=== PATIENT | male | born 1955 | race Caucasian/White ===

== ENCOUNTER 2020-06-28 08:49 | Outpatient (REF) | payer SELFPAY | END 2020-06-28 08:50 | disposition home or self-care (01) | LOC: HO.LAB 08:49 | PROVIDERS: Visit Provider Nurse Practitioner Family | DX: R31.9 Hematuria, unspecified (principal); R30.0 Dysuria | CPT/HCPCS: 87086; 87088 ==

== ENCOUNTER 2020-08-30 08:38 | Outpatient (RCR) | payer OTHER, SELFPAY ==
--- NOTE | ~2020-08-30 | XR_ITS ---
EXAMINATION: XR FOOT, RIGHT CLINICAL INFORMATION: Right foot wound. COMPARISON: None. TECHNIQUE: AP, lateral, and oblique views of the right foot. FINDINGS: There is loss of MTP and PIP joint space 1st digit. There is likely osteotomy of the distal 1st metatarsal. No visible acute fracture, dislocation or periosteal thickening seen. There is amputation of the 4th digit beyond the metatarsal. No soft tissue gas seen. There is dorsal tarsometatarsal significant spurring. There is a [id number] calcaneal heel and retrocalcaneal enthesophytes. The ankle mortise and subtalar joints are normal. XR/XR foot RT 2V IMPRESSION: Moderate dorsal tarsometatarsal spurring. Moderate calcaneal heel and retrocalcaneal enthesophytes. No bony erosive changes or soft tissue ulceration seen. Postoperative changes distal 1st metatarsal and degenerative changes MTP joint and PIP joint 1st digit with plantar flexion.
== END 2020-11-03 11:26 | disposition home or self-care (01) ==
LOC: HO.WCC 08:38
PROVIDERS: PCP Nurse Practitioner Family; Visit Provider Physician Assistant
DX: E11.621 Type 2 diabetes mellitus with foot ulcer (principal); E11.65 Type 2 diabetes mellitus with hyperglycemia; L97.412 Non-pressure chronic ulcer of right heel and midfoot with fat layer exposed; L84 Corns and callosities; Z79.4 Long term (current) use of insulin; Z79.82 Long term (current) use of aspirin; Z89.421 Acquired absence of other right toe(s)
CPT/HCPCS: 11042; 29445; 73620; 87071; 87077; 87186; 87205; 99212

== ENCOUNTER 2020-09-09 09:58 | Outpatient (REF) | payer OTHER, SELFPAY ==
[2020-09-09 11:29] LABS: Alanine Aminotransferase 43 U/L (0-40); Albumin Level 4.3 g/dL (3.5-5.0); Alkaline Phosphatase 88 U/L (39-117); Anion Gap 15 (12-20); Aspartate Amino Transferase 31 U/L (5-37); Bilirubin Total 1.1 mg/dL (0.0-1.0); Blood Urea Nitrogen 17 mg/dL (9-16); Calcium 8.9 mg/dL (8.4-10.2); Carbon Dioxide 27 mmol/L (22-29); Chloride 101 mmol/L (96-108); Cholesterol 149 mg/dL; Estimated Glomerular Filt Rate > 60; Glucose Fasting 216 mg/dL (60-99); HDL Cholesterol 36 mg/dL; LDL Cholesterol Calculated 69 mg/dl; Sodium 139 mmol/L (135-145); Total Protein 7.4 g/dL (6.5-8.0); Triglycerides 224 mg/dL
[2020-09-09 11:45] LABS: Estimated Average Glucose 272 mg/dL; Hemoglobin A1c % 11.1 %
[2020-09-09 11:53] LABS: Prostate Specific Antigen Scr 1.63 ng/mL (<0.05-4.0); TSH reflex Free T4 1.78 uIU/mL (0.32-4.0)
== END 2020-09-09 09:59 | disposition home or self-care (01) ==
LOC: HO.HMGCLDS 09:58
PROVIDERS: PCP Nurse Practitioner Family; Visit Provider Nurse Practitioner Family
DX: N40.0 Benign prostatic hyperplasia without lower urinary tract symptoms (principal); E11.9 Type 2 diabetes mellitus without complications
CPT/HCPCS: 36415; 80053; 80061; 83036; 84153; 84443

== ENCOUNTER → 2020-11-03 12:53 | Outpatient (BNVA) | payer MEDICARE, SELFPAY | PROVIDERS: PCP Nurse Practitioner Family; Visit Provider Internal Medicine Endocrinology, Diabetes & Metabolism | DX: E11.65 Type 2 diabetes mellitus with hyperglycemia (principal); E11.621 Type 2 diabetes mellitus with foot ulcer; E11.40 Type 2 diabetes mellitus with diabetic neuropathy, unspecified; E11.21 Type 2 diabetes mellitus with diabetic nephropathy; E78.5 Hyperlipidemia, unspecified; I10 Essential (primary) hypertension; E66.01 Morbid (severe) obesity due to excess calories; Z88.1 Allergy status to other antibiotic agents; Z91.018 Allergy to other foods; Z89.421 Acquired absence of other right toe(s); Z79.4 Long term (current) use of insulin; Z79.899 Other long term (current) drug therapy | CPT/HCPCS: 82947; 99202 ==

== ENCOUNTER → 2020-11-29 08:47 | Outpatient (BNVA) | payer MEDICARE, SELFPAY | PROVIDERS: Visit Provider Dietitian, Registered | DX: E11.65 Type 2 diabetes mellitus with hyperglycemia (principal); E66.9 Obesity, unspecified; Z68.39 Body mass index [BMI] 39.0-39.9, adult; Z71.3 Dietary counseling and surveillance | CPT/HCPCS: 97802 ==

== ENCOUNTER → 2020-12-19 12:52 | Outpatient (BNVA) | payer MEDICARE, SELFPAY | PROVIDERS: Visit Provider Physician Assistant | DX: Z12.11 Encounter for screening for malignant neoplasm of colon (principal) | CPT/HCPCS: 99202 ==

== ENCOUNTER → 2021-01-04 07:24 | Outpatient (BNVA) | payer MEDICARE, SELFPAY | PROVIDERS: PCP Nurse Practitioner Family; Visit Provider Nurse Practitioner Gerontology | DX: E11.65 Type 2 diabetes mellitus with hyperglycemia (principal); E11.21 Type 2 diabetes mellitus with diabetic nephropathy; E11.42 Type 2 diabetes mellitus with diabetic polyneuropathy; E11.610 Type 2 diabetes mellitus with diabetic neuropathic arthropathy; E66.01 Morbid (severe) obesity due to excess calories; E78.5 Hyperlipidemia, unspecified; I10 Essential (primary) hypertension; Z68.39 Body mass index [BMI] 39.0-39.9, adult; Z79.4 Long term (current) use of insulin | CPT/HCPCS: 82947; 99212 ==

== ENCOUNTER → 2021-01-18 07:50 | Outpatient (BNVA) | payer MEDICARE, SELFPAY | PROVIDERS: PCP Nurse Practitioner Family; Visit Provider Internal Medicine Endocrinology, Diabetes & Metabolism | DX: E11.65 Type 2 diabetes mellitus with hyperglycemia (principal); E11.21 Type 2 diabetes mellitus with diabetic nephropathy; E11.42 Type 2 diabetes mellitus with diabetic polyneuropathy; E11.610 Type 2 diabetes mellitus with diabetic neuropathic arthropathy; E78.5 Hyperlipidemia, unspecified; E66.01 Morbid (severe) obesity due to excess calories; I10 Essential (primary) hypertension; Z79.4 Long term (current) use of insulin | CPT/HCPCS: 82947; 99212 ==

== ENCOUNTER 2021-01-25 08:43 | Day surgery (SDC) | payer MEDICARE, SELFPAY ==
[2021-01-17 15:03] VITALS: BMI 40.1
--- NOTE | 2021-01-17 15:38 | P.CONAN_ITS ---
Documented by User: Paula Cristobal 01/24/21 11:03 HPI - Anesthesia Eval Consult details Narrative: 65yo M for Colonoscopy PMFSH Active Problems Active Problems: All Active Problems (Updated 01/17/21 @ 15:09 by Bita Raman) Diabetes (Acute) Essential hypertension (Acute) Hematuria (Acute) Dysuria (Acute) Dyslipidemia (Acute) Uncontrolled diabetes mellitus (Acute) Screening for colon cancer (Acute) HTN (hypertension) (Acute) Type 2 diabetes mellitus with hyperglycemia (Acute) Encounter for screening colonoscopy (Acute) Obesity due to excess calories (Acute) Tinea pedis (Acute) Charcot foot due to diabetes mellitus (Acute) Morbid obesity (Acute) Diabetic polyneuropathy associated with type 2 diabetes mellitus (Acute) 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 type 2 diabetes mellitus (Acute) 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) Past Medical History Medical History (Updated 01/17/21 @ 15:09 by Bita Raman) KAI (acute kidney injury) Aortic root dilatation Aortic valve calcification BPH (benign prostatic hyperplasia) Charcot foot due to diabetes mellitus COVID-19 vaccine series completed 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 type 2 diabetes mellitus Diabetic polyneuropathy associated with type 2 diabetes mellitus 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 Morbid obesity Obesity due to excess calories [place] (obstructive sleep apnea) Osteomyelitis RLS (restless legs syndrome) Tinea pedis Family History Family History Father Bladder cancer Mother Lung cancer Surgical History Surgical History (Updated 01/17/21 @ 14:48 by Bita Raman) Amputation toe H/O colonoscopy History of bunionectomy History of bunionectomy Social History Social History Are you a primary care companion to a significant other at home: No Do you presently have visiting nurse or other home services: No Alcohol intake: current Alcohol intake frequency: holidays/special occasions only Patient Tobacco Use Status: Never used Tobacco Use of substances other than those prescribed or required for medical reasons: No Have you been hit, kicked, punched, or otherwise hurt by someone within the past year? If so, by whom?: No Are you DNR?: No Advance Directives: No Advance Directives Information Provided: No Advance Directives on File: No Recently lost weight without trying: No Eating poorly because of decreased appetite: No Nutrition Risks: No Nutritional Risk Meds Allergies Allergy/AdvReac Type Severity Reaction Status Date / Time amoxicillin [AMOXICILLIN] Allergy Intermediate RASH Verified 01/17/21 14:43 almond Allergy Unknown face Verified 01/17/21 14:43 swelling Home Medications Medication Instructions Recorded Confirmed Last Taken Type aspirin 81 mg chewable tablet 81 mg PO DAILY 12/19/20 01/18/21 Unknown History (Children's Aspirin) cholecalciferol (vitamin D3) 10 10 mcg PO DAILY 12/19/20 01/18/21 Unknown History mcg (400 unit) capsule Exam Exam Date and Time: January 17, 2021 1538 Height,Weight and Vital Signs: Height 6 ft 2 in Weight 142 kg Pertinent Lab Results Pertinent Lab Results: Laboratory Tests 09/09/20 10:06 Sodium 139 Potassium 4.0 Chloride 101 Carbon Dioxide 27 BUN 17 H Creatinine 0.83 Narrative Narrative: ECHO 2017 LVEF 55-60% LA mildly dilated Mod calc of aortic valve with increased gradients but no significant aortic stenosis RV systolic pressure is normal No evidence of pericardial effusion Assessment and Plan Assessment Anesthesia Assessment: Chart Reviewed Documented by User: Guera Avalos 01/25/21 09:42 [facility] Past Medical History Medical History (Updated 01/17/21 @ 15:09 by Bita Raman) KAI (acute kidney injury) Aortic root dilatation Aortic valve calcification BPH (benign prostatic hyperplasia) Charcot foot due to diabetes mellitus COVID-19 vaccine series completed 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 type 2 diabetes mellitus Diabetic polyneuropathy associated with type 2 diabetes mellitus 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 Morbid obesity Obesity due to excess calories [place] (obstructive sleep apnea) Osteomyelitis RLS (restless legs syndrome) Tinea pedis Family History Family History Father Bladder cancer Mother Lung cancer Surgical History Surgical History (Updated 01/17/21 @ 14:48 by Bita Raman) Amputation toe H/O colonoscopy History of bunionectomy History of bunionectomy Social History Social History Are you a primary care companion to a significant other at home: No Do you presently have visiting nurse or other home services: No Alcohol intake: current Alcohol intake frequency: holidays/special occasions only Patient Tobacco Use Status: Never used Tobacco Use of substances other than those prescribed or required for medical reasons: No Have you been hit, kicked, punched, or otherwise hurt by someone within the past year? If so, by whom?: No Are you DNR?: No Advance Directives: No Advance Directives Information Provided: No Advance Directives on File: No Recently lost weight without trying: No Eating poorly because of decreased appetite: No Nutrition Risks: No Nutritional Risk Meds Allergies Allergy/AdvReac Type Severity Reaction Status Date / Time amoxicillin [AMOXICILLIN] Allergy Intermediate RASH Verified 01/17/21 14:43 almond Allergy Unknown face Verified 01/17/21 14:43 swelling Home Medications Medication Instructions Recorded Confirmed Last Taken Type aspirin 81 mg chewable tablet 81 mg PO DAILY 12/19/20 01/18/21 Unknown History (Children's Aspirin) cholecalciferol (vitamin D3) 10 10 mcg PO DAILY 12/19/20 01/18/21 Unknown History mcg (400 unit) capsule Exam Airway Mallampati Class: II TM Dist: >3cm Neck ROM: Full Heart: rrr Lungs: cta Assessment and Plan Assessment Anesthesia Assessment: Anesthesia Plan Discussed Final Anesthetic Review NPO: Yes ASA Class: III Final Preanesthetic Review: No Changes in Pt Med Stat, Meds/Allgs Chart Reviewed and Consent Obtained/Reviewed Patient Risk: Intermediate Procedure Risk: Intermediate Anesthetic Plan Anesthetic Plan: MAC: Disposition: Standard PACU
[2021-01-25 09:22] VITALS: BP 152/76; PULSE 65; RESP 17; TEMP 36.7; O2SAT 95; BMI 38.5
[2021-01-25 09:22] LABS: Glucose, Whole Blood 102 mg/dL (60-115)
--- NOTE | 2021-01-25 09:31 | MHC.SHP ---
Pre-Procedural Eval Section A Date of Service: 01/25/21 Section B Chief Complaint: screening Relevant Social History: None Present Medications: see Short Stay Collaborative assessment Medical History: Significant History (KAI (acute kidney injury) Aortic root dilatation Aortic valve calcification BPH (benign prostatic hyperplasia) Charcot foot due to diabetes mellitus COVID-19 vaccine series completed 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 type 2 diabetes mellitus Diabetic polyneuropathy associated with type 2 diabetes) History of Previous Operations: Relevant previous surgery/procedure and date(s) (Amputation toe H/O colonoscopy History of bunionectomy) Allergies: Allergies Allergy/AdvReac Type Severity Reaction Status Date / Time amoxicillin [AMOXICILLIN] Allergy Intermediate RASH Verified 01/17/21 14:43 almond Allergy Unknown face Verified 01/17/21 14:43 swelling Review of Systems Sugical H&P ROS: Negative: Constitution, Cardiovascular, Respiratory, Neurological, Psychiatric, Hem-Onc, Allergic/Immunologic, Gastrointestinal, Genitourinary, Musculoskeletal, Integumentary, Endocrine and Eyes/Ears/Nose/Throat Exam Surgical H&P Exam: Normal: HEENT, Normal: Heart, Normal: Lungs, Normal: Abdomen, Normal: Skin and Normal: Neurological and Significant Findings: Extremities (amputation left 4 th toe) Plan Diagnosis/Plan: Unchanged I have reviewed the history and physical and performed a pertinent physical examination on my patient. No changes have occurred unless specified.
[2021-01-25] MEDS: Lactated Ringers 1,000 ML 100 ML IVCONT (09:46)
--- NOTE | 2021-01-25 10:45 | PM.OP ---
Brief Operative Note Date of Service: 01/25/21 Pre-op diagnosis: colon screening Post-op diagnosis: same Procedure: see op note Surgeon: Sumaya Armendariz MD Anesthesia: MAC Was an Boxing Instructor used for this Procedure?: No Estimated blood loss (mL): 0 Condition: stable Disposition: PACU
--- NOTE | 2021-01-25 10:46 | P.OP_ITS ---
Operative Note Operative Note Date of Service: 01/25/21 Narrative: Operative Information Procedure Description: Colonoscopy COLONOSCOPY Instrument: Olympus variable stiffness adult scope 190L Colonoscopy Monitoring: Vital signs and clinical assessment, continuous EKG monitoring, Pulse oximetry, Carbon Dioxide monitoring and blood pressure monitoring were done throughout the procedure. Colon withdrawal time was 18 minutes. Procedure: The patient was placed in the left lateral decubitis position and pre-procedure medications were administered. After a digital rectal examination of the ano-rectum, the video colonoscope was inserted into the rectum and advanced through the colon to the cecum/TI. The colonoscope was slowly withdrawn in a retrograde panoramic fashion and the colon mucosa was carefully examined including a retroflexed view of the rectum. Findings and interventions are described below. Procedure Difficulty: Findings: few small scattered tics thru out colon Terminal Ileum-normal Cecum:normal Ascending Colon: x 4 sessile polyps 7-9 mm removed with forceps Transverse Colon - x 2 pedunculated polyps 12-14 mm removed with cold snare. x 3 clips applied to one defect and x 1 clip to the other Descending Colon: x 4 sessile polyps 8-10 mm removed with cold snare Sigmoid Colon: normal Rectum: Retroflexion with small internal hemorrhoids, grade I Anorectum - normal Colon preparation: [place] Bowel Preparation Scale Right colon; 2 Transverse colon: 2 Left colon; 2 (0 = Unprepared colon segment with mucosa not seen due to solid stool that cannot be cleared. 1 = Portion of mucosa of the colon segment seen, but other areas of the colon segment not well seen due to staining, residual stool and/or opaque liquid. 2 = Minor amount of residual staining, small fragments of stool and/or opaque liquid, but mucosa of colon segment seen well. 3 = Entire mucosa of colon segment seen well with no residual staining, small fragments of stool or opaque liquid) Impression and Post Procedure Diagnosis: polyps internal hemorrhoids diverticular disease Plan: High fiber diet leaflet Avoid straining at stool, epsom salts and sitz bath, anusol supps or cream Repeat Colonoscopy in 1 year or earlier if clinically indicated Above findings were reviewed with the patient and relevant handouts were provided if indicated.
[2021-01-25 10:48] VITALS: BP 104/64; PULSE 62; RESP 16; TEMP 36.1; O2SAT 93
[2021-01-25 11:02] VITALS: BP 123/75; PULSE 61; RESP 16; TEMP 36.1; O2SAT 96
== END 2021-01-25 11:30 ==
LOC: HO.SSS 08:43
PROVIDERS: PCP Nurse Practitioner Family; Visit Provider Internal Medicine Gastroenterology
PROC: 0DJD8ZZ Inspection of Lower Intestinal Tract, Via Natural or Artificial Opening Endoscopic (ICD-10-PCS; CPT 45378; principal; 2021-01-25 10:10)
DX: Z12.11 Encounter for screening for malignant neoplasm of colon (principal); D12.2 Benign neoplasm of ascending colon; D12.3 Benign neoplasm of transverse colon; D12.4 Benign neoplasm of descending colon; K57.30 Diverticulosis of large intestine without perforation or abscess without bleeding; K64.0 First degree hemorrhoids; E11.21 Type 2 diabetes mellitus with diabetic nephropathy; Z79.4 Long term (current) use of insulin; E11.42 Type 2 diabetes mellitus with diabetic polyneuropathy; A52.16 Charcot's arthropathy (tabetic); G47.33 Obstructive sleep apnea (adult) (pediatric); Z79.82 Long term (current) use of aspirin; Z79.899 Other long term (current) drug therapy; Z88.0 Allergy status to penicillin
CPT/HCPCS: 45385; 45380; 82947; 88305

== ENCOUNTER → 2021-02-27 12:45 | Outpatient (BNVA) | payer MEDICARE, SELFPAY | PROVIDERS: PCP Nurse Practitioner Family; Visit Provider Physician Assistant | DX: Z13.89 Encounter for screening for other disorder (principal) | CPT/HCPCS: Q3014 ==

== ENCOUNTER → 2022-09-10 12:41 | Outpatient (BNVA) | payer MEDICARE, OTHER, SELFPAY | PROVIDERS: PCP Nurse Practitioner Family; Visit Provider Urology | DX: Z12.5 Encounter for screening for malignant neoplasm of prostate (principal); R31.29 Other microscopic hematuria; R33.9 Retention of urine, unspecified | CPT/HCPCS: 51798; 99202 ==

== ENCOUNTER → 2022-09-13 09:00 | Outpatient (REF) | payer MEDICARE, OTHER, SELFPAY ==
--- NOTE | 2022-09-13 09:08 | CA_ITS ---
Transthoracic Echocardiogram Amended Patient (Last, First, Middle): Romel Pruitt A Gender: Male Date of : 1955 Age: 67 Procedure Date: 09/13/2022 Procedure Type: Transthoracic Echocardiogram Location: OP Height: 190.5 cm Weight: 138.35 kg BSA: 2.63 m2 Heart Rate: 62 bpm BP: 140 / 75 mmHg Card Hanger: DASHAWN Referring MD: Fredrick Howell [facility] Symptoms: R01.1 - Cardiac murmur, unspecified Study Quality: Fair ECG Rhythm: Sinus Conclusions: - 1. Normal LV systolic function with impaired relaxation filling pattern 2. Mild aortic stenosis, cannot rule out bicuspid aortic valve 3. Moderately dilated ascending aorta at 4.7 cm 4. No gross pericardial effusion Findings Left Ventricle The left ventricle was not well visualized. Normal left ventricular cavity size. The left ventricular systolic function is normal. The visually estimated ejection fraction is between 60-65%. There is no evidence of regional wall motion abnormalities. Spectral Doppler is indicative of an impaired relaxation filling pattern. E/E prime ratio is between 8 and 15 consistent with indeterminate filling pressures. There is mild septal asymmetric hypertrophy. Peak GLS is -15.2%, which is reduced. Right Ventricle Normal right ventricular cavity size and systolic function. Atria Both atria are normal in size. There is lipomatous hypertrophy of the interatrial septum. There is no evidence of interatrial shunt. Aortic Valve The aortic valve was not well visualized. There is mild calcification of the aortic valve. There is mild aortic valve stenosis. There is no aortic valve regurgitation. Mitral Valve The mitral valve was not well visualized. There is trace mitral valve regurgitation. There is no mitral valve stenosis. Pulmonic Valve The pulmonic valve was not well visualized. Tricuspid Valve Likely normal tricuspid valve structure and function. Tricuspid regurgitation envelope is inadequate for calculation of right ventricular systolic pressure. Normal right atrial pressure. Great Vessels The pulmonary artery was not well visualized. There is moderate dilatation of the ascending aorta measuring 4.70 cm. Venous The inferior vena cava is normal in size and collapses greater than 50% with inspiration. Pericardium/Pleural There is no evidence of pericardial effusion. Prior Study Comparison Changes noted compared to prior study dated: 01/14/2018. moderately dilated ascending aorta noted with possibility of mild aortic stenosis. Recommendations, Care & Conclusions Recommend contrast in the future to improve endocardial definition. Measurements 2D Linear Measurements IVSd: 1.50 0.6-0.9/0.6-1.0 cm LVIDd: 5.62 3.9-5.3/4.2-5.9 cm LVIDd Index: 2.14 2.4-3.2/2.2-3.1 cm/m2 LVIDs: 3.42 2.0-3.6 cm LVPWd: 1.28 0.7-1.1 cm LA Diam: 4.40 2.7-3.8/3.0-4.0 cm LAIDs Index: 1.67 1.5-2.3 cm/m2 LV Mass: 431.81 67-162/88-224 g LV Mass Index: 164.19 43-95/49-115 g/m2 LVOT Diam: 2.40 3.0+(-)1.3 cm 2D Volumes LA Vol: 19.70 2D Systolic Function EF 4C: 70.10 >55% EF 2C: 59.30 >55% EF BiP: 63.70 >55% Mitral Valve MV Pk E: 0.94 MV PK A: 0.87 MV Decel Time: 277.00 E/A: 1.10 E'Lateral: 8.38 E'Medial: 7.72 E/E' Med: 12.20 E/E' Lat: 11.30 PHT: 81.00 MVA PHT: 2.72 Decel [place]: 3.40 Aortic Valve AoV Pk Justo: 2.16 AoV Mn Justo: 1.48 AoV VTI: 0.44 AoV Pk Grad: 19.00 Aov Mn Grad: 10.00 MARLENA Cont.VTI: 2.66 LVOT LVOT Pk Justo: 1.23 LVOT Mn Justo: 0.87 LVOT VTI: 0.26 LVOT Pk Grad: 6.00 LVOT Mn Grad: 3.00 LVOT Diam: 2.40 LVOT Area: 4.52 Diastolic Function MV Pk E: 0.94 MV Pk A: 0.87 E/A: 1.10 E'Medial: 7.72 E/E' Med: 12.20 E' Laterial: 8.38 E/E' Lat: 11.30 Right Ventricle TAPSE (mm): 22.00 TVS' Justo: 18.20 Tricuspid Valve RA Press: 8.00 Great Vessels Aorta Sinus of Valsalva: 4.00 2.0-3.5 cm Ao Asc: 4.70 2.1-3.4 cm Pulmonary Valve PV Pk Justo: 1.51 Peak PV Grad: 9.00 Updated in Other Vendor System with Status of Final López García MD electronically signed on 09/13/2022 1:05:08 PM with status of Final
[2022-09-13 09:26] LABS: MANUAL DIFF FLAG NO
[2022-09-13 09:34] LABS: Basophils Absolute Auto 0.1 X10*3/uL (0.0-0.2); Basophils Percent Auto 0.7 % (0-2); Eosinophils Absolute Auto 0.4 X10*3/uL (0.0-0.4); Eosinophils Percent Auto 4.2 % (0-4); Hematocrit 46.6 % (42.0-52.0); Hemoglobin 15.6 g/dl (14.0-18.0); Imm Gran Abs Auto 0.16 X10*3/uL (0.00-0.03); Imm Gran Pct Auto 1.9 % (0.0-0.4); Lymphocytes Absolute Auto 1.3 X10*3/uL (1.2-4.9); Lymphocytes Percent Auto 15.2 % (20-40); Mean Corpuscular HGB Conc 33.5 g/dl (31.0-36.0); Mean Corpuscular Volume 86.6 fL (80.0-98.0); Mean Platelet Volume 9.9 fL (9.4-12.4); Monocytes Absolute Auto 0.6 X10*3/uL (0.1-1.2); Monocytes Percent Auto 6.7 % (2-11); Neutrophils Absolute Auto 6.1 x10*3/uL (2.0-8.3); Neutrophils Percent Auto 71.3 % (45-73); Platelet Count 224 X10*3/uL (160-400); Red Blood Count 5.38 X10*6/uL (4.60-5.80); Red Cell Distribution Width 14.7 % (11.0-16.0); White Blood Count 8.5 X10*3/uL (4.8-10.8)
[2022-09-13 09:39] LABS: Estimated Average Glucose 263 mg/dL; Hemoglobin A1c % 10.8 %
[2022-09-13 10:22] LABS: Alanine Aminotransferase 36 U/L (0-40); Albumin Level 4.1 g/dL (3.5-5.0); Alkaline Phosphatase 82 U/L (39-117); Anion Gap 15 (12-20); Aspartate Amino Transferase 19 U/L (5-37); Bilirubin Total 1.3 mg/dL (0.0-1.0); Blood Urea Nitrogen 17 mg/dL (9-16); Calcium 9.7 mg/dL (8.4-10.2); Carbon Dioxide 26 mmol/L (22-29); Chloride 103 mmol/L (96-108); Cholesterol 155 mg/dL; Estimated Glomerular Filt Rate > 60; Glucose Fasting 296 mg/dL (60-99); HDL Cholesterol 39 mg/dL; LDL Cholesterol Calculated 87 mg/dl; Potassium 4.7 mmol/L (3.3-5.1); Sodium 139 mmol/L (135-145); Total Protein 7.3 g/dL (6.5-8.0); Triglycerides 147 mg/dL
[2022-09-13 10:38] LABS: Prostate Specific Antigen Scr 1.38 ng/mL (<0.05-4.0); TSH reflex Free T4 2.06 uIU/mL (0.32-4.0)
[2022-09-21 01:24] LABS: PSA, Ultra Sensitive 1.26 ng/mL
== END ==
LOC: HO.CARD 09:00
PROVIDERS: Absent Provider Urology; PCP Nurse Practitioner Family; Visit Provider Nurse Practitioner Family
DX: Z12.5 Encounter for screening for malignant neoplasm of prostate (principal); R01.1 Cardiac murmur, unspecified; E11.65 Type 2 diabetes mellitus with hyperglycemia
CPT/HCPCS: 36415; 80053; 80061; 83036; 84153; 84443; 85025; 93306

== ENCOUNTER 2022-09-24 07:54 | Outpatient (REF) | payer MEDICARE, OTHER, SELFPAY ==
--- NOTE | ~2022-09-24 | US_ITS ---
EXAMINATION: Noninvasive assessment of the bilateral lower extremities with ARTERIAL DUPLEX . CLINICAL INFORMATION: Peripheral vascular disease TECHNIQUE: Duplex Doppler techniques with waveform analysis and measurement of velocities in the bilateral common femoral, profunda femoris, superficial femoral, popliteal and tibial arteries were performed. COMPARISON: None FINDINGS: DIRECT DUPLEX DOPPLER FINDINGS: RIGHT LEG: Common femoral artery: 142 cm/s, phasicity: Triphasic Profunda femoris artery: 113 cm/s, phasicity: Triphasic Superficial femoral artery (proximal): 112 cm/s, phasicity: Triphasic Superficial femoral artery (mid): 132 cm/s, phasicity: Triphasic Superficial femoral artery (distal): 146 cm/s, phasicity: Triphasic Popliteal artery: 64 cm/s, phasicity: Triphasic Posterior tibial artery: 122 cm/s, phasicity: Triphasic Peroneal artery: Not visualized LEFT LEG: Common femoral artery: 150 cm/s, phasicity: Triphasic Profunda femoris artery: 84.4 cm/s, phasicity: Triphasic Superficial femoral artery (proximal): 139 cm/s, phasicity: Triphasic Superficial femoral artery (mid): 108 cm/s, phasicity: Triphasic Superficial femoral artery (distal): 108 cm/s, phasicity: Triphasic Popliteal artery: 89.1 cm/s, phasicity: Triphasic Posterior tibial artery: 123 cm/s, phasicity: Triphasic Peroneal artery: Not visualized US/US arterial duplex LE BI IMPRESSION: Right leg: Unremarkable duplex arterial ultrasound. No significant arterial stenosis or occlusion Left leg: Unremarkable duplex arterial ultrasound. No significant arterial stenosis or occlusion
== END 2022-09-24 07:55 | disposition home or self-care (01) ==
LOC: HO.US 07:54
PROVIDERS: PCP Nurse Practitioner Family; Visit Provider Nurse Practitioner Family
DX: R09.89 Other specified symptoms and signs involving the circulatory and respiratory systems (principal)
CPT/HCPCS: 93925

== ENCOUNTER 2022-10-02 08:01 | Outpatient (REF) | payer MEDICARE, OTHER, SELFPAY ==
--- NOTE | ~2022-10-02 | US_ITS ---
EXAMINATION: US RETROPERITONEAL COMPLETE (RENAL) CLINICAL INFORMATION: Retention of urine, unspecified. COMPARISON: Renal ultrasound 03/20/2017. TECHNIQUE: Real-time imaging of the kidneys and bladder. FINDINGS: RIGHT KIDNEY: 16.2 x 7.9 x 8.2 cm (SAG x AP x TRV). The kidney is normal in size, contour, and echogenicity. Renal cortical thickness is normal. No renal calculi or hydronephrosis. Within the mid to lower pole there is a simple appearing 2.3 x 1.8 x 2.0 cm cyst which does not require follow-up. LEFT KIDNEY: 14.5 x 7.4 x 6.5 cm (SAG x AP x TRV). The kidney is normal in size, contour, and echogenicity. Renal cortical thickness is normal. No calculi or focal parenchymal lesions. No hydronephrosis. BLADDER: Well distended and normal. Bilateral ureteral jets are demonstrated. Prevoid bladder volume is 185 mL. Postvoid bladder volume is 157 mL. ADDITIONAL FINDINGS: Prostate volume is 61 mL. US/US retroperitoneal comp IMPRESSION: Large postvoid residual. .
== END 2022-10-02 08:02 | disposition home or self-care (01) ==
LOC: HO.US 08:01
PROVIDERS: PCP Nurse Practitioner Family; Visit Provider Urology
DX: R31.29 Other microscopic hematuria (principal); R33.9 Retention of urine, unspecified
CPT/HCPCS: 76770

== ENCOUNTER → 2022-10-16 09:17 | Outpatient (BNVA) | payer MEDICARE, OTHER, SELFPAY | PROVIDERS: PCP Nurse Practitioner Family; Visit Provider Surgery Vascular Surgery | DX: Z13.89 Encounter for screening for other disorder (principal) ==

== ENCOUNTER → 2022-11-02 10:18 | Outpatient (BNVA) | payer MEDICARE, SELFPAY | PROVIDERS: PCP Nurse Practitioner Family; Visit Provider Urology | DX: N40.1 Benign prostatic hyperplasia with lower urinary tract symptoms (principal); R33.8 Other retention of urine; N35.919 Unspecified urethral stricture, male, unspecified site | CPT/HCPCS: 52000 ==

== ENCOUNTER → 2022-12-10 08:16 | Outpatient (BNVA) | payer MEDICARE, SELFPAY | PROVIDERS: PCP Nurse Practitioner Family; Visit Provider Urology | DX: N40.0 Benign prostatic hyperplasia without lower urinary tract symptoms (principal); N52.9 Male erectile dysfunction, unspecified; R33.9 Retention of urine, unspecified; Z12.5 Encounter for screening for malignant neoplasm of prostate | CPT/HCPCS: 51798; 99212 ==

== ENCOUNTER → 2022-12-27 14:11 | Outpatient (BNVA) | payer MEDICARE, SELFPAY | PROVIDERS: PCP Nurse Practitioner Family; Referring Provider Nurse Practitioner Family; Visit Provider Internal Medicine Cardiovascular Disease ==

== ENCOUNTER → 2023-01-03 07:23 | Outpatient (BNVA) | payer MEDICARE, SELFPAY | PROVIDERS: PCP Nurse Practitioner Family; Visit Provider Physician Assistant | DX: I35.0 Nonrheumatic aortic (valve) stenosis (principal); D12.6 Benign neoplasm of colon, unspecified | CPT/HCPCS: 99212 ==

== ENCOUNTER 2023-03-26 06:14 | Day surgery (SDC) | payer MEDICARE, SELFPAY ==
[2023-03-11 14:43] VITALS: BMI 41.2
--- NOTE | 2023-03-25 10:52 | P.CONAN_ITS ---
Documented by User: Paula Cristobal NP 03/25/23 10:54 HPI - Anesthesia Eval Consult details Narrative: 67yo M for Colonoscopy Following [facility] cardio for AAA (4.7cm on 08/2022 echo) and mild . No tx at this time. Will repeat echo and f/u in May 2023. [facility] Active Problems Active Problems: All Active Problems (Updated 01/03/23 @ 11:08 by Rhona Islas PA-C) Erectile dysfunction (Acute) Urethral stricture (Acute) Varicose veins of right lower extremity with inflammation (Acute) Charcot foot due to diabetes mellitus (Acute) PAD (peripheral artery disease) (Acute) Microscopic hematuria (Acute) Incomplete bladder emptying (Acute) Systolic murmur (Acute) Frequent urination (Acute) Decreased dorsalis pedis pulse (Acute) Screening for colon cancer (Acute) Encounter for annual wellness visit (AWV) in Medicare patient (Acute) Screening PSA (prostate specific antigen) (Acute) Tubular adenoma of colon (Acute) Encounter for screening colonoscopy (Acute) Type 2 diabetes mellitus with hyperglycemia (Acute) HTN (hypertension) (Acute) Screening for colon cancer (Acute) Uncontrolled diabetes mellitus (Acute) Dyslipidemia (Acute) Dysuria (Acute) Hematuria (Acute) Essential hypertension (Acute) Diabetes (Acute) Ascending aortic aneurysm (Acute) BPH (benign prostatic hyperplasia) (Acute) Aortic stenosis (Acute) Obesity due to excess calories (Acute) Tinea pedis (Acute) Charcot foot due to diabetes mellitus (Acute) Morbid obesity (Acute) Diabetic polyneuropathy associated with type 2 diabetes mellitus (Acute) 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 type 2 diabetes mellitus (Acute) skilled nursing (current) use of insulin (Acute) Past Medical History Medical History Ascending aortic aneurysm Ascending aorta dilatation Aortic stenosis Hamm[place], bilateral COVID-19 vaccine series completed Obesity due to excess calories Tinea pedis Charcot foot due to diabetes mellitus Morbid obesity Diabetic polyneuropathy associated with type 2 diabetes mellitus 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 type 2 diabetes mellitus skilled nursing (current) use of insulin RLS (restless legs syndrome) Aortic valve calcification BPH (benign prostatic hyperplasia) Osteomyelitis [place] (obstructive sleep apnea) KAI (acute kidney injury) Family History Family History Father Bladder cancer Mother Lung cancer Surgical History Surgical History H/O colonoscopy History of bunionectomy Amputation toe History of bunionectomy Social History Social History Are you a primary patient care manager to a significant other at home: Yes (father, also cares for him) Do you presently have visiting nurse or other home services: No Alcohol intake: current Alcohol intake frequency: holidays/special occasions only Patient Tobacco Use Status: Never used Tobacco Use of substances other than those prescribed or required for medical reasons: No Have you been hit, kicked, punched, or otherwise hurt by someone within the past year? If so, by whom?: No Are you DNR?: No Advance Directives: No Advance Directives Information Provided: Yes Advance Directives on File: No Recently lost weight without trying: No Eating poorly because of decreased appetite: No Nutrition Risks: No Nutritional Risk Poor oral hygiene: No Meds Allergies Allergy/AdvReac Type Severity Reaction Status Date / Time amoxicillin [AMOXICILLIN] Allergy Intermediate RASH Verified 01/03/23 07:51 Home Medications Medication Instructions Recorded Confirmed Last Taken Type aspirin 81 mg chewable tablet 81 mg PO DAILY 12/19/20 12/27/22 Unknown History (Children's Aspirin) cholecalciferol (vitamin D3) 10 10 mcg PO DAILY 12/19/20 12/27/22 Unknown History mcg (400 unit) capsule Exam Exam Date and Time: March 25, 2023 1052 Height,Weight and Vital Signs: Height 6 ft 2 in Weight 145.603 kg Pertinent Lab Results Pertinent Lab Results: Laboratory Tests 09/13/22 09:24 WBC 8.5 Hgb 15.6 Hct 46.6 Plt Count 224 Sodium 139 Potassium 4.7 Chloride 103 Carbon Dioxide 26 BUN 17 H Creatinine 1.00 Narrative Narrative: EKG 08/2022 NSR @ 70 ECHO 08/2022 Conclusions: - 1. Normal LV systolic function with impaired relaxation filling pattern 2. Mild aortic stenosis, cannot rule out bicuspid aortic valve 3. Moderately dilated ascending aorta at 4.7 cm 4. No gross pericardial effusion Assessment and Plan Assessment Anesthesia Assessment: Chart Reviewed Documented by User: Kristen Ceballos MD 03/26/23 07:48 PMF Active Problems Active Problems: All Active Problems (Updated 03/26/23 @ 07:25 by Kristen Ceballos MD) Erectile dysfunction (Acute) Urethral stricture (Acute) Varicose veins of right lower extremity with inflammation (Acute) Charcot foot due to diabetes mellitus (Acute) PAD (peripheral artery disease) (Acute) Microscopic hematuria (Acute) Incomplete bladder emptying (Acute) Systolic murmur (Acute) Frequent urination (Acute) Decreased dorsalis pedis pulse (Acute) Screening for colon cancer (Acute) Encounter for annual wellness visit (AWV) in Medicare patient (Acute) Screening PSA (prostate specific antigen) (Acute) Tubular adenoma of colon (Acute) Encounter for screening colonoscopy (Acute) Type 2 diabetes mellitus with hyperglycemia (Acute) HTN (hypertension) (Acute) Screening for colon cancer (Acute) Uncontrolled diabetes mellitus (Acute) Dyslipidemia (Acute) Dysuria (Acute) Hematuria (Acute) Essential hypertension (Acute) Diabetes (Acute) Ascending aortic aneurysm (Acute) BPH (benign prostatic hyperplasia) (Acute) Aortic stenosis (Acute) Obesity due to excess calories (Acute) Tinea pedis (Acute) Morbid obesity (Acute) BMI 41.2 Diabetic polyneuropathy associated with type 2 diabetes mellitus (Acute) 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 type 2 diabetes mellitus (Acute) skilled nursing (current) use of insulin (Acute) Past Medical History Medical History Ascending aortic aneurysm Ascending aorta dilatation Aortic stenosis [place], bilateral COVID-19 vaccine series completed Obesity due to excess calories Tinea pedis Charcot foot due to diabetes mellitus Morbid obesity Diabetic polyneuropathy associated with type 2 diabetes mellitus 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 type 2 diabetes mellitus 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 RLS (restless legs syndrome) Aortic valve calcification BPH (benign prostatic hyperplasia) Osteomyelitis [place] (obstructive sleep apnea) KAI (acute kidney injury) Family History Family History Father Bladder cancer Mother Lung cancer Family history of problems with anesthesia: No Surgical History Surgical History H/O colonoscopy History of bunionectomy Amputation toe History of bunionectomy History of Problems with Anesthesia: No Social History Social History Are you a primary patient care manager to a significant other at home: Yes (father, also cares for him) Do you presently have visiting nurse or other home services: No Alcohol intake: current Alcohol intake frequency: holidays/special occasions only Patient Tobacco Use Status: Never used Tobacco Use of substances other than those prescribed or required for medical reasons: No Have you been hit, kicked, punched, or otherwise hurt by someone within the past year? If so, by whom?: No Are you DNR?: No Advance Directives: No Advance Directives Information Provided: Yes Advance Directives on File: No Recently lost weight without trying: No Eating poorly because of decreased appetite: No Nutrition Risks: No Nutritional Risk Poor oral hygiene: No Meds Allergies Allergy/AdvReac Type Severity Reaction Status Date / Time amoxicillin [AMOXICILLIN] Allergy Intermediate RASH Verified 01/03/23 07:51 Home Medications Medication Instructions Recorded Confirmed Last Taken Type aspirin 81 mg chewable tablet 81 mg PO DAILY 12/19/20 12/27/22 Unknown History (Children's Aspirin) cholecalciferol (vitamin D3) 10 10 mcg PO DAILY 12/19/20 12/27/22 Unknown History mcg (400 unit) capsule Exam Height,Weight and Vital Signs: Height 6 ft 2 in Weight 145.603 kg Vital Signs Temp Pulse Resp BP Pulse Ox O2 Del Method 03/26/23 06:49 98.2 F 68 18 158/86 H 94 Room Air Pertinent Lab Results Pertinent Lab Results: Laboratory Tests 09/13/22 09:24 WBC 8.5 Hgb 15.6 Hct 46.6 Plt Count 224 Sodium 139 Potassium 4.7 Chloride 103 Carbon Dioxide 26 BUN 17 H Creatinine 1.00 Lab Results 03/26/23 Range/Units 06:43 POC Glucose 188 H (60-115) mg/dL Airway Mallampati Class: III TM Dist: >3cm Neck ROM: Full Loose/Missing/Broken Teeth: No (Denies broken,loose,missing teeth) Heart: RRR ?murmur Lungs: CTAB Assessment and Plan Assessment Anesthesia Assessment: Anesthesia Plan Discussed Final Anesthetic Review Family History of Problems with Anesthesia: No History of Problems with Anesthesia: No NPO: Yes ASA Class: III Final Preanesthetic Review: No Changes in Pt Med Stat, Meds/Allgs Chart Reviewed, Consent Obtained/Reviewed and Anes Risks/Benef Reviewed Patient Risk: High Procedure Risk: Low Assessment/Block/Sedation in SS: Assess/Block/Sedation-SS Anesthetic Plan Anesthetic Plan: MAC: Disposition: Standard PACU
--- OUTSIDE RECORDS SUMMARY | 2023-03-26 06:16 | XMS_ITS | Patient Health Record ---
Author Name Unknown Organization [facility] Address [address] [place] [address] Care Team Providers Care Shake Maker Name Role Phone JESUS PALAFOX Primary Care Provider Rudy Pineda [phone] ALLERGIES Allergen (clinical drug ingredient) Drug/Non Drug Allergy documented on EMR Reaction Allergy Type Onset Date Status Penicillin Unknown Drug Allergy Active REASON FOR REFERRAL No Information MEDICATIONS Medication SIG (Take, Route, Frequency, Duration) Notes Start Date End Date Status amLODIPine Besylate 10mg Active MoviPrep 100 GM as directed Orally 06/07/2011/0 07/2022 Active Lisinopril Active SOCIAL HISTORY Sex Assigned At : Social History Observation Description Sex Assigned At Unknown PROBLEMS Problem Type ICD Code Onset Dates Problem Status W/U Status Risk SNOMED Code Notes Problem Special screening for malignant neoplasms, colon (V76.51) Active confirmed Screening for malignant neoplasm of colon (280237379) PLAN OF TREATMENT Future Test Test Name Order Date COLONOSCOPY 06/07/2011 Insurance Providers Payer Name Payer Address Payer Phone Subscriber Number Group Number Insured Name Patient Relationship to Insured Coverage Start Date Coverage End Date [facility] [address] [place] [address] [phone] [id number] KEITH ZUNIGA Self - patient is the insured MEDICAL (GENERAL) HISTORY Medical History History ICD Code HTN Denies [place],DM,CVA,Lung disease,renal dise ase
--- NOTE | 2023-03-26 06:31 | MHC.SHP ---
Pre-Procedural Eval Section A Date of Service: 03/26/23 Section B Chief Complaint: Benign neoplasm of colon, unspecified Relevant Family History (Specify if Yes): No Relevant Social History: None Present Medications: see Short Stay Collaborative assessment Medical History: Significant History (Ascending aortic aneurysm Ascending aorta dilatation Aortic stenosis [place], bilateral COVID-19 vaccine series completed Obesity due to excess calories Tinea pedis Charcot foot due to diabetes mellitus Morbid obesity Diabetic polyneuropathy associated with type 2 diabetes mellitus Diabetic nephro) History of Previous Operations: Relevant previous surgery/procedure and date(s) (H/O colonoscopy History of bunionectomy Amputation toe) Allergies: Allergies Allergy/AdvReac Type Severity Reaction Status Date / Time amoxicillin [AMOXICILLIN] Allergy Intermediate RASH Verified 01/03/23 07:51 Review of Systems Sugical H&P ROS: Negative: Constitution, Cardiovascular, Respiratory, Neurological, Psychiatric, Hem-Onc, Allergic/Immunologic, Gastrointestinal, Genitourinary, Musculoskeletal, Integumentary, Endocrine and Eyes/Ears/Nose/Throat Exam Surgical H&P Exam: Normal: HEENT, Normal: Heart, Normal: Lungs, Normal: Extremities, Normal: Abdomen, Normal: Skin and Normal: Neurological Plan Diagnosis/Plan: Unchanged I have reviewed the history and physical and performed a pertinent physical examination on my patient. No changes have occurred unless specified. Time Spent With Patient Time: Total time managing care of this patient today ____ minutes.
[2023-03-26 06:47] LABS: Glucose, Whole Blood 188 mg/dL (60-115)
[2023-03-26] MEDS: Lactated Ringers 1,000 ML 100 ML IVCONT (06:48)
[2023-03-26 06:49] VITALS: BP 158/86; PULSE 68; RESP 18; TEMP 36.8; O2SAT 94
--- NOTE | 2023-03-26 08:11 | W.PM.OPN ---
Operative Note Operative Note Date of Service: 03/26/23 Narrative: Operative Information Procedure Description: Colonoscopy Indication: hx of polyps Anesthesia: MAC COLONOSCOPY Instrument: Olympus variable stiffness ADULT scope 190L Colonoscopy Monitoring: Vital signs and clinical assessment, continuous EKG monitoring, Pulse oximetry, Carbon Dioxide monitoring and blood pressure monitoring were done throughout the procedure. Colon withdrawal time was 16 minutes. Procedure: The patient was placed in the left lateral decubitis position and pre-procedure medications were administered. After a digital rectal examination of the ano-rectum, the video colonoscope was inserted into the rectum and advanced through the colon to the cecum/TI. The colonoscope was slowly withdrawn in a retrograde panoramic fashion and the colon mucosa was carefully examined including a retroflexed view of the rectum. Findings and interventions are described below. Procedure Difficulty: moderate Findings: Terminal Ileum-normal Cecum:normal Ascending Colon: normal Transverse Colon - 6-8 mm sessile polyp removed with cold forceps Descending Colon: x 3 sessile polyps 7-9 mm, two removed with cold snare and 1 with cold forceps Sigmoid Colon: x2 sessile polyps 7-8 mm removed with cold forceps Rectum: Retroflexion with medium sized internal hemorrhoids, grade I Anorectum - normal Colon preparation: [place] Bowel Preparation Scale Right colon; 2 Transverse colon: 2 Left colon; 2 (0 = Unprepared colon segment with mucosa not seen due to solid stool that cannot be cleared. 1 = Portion of mucosa of the colon segment seen, but other areas of the colon segment not well seen due to staining, residual stool and/or opaque liquid. 2 = Minor amount of residual staining, small fragments of stool and/or opaque liquid, but mucosa of colon segment seen well. 3 = Entire mucosa of colon segment seen well with no residual staining, small fragments of stool or opaque liquid) Impression and Post Procedure Diagnosis: polyps internal hemorrhoids diverticular disease Plan: High fiber diet leaflet Avoid straining at stool, epsom salts and sitz bath, anusol supps or cream Repeat Colonoscopy in 3-4 years or earlier if clinically indicated Above findings were reviewed with the patient and relevant handouts were provided if indicated.
[2023-03-26 08:19] VITALS: BP 138/77; PULSE 70; RESP 16; TEMP 36.3; O2SAT 94
[2023-03-26 08:34] VITALS: BP 128/51; PULSE 80; RESP 16; TEMP 36.3; O2SAT 95
== END 2023-03-26 09:40 | disposition home or self-care (01) ==
PROVIDERS: PCP Nurse Practitioner Family; Visit Provider Internal Medicine Gastroenterology
PROC: 0DJD8ZZ Inspection of Lower Intestinal Tract, Via Natural or Artificial Opening Endoscopic (ICD-10-PCS; CPT 45378; principal; 2023-03-26 07:30)
DX: Z12.11 Encounter for screening for malignant neoplasm of colon (principal); Z86.010 Personal history of colon polyps; D12.3 Benign neoplasm of transverse colon; D12.4 Benign neoplasm of descending colon; D12.5 Benign neoplasm of sigmoid colon; K57.30 Diverticulosis of large intestine without perforation or abscess without bleeding; K64.0 First degree hemorrhoids; G47.33 Obstructive sleep apnea (adult) (pediatric); I71.21 Aneurysm of the ascending aorta, without rupture; I35.0 Nonrheumatic aortic (valve) stenosis; N17.9 Acute kidney failure, unspecified; N40.0 Benign prostatic hyperplasia without lower urinary tract symptoms; M86.9 Osteomyelitis, unspecified; E66.01 Morbid (severe) obesity due to excess calories; Z68.41 Body mass index [BMI] 40.0-44.9, adult; E11.21 Type 2 diabetes mellitus with diabetic nephropathy; E11.42 Type 2 diabetes mellitus with diabetic polyneuropathy; E11.610 Type 2 diabetes mellitus with diabetic neuropathic arthropathy; Z79.4 Long term (current) use of insulin; Z79.82 Long term (current) use of aspirin; Z79.899 Other long term (current) drug therapy; Z88.1 Allergy status to other antibiotic agents
CPT/HCPCS: 45385; 45380; 82947; 88305

== ENCOUNTER → 2023-03-26 06:14 | Outpatient (BNV) | payer MEDICARE, SELFPAY | PROVIDERS: PCP Nurse Practitioner Family; Visit Provider Internal Medicine Gastroenterology | DX: Z12.11 Encounter for screening for malignant neoplasm of colon (principal); Z86.010 Personal history of colon polyps; D12.3 Benign neoplasm of transverse colon; D12.4 Benign neoplasm of descending colon; D12.5 Benign neoplasm of sigmoid colon; K64.0 First degree hemorrhoids; K57.30 Diverticulosis of large intestine without perforation or abscess without bleeding | CPT/HCPCS: 45380; 45385 ==

== ENCOUNTER 2023-04-02 08:37 | Outpatient (REF) | payer MEDICARE, SELFPAY ==
[2023-04-02 11:17] LABS: MANUAL DIFF FLAG NO
[2023-04-02 11:23] LABS: Basophils Absolute Auto 0.1 X10*3/uL (0.0-0.2); Basophils Percent Auto 0.6 % (0-2); Eosinophils Absolute Auto 0.4 X10*3/uL (0.0-0.4); Eosinophils Percent Auto 3.9 % (0-4); Hematocrit 45.7 % (42.0-52.0); Hemoglobin 15.3 g/dl (14.0-18.0); Imm Gran Abs Auto 0.11 X10*3/uL (0.00-0.03); Imm Gran Pct Auto 1.1 % (0.0-0.4); Lymphocytes Absolute Auto 1.4 X10*3/uL (1.2-4.9); Lymphocytes Percent Auto 14.5 % (20-40); Mean Corpuscular HGB Conc 33.5 g/dl (31.0-36.0); Mean Corpuscular Hemoglobin 29.6 pg (27.0-33.0); Mean Corpuscular Volume 88.4 fL (80.0-98.0); Mean Platelet Volume 10.5 fL (9.4-12.4); Monocytes Absolute Auto 0.7 X10*3/uL (0.1-1.2); Monocytes Percent Auto 6.8 % (2-11); Neutrophils Absolute Auto 7.1 x10*3/uL (2.0-8.3); Neutrophils Percent Auto 73.1 % (45-73); Platelet Count 252 X10*3/uL (160-400); Red Blood Count 5.17 X10*6/uL (4.60-5.80); Red Cell Distribution Width 14.6 % (11.0-16.0); White Blood Count 9.7 X10*3/uL (4.8-10.8)
[2023-04-02 11:29] LABS: Appearance Urine Cloudy; Color Urine Yellow; Glucose Urine UA 250 mg/dL (Negative); Leukocyte Esterase Urine Negative (Negative); Nitrite Urine Negative (Negative); Specific Gravity - Urine 1.015 (1.005-1.025); UMIC TRIGGER UACC YES; Urine Blood Large (3+) (Negative); Urine Ketones Negative (Negative); Urine Protein 100 (2+) mg/dL (Neg-Trace)
[2023-04-02 11:33] LABS: Estimated Average Glucose 200 mg/dL; Hemoglobin A1c % 8.6 % (<6.0)
[2023-04-02 11:34] LABS: Bacteria Urine None Seen (None Seen); Hyaline Casts Urine 0-2 /LPF (0-2); RBC Urine >20 /HPF (0-2); Squamous Epithelial Cell Urine 0-2 /HPF (0-2); WBC Urine 0-5 /HPF (0-5)
[2023-04-02 12:43] LABS: Creatinine Urine 81.22 mg/dL
[2023-04-02 12:46] LABS: Alanine Aminotransferase 26 U/L (0-40); Albumin Level 4.4 g/dL (3.5-5.0); Alkaline Phosphatase 74 U/L (39-117); Anion Gap 12 (12-20); Aspartate Amino Transferase 19 U/L (5-37); Blood Urea Nitrogen 17 mg/dL (9-16); Calcium 9.7 mg/dL (8.4-10.2); Carbon Dioxide 27 mmol/L (22-29); Chloride 104 mmol/L (96-108); Estimated Glomerular Filt Rate > 60; Glucose Fasting 180 mg/dL (60-99); Potassium 3.9 mmol/L (3.3-5.1); Sodium 139 mmol/L (135-145); Total Protein 7.8 g/dL (6.5-8.0)
[2023-04-02 12:48] LABS: Microalbum/Creatinine Ratio Ur 645.1 ug/mg cr (<30)
== END 2023-04-02 08:38 | disposition home or self-care (01) ==
LOC: HO.HMGCLDS 08:37
PROVIDERS: PCP Nurse Practitioner Family; Visit Provider Nurse Practitioner Family
DX: E11.65 Type 2 diabetes mellitus with hyperglycemia (principal)
CPT/HCPCS: 36415; 80053; 81001; 82043; 82570; 83036; 84443; 85025

== ENCOUNTER 2023-04-10 08:06 | Outpatient (AMB) | payer MEDICARE, SELFPAY ==
--- NOTE | 2023-04-10 08:26 | MHC.OFFVIS ---
Intake Vital Signs 04/10/23 08:27 Height 6 ft 2 in Weight 300 lb BMI 38.5 BP 120/69 Blood Pressure Location Lt brachial Position Sitting Pulse 72 Intake Visit Reasons: S/P Gary; Dr Armendariz Facility Environmental Technician Required: No Accompanied by: Self / Same As Patient Allergies No Known Allergies Allergy (Verified 04/10/23 08:26) HPI HPI Comments History of Present Illness Details A 67 y/o male hx colon polyps follows up after repeat colonoscopy with polypectomy He tolerated procedure well- Appetite is good bowels are normal Reviewed procedure report, pathology and recommend a He has no GI or general complaints [facility] Medical History (Updated 04/10/23 @ 10:18 by Rhona Islas PA-C) Ascending aortic aneurysm Ascending aorta dilatation Aortic stenosis [place], bilateral COVID-19 vaccine series completed Obesity due to excess calories Tinea pedis Charcot foot due to diabetes mellitus Morbid obesity Diabetic polyneuropathy associated with type 2 diabetes mellitus 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 type 2 diabetes mellitus 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 of 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 RLS (restless legs syndrome) Aortic valve calcification BPH (benign prostatic hyperplasia) Osteomyelitis [place] (obstructive sleep apnea) KAI (acute kidney injury) Surgical History H/O colonoscopy History of bunionectomy Amputation toe History of bunionectomy Family History Father Bladder cancer Mother Lung cancer Social History Are you a primary caretaker grounds to a significant other at home: Yes (father, also cares for him) Do you presently have visiting nurse or other home services: No Alcohol intake: current Alcohol intake frequency: holidays/special occasions only Patient Tobacco Use Status: Never used Tobacco Review of Systems Const All systems reviewed & are unremarkable except as noted in HPI and below Card Denies chest pain and Denies dyspnea Resp Denies dyspnea Physical Exam Vital Signs: Last Vital Signs Pulse 72 04/10/23 08:27 BP 120/69 04/10/23 08:27 BMI result Body Mass Index 38.5 Const General: cooperative, healthy appearing, comfortable and no acute distress Orientation/consciousness: patient oriented x3 Limitations: no limitations Resp Effort & Inspection: normal respiratory effort and able to speak in complete sentences Skin General skin exam: no rashes or lesions noted Neuro General: patient oriented x3 Extrem General: Yes full ROM Psych Appearance: grossly normal and well kempt Mental Status: mental status grossly normal Affect: normal affect Attitude: cooperative Thought process: Normal thought process present Thought content: Normal thought content present Insight: Good insight present (Psych) Judgement: Good judgement present (Psych) Results Reviewed Results Reviewed: mpression and Post Procedure Diagnosis: polyps internal hemorrhoids diverticular disease Plan: High fiber diet leaflet Avoid straining at stool, epsom salts and sitz bath, anusol supps or cream Repeat Colonoscopy in 3-4 years or earlier if clinically indicated Name: Romel Pruitt Age/Sex: 67/M Attending: Sumaya Armendariz MD : 1955 Submitted by: Sumaya Armendariz MD Copies to: LyndaPasha TOE SEWER-BC MR #: [id number] Status: [facility] Collected: 03/26/23 Location: [facility] Received: 03/26/23 Diagnosis A. Colon, transverse, polyp: Tubular adenoma; negative for high-grade dysplasia and carcinoma. B. Colon, descending, polyps: Tubular adenomas, two; negative for high-grade dysplasia and carcinoma. C. Colon, sigmoid, polyps: Tubular adenoma, one; negative for high-grade dysplasia and carcinoma, and two fragments of colonic mucosa Assessment & Plan Assessment & Plan (1) Tubular adenoma of colon: Comment: Repeat colonoscopy with polypectomy pathology reveals adenomas Initially at age 49 colonoscopy with polypectomy recommend all first-degree relatives beginning screening colonoscopies at age 40. Code(s): D12.6 - Benign neoplasm of colon, unspecified Plan: Repeat asymptomatic colonoscopy 3 years (2) Diverticulosis of colon: Code(s): K57.30 - Diverticulosis of large intestine without perforation or abscess without bleeding Plan: Maintain high-fiber Diverticulosis/diverticulitis ER protocol (3) Hemorrhoids: Code(s): K64.9 - Unspecified hemorrhoids Plan: HFD Avoid strain Plan Review procedure report, path and recommendations Reminder colonoscopy 3 years Patient Instructions: Reminder colonoscopy 3 years HFD Diverticulosis/ diverticulitis ER protocol Call with questions or concerns Coding Level of Care Code Est Pt Level 3 (74936) Diagnoses Tubular adenoma of colon D12.6 Diverticulosis of colon K57.30 Hemorrhoids K64.9 Time Spent (min) 22
[2023-04-10 08:27] VITALS: BP 120/69; PULSE 72; BMI 38.5
== END 2023-04-10 09:29 | disposition home or self-care (01) ==
PROVIDERS: PCP Nurse Practitioner Family; Visit Provider Physician Assistant
DX: D12.6 Benign neoplasm of colon, unspecified (principal); K57.30 Diverticulosis of large intestine without perforation or abscess without bleeding; K64.9 Unspecified hemorrhoids
CPT/HCPCS: 99213

== ENCOUNTER → 2023-04-10 08:06 | Outpatient (BNVA) | payer MEDICARE, SELFPAY | PROVIDERS: PCP Nurse Practitioner Family; Visit Provider Physician Assistant | DX: D12.6 Benign neoplasm of colon, unspecified (principal); K57.30 Diverticulosis of large intestine without perforation or abscess without bleeding; K64.9 Unspecified hemorrhoids | CPT/HCPCS: 99212 ==

== ENCOUNTER → 2023-05-31 07:53 | Outpatient (REF) | payer MEDICARE, SELFPAY ==
--- NOTE | 2023-05-31 08:01 | CA_ITS ---
Transthoracic Echocardiogram Patient (Last, First, Middle): Romel Pruitt A Gender: Male Date of : 1955 Age: 68 Procedure Date: 05/31/2023 Procedure Type: Transthoracic Echocardiogram Location: OP Height: 190.5 cm Weight: 136.08 kg BSA: 2.61 m2 Heart Rate: bpm BP: 140 / 84 mmHg Trailer Chief: TO Referring MD: López García MD Boiler Reliner: López García MD Symptoms: I42.9 - Cardiomyopathy, unspecified Study Quality: Fair/Contrast ECG Rhythm: Sinus Conclusions: - 1. Normal LV ejection fraction 60 65% 2. Moderately dilated ascending aorta at 4.7 cm Findings Procedure Information Contrast agent, definity, is being given per protocol without apparent complications. Left Ventricle Normal left ventricular size, thickness, and systolic function. The visually estimated ejection fraction is between 60-65%. There is mild septal asymmetric hypertrophy. Great Vessels There is moderate dilatation of the ascending aorta measuring 4.70 cm. Prior Study Comparison No significant change compared to prior study dated: 09/13/2022. Measurements 2D Linear Measurements IVSd: 1.32 0.6-0.9/0.6-1.0 cm LVIDd: 5.19 3.9-5.3/4.2-5.9 cm LVIDd Index: 1.99 2.4-3.2/2.2-3.1 cm/m2 LVIDs: 3.51 2.0-3.6 cm LVPWd: 1.07 0.7-1.1 cm LV Mass: 350.04 67-162/88-224 g LV Mass Index: 134.12 43-95/49-115 g/m2 LVOT Diam: 2.70 3.0+(-)1.3 cm 2D Systolic Function EF 4C: 67.60 >55% EF 2C: 55.80 >55% EF BiP: 63.20 >55% Aortic Valve AoV Pk Justo: 2.76 AoV Mn Justo: 1.74 AoV VTI: 0.53 AoV Pk Grad: 30.00 Aov Mn Grad: 14.00 MARLENA Cont.VTI: 2.52 LVOT LVOT Pk Justo: 1.06 LVOT Mn Justo: 0.65 LVOT VTI: 0.23 LVOT Pk Grad: 4.00 LVOT Mn Grad: 2.00 LVOT Diam: 2.70 LVOT Area: 5.73 Tricuspid Valve RA Press: 8.00 Great Vessels Aorta Sinus of Valsalva: 4.20 2.0-3.5 cm Ao Asc: 4.70 2.1-3.4 cm Ao Arch: 4.80 Updated in Other Vendor System with Status of Final López García MD electronically signed on 06/01/2023 12:00:38 PM with status of Final
== END ==
LOC: HO.CARD 07:53
PROVIDERS: PCP Nurse Practitioner Family; Visit Provider Internal Medicine Cardiovascular Disease
DX: I42.9 Cardiomyopathy, unspecified (principal); I71.21 Aneurysm of the ascending aorta, without rupture
CPT/HCPCS: 93308; Q9957

== ENCOUNTER → 2023-05-31 08:01 | Outpatient (BNV) | payer MEDICARE, SELFPAY | PROVIDERS: PCP Nurse Practitioner Family; Visit Provider Internal Medicine Cardiovascular Disease | DX: I42.9 Cardiomyopathy, unspecified (principal) | CPT/HCPCS: 93308 ==

== ENCOUNTER 2023-06-06 14:04 | Outpatient (AMB) | payer MEDICARE, SELFPAY ==
--- OUTSIDE RECORDS SUMMARY | 2023-06-06 14:06 | XMS_ITS | Patient Health Record ---
Author Name Unknown Organization [facility] Address [address] [place] [address] Care Team Providers Care Internal Affairs Commander Name Role Phone JESUS PALAFOX Primary Care Provider Rudy Pineda [phone] ALLERGIES Allergen (clinical drug ingredient) Drug/Non Drug [...] confirmed Screening for malignant neoplasm of colon ([id number]) PLAN OF TREATMENT Future Test Test Name Order Date COLONOSCOPY 06/07/2011 Insurance Providers Payer Name Payer Address Payer Phone Subscriber Number Group Number Insured Name Patient Relationship to Insured Coverage Start Date Coverage End Date [facility] [address] [place] [address] [id number] KEITH ZUNIGA Self - patient is the insured MEDICAL (GENERAL) HISTORY Medical History History ICD Code HTN Denies [place],DM,CVA,Lung disease,renal dise ase
--- NOTE | 2023-06-06 14:22 | A.OFFPC_ITS ---
Vital Signs 06/06/23 14:24 Height 6 ft 2 in Weight 328 lb BMI 42.1 BP 110/72 Blood Pressure Location Rt brachial Position Sitting Pulse 84 Pulse Source Pulse Oximeter Pulse Oximetry (%) 98 Oxygen Delivery Method Room Air Intake Visit Reasons: Followup diabetes, meds Allergies No Known Allergies Allergy (Verified 06/06/23 14:24) Medication List - Last Reconciled 06/06/23 by MONIQUE ElmoreP- alpha lipoic acid 600 mg PO DAILY amlodipine 10 mg PO DAILY aspirin (Children's Aspirin) 81 mg PO DAILY atorvastatin 80 mg PO BEDTIME 90 days bisacodyl (Dulcolax (bisacodyl)) 20 mg (4 x 5 mg) PO ONCE 1 day blood sugar diagnostic (FreeStyle Lite Strips) 4 times a day blood-glucose meter (FreeStyle Lite Meter kit) 4 times a day cholecalciferol (vitamin D3) 10 mcg PO DAILY FreeStyle Lancets (lancets) 4 times a day NS FreeStyle Yolanda 2 [place] (flash glucose scanning reader) TID testing NS FreeStyle Yolanda 2 Sensor (flash glucose sensor) TID tesing NS gabapentin 300 mg PO TID 30 days insulin glargine U-300 conc (Toujeo Max U-300 SoloStar) 50 units (0.1667 mL) subcut DAILY 30 days lisinopril 10 mg PO DAILY 90 days metformin ER 1,000 mg (2 x 500 mg) PO BID 90 days pen needle, diabetic (BD Ultra-Fine Short Pen Needle) use to inject insulin once a day pioglitazone 30 mg PO DAILY 90 days polyethylene glycol 3350 (Miralax) 238 grams PO ONCE PRN 1 day semaglutide (Ozempic) 0.25 mg (0.368 mL) subcut QWEEK silodosin (Rapaflo) 8 mg PO DAILY Tobacco use date assessed: 06/06/23 Fall risk assessment: No Falls in past year Last assessed Fall Risk: 06/06/23 Dental Screening Dental Screen Date: 06/06/23 Did you have a dental visit in the last 12 months?: Yes Did you have a dental problem in the last 6 months where you did not have access to dental care?: No Was dental information given to patient?: Patient has dentist HPI Followup diabetes, meds HPI Details Pt is a diabetic, on an JASON and a statin. Last A1C was 8.6, microalbumin is up to date. Denies polyuria, polydipsia, does report neuropathy. Pt denies any signs and symptoms of hypoglycemia and does know how to correct it. Will send ozempic 0.25mg. Will also increase Toujeo from 46 to 50 units. Pt c/o insomnia. Will send trazodone 100mg. Pt sees a manager process improvement. Eye exam is up to date. Pt already had his flu vaccine. Informed pt that he can obtain his shingles vaccine from his pharmacy. reinforced importance of tight glucose control [facility] Medical History (Updated 04/10/23 @ 10:18 by Rhona Islas PA-C) Ascending aortic aneurysm Ascending aorta dilatation Aortic stenosis [place], bilateral COVID-19 vaccine series completed Obesity due to excess calories Tinea pedis Charcot foot due to diabetes mellitus Morbid obesity Diabetic polyneuropathy associated with type 2 diabetes mellitus 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 type 2 diabetes mellitus group home (current) use of insulin RLS (restless legs syndrome) Aortic valve calcification BPH (benign prostatic hyperplasia) Osteomyelitis [place] (obstructive sleep apnea) KAI (acute kidney injury) Surgical History H/O colonoscopy History of bunionectomy Amputation toe History of bunionectomy Family History Father Bladder cancer Mother Lung cancer Social History Are you a primary childcare worker to a significant other at home: Yes (father, also cares for him) Do you presently have visiting nurse or other home services: No Alcohol intake: current Alcohol intake frequency: holidays/special occasions only Patient Tobacco Use Status: Never used Tobacco Cognitive needs: No Hearing needs: No Vision needs: Yes Questionnaire AUDIT C Alcohol Use Questionnaire (AUDIT-C) 1. How often do you have a drink containing alcohol?: Monthly or less 3. How often do you have six or more drinks on one occasion?: Never Total Score: 1 Score Reviewed/Action Taken: No Review of Systems Const Reports as per HPI Physical exam (Primary Care) Vital Signs: Last Vital Signs Pulse 84 06/06/23 14:24 BP 110/72 06/06/23 14:24 Pulse Ox 98 06/06/23 14:24 Oxygen Delivery Method Room Air 06/06/23 14:24 BMI result Body Mass Index 42.1 Tobacco/Smoking Status: Tobacco use Status Tobacco use date assessed 06/06/23 06/06/23 14:28 Patient Tobacco Use Status Never used Tobacco 06/06/23 14:28 Const General: cooperative Nutritional Appearance: obese morbidly obese Orientation/consciousness: patient oriented x3 Resp Effort & Inspection: normal respiratory effort Auscultation: clear to auscultation bilaterally Cardio Rate: regular rate Rhythm: regular rhythm Heart sounds: S1 normal heart sound present and S2 normal heart sound present Neuro General: patient oriented x3 Extrem Other: very minimal sensation to left foot plantar aspect, deformed toes, hammertoes bilat, onychomycosis noted bilat, several calloused lesions, +1 edema to BLE, amputated right 4th toe Psych Appearance: grossly normal Mental Status: mental status grossly normal Speech and movement: Normal speech and movement present Affect: normal affect Attitude: cooperative Thought process: Normal thought process present Thought content: Normal thought content present Insight: Good insight present (Psych) Judgement: Good judgement present (Psych) Assessment and Plan Assessment & Plan (1) Uncontrolled diabetes mellitus: Code(s): E11.65 - Type 2 diabetes mellitus with hyperglycemia Qualifiers: Diabetes mellitus type: type 2 Glycemic state: with hyperglycemia Qualified Code(s): E11.65 - Type 2 diabetes mellitus with hyperglycemia Plan: increase basal insulin and started ozempic Plan The patient agreed to the use of a director of medical staff services for this encounter. Scribed for LETICIA Paulino by Lydia Morgan director of medical staff services, on 06/06/2023 at 14:45 EST. Medications: New semaglutide (Ozempic) for 4 weeks 0.25 mg (0.368 mL) subcut QWEEK 3 mL 1RF gabapentin 300 mg PO TID 90 caps 0RF 30 days trazodone 100 mg PO BEDTIME PRN 30 tabs 1RF sleep 30 days Changed From insulin glargine U-300 conc (Toujeo Max U-300 SoloStar) 46 units (0.1533 mL) subcut DAILY 30 days 4.599 mL 2RF To insulin glargine U-300 conc (Toujeo Max U-300 SoloStar) 50 units (0.1667 mL) subcut DAILY 5.001 mL 2RF 30 days Coding Level of Care Code Est Pt Level 3 (05053) Diagnoses Uncontrolled type 2 diabetes mellitus with hyperglycemia E11.65 Diabetes mellitus type: type 2 Glycemic state: with hyperglycemia
[2023-06-06 14:24] VITALS: BP 110/72; PULSE 84; O2SAT 98; BMI 42.1
== END 2023-06-06 15:09 | disposition home or self-care (01) ==
PROVIDERS: PCP Nurse Practitioner Family; Visit Provider Nurse Practitioner Family
DX: E11.65 Type 2 diabetes mellitus with hyperglycemia (principal)
CPT/HCPCS: 99213

== ENCOUNTER 2023-07-26 08:14 | Outpatient (AMB) | payer MEDICARE, SELFPAY ==
[2023-07-26 08:42] VITALS: BP 122/70; PULSE 83; BMI 41.6
--- NOTE | 2023-07-26 08:42 | MHC.OFFVIS ---
Intake Vital Signs 07/26/23 08:42 Height 6 ft 2 in Weight 324 lb 1.272 oz BMI 41.6 BP 122/70 Blood Pressure Location Lt brachial Position Sitting Pulse 83 Intake Visit Reasons: 6 months followup s/p echo/genetics Intake Note: 6 month follow-up after echo with ekg Manager Continuous Improvement Required: No Allergies No Known Allergies Allergy (Verified 06/06/23 14:24) Medication List - Last Reconciled 07/26/23 by López García MD alpha lipoic acid 600 mg PO DAILY amlodipine 10 mg PO DAILY aspirin (Children's Aspirin) 81 mg PO DAILY atorvastatin 80 mg PO BEDTIME 90 days blood sugar diagnostic (FreeStyle Lite Strips) 4 times a day blood-glucose meter (FreeStyle Lite Meter kit) 4 times a day cholecalciferol (vitamin D3) 10 mcg PO DAILY FreeStyle Lancets (lancets) 4 times a day NS FreeStyle Yolanda 2 [place] (flash glucose scanning reader) TID testing NS FreeStyle Yolanda 2 Sensor (flash glucose sensor) TID tesing NS gabapentin 300 mg PO TID 30 days insulin glargine U-300 conc (Toujeo Max U-300 SoloStar) 50 units (0.1667 mL) subcut DAILY 30 days lisinopril 10 mg PO DAILY 90 days metformin ER 1,000 mg (2 x 500 mg) PO BID 90 days pen needle, diabetic (BD Ultra-Fine Short Pen Needle) use to inject insulin once a day pioglitazone 30 mg PO DAILY 90 days semaglutide (Ozempic) 0.25 mg (0.368 mL) subcut QWEEK silodosin (Rapaflo) 8 mg PO DAILY trazodone 100 mg PO BEDTIME PRN 30 days HPI HPI Comments History of Present Illness Details Romel comes for follow-up. He has been doing well from cardiac perspective. Denies any cardiac symptoms. His recent echocardiogram shows stable ascending aortic aneurysm at 4.7 cm. He denies any exertional chest pain or shortness of breath. Takes all his medications. Last LDL at 83 mg/dL. Denies any heart failure symptoms. Denies any palpitations, lightheadedness, syncope. ON LICENSE OF [facility] Medical History Ascending aortic aneurysm Ascending aorta dilatation Aortic stenosis [place], bilateral COVID-19 vaccine series completed Obesity due to excess calories Tinea pedis Charcot foot due to diabetes mellitus Morbid obesity Diabetic polyneuropathy associated with type 2 diabetes mellitus 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 type 2 diabetes mellitus 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 RLS (restless legs syndrome) Aortic valve calcification BPH (benign prostatic hyperplasia) Osteomyelitis [place] (obstructive sleep apnea) KAI (acute kidney injury) Surgical History H/O colonoscopy History of bunionectomy Amputation toe History of bunionectomy Family History Father Bladder cancer Mother Lung cancer Social History Are you a primary child care provider to a significant other at home: Yes (father, also cares for him) Do you presently have visiting nurse or other home services: No Alcohol intake: current Alcohol intake frequency: holidays/special occasions only Patient Tobacco Use Status: Never used Tobacco Cognitive needs: No Hearing needs: No Vision needs: Yes Review of Systems Const Denies chills, Denies fatigue, Denies fever(s), Denies frequent falls, Denies weakness, Denies weight gain and Denies weight loss ENT Denies dizziness Card Denies chest pain, Denies leg edema, Denies lightheadedness, Denies palpitations, Denies dyspnea, Denies dyspnea on exertion, Denies orthopnea and Denies other (loss of consciousness) Resp Denies cough, Denies dyspnea and Denies dyspnea on exertion GI Denies hematochezia and Denies change in stool character Musc Denies abnormal gait, Denies muscle weakness, Denies numbness, Denies radiating pain into limb and Denies tingling Neuro Denies Abnormal speech present, Denies abnormal gait, Denies dizziness, Denies frequent falls, Denies numbness, Denies tingling and Denies weakness Endo Denies fatigue and Denies palpitations Physical Exam Vital Signs: Last Vital Signs Pulse 83 07/26/23 08:42 BP 122/70 07/26/23 08:42 BMI result Body Mass Index 41.6 Const General: cooperative, comfortable, no acute distress, alert, awake and Physically active Nutritional Appearance: obese Orientation/consciousness: patient oriented x3 Limitations: no limitations HEENT Head: Yes normocephalic and Yes atraumatic Neck Neck: Yes trachea midline, Yes supple and Yes no JVD Resp Effort & Inspection: normal respiratory effort Auscultation: clear to auscultation bilaterally Cardio Jugular venous distension: no JVD Palpation: normal PMI Rate: regular rate Rhythm: regular rhythm Heart sounds: S1 normal heart sound present, S2 normal heart sound present, no click, no gallops, Murmur heart sound present systolic early and no rubs GI Auscultation: normal bowel sounds Skin General skin exam: no rashes or lesions noted Neuro General: patient oriented x3 and no focal motor deficits Speech: No Abnormal speech present Extrem General: Yes no clubbing, cyanosis or edema Office Procedures EKG Details: EKG shows normal sinus rhythm with nonspecific ST changes [id number], Complete Assessment & Plan Assessment & Plan (1) Ascending aortic aneurysm: Code(s): I71.21 - Aneurysm of the ascending aorta, without rupture Plan: Ascending aortic aneurysm which is of moderate severity at 4.7 cm. Has remained stable. We discussed about management. He has not been seen by Genetics, as this may impact his surgical decision making. Will reach out to the Genetics Department at [facility] again. Also if he has a bicuspid aortic valve this will impact his surgical decision making. Will follow with echocardiogram in 1 year's time. If it remains stable continue to follow on annual basis. Continue aggressive blood pressure control. Continue lipid modification with goal LDL at least less than 100 mg/dL. Advised to avoid sudden strenuous isometric exercise. Signs and symptoms of acute aortic syndrome were discussed. Also recommended him to have his kids screened for ascending aortic aneurysm. (2) Aortic stenosis: Comment: Cardiology 12/27/22 Code(s): I35.0 - Nonrheumatic aortic (valve) stenosis Plan: Aortic stenosis which is mild. Question bicuspid aortic valve. If this is present this will impact his surgical decision making. Continue aggressive risk factor modification. Low-dose aspirin therapy for life. Continue aggressive blood pressure control, advised to monitor blood pressure at home maintain a log. Goal blood pressure less than 130/84. Aggressive diabetes management goal hemoglobin A1c less than 7%. Goal LDL at least less than 100 mg/dL. Will follow up in the clinic in 1 year's time, sooner p.r.n.. Thank you for allowing me to partake in his care Medications: Changed From silodosin (Rapaflo) must administer with a meal/food 8 mg PO DAILY 90 caps 3RF To silodosin (Rapaflo) must administer with a meal/food 8 mg PO DAILY Coding Level of Care Code Est Pt Level 4 (48765) Diagnoses Ascending aortic aneurysm I71.21 Aortic stenosis I35.0 CPT Codes EKG - CPT: 41231-[id number], Complete ([id number])
== END 2023-07-26 09:25 | disposition home or self-care (01) ==
PROVIDERS: PCP Nurse Practitioner Family; Visit Provider Internal Medicine Cardiovascular Disease
DX: I71.21 Aneurysm of the ascending aorta, without rupture (principal); I35.0 Nonrheumatic aortic (valve) stenosis
CPT/HCPCS: 93010; 99214

== ENCOUNTER → 2023-07-26 08:14 | Outpatient (BNVA) | payer MEDICARE, SELFPAY | PROVIDERS: PCP Nurse Practitioner Family; Visit Provider Internal Medicine Cardiovascular Disease | DX: I71.21 Aneurysm of the ascending aorta, without rupture (principal); I35.0 Nonrheumatic aortic (valve) stenosis; Z79.82 Long term (current) use of aspirin | CPT/HCPCS: 93005; 99212 ==

== ENCOUNTER 2023-08-27 08:51 | Outpatient (REF) | payer MEDICARE, SELFPAY ==
[2023-08-27 10:15] LABS: Urine Cytology See Pathology rpt
[2023-08-27 10:24] LABS: Appearance Urine Cloudy; Color Urine Yellow; Glucose Urine UA Negative (Negative); Leukocyte Esterase Urine Trace (Negative); Nitrite Urine Negative (Negative); Specific Gravity - Urine 1.025 (1.005-1.025); UMIC TRIGGER UACC YES; Urine Blood Large (3+) (Negative); Urine Ketones Negative (Negative); Urine Protein 100 (2+) mg/dL (Neg-Trace)
[2023-08-27 10:51] LABS: Bacteria Urine None Seen (None Seen); RBC Urine >20 /HPF (0-2); WBC Urine 0-5 /HPF (0-5)
[2023-08-27 12:39] LABS: PSA,Total (Free>4and<10) 1.53 ng/mL (0.00-4.00)
== END 2023-08-27 08:52 | disposition home or self-care (01) ==
LOC: HO.HMGCLDS 08:51
PROVIDERS: PCP Nurse Practitioner Family; Referring Provider Urology; Visit Provider Nurse Practitioner Family
DX: R31.9 Hematuria, unspecified (principal); Z12.5 Encounter for screening for malignant neoplasm of prostate
CPT/HCPCS: 36415; 81001; 84153; 87086; 88112

== ENCOUNTER 2023-08-31 07:03 | Outpatient (REF) | payer MEDICARE, SELFPAY ==
[2023-08-31 11:47] LABS: MANUAL DIFF FLAG NO
[2023-08-31 11:58] LABS: Appearance Urine Turbid; Color Urine Yellow; Glucose Urine UA Negative (Negative); Leukocyte Esterase Urine Negative (Negative); Nitrite Urine Negative (Negative); PH 5.5 (5.0-9.0); UMIC TRIGGER UACC YES; Urine Blood Large (3+) (Negative); Urine Ketones Negative (Negative); Urine Protein 100 (2+) mg/dL (Neg-Trace)
[2023-08-31 12:01] LABS: Basophils Absolute Auto 0.1 X10*3/uL (0.0-0.2); Basophils Percent Auto 0.6 % (0-2); Eosinophils Absolute Auto 0.4 X10*3/uL (0.0-0.4); Eosinophils Percent Auto 4.1 % (0-4); Hematocrit 46.6 % (42.0-52.0); Hemoglobin 15.2 g/dl (14.0-18.0); Imm Gran Abs Auto 0.13 X10*3/uL (0.00-0.03); Imm Gran Pct Auto 1.2 % (0.0-0.4); Lymphocytes Absolute Auto 1.5 X10*3/uL (1.2-4.9); Mean Corpuscular HGB Conc 32.6 g/dl (31.0-36.0); Mean Corpuscular Hemoglobin 29.1 pg (27.0-33.0); Mean Corpuscular Volume 89.3 fL (80.0-98.0); Mean Platelet Volume 10.2 fL (9.4-12.4); Monocytes Absolute Auto 0.6 X10*3/uL (0.1-1.2); Monocytes Percent Auto 5.8 % (2-11); Neutrophils Absolute Auto 7.8 x10*3/uL (2.0-8.3); Neutrophils Percent Auto 74.3 % (45-73); Platelet Count 268 X10*3/uL (160-400); Red Blood Count 5.22 X10*6/uL (4.60-5.80); Red Cell Distribution Width 14.9 % (11.0-16.0); White Blood Count 10.5 X10*3/uL (4.8-10.8)
[2023-08-31 12:16] LABS: Bacteria Urine None Seen (None Seen); Calcium Oxalate Crystals Urine Present; Hyaline Casts Urine 0-2 /LPF (0-2); RBC Urine >20 /HPF (0-2); WBC Urine 0-5 /HPF (0-5)
[2023-08-31 12:32] LABS: Alanine Aminotransferase 30 U/L (0-40); Albumin Level 4.1 g/dL (3.5-5.0); Alkaline Phosphatase 76 U/L (39-117); Anion Gap 14 (12-20); Aspartate Amino Transferase 24 U/L (5-37); Bilirubin Total 0.9 mg/dL (0.0-1.0); Blood Urea Nitrogen 20 mg/dL (9-16); Calcium 9.9 mg/dL (8.4-10.2); Carbon Dioxide 27 mmol/L (22-29); Chloride 105 mmol/L (96-108); Cholesterol 108 mg/dL (<200); Estimated Glomerular Filt Rate > 60; Glucose Fasting 120 mg/dL (60-99); HDL Cholesterol 37 mg/dL (>40); LDL Cholesterol Calculated 44 mg/dL (<100); Potassium 4.7 mmol/L (3.3-5.1); Sodium 141 mmol/L (135-145); Total Protein 7.4 g/dL (6.5-8.0); Triglycerides 135 mg/dL (<150)
[2023-08-31 12:36] LABS: TSH reflex Free T4 1.42 uIU/mL (0.32-4.0)
== END 2023-08-31 07:04 | disposition home or self-care (01) ==
LOC: HO.HMGCLDS 07:03
PROVIDERS: PCP Nurse Practitioner Family; Visit Provider Nurse Practitioner Family
DX: E11.65 Type 2 diabetes mellitus with hyperglycemia (principal); I10 Essential (primary) hypertension
CPT/HCPCS: 36415; 80053; 80061; 81001; 81003; 84443; 85025

== ENCOUNTER 2023-09-02 08:44 | Outpatient (AMB) | payer MEDICARE, SELFPAY ==
--- NOTE | 2023-09-02 08:52 | A.OFFVIS_ITS ---
Intake Vital Signs 09/02/23 08:55 Height 6 ft 2 in Weight 326 lb BMI 41.9 BP 138/74 Blood Pressure Location Lt brachial Position Sitting Pulse 80 Pulse Source Pulse Oximeter Pulse Oximetry (%) 97 Oxygen Delivery Method Room Air Intake Visit Reasons: SWV G0439 Allergies No Known Allergies Allergy (Verified 09/02/23 08:59) HPI SWV G0439 HPI Details Pt is here for an SWV. Denies fever, chills, and dizziness. [place] of care in scan pile. PPP will be scanned in chart and copy will be given to pt. sees a urologist, viticulture teacher, vascular, and cardiology. HPI Comments History of Present Illness Details OV: Pt is a diabetic, on an JASON and a statin. A1C in office today is 7.1. Microalbumin is up to date. Denies polyuria and polydipsia, does report neuropathy. Pt denies any signs and symptoms of hypoglycemia and does know how to correct it. Will increase ozempic from 1mg to 2mg. Pt follows up with podiatry, vascular, urology, nephrology, and cardiology. 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 RLS (restless legs syndrome) Aortic valve calcification BPH (benign prostatic hyperplasia) Osteomyelitis [place] (obstructive sleep apnea) KAI (acute kidney injury) Surgical History H/O colonoscopy History of bunionectomy Amputation toe History of bunionectomy Family History Father Bladder cancer Mother Lung cancer Social History Are you a primary care transport nurse to a significant other at home: Yes (father, also cares for him) Do you presently have visiting nurse or other home services: No Alcohol intake: current Alcohol intake frequency: holidays/special occasions only Patient Tobacco Use Status: Never used Tobacco Cognitive needs: No Hearing needs: No Vision needs: Yes Questionnaire Medicare Wellness Checkup [age] What gender do you identify with?: male During the past 4 weeks, how much have you been bothered by emotional problems such as feeling anxious, depressed, irritable, sad or downhearted, and blue?: not at all During the past 4 weeks, has your physical & emotional health limited your social activities with family, friends, neighbors, or groups?: not at all During the past 4 weeks, how much bodily pain have you generally had?: no pain During the past 4 weeks, was someone available to help you if you needed & wanted help?: yes, as much as I wanted During the past 4 weeks, what was the hardest physical activity you could do for at least 2 minutes?: moderate Can you get to places out of walking distance without help? (For eg., can you travel alone on buses, taxis or drive your car?): Yes Can you go shopping for groceries or clothes without someone's help?: Yes Can you prepare your own meals?: Yes Can you do your housework without help?: Yes Because of any health problems, do you need the help of another person with your personal care needs such as eating, bathing, dressing or getting around the house?: No Can you handle your own money without help?: Yes During the past 4 weeks, how would you rate your health in general?: good During the past 4 weeks how have things been going for you?: pretty well Are you having difficulties driving your car?: no Do you always fasten your seat belt when you are in a car?: yes, usually During past 4 weeks, have you been bothered by the following: never: Falling or dizzy when standing up, Sexual problems?, Trouble eating well?, Teeth or denture problems?, Problems using the telephone? and Tiredness or fatigue? Have you fallen 2 or more times in the past year?: No Are you afraid of falling?: No Are you a smoker?: no During the past 4 weeks, how many drinks of wine, beer, or other alcoholic beverages did you have?: 2-5 drinks per week Do you exercise for about 20 minutes 3 or more times a week?: yes, some of the time Have you been given information to help with the following?: yes: Keeping track of your medications? and no: Hazards in your house that might hurt you? How often do you have trouble taking medicines the way you have been told to take them?: I always take medicine as prescribed How confident are you that you can control & manage most of your health problems?: very confident What is your race?: White Mini Mental State Exam (MMSE) Orientation What is the (year) (season) (date) (day) (month)?: year (2023) Where are we (state) (county) (town or city) (hospital) (floor)?: state (me) Registration Name of 3 unrelated objects clearly and slowly, then ask patient to repeat all 3 of them. (1st repeat determines score. Make sure they can repeat all three): object 1, object 2 and object 3 Attention & Calculation (CHOOSE ONE) Spell WORLD backwards (DLROW): 5 letters Recall Ask patient to repeat the 3 items from question #3.: object 1, object 2 and object 3 Language Show patient a wristwatch & ask what it is. Repeat for pencil.: watch Ask the patient to repeat the phrase 'No ifs, ands, or buts' after you.: correct Ask the patient to 'take a piece of paper with their right hand' 'fold paper in half' 'place paper on floor': take paper in right hand, fold paper in half and place paper on floor Print the sentence 'CLOSE YOUR EYES' on a piece. If patient actually closes eyes then score.: followed written direction Give patient a blank piece of paper & ask to write a sentence. Score if it contains a noun & verb.: sentence contains subject and verb Ask patient to copy figure of intersecting pentagons exactly. Score if all 10 angles & 2 intersects are included.: all 10 angles present & 2 are intersected Score Score: 21 Activity of Daily Living Bathing - sponge bath, tub bath or shower: receives no assistance (gets in/out by self, if usual bathing means Dressing - getting clothes from closets & drawers, including inner/outer garments & fasteners.: gets clothes & gets completely dressed without help Toileting - going to the 'toilet room' for urine/bowel elimination & cleaning self/arranging clothes: goes to toilet room, cleans self, arranges clothes without help Transfer: moves in & out of bed and chair without help (may use support object) Continence: controls urination/bowel movements completely by self Feeding: feeds self without help Total Score: 0 Information obtained from: patient Using telephone: independent Traveling: independent Shopping: independent Preparing meals: independent Housework: independent Taking medicine: independent Managing money: independent PHQ-9 Over the last 2 weeks, how often have you been bothered by any of the following problems? 1. Little interest or pleasure in doing things: not at all 2. Feeling down, depressed, or hopeless: not at all 3. Trouble falling or staying asleep, or sleeping too much: not at all 4. Feeling tired or having little energy: not at all 5. Poor appetite or overeating: not at all 6. Feeling bad about yourself - or that you are a failure or have let yourself or your family down: not at all 7. Trouble concentrating on things, such as reading the newspaper or watching television: not at all 8. Moving or speaking so slowly that other people could have noticed. Or the opposite - being so fidgety or restless that you have been moving around a lot more than usual: not at all 9. Thoughts that you would be better off or of hurting yourself in some way: not at all Total score: 0 Depression Screening Interpretation: Negative Depression Screening Done: Yes 78749 - PHQ-9 Billing: Yes Source: Developed by Drs. Rudy Lott, Melissa Giraldo, Baljit Huang and colleagues, with an educational angela from [employer]. Review of Systems Const Reports as per HPI Physical Exam Vital Signs: Last Vital Signs Pulse 80 09/02/23 08:55 BP 138/74 09/02/23 08:55 Pulse Ox 97 09/02/23 08:55 Oxygen Delivery Method Room Air 09/02/23 08:55 BMI result Body Mass Index 41.9 Const General: cooperative Nutritional Appearance: obese morbidly obese Orientation/consciousness: patient oriented x3 Resp Effort & Inspection: normal respiratory effort Auscultation: clear to auscultation bilaterally Cardio Rate: regular rate Rhythm: regular rhythm Heart sounds: S1 normal heart sound present and S2 normal heart sound present Neuro Other: - romberg, can tandem walk, can walk and turn, can rise from sitting to standing, passed whisper test General: patient oriented x3 Extrem Other: bilat feet: no sensation with use of monofilament, onychomycosis noted bilat, left foot 5th toe lateral aspect with small open wound without signs of infection, callous formation to right foot plantar aspect of 1st MTP joint, amputated right 4th toe, swelling to BLE Psych Appearance: grossly normal Mental Status: mental status grossly normal Speech and movement: Normal speech and movement present Affect: normal affect Attitude: cooperative Thought process: Normal thought process present Thought content: Normal thought content present Insight: Good insight present (Psych) Judgement: Good judgement present (Psych) Assessment & Plan Assessment & Plan (1) Type 2 diabetes mellitus with hyperglycemia: Code(s): E11.65 - Type 2 diabetes mellitus with hyperglycemia Plan: increase ozempic from 1mg to 2mg weekly. having him keep an eye on his feet. He is following up with podiatry in a couple of weeks and follows up with vascular. Pt knows to reports any s/s of infection or worsening symptoms (2) Encounter for subsequent annual wellness visit (AWV) in Medicare patient: Code(s): Z00.00 - Encounter for general adult medical examination without abnormal findings Plan The patient agreed to the use of a medical art therapist for this encounter. Scribed for ELIUD Paulino- by Lydia Morgan medical art therapist, on 09/02/2023 at 09:15 EST. Medications: Changed From semaglutide for 4 weeks, Increased dose 1 mg (0.75 mL) subcut QWEEK 30 days 3.75 mL 3RF To semaglutide for 4 weeks, Increased dose 2 mg (0.75 mL) subcut QWEEK 30 days 3.75 mL 3RF Quality Reporting (2019) Depression/Bipolar (159/160/161/177) PHQ-9: Total score: 0 Coding Level of Care Code Medicare Subsequent (G0439) Est Pt Level 3 (93357) Diagnoses Type 2 diabetes mellitus with hyperglycemia E11.65 Encounter for subsequent annual wellness visit (AWV) in Medicare patient Z00.00 CPT Codes Advance Care Planning - Time spent: 1-15 minutes, on File ([id number]) Advance Care Planning Forms completed: Health Care Proxy (on file), MOLST (filled out today, in scan pile) and Living will (pt reports this was already done) Time spent: 1-15 minutes, on File (15) Actual minutes spent: 15
[2023-09-02 08:55] VITALS: BP 138/74; PULSE 80; O2SAT 97; BMI 41.9
== END 2023-09-02 09:45 | disposition home or self-care (01) ==
PROVIDERS: Visit Provider Nurse Practitioner Family
DX: Z00.00 Encounter for general adult medical examination without abnormal findings (principal); E11.65 Type 2 diabetes mellitus with hyperglycemia
CPT/HCPCS: 1123F; 83036; 99213; G0439

== ENCOUNTER 2023-09-09 08:07 | Outpatient (AMB) | payer MEDICARE, SELFPAY ==
--- NOTE | 2023-09-09 08:12 | A.OFFVIS_ITS ---
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: No Accompanied by: Self / Same As Patient Allergies No Known Allergies Allergy (Verified 09/09/23 08:19) Medication List - Last Reconciled 09/09/23 by Sofia Dc MD alpha lipoic acid 600 mg PO DAILY amlodipine 10 mg PO DAILY aspirin (Children's Aspirin) 81 mg PO DAILY atorvastatin 80 mg PO BEDTIME 90 days blood sugar diagnostic (FreeStyle Lite Strips) 4 times a day blood-glucose meter (FreeStyle Lite Meter kit) 4 times a day cholecalciferol (vitamin D3) 10 mcg PO DAILY FreeStyle Lancets (lancets) 4 times a day NS FreeStyle Yolanda 2 Krebs (flash glucose scanning reader) TID testing NS FreeStyle Yolanda 2 Sensor (flash glucose sensor) TID tesing NS gabapentin 300 mg PO TID 30 days insulin glargine U-300 conc (Toujeo Max U-300 SoloStar) 50 units (0.1667 mL) subcut DAILY 30 days lisinopril 10 mg PO DAILY 90 days metformin ER 1,000 mg (2 x 500 mg) PO BID 90 days pen needle, diabetic (BD Ultra-Fine Short Pen Needle) use to inject insulin once a day pioglitazone 30 mg PO DAILY 90 days semaglutide 2 mg (0.75 mL) subcut QWEEK 30 days silodosin (Rapaflo) 8 mg PO DAILY trazodone 100 mg PO BEDTIME PRN 30 days HPI HPI Comments History of Present Illness Details 09/09/2023--Romel is a 68-year-old male wh o is followed for lower urinary tract symptoms due to BPH he is prescribed Rapaflo 8 mg daily. States that he has an adequate flow. Comorbidity diabetes. He is concerned regarding blood in the urine. I have reviewed renal ultrasound from September 2022 small simple cyst right kidney no suspicious masses evaluation of bladder at that time noted an elevated postvoid residual. Reviewed that office cystoscopy 11/02/2022 was notable for enlarged prostate no suspicious bladder lesions. Bladder scan PVR 71 mL, recent PSA 08/2023 1.42 ng/mL. Urinalysis 2+ protein 3+ blood. The patient has a nephrology visit scheduled. Plan will be to continue Rapaflo 8 mg daily. 30 minutes spent in review of records pertaining to this visit and including [id number] discussion with the patient and documentation of this visit. Review of chart: 12/10/22--Romel is a 67-year-old male who presents to the office 6-weeks follow- up. He is followed for LUTS symptoms of frequency, urgency and nocturia. The patient was last seen in the office on 11/02/2022. AUA symptoms score--11/02/2022--19 Cystoscopy findings--11/02/2022--Prostatic urethra bilobar enlargement, subtle scarring/narrowing mild bulbous urethra. He was initially placed on tamsulosin which was increased to twice a day and was changed to Rapaflo 8 mg. 09/09/2023--PLAN: Continue Rapaflo 8 mg daily [facility] Medical History Ascending aortic aneurysm Ascending aorta dilatation Aortic stenosis [place], bilateral COVID-19 vaccine series completed Obesity due to excess calories Tinea pedis Charcot foot due to diabetes mellitus Morbid obesity Diabetic polyneuropathy associated with type 2 diabetes mellitus 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 type 2 diabetes mellitus long-term (current) use of insulin RLS (restless legs syndrome) Aortic valve calcification BPH (benign prostatic hyperplasia) Osteomyelitis [place] (obstructive sleep apnea) KAI (acute kidney injury) Surgical History H/O colonoscopy History of bunionectomy Amputation toe History of bunionectomy Family History Father Bladder cancer Mother Lung cancer Social History Are you a primary child care education coordinator to a significant other at home: Yes (father, also cares for him) Do you presently have visiting nurse or other home services: No Alcohol intake: current Alcohol intake frequency: holidays/special occasions only Patient Tobacco Use Status: Never used Tobacco Cognitive needs: No Hearing needs: No Vision needs: Yes Review of Systems Const All systems reviewed & are unremarkable except as noted in HPI and below Reports no additional complaints Eyes Reports no additional complaints ENT Reports no additional complaints Card Denies dyspnea Resp Denies cough and Denies dyspnea GI Reports no additional complaints Musc Reports no additional complaints Skin/Breast Denies rash and Denies unusual bruising Neuro Reports no additional complaints Psych Reports no additional complaints Endo Reports no additional complaints Marcial/Lymph Reports no additional complaints Aller/Immun Reports no additional complaints Office Procedures Post Void Residual Post Residual Void Post Void Residual (PVR): 71 [id number]-[id number] Void Residual by ultrasound Results AMB Urinalysis, Automated UA Leukoctes 0 Snehal/uL Last Edit by AMELIA Edge on 09/09/23 08:28 UA Nitrite Negative Last Edit by AMELIA Edge on 09/09/23 08:28 UA Urobilinogen 0.2 mg/dL Last Edit by AMELIA Edge on 09/09/23 08:2 8 UA Protein 100 mg/dL Last Edit by AMELIA Edge on 09/09/23 08:28 2+ Jon Argueta 09/09/23 08:28 UA pH 5.5 Last Edit by AMELIA Edge on 09/09/23 08:28 UA Blood 200 Matti/uL Last Edit by AMELIA Edge on 09/09/23 08:28 3+ Jon Argueta 09/09/23 08:28 UA Specific [place] 1.030 Last Edit by AMELIA Edge on 09/09/23 08: 28 UA Ketone Negative Last Edit by AMELIA Edge on 09/09/23 08:28 UA Bilirubin 0 mg/dL Last Edit by AMELIA Edge on 09/09/23 08:28 UA Glucose 0 mg/dL Last Edit by AMELIA Edge on 09/09/23 08:28 Results Reviewed Results Reviewed: Laboratory Last Values Urine pH (Auto) 5.5 09/09/23 08:23 Specific [place] (Auto) 1.030 09/09/23 08:23 Urine Protein (Auto) 100 mg/dL 09/09/23 08:23 Glucose (UA)(Auto) 0 mg/dL 09/09/23 08:23 Urine Ketones (Auto) Negative 09/09/23 08:23 Urine Blood (Auto) 200 Matti/uL 09/09/23 08:23 Urine Nitrite (Auto) Negative 09/09/23 08:23 Urine Bilirubin (Auto) 0 mg/dL 09/09/23 08:23 Urine Urobilinogen (Auto) 0.2 mg/dL 09/09/23 08:23 Leukocyte Esterase (Auto) 0 Snehal/uL 09/09/23 08:23 Date of Service: 10/02/22 EXAMINATION: US RETROPERITONEAL COMPLETE (RENAL) CLINICAL INFORMATION: Retention of urine, unspecified. COMPARISON: Renal ultrasound 03/20/2017. TECHNIQUE: Real-time imaging of the kidneys and bladder. FINDINGS: RIGHT KIDNEY: 16.2 x 7.9 x 8.2 cm (SAG x AP x TRV). The kidney is normal in size, contour, and echogenicity. Renal cortical thickness is normal. No renal calculi or hydronephrosis. Within the mid to lower pole there is a simple appearing 2.3 x 1.8 x 2.0 cm cyst which does not require follow-up. LEFT KIDNEY: 14.5 x 7.4 x 6.5 cm (SAG x AP x TRV). The kidney is normal in size, contour, and echogenicity. Renal cortical thickness is normal. No calculi or focal parenchymal lesions. No hydronephrosis. BLADDER: Well distended and normal. Bilateral ureteral jets are demonstrated. Prevoid bladder volume is 185 mL. Postvoid bladder volume is 157 mL. ADDITIONAL FINDINGS: Prostate volume is 61 mL. IMPRESSION: Large postvoid residual. Assessment & Plan Assessment & Plan (1) Screening PSA (prostate specific antigen): Code(s): Z12.5 - Encounter for screening for malignant neoplasm of prostate (2) BPH (benign prostatic hyperplasia): Code(s): N40.0 - Benign prostatic hyperplasia without lower urinary tract symptoms (3) Incomplete bladder emptying: Code(s): R33.9 - Retention of urine, unspecified (4) Diabetes: Code(s): E11.9 - Type 2 diabetes mellitus without complications Plan Continue Rapaflo 8 mg daily Orders: Orders AMB Post Void Residual by ultrasound Today N39.8 - Other specified disorders of urinary system AMB Urinalysis Automated Today Z13.9 - Encounter for screening, unspecified Medications: New silodosin (Rapaflo) must administer with a meal/food 8 mg PO DAILY 90 caps 3RF Patient Instructions: The patient had an opportunity to ask questions regarding treatment plan. All questions were answered. Imaging, Laboratory studies and physical exam results were discussed and reviewed in detail. No major barriers to understanding were identified. The patient expressed understanding and agreement with the above treatment plan. The patient is aware they should contact our office by phone for worsening of their current condition or the appearance of new symptoms. Compliance is encouraged with any medications and followup testing that is ordered. It is a privilege to be allowed the opportunity to participate in the urologic care of your patient. If you have any questions or concerns regarding treatment for the above conditions please do not hesitate to contact me. The office telephone contact is [phone]. This note is constructed in part using voice recognition software. While every effort has been made to ensure accuracy shearing machine tender errors may have been included. Yours sincerely, Sofia Dc MD Coding Level of Care Code Est Pt Level 4 (12003) Diagnoses Screening PSA (prostate specific antigen) Z12.5 BPH (benign prostatic hyperplasia) N40.0 Incomplete bladder emptying R33.9 Diabetes E11.9 CPT Codes Post Residual Void - PVR CPT Code: 90032-Brps Void Residual by ultrasound ([id number]) Time Spent (min) 30
== END 2023-09-09 08:50 | disposition home or self-care (01) ==
PROVIDERS: PCP Nurse Practitioner Family; Visit Provider Urology
DX: Z12.5 Encounter for screening for malignant neoplasm of prostate (principal); N40.0 Benign prostatic hyperplasia without lower urinary tract symptoms; R33.9 Retention of urine, unspecified; E11.9 Type 2 diabetes mellitus without complications; Z13.9 Encounter for screening, unspecified
CPT/HCPCS: 99214

== ENCOUNTER → 2023-09-09 08:07 | Outpatient (BNVA) | payer MEDICARE, SELFPAY | PROVIDERS: PCP Nurse Practitioner Family; Visit Provider Urology | DX: Z12.5 Encounter for screening for malignant neoplasm of prostate (principal); N40.0 Benign prostatic hyperplasia without lower urinary tract symptoms; R33.9 Retention of urine, unspecified; E11.9 Type 2 diabetes mellitus without complications | CPT/HCPCS: 51798; 81003; 99212 ==

== ENCOUNTER 2023-09-10 14:53 | Outpatient (AMB) | payer MEDICARE, SELFPAY ==
[2023-09-10 14:56] VITALS: BP 118/70; PULSE 72; O2SAT 96; BMI 42.1
--- NOTE | 2023-09-10 14:56 | HO.NEPHOV_ITS ---
HPI HPI Comments History of Present Illness Details Romel is a 68-year-old man with a history of longstanding diabetes mellitus obesity. About 6 months ago he had microscopic painless hematuria He underwent cystoscopy in October of 2022 which was unremarkable. Urine cytology did not reveal any malignant cells Urine protein creatinine ratio was 653 Serum creatinine 0.87. He is being referred for further evaluation of the above. He has history of BPH. 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 of insulin RLS (restless legs syndrome) Aortic valve calcification BPH (benign prostatic hyperplasia) Osteomyelitis [place] (obstructive sleep apnea) KAI (acute kidney injury) Surgical History H/O colonoscopy History of bunionectomy Amputation toe History of bunionectomy Family History Father Bladder cancer Mother Lung cancer Social History Are you a primary medicare compliance auditor to a significant other at home: Yes (father, also cares for him) Do you presently have visiting nurse or other home services: No Alcohol intake: current Alcohol intake frequency: holidays/special occasions only Patient Tobacco Use Status: Never used Tobacco Cognitive needs: No Hearing needs: No Vision needs: Yes Vital Signs 09/10/23 14:56 Height 6 ft 2 in Weight 328 lb BMI 42.1 BP 118/70 Blood Pressure Location Lt brachial Position Sitting Pulse 72 Pulse Source Pulse Oximeter Pulse Oximetry (%) 96 Oxygen Delivery Method Room Air Physical Exam Vital Signs: Last Vital Signs Pulse 72 09/10/23 14:56 BP 118/70 09/10/23 14:56 Pulse Ox 96 09/10/23 14:56 Oxygen Delivery Method Room Air 09/10/23 14:56 BMI result Body Mass Index 42.1 Const General: cooperative Nutritional Appearance: obese morbidly obese Orientation/consciousness: patient oriented x3 Resp Effort & Inspection: normal respiratory effort Auscultation: clear to auscultation bilaterally Cardio Rate: regular rate Rhythm: regular rhythm Heart sounds: S1 normal heart sound present and S2 normal heart sound present Neuro General: patient oriented x3 Extrem General: Yes edema (Trace) Psych Appearance: grossly normal Mental Status: mental status grossly normal Speech and movement: Normal speech and movement present Affect: normal affect Attitude: cooperative Thought process: Normal thought process present Thought content: Normal thought content present Insight: Good insight present (Psych) Judgement: Good judgement present (Psych) Assessment & Plan Assessment & Plan (1) Hematuria: Code(s): R31.9 - Hematuria, unspecified (2) Proteinuria: Code(s): R80.9 - Proteinuria, unspecified Plan . Romel is a 68-year-old man with a history of longstanding obesity and diabetes mellitus with proteinuria and painless hematuria. Recent cystoscopy was unremarkable. Urine cytology did not reveal any malignant cells. Has had no imaging for the upper renal tract thus far. He had a renal ultrasonogram which is unremarkable. He has been on Actos for about a year. Although the proteinuria could be due to underlying diabetes mellitus and obesity other nondiabetic causes should be ruled out. At present renal function is stable at baseline with a creatinine 0.87. Blood pressure is well controlled. I have initiated a workup for both hematuria and proteinuria. Extensive serologies have been ordered. He is scheduled to have a CT scan of his abdomen. I will wait for the results. If urological causes are ruled out then he may require a kidney biopsy for a definite diagnosis. In the meantime encouraged him to stand low-sodium diet. Increase fluid intake. Continue to avoid nephrotoxic agents. Maintain A1c less than 7% and blood pressure less than 130/80. All his questions were answered. Return to office in the next 4 weeks Orders: Orders UA and rflx microscopic Today R31.9 - Hematuria, unspecified, R80.9 - Proteinuria, unspecified Myeloperoxidase Antibody Today R31.9 - Hematuria, unspecified, R80.9 - Proteinuria, unspecified Anti Glomerular Basement Memb Today R31.9 - Hematuria, unspecified, R80.9 - Proteinuria, unspecified Protein Electrophoresis, Serum Today R31.9 - Hematuria, unspecified, R80.9 - Proteinuria, unspecified Total Protein Urine Random Today R31.9 - Hematuria, unspecified, R80.9 - Proteinuria, unspecified Creatinine Urine Today N05.9 - Unspecified nephritic syndrome with unspecified morphologic changes, R31.9 - Hematuria, unspecified, R80.9 - Proteinuria, unspecified Anti DNA DS Antibody Today R31.9 - Hematuria, unspecified, R80.9 - Proteinuria, unspecified Neutrophil Cytoplasma Ab Today R31.9 - Hematuria, unspecified, R80.9 - Proteinuria, unspecified Proteinase 3 PR3 Antibodies Today R31.9 - Hematuria, unspecified, R80.9 - Proteinuria, unspecified Complement C3 Today R31.9 - Hematuria, unspecified, R80.9 - Proteinuria, unspecified Complement C4 Today R31.9 - Hematuria, unspecified, R80.9 - Proteinuria, unspecified Immunofixation Pnl, Serum Today R31.9 - Hematuria, unspecified, R80.9 - Proteinuria, unspecified Phospholipase A2 Receptor Pnl Today R31.9 - Hematuria, unspecified, R80.9 - Proteinuria, unspecified Coding Level of Care Code New Pt Level 5 (66278) Diagnoses Hematuria R31.9 Proteinuria R80.9 Results Reviewed Nephrology Results: Hgb 15.2 g/dl (14.0-18.0) 08/31/23 WBC 10.5 X10*3/uL (4.8-10.8) 08/31/23 Plt Count 268 X10*3/uL (160-400) 08/31/23 Sodium 141 mmol/L (135-145) 08/31/23 Potassium 4.7 mmol/L (3.3-5.1) 08/31/23 Chloride 105 mmol/L (96-108) 08/31/23 Carbon Dioxide 27 mmol/L (22-29) 08/31/23 BUN 20 mg/dL (9-16) H 08/31/23 Creatinine 0.87 mg/dL (0.5-1.4) 08/31/23 Calcium 9.9 mg/dL (8.4-10.2) 08/31/23 Urine Protein 100 (2+) mg/dL (Neg-Trace) H 08/31/23 Urine Creatinine 81.22 mg/dL 04/02/23
== END 2023-09-10 15:28 | disposition home or self-care (01) ==
PROVIDERS: PCP Nurse Practitioner Family; Referring Provider Nurse Practitioner Family; Visit Provider Internal Medicine Hypertension Specialist
DX: R31.9 Hematuria, unspecified (principal); R80.9 Proteinuria, unspecified
CPT/HCPCS: 99204; 99214

== ENCOUNTER → 2023-09-10 14:53 | Outpatient (BNVA) | payer MEDICARE, SELFPAY | PROVIDERS: PCP Nurse Practitioner Family; Referring Provider Nurse Practitioner Family; Visit Provider Internal Medicine Hypertension Specialist | DX: R31.9 Hematuria, unspecified (principal); R80.9 Proteinuria, unspecified | CPT/HCPCS: 99202 ==

== ENCOUNTER 2023-09-18 07:54 | Outpatient (RCR) | payer MEDICARE, SELFPAY | END 2023-10-10 15:13 | disposition home or self-care (01) | LOC: HO.WCC 07:54 | PROVIDERS: PCP Nurse Practitioner Family; Visit Provider Surgery | DX: E11.621 Type 2 diabetes mellitus with foot ulcer (principal); L97.522 Non-pressure chronic ulcer of other part of left foot with fat layer exposed | CPT/HCPCS: 11042; 99212 ==

== ENCOUNTER 2023-09-19 12:32 | Outpatient (REF) | payer MEDICARE, SELFPAY ==
--- NOTE | ~2023-09-19 | US_ITS ---
EXAMINATION: US NONINVASIVE ASSESSMENT OF THE ARTERIES OF BOTH LOWER EXTREMITIES INCLUDING PVR EXAM AND BILATERAL LOWER EXTREMITY DUPLEX. CLINICAL INFORMATION: Peripheral vascular disease COMPARISON: None TECHNIQUE: Ankle pulse volume recordings, ankle pressure measurements and ankle brachial indices were obtained of the lower extremity arterial system bilaterally in addition to duplex Doppler techniques with wave form analysis and measurement of velocities in the common femoral, profunda femoral, superficial femoral, popliteal, tibial and peroneal arteries. The study was performed only at rest. FINDINGS: RIGHT LE. THE RIGHT ANKLE-BRACHIAL INDEX IS: 1.19 noncompressibility/calcification. >0.97-1.25 = normal - no significant arterial disease 0.75-0.96 = mild peripheral arterial disease 0.5-0.74 = moderate peripheral arterial disease <0.50 = severe peripheral arterial disease <0.30 = critical arterial disease 2. SEGMENTAL PRESSURES (mmHg): Ankle: PT 185, DP 185 3. PVR WAVEFORMS: Ankle: Normal 4. DIRECT DUPLEX: Common femoral artery: 119 cm/s, Multiphasic Profunda femoris artery: 39 cm/s, biphasic Superficial femoral artery (proximal): 113 cm/s, Multiphasic Superficial femoral artery (mid): 107 cm/s, Multiphasic Superficial femoral artery (distal): 82 cm/s, Multiphasic Proximal Popliteal artery: 76 cm/s, Multiphasic Anterior tibial artery: 41 cm/s, Multiphasic Mid posterior tibial artery: 108 cm/s, Multiphasic Dorsalis pedis: 40 cm/s, biphasic LEFT LE. THE LEFT ANKLE-BRACHIAL INDEX IS: 1.15 (higher of the DP/PT) >0.97-1.25 = normal - no significant arterial disease 0.75-0.96 = mild peripheral arterial disease 0.5-0.74 = moderate peripheral arterial disease <0.50 = severe peripheral arterial disease <0.30 = critical arterial disease 2. SEGMENTAL PRESSURES: Ankle: PT 178, DP 174 3. PVR WAVEFORMS: Ankle: Normal 4. DIRECT DUPLEX: Common femoral artery: 129 cm/s, Multiphasic Profunda femoris artery: 75 cm/s, biphasic Superficial femoral artery (proximal): 107 cm/s, Multiphasic Superficial femoral artery (mid): 119 cm/s, Multiphasic Superficial femoral artery (distal): 116 cm/s, Multiphasic Proximal Popliteal artery: 73 cm/s, Multiphasic Anterior tibial artery: 91 cm/s, Multiphasic Mid posterior tibial artery: 69 cm/s, Multiphasic Peroneal artery: 50 cm/s, Multiphasic Dorsalis pedis artery: 59 cm/s, multiphasic US/US arterial duplex LE BI IMPRESSION: Normal resting peripheral arterial testing without evidence of hemodynamically significant stenosis.
== END 2023-09-19 12:33 | disposition home or self-care (01) ==
LOC: HO.US 12:32
PROVIDERS: PCP Nurse Practitioner Family; Visit Provider Surgery Vascular Surgery
DX: I73.9 Peripheral vascular disease, unspecified (principal)
CPT/HCPCS: 93923; 93925

== ENCOUNTER 2023-09-26 08:33 | Outpatient (AMB) | payer MEDICARE, SELFPAY ==
--- NOTE | 2023-09-26 08:50 | A.OFFVIS_ITS ---
Intake Intake Visit Reasons: 1 yr follow up Arterial US 09/19/2023 Intake Note: Patient presents for follow up 09/19/23 arterial US. Has no cramping or weakness in either leg. Accompanied by: Self / Same As Patient Allergies No Known Allergies Allergy (Verified 09/26/23 08:53) HPI 1 yr follow up Arterial US 09/19/2023 HPI Details Very pleasant 68-year-old gentleman presents for routine surveillance follow-up regarding peripheral vascular disease. He actually had undergone right 4th toe amputation with us back in 2017. He has been surveillance with us on an annual basis. Reports no interval issues. He does have a lateral foot callus which he is being seen by Podiatry for. Now presents for routine surveillance follow-up. [facility] Medical History Ascending aortic aneurysm Ascending aorta dilatation Aortic stenosis [place] jose, bilateral COVID-19 vaccine series completed Obesity due to excess calories Tinea pedis Charcot foot due to diabetes mellitus Morbid obesity Diabetic polyneuropathy associated with type 2 diabetes mellitus 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 type 2 diabetes mellitus [facility] (current) use of insulin RLS (restless legs syndrome) Aortic valve calcification BPH (benign prostatic hyperplasia) Osteomyelitis [place] (obstructive sleep apnea) KAI (acute kidney injury) Surgical History H/O colonoscopy History of bunionectomy Amputation toe History of bunionectomy Family History Father Bladder cancer Mother Lung cancer Social History Are you a primary cardiac care unit nurse to a significant other at home: Yes (father, also cares for him) Do you presently have visiting nurse or other home services: No Alcohol intake: current Alcohol intake frequency: holidays/special occasions only Patient Tobacco Use Status: Never used Tobacco Cognitive needs: No Hearing needs: No Vision needs: Yes Review of Systems Const All systems reviewed & are unremarkable except as noted in HPI and below Reports no additional complaints ENT Reports Normal hearing present Card Denies chest pain, Denies chest pain at rest, Denies chest pain with activity and Denies pedal edema Resp Denies cough GI Denies abdominal pain Musc Denies abnormal gait, Denies muscle cramps and Denies radiating pain into limb Skin/Breast Denies skin ulcer and Denies wounds Neuro Reports Normal hearing present and Denies abnormal gait Psych Reports no additional complaints Physical Exam Const General: cooperative, healthy appearing and comfortable Orientation/consciousness: oriented to person, oriented to place and oriented to time HEENT Head: Yes normal to inspection Neck Neck: Yes normal visual inspection Carotids: no bruits Chest Chest palpation & inspection: normal inspection of the chest Resp Effort & Inspection: normal respiratory effort and able to speak in complete sentences Auscultation: clear to auscultation bilaterally, no crackles, no rales, no rhonchi and no wheezes Cardio Rate: regular rate Rhythm: regular rhythm Heart sounds: S1 normal heart sound present and S2 normal heart sound present Bruits: no carotid bruits Peripheral pulses: Peripheral pulses 2+ throughout GI Inspection: Yes normal to inspection Skin Other: Left lateral foot callus Amp site well-healed Wounds: amputation site and wounds noted Hair: normal Neuro General: oriented to person, oriented to place and oriented to time Cranial nerves: Yes CN's II-XII intact bilaterally and Yes Normal hearing present Cognition (Neuro): normal cognition Motor exam (neuro): 5/5 motor strength present throughout Extrem Other: venous exam: No significant superficial varicosities or spider telangiectasias, minimal edema General: No clubbing, No cyanosis and No edema Psych Appearance: grossly normal Mental Status: mental status grossly normal Speech and movement: Normal speech and movement present Results Reviewed Results Reviewed: Noninvasive testing dated 09/19/2023 demonstrates CALEB on the right of 1.19 and on the left of 1.15. Written report and images were reviewed. Assessment & Plan Assessment & Plan (1) PAD (peripheral artery disease): Comment: 03/13/2027 - right 4th toe amputation Code(s): I73.9 - Peripheral vascular disease, unspecified Plan: In short patient has stable claudication. I did review the pathophysiology of peripheral vascular disease with the patient. In addition we did discuss routine conservative measures including a healthy diet and the importance of exercise and ambulation. We did discuss risk factor modification. The patient will continue to to follow-up with surveillance follow-up in approximately 1 year. Thank you for allowing us to participate in this patient's care. If there are any questions or concerns please do not hesitate to contact us. Orders: Orders US arterial duplex LE BI 1 Year I73.9 - Peripheral vascular disease, unspecified Coding Level of Care Code Est Pt Level 4 (26936) Diagnoses PAD (peripheral artery disease) I73.9
== END 2023-09-26 09:22 | disposition home or self-care (01) ==
PROVIDERS: PCP Nurse Practitioner Family; Visit Provider Surgery Vascular Surgery
DX: I73.9 Peripheral vascular disease, unspecified (principal)
CPT/HCPCS: 99213

== ENCOUNTER → 2023-09-26 08:33 | Outpatient (BNVA) | payer MEDICARE, SELFPAY | PROVIDERS: PCP Nurse Practitioner Family; Visit Provider Surgery Vascular Surgery | DX: I73.9 Peripheral vascular disease, unspecified (principal) | CPT/HCPCS: 99212 ==

== ENCOUNTER 2023-10-02 08:12 | Outpatient (REF) | payer MEDICARE, SELFPAY ==
[2023-10-02 10:37] LABS: Appearance Urine Turbid; Color Urine Dark Yellow; Glucose Urine UA Negative (Negative); Leukocyte Esterase Urine Small (1+) (Negative); Nitrite Urine Negative (Negative); PH 5.5 (5.0-9.0); UMIC TRIGGER UA YES; Urine Blood Large (3+) (Negative); Urine Ketones Negative (Negative); Urine Protein 100 (2+) mg/dL (Neg-Trace)
[2023-10-02 11:19] LABS: Bacteria Urine None Seen (None Seen); Hyaline Casts Urine 0-2 /LPF (0-2); RBC Urine >20 /HPF (0-2)
[2023-10-02 11:49] LABS: Creatinine Urine 131.27 mg/dL; Total Protein Urine Random 86 mg/dL (<12)
[2023-10-03 11:43] LABS: Complement C3 61 mg/dL (82-185)
[2023-10-03 19:14] LABS: Anti DNA DS Antibody <1 IU/mL; Anti Glomerular Basement Memb <1.0 AI; Myeloperoxidase Antibody <1.0 AI; Proteinase 3 PR3 Antibodies <1.0 AI
[2023-10-04 13:08] LABS: IgA 223 mg/dL (70-320); IgG 1185 mg/dL (600-1540); IgM 40 mg/dL (50-300)
[2023-10-04 19:18] LABS: Prot Elec - Albumin 4.2 g/dL (3.8-4.8); Prot Elec - Alpha1 0.3 g/dL (0.2-0.3); Prot Elec - Alpha2 0.9 g/dL (0.5-0.9); Prot Elec - Beta 1 0.5 g/dL (0.4-0.6); Prot Elec - Beta 2 0.4 g/dL (0.2-0.5); Prot Elec - Total Protein 7.3 g/dL (6.1-8.1)
[2023-10-09 11:13] LABS: Neutrophil Cyto Ab Screen NEGATIVE (NEGATIVE)
[2023-10-09 23:29] LABS: Phospholipase A2 IgG ELISA <4 RU/mL; Phospholipase A2 IgG IFA NEGATIVE (NEGATIVE)
== END 2023-10-02 08:13 | disposition home or self-care (01) ==
LOC: HO.HMGCLDS 08:12
PROVIDERS: PCP Nurse Practitioner Family; Visit Provider Internal Medicine Hypertension Specialist
DX: R31.9 Hematuria, unspecified (principal); R80.9 Proteinuria, unspecified; N05.9 Unspecified nephritic syndrome with unspecified morphologic changes
CPT/HCPCS: 36415; 81001; 82570; 82784; 83520; 84156; 84165; 86021; 86036; 86160; 86225; 86255; 86334

== ENCOUNTER 2023-10-08 07:37 | Outpatient (REF) | payer MEDICARE, SELFPAY ==
--- NOTE | ~2023-10-08 | CT_ITS ---
EXAMINATION: CT UROGRAM WITHOUT AND WITH CONTRAST CLINICAL INFORMATION: Reason for Exam R31.9 - Hematuria, unspecified COMPARISON: None available. TECHNIQUE: Helical scanning was performed with collimation through the abdomen and pelvis precontrast. Helical scanning was then repeated with submillimeter collimation through the abdomen and pelvis in the pyelogram phase with use of 85 mL of Omnipaque 300 intravenous contrast. Sagittal and coronal 2-D reconstructions were obtained. Multiple additional 3-D volume rendered images were obtained of the kidneys and collecting systems on an independent workstation under concurrent supervision. This CT examination was performed using dose optimization techniques as appropriate, variously including the following: *Automated exposure control *Adjustment of mA and/or kV according to patient size (this includes techniques or standardized protocols for targeted exams where dose is matched to indication/reason for exam; i.e. extremities or head) *Use of iterative reconstruction technique DLP: 1371 mgy*cm FINDINGS: LUNG BASES: Unremarkable. ABDOMINAL AND PELVIC WALL: Bilateral fat-containing inguinal hernias. LIVER AND BILIARY TREE: Unremarkable. GALLBLADDER: Unremarkable. PANCREAS: Unremarkable. SPLEEN: Unremarkable. ADRENAL GLANDS: Unremarkable. KIDNEYS AND URETERS: . The kidneys are normal in size, shape, and attenuation. No hydronephrosis, hydroureter, or calculi seen. No perinephric stranding. No obvious mass lesion or filling defect is seen in the collecting systems or ureters. GASTROINTESTINAL TRACT: Colonic diverticulosis, no findings of diverticulitis. VASCULAR: Aneurysmal dilation measuring 4.5 x 3.3 cm. LYMPH NODES/PERITONEUM: No lymphadenopathy. FREE FLUID: None. BLADDER: Multiple layering urinary bladder stones and mild circumferential urinary bladder wall thickening, which may be due to underdistention. PELVIC VISCERA: Prostate is enlarged, measuring 5.4 x 6.3 cm. OSSEOUS STRUCTURES: Degenerative changes of the spine. CT/CT urogram IMPRESSION: * No obvious mass lesion or filling defect is seen in the collecting systems or ureters. Please note, negative study does not obviate the need for cystoscopy if clinically warranted. * Multiple layering urinary bladder stones and mild circumferential urinary bladder wall thickening, which may be due to underdistention. * Prostatomegaly. * Aneurysmal dilation of the infrarenal abdominal aorta measuring up to 4.5 cm.
[2023-10-08] MEDS: iohexoL 350 MG/ML 100 ML INFUS..BTL 85 ML IV (08:45)
[2023-10-08 14:50] LABS: Creatinine POC 0.9 mg/dL (0.5-1.4); GFR POC > 60
== END 2023-10-08 07:38 | disposition home or self-care (01) ==
LOC: HO.CT 07:37
PROVIDERS: PCP Nurse Practitioner Family; Visit Provider Nurse Practitioner Family
DX: R31.9 Hematuria, unspecified (principal)
CPT/HCPCS: 74178; 82565; Q9967

== ENCOUNTER 2023-10-15 11:32 | Outpatient (AMB) | payer MEDICARE, SELFPAY ==
[2023-10-15 11:34] VITALS: BP 126/80; PULSE 88; O2SAT 96; BMI 41.5
--- NOTE | 2023-10-15 11:34 | HO.NEPHOV ---
HPI HPI Comments History of Present Illness Details Romel is a 68-year-old man with a history of longstanding diabetes mellitus obesity. About 6 months ago he had microscopic painless hematuria He underwent cystoscopy in October of 2022 which was unremarkable. Urine cytology did not reveal any malignant cells Urine protein creatinine ratio was 653 Serum creatinine 0.87. He is being referred for further evaluation of the above. He has history of BPH. Postvoid residual was 157 cc as of 09/09/2023 Of note he has been on Actos for more than a year [facility] Medical History Ascending aortic aneurysm Ascending aorta dilatation Aortic stenosis [place], bilateral COVID-19 vaccine series completed Obesity due to excess calories Tinea pedis Charcot foot due to diabetes mellitus Morbid obesity Diabetic polyneuropathy associated with type 2 diabetes mellitus 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 type 2 diabetes mellitus detention (current) use of insulin RLS (restless legs syndrome) Aortic valve calcification BPH (benign prostatic hyperplasia) Osteomyelitis [place] (obstructive sleep apnea) KAI (acute kidney injury) Surgical History H/O colonoscopy History of bunionectomy Amputation toe History of bunionectomy Family History Father Bladder cancer Mother Lung cancer Social History Are you a primary congregational care pastor to a significant other at home: Yes (father, also cares for him) Do you presently have visiting nurse or other home services: No Alcohol intake: current Alcohol intake frequency: holidays/special occasions only Patient Tobacco Use Status: Never used Tobacco Cognitive needs: No Hearing needs: No Vision needs: Yes Vital Signs 10/15/23 11:34 Height 6 ft 2 in Weight 323 lb BMI 41.5 BP 126/80 Blood Pressure Location Rt brachial Position Sitting Pulse 88 Pulse Source Pulse Oximeter Pulse Oximetry (%) 96 Oxygen Delivery Method Room Air Physical Exam Vital Signs: Last Vital Signs Pulse 88 10/15/23 11:34 BP 126/80 10/15/23 11:34 Pulse Ox 96 10/15/23 11:34 Oxygen Delivery Method Room Air 10/15/23 11:34 BMI result Body Mass Index 41.5 Const General: cooperative Nutritional Appearance: obese morbidly obese Orientation/consciousness: patient oriented x3 Resp Effort & Inspection: normal respiratory effort Auscultation: clear to auscultation bilaterally Cardio Rate: regular rate Rhythm: regular rhythm Heart sounds: S1 normal heart sound present and S2 normal heart sound present Neuro General: patient oriented x3 Extrem General: Yes edema (Trace) Psych Appearance: grossly normal Mental Status: mental status grossly normal Speech and movement: Normal speech and movement present Affect: normal affect Attitude: cooperative Thought process: Normal thought process present Thought content: Normal thought content present Insight: Good insight present (Psych) Judgement: Good judgement present (Psych) Assessment & Plan Assessment & Plan (1) Hematuria: Code(s): R31.9 - Hematuria, unspecified (2) Proteinuria: Code(s): R80.9 - Proteinuria, unspecified (3) Microscopic hematuria: Code(s): R31.29 - Other microscopic hematuria Plan . Romel is a 68-year-old man with a history of longstanding obesity and diabetes mellitus with proteinuria and painless hematuria. Recent cystoscopy was unremarkable. Urine cytology did not reveal any malignant cells. He had a renal ultrasonogram which is unremarkable. CT scan was done on 10/08/2023. Results are not available yet. He has been on Actos for about a year. Although the proteinuria could be due to underlying diabetes mellitus and obesity other nondiabetic causes should be ruled out. At present renal function is stable at baseline with a creatinine 0.87. Blood pressure is well controlled. workup for both hematuria and proteinuria in progress. Await results of CT scan of his abdomen. If urological causes are ruled out then he may require a kidney biopsy for a definite diagnosis. I will recheck the urine protein creatinine excretion along with serum creatinine in the next several weeks. In the meantime encouraged him to stand low-sodium diet. Increase fluid intake. Continue to avoid nephrotoxic agents. Maintain A1c less than 7% and blood pressure less than 130/80. All his questions were answered. Since pioglitazone has been implicated in bladder cancer I would suggest to switch this to a different agent. Orders: Orders Basic Metabolic Panel 2 Months R31.29 - Other microscopic hematuria, R80.9 - Proteinuria, unspecified UA and rflx microscopic 2 Months R31.29 - Other microscopic hematuria, R80.9 - Proteinuria, unspecified Proteinase 3 PR3 Antibodies 2 Months R31.29 - Other microscopic hematuria, R80.9 - Proteinuria, unspecified Total Protein Urine Random 2 Months R31.29 - Other microscopic hematuria, R80.9 - Proteinuria, unspecified Creatinine Urine 2 Months N05.9 - Unspecified nephritic syndrome with unspecified morphologic changes, R31.29 - Other microscopic hematuria, R80.9 - Proteinuria, unspecified Neutrophil Cytoplasma Ab 2 Months R31.29 - Other microscopic hematuria, R80.9 - Proteinuria, unspecified Myeloperoxidase Antibody 2 Months R31.29 - Other microscopic hematuria, R80.9 - Proteinuria, unspecified Anti Glomerular Basement Memb 2 Months R31.29 - Other microscopic hematuria, R80.9 - Proteinuria, unspecified Complement C3 2 Months R31.29 - Other microscopic hematuria, R80.9 - Proteinuria, unspecified Complement C4 2 Months R31.29 - Other microscopic hematuria, R80.9 - Proteinuria, unspecified Coding Level of Care Code Est Pt Level 4 (06552) Diagnoses Hematuria R31.9 Proteinuria R80.9 Microscopic hematuria R31. Results Reviewed Nephrology Results: Hgb 15.2 g/dl (14.0-18.0) 08/31/23 WBC 10.5 X10*3/uL (4.8-10.8) 08/31/23 Plt Count 268 X10*3/uL (160-400) 08/31/23 Sodium 141 mmol/L (135-145) 08/31/23 Potassium 4.7 mmol/L (3.3-5.1) 08/31/23 Chloride 105 mmol/L (96-108) 08/31/23 Carbon Dioxide 27 mmol/L (22-29) 08/31/23 BUN 20 mg/dL (9-16) H 08/31/23 Creatinine 0.87 mg/dL (0.5-1.4) 08/31/23 Calcium 9.9 mg/dL (8.4-10.2) 08/31/23 Urine Protein 100 (2+) mg/dL (Neg-Trace) H 10/02/23 Urine Creatinine 131.27 mg/dL 10/02/23
== END 2023-10-15 12:06 | disposition home or self-care (01) ==
PROVIDERS: PCP Nurse Practitioner Family; Referring Provider Nurse Practitioner Family; Visit Provider Internal Medicine Hypertension Specialist
DX: R31.9 Hematuria, unspecified (principal); R80.9 Proteinuria, unspecified; R31.29 Other microscopic hematuria
CPT/HCPCS: 99214

== ENCOUNTER → 2023-10-15 11:32 | Outpatient (BNVA) | payer MEDICARE, SELFPAY | PROVIDERS: PCP Nurse Practitioner Family; Visit Provider Internal Medicine Hypertension Specialist | DX: R31.9 Hematuria, unspecified (principal); R80.9 Proteinuria, unspecified; R31.29 Other microscopic hematuria | CPT/HCPCS: 99212 ==

== ENCOUNTER 2024-01-07 08:12 | Outpatient (AMB) | payer MEDICARE, SELFPAY ==
--- NOTE | 2024-01-07 08:31 | MHC.PC.OV ---
Vital Signs 01/07/24 08:34 Height 6 ft 2 in Weight 310 lb 2 oz BMI 39.8 BP 110/68 Blood Pressure Location Rt brachial Position Sitting Pulse 68 Pulse Source Pulse Oximeter Pulse Oximetry (%) 96 Oxygen Delivery Method Room Air Intake Visit Reasons: 4 month follow up - see comments Intake Note: Patient here for diabetes f/u Allergies No Known Allergies Allergy (Verified 01/07/24 09:23) Medication List - Last Reconciled 01/07/24 by WILLIAM Elmore alpha lipoic acid 600 mg PO DAILY amlodipine 10 mg PO DAILY aspirin (Children's Aspirin) 81 mg PO DAILY atorvastatin 80 mg PO BEDTIME 90 days blood sugar diagnostic (FreeStyle Lite Strips) 4 times a day blood-glucose meter (FreeStyle Lite Meter kit) 4 times a day cholecalciferol (vitamin D3) 10 mcg PO DAILY FreeStyle Lancets (lancets) 4 times a day NS FreeStyle Yolanda 2 [place] (flash glucose scanning reader) TID testing NS FreeStyle Yolanda 2 Sensor (flash glucose sensor) TID tesing NS gabapentin 300 mg PO TID 30 days insulin glargine U-300 conc (Toujeo Max U-300 SoloStar) 50 units (0.1667 mL) subcut DAILY lisinopril 10 mg PO DAILY 90 days metformin ER 1,000 mg (2 x 500 mg) PO BID 90 days pen needle, diabetic (BD Ultra-Fine Short Pen Needle) use to inject insulin once a day semaglutide 2 mg (0.75 mL) subcut QWEEK 30 days silodosin (Rapaflo) 8 mg PO DAILY sulfamethoxazole-trimethoprim 800-160 mg (Bactrim DS) 1 tab PO BID 3 days trazodone 100 mg PO BEDTIME PRN 30 days Tobacco use date assessed: 01/07/24 Fall risk assessment: No Falls in past year Last assessed Fall Risk: 01/07/24 Dental Screening Dental Screen Date: 01/07/24 Did you have a dental visit in the last 12 months?: Yes Did you have a dental problem in the last 6 months where you did not have access to dental care?: No Was dental information given to patient?: Patient has dentist HPI 4 month follow up - see comments HPI Details Pt is a diabetic, on an JASON and a statin. A1C in office today is . Microalbumin is up to date. Denies polyuria, polydipsia, and neuropathy. Pt denies any signs and symptoms of hypoglycemia and does know how to correct it.Eye exam is up to date. Pt c/o dysuria. He also reports noticing some blood in his urine. UA in office today shows UTI. Will send bactrim. Will order urine culture. Denies fever, chills, and dizziness. Pt sees urology and nephrology. Pt also sees podiatry, has an upcoming appointment. [facility] Medical History (atherosclerosis) Ascending aortic aneurysm Ascending aorta dilatation Aortic stenosis Hamm[place], bilateral COVID-19 vaccine series completed Obesity due to excess calories Tinea pedis Charcot foot due to diabetes mellitus Morbid obesity Diabetic polyneuropathy associated with type 2 diabetes mellitus 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 type 2 diabetes mellitus retirement (current) use of insulin RLS (restless legs syndrome) Aortic valve calcification BPH (benign prostatic hyperplasia) Osteomyelitis [place] (obstructive sleep apnea) KAI (acute kidney injury) Surgical History H/O colonoscopy History of bunionectomy Amputation toe History of bunionectomy Family History Father Bladder cancer Mother Lung cancer Social History Are you a primary respiratory care specialist to a significant other at home: Yes (father, also cares for him) Do you presently have visiting nurse or other home services: No Alcohol intake: current Alcohol intake frequency: holidays/special occasions only Patient Tobacco Use Status: Never used Tobacco Cognitive needs: No Hearing needs: No Vision needs: Yes Questionnaire PHQ-9 Over the last 2 weeks, how often have you been bothered by any of the following problems? 1. Little interest or pleasure in doing things: not at all 2. Feeling down, depressed, or hopeless: not at all 3. Trouble falling or staying asleep, or sleeping too much: several days 4. Feeling tired or having little energy: several days 5. Poor appetite or overeating: several days 6. Feeling bad about yourself - or that you are a failure or have let yourself or your family down: not at all 7. Trouble concentrating on things, such as reading the newspaper or watching television: not at all 8. Moving or speaking so slowly that other people could have noticed. Or the opposite - being so fidgety or restless that you have been moving around a lot more than usual: not at all 9. Thoughts that you would be better off or of hurting yourself in some way: not at all Total score: 3 Depression Screening Interpretation: Negative Depression Screening Done: Yes 44882 - PHQ-9 Billing: Yes Source: Developed by Drs. Rudy Lott, Melissa Giraldo, Baljit Huang and colleagues, with an educational angela from [employer]. Thrive Questionnaire Date Thrive assessed: 01/07/24 What is your living situation today?: I choose not to answer this question Within the past 12 months, did the food you bought not last and you didn't have the money to get more?: I choose not to answer this question Within the past 12 months, did you worry whether your food would run out before you got money to buy more?: I choose not to answer this question Do you have trouble paying for medicines?: I choose not to answer this question Do you have trouble getting transportation to medical appointments?: I choose not to answer this question Do you have trouble paying your heating and electricity bill?: I choose not to answer this question Do you have trouble taking care of your child, family member or friend?: I choose not to answer this question Do you have trouble with day-to-day activities such as bathing, preparing meals, shopping, managing finances, etc.?: I choose not to answer this question Are you currently unemployed and looking for a job?: I choose not to answer this question Are you interested in more education?: I choose not to answer this question Currently or been in a relationship where the following occur: I choose not to answer THRIVE Score: 0 ALFRED-7 AMB Questionnaire ALFRED-7 Date ALFRED - 7 assessed: 01/07/24 Feeling nervous, anxious, or on edge: 1 = Several days Not being able to stop or control worryin = Not at all Worrying too much about different things: 1 = Several days Trouble relaxin = Several days Being so restless that it is hard to sit still: 0 = Not at all Becoming easily annoyed or irritable: 1 = Several days Feeling afraid as if something awful might happen: 0 = Not at all Total ALFRED-7 score (0-4 normal; 5-9 mild; 10-14 moderate; 15-21 severe): 4 Source: Developed by Drs. Rudy Lott, Melissa Giraldo, Baljit Huang and colleagues, with an educational angela from [employer]. ALFRED-7 Assessment Billing ALFRED-7 Assessment Tool: ALFRED-7 Assessment 96793 Physical exam (Primary Care) Vital Signs: Last Vital Signs Pulse 68 01/07/24 08:34 BP 110/68 01/07/24 08:34 Pulse Ox 96 01/07/24 08:34 Oxygen Delivery Method Room Air 01/07/24 08:34 BMI result Body Mass Index 39.8 Tobacco/Smoking Status: Tobacco use Status Tobacco use date assessed 01/07/24 01/07/24 08:36 Patient Tobacco Use Status Never used Tobacco 01/07/24 08:32 PHQ-9: PHQ-9 Score PHQ-9: Total score 3 01/07/24 08:59 Depression Screening Interpretation: Negative Thrive Assessment: Date of Thrive Assessment Date Thrive assessed 01/07/24 01/07/24 08:41 Currently or been in a relationship where the following occur: I choose not to answer Const General: cooperative Nutritional Appearance: obese Orientation/consciousness: patient oriented x3 Resp Effort & Inspection: normal respiratory effort Auscultation: clear to auscultation bilaterally Cardio Rate: regular rate Rhythm: regular rhythm Heart sounds: S1 normal heart sound present and S2 normal heart sound present General: Yes no CVA tenderness Back/Spine/Pelvis Back: no CVA tenderness Neuro General: patient oriented x3 Extrem Other: right foot: 4th toe amputated, 3rd toe wth scab at distal apsect, hammtertoes noted, bunion formation, callus to first MTP joint plantar aspect, let foot: mid lateral plantar aspect with healing skn graft, no signs of infection, onychomycosis noted bilat, + sensation with use of monofilament bilat, less sensation to right Results AMB Hemoglobin A1c AMB Hemoglobin A1c 6.9 % Last Edit by Aidee Sinha [facility] on 01/07/24 09:00 AMB Urinalysis, Automated UA Leukoctes 15 Snehla/uL Last Edit by Aidee Sinha [facility] on 01/07/24 09:01 UA Nitrite Negative Last Edit by Aidee Sinha [facility] on 01/07/24 09:01 UA Urobilinogen 0.2 mg/dL Last Edit by Aidee Sinha [facility] on 01/07/24 09:01 UA Protein 100 mg/dL Last Edit by Aidee Sinha [facility] on 01/07/24 09:01 UA pH 6.0 Last Edit by Aidee Sinha [facility] on 01/07/24 09:01 UA Blood 200 Matti/uL Last Edit by Aidee Sinha [facility] on 01/07/24 09:01 UA Specific [place] 1.025 Last Edit by Aidee Sinha [facility] on 01/07/24 09:01 UA Ketone Negative Last Edit by Aidee Sinha [facility] on 01/07/24 09:01 UA Bilirubin 0 mg/dL Last Edit by Aidee Sinha [facility] on 01/07/24 09:01 UA Glucose 0 mg/dL Last Edit by Aidee Sinha [facility] on 01/07/24 09:01 Results Reviewed Results Reviewed: Laboratory Last Values Hgb A1c (Clinic) 6.9 % (4.0-6.0) H 01/07/24 08:54 Urine pH (Auto) 6.0 01/07/24 08:54 Specific [place] (Auto) 1.025 01/07/24 08:54 Urine Protein (Auto) 100 mg/dL 01/07/24 08:54 Glucose (UA)(Auto) 0 mg/dL 01/07/24 08:54 Urine Ketones (Auto) Negative 01/07/24 08:54 Urine Blood (Auto) 200 Matti/uL 01/07/24 08:54 Urine Nitrite (Auto) Negative 01/07/24 08:54 Urine Bilirubin (Auto) 0 mg/dL 01/07/24 08:54 Urine Urobilinogen (Auto) 0.2 mg/dL 01/07/24 08:54 Leukocyte Esterase (Auto) 15 Snehal/uL 01/07/24 08:54 Assessment and Plan Assessment & Plan (1) Dysuria: Code(s): R30.0 - Dysuria Plan: UA shows UTI, bactrim sent, culture ordered (2) Diabetic polyneuropathy associated with type 2 diabetes mellitus: Code(s): E11.42 - Type 2 diabetes mellitus with diabetic polyneuropathy Plan: 6.9 a1c, pt will cont to work on his diet. Taking all meds as prescribed (3) Vitamin D deficiency: Code(s): E55.9 - Vitamin D deficiency, unspecified Plan The patient agreed to the use of a medical coding instructor for this encounter. Scribed for ELIUD Paulino-ABRAN by Lydia Morgan medical coding instructor, on 01/07/2024 at 08:45 EST. Orders: Orders Comprehensive [place]. Panel Fast Today E11.65 - Type 2 diabetes mellitus with hyperglycemia TSH reflex Free T4 Today E11.65 - Type 2 diabetes mellitus with hyperglycemia UA CC w/rflx Micro + Cult Today E11.65 - Type 2 diabetes mellitus with hyperglycemia Urine Culture Today R30.0 - Dysuria AMB Hemoglobin A1c Today E11.65 - Type 2 diabetes mellitus with hyperglycemia Complete Blood Count Auto Diff Today E11.65 - Type 2 diabetes mellitus with hyperglycemia Lipid Panel Today E11.65 - Type 2 diabetes mellitus with hyperglycemia AMB Urinalysis Automated Today Z13.9 - Encounter for screening, unspecified Vitamin D 25-OH Total Today E55.9 - Vitamin D deficiency, unspecified Medications: New sulfamethoxazole-trimethoprim 800-160 mg (Bactrim DS) 1 tab PO BID 3 days 6 tabs 0RF sulfamethoxazole-trimethoprim 800-160 mg (Bactrim DS) 1 tab PO BID 3 days 6 tabs 0RF Coding Level of Care Code Est Pt Level 3 (14614) Complex EM visit Add On G2211 Diagnoses Dysuria R30.0 Diabetic polyneuropathy associated with type 2 diabetes mellitus E11.42 Vitamin D deficiency E55.9 Additional Codes ALFRED-7 Assessment Billing - ALFRED-7 Assessment Tool: ALFRED-7 Assessment 20166 ([id number])
[2024-01-07 08:34] VITALS: BP 110/68; PULSE 68; O2SAT 96; BMI 39.8
== END 2024-01-07 09:19 | disposition home or self-care (01) ==
PROVIDERS: PCP Nurse Practitioner Family; Visit Provider Nurse Practitioner Family
DX: R30.0 Dysuria (principal); E11.42 Type 2 diabetes mellitus with diabetic polyneuropathy; E11.65 Type 2 diabetes mellitus with hyperglycemia; E55.9 Vitamin D deficiency, unspecified
CPT/HCPCS: 81003; 83036; 99213; G2211

== ENCOUNTER 2024-01-07 10:10 | Outpatient (REF) | payer MEDICARE, SELFPAY ==
[2024-01-07 10:17] LABS: Appearance Urine Cloudy; Color Urine Dark Yellow; Glucose Urine UA Negative (Negative); Leukocyte Esterase Urine Small (1+) (Negative); Nitrite Urine Negative (Negative); PH 5.5 (5.0-9.0); UMIC TRIGGER UACC YES; Urine Blood Large (3+) (Negative); Urine Ketones Negative (Negative); Urine Protein 100 (2+) mg/dL (Neg-Trace)
[2024-01-07 10:52] LABS: Bacteria Urine None Seen (None Seen); Hyaline Casts Urine 0-2 /LPF (0-2); RBC Urine >20 /HPF (0-2); UACC Culture Trigger YES
== END 2024-01-07 10:11 | disposition home or self-care (01) ==
LOC: HO.LNP 10:10
PROVIDERS: Visit Provider Nurse Practitioner Family
DX: R30.0 Dysuria (principal)
CPT/HCPCS: 81001; 87086

== ENCOUNTER 2024-01-08 08:29 | Outpatient (REF) | payer MEDICARE, SELFPAY ==
[2024-01-08 10:03] LABS: MANUAL DIFF FLAG NO
[2024-01-08 10:10] LABS: Appearance Urine Cloudy; Color Urine Dark Yellow; Glucose Urine UA Negative (Negative); Leukocyte Esterase Urine Small (1+) (Negative); Nitrite Urine Negative (Negative); PH 5.5 (5.0-9.0); UMIC TRIGGER UA YES; UMIC TRIGGER UACC YES; Urine Blood Large (3+) (Negative); Urine Ketones Negative (Negative); Urine Protein 100 (2+) mg/dL (Neg-Trace)
[2024-01-08 10:15] LABS: Basophils Absolute Auto 0.1 X10*3/uL (0.0-0.2); Basophils Percent Auto 0.4 % (0-2); Eosinophils Absolute Auto 0.4 X10*3/uL (0.0-0.4); Hematocrit 46.6 % (42.0-52.0); Hemoglobin 15.5 g/dl (14.0-18.0); Imm Gran Abs Auto 0.14 X10*3/uL (0.00-0.03); Imm Gran Pct Auto 1.2 % (0.0-0.4); Lymphocytes Absolute Auto 1.1 X10*3/uL (1.2-4.9); Lymphocytes Percent Auto 9.9 % (20-40); Mean Corpuscular HGB Conc 33.3 g/dl (31.0-36.0); Mean Corpuscular Hemoglobin 29.1 pg (27.0-33.0); Mean Corpuscular Volume 87.6 fL (80.0-98.0); Mean Platelet Volume 10.2 fL (9.4-12.4); Monocytes Absolute Auto 0.6 X10*3/uL (0.1-1.2); Monocytes Percent Auto 5.3 % (2-11); Neutrophils Absolute Auto 9.2 x10*3/uL (2.0-8.3); Neutrophils Percent Auto 80.2 % (45-73); Platelet Count 283 X10*3/uL (160-400); Red Blood Count 5.32 X10*6/uL (4.60-5.80); Red Cell Distribution Width 14.5 % (11.0-16.0); White Blood Count 11.5 X10*3/uL (4.8-10.8)
[2024-01-08 10:25] LABS: Bacteria Urine None Seen (None Seen); Hyaline Casts Urine 0-2 /LPF (0-2); RBC Urine >20 /HPF (0-2); UACC Culture Trigger YES; WBC Urine 0-5 /HPF (0-5)
[2024-01-08 10:48] LABS: Creatinine Urine 154.92 mg/dL; Total Protein Urine Random 92 mg/dL (<12)
[2024-01-08 10:51] LABS: TSH reflex Free T4 1.14 uIU/mL (0.32-4.0); Vitamin D 25-OH Total 38.4 ng/mL (>30)
[2024-01-08 10:56] LABS: Alanine Aminotransferase 36 U/L (0-40); Albumin Level 4.3 g/dL (3.5-5.0); Alkaline Phosphatase 92 U/L (39-117); Anion Gap 13 (12-20); Aspartate Amino Transferase 23 U/L (5-37); Blood Urea Nitrogen 18 mg/dL (9-16); Calcium 9.8 mg/dL (8.4-10.2); Carbon Dioxide 24 mmol/L (22-29); Chloride 107 mmol/L (96-108); Cholesterol 117 mg/dL (<200); Estimated Glomerular Filt Rate > 60; Glucose Fasting 149 mg/dL (60-99); Glucose Random 149 mg/dL (60-115); HDL Cholesterol 36 mg/dL (>40); LDL Cholesterol Calculated 61 mg/dL (<100); Potassium 4.3 mmol/L (3.3-5.1); Sodium 140 mmol/L (135-145); Total Protein 7.5 g/dL (6.5-8.0); Triglycerides 103 mg/dL (<150)
[2024-01-09 11:38] LABS: Complement C3 95 mg/dL (82-185)
[2024-01-09 22:28] LABS: Anti Glomerular Basement Memb <1.0 AI; Myeloperoxidase Antibody <1.0 AI; Proteinase 3 PR3 Antibodies <1.0 AI
[2024-01-14 12:18] LABS: Neutrophil Cyto Ab Screen NEGATIVE (NEGATIVE)
== END 2024-01-08 08:30 | disposition home or self-care (01) ==
LOC: HO.HMGCLDS 08:29
PROVIDERS: PCP Nurse Practitioner Family; Visit Provider Internal Medicine Hypertension Specialist
DX: R80.9 Proteinuria, unspecified (principal); R31.29 Other microscopic hematuria; N05.9 Unspecified nephritic syndrome with unspecified morphologic changes; E11.65 Type 2 diabetes mellitus with hyperglycemia; E55.9 Vitamin D deficiency, unspecified
CPT/HCPCS: 36415; 80048; 80053; 80061; 81001; 82306; 82570; 83520; 84156; 84443; 85025; 86021; 86036; 86160

== ENCOUNTER 2024-01-09 13:30 | Outpatient (AMB) | payer MEDICARE, SELFPAY ==
[2024-01-09 13:33] VITALS: BP 122/72; PULSE 89; O2SAT 93; BMI 40.1
--- NOTE | 2024-01-09 13:33 | HO.NEPHOV_ITS ---
Vital Signs 01/09/24 13:33 Height 6 ft 2 in Weight 312 lb BMI 40.1 BP 122/72 Blood Pressure Location Rt brachial Position Sitting Pulse 89 Pulse Source Pulse Oximeter Pulse Oximetry (%) 93 Oxygen Delivery Method Room Air Intake Visit Reasons: Proteinuria/ 3 MO FU/ Conf [place] Patrol Officer Required: No Accompanied by: Self / Same As Patient Allergies No Known Allergies Allergy (Verified 01/29/24 14:26) HPI Comments Details: Romel is a 68-year-old man with a history of longstanding diabetes mellitus obesity. About 6 months ago he had microscopic painless hematuria He underwent cystoscopy in October of 2022 which was unremarkable. Urine cytology did not reveal any malignant cells Urine protein creatinine ratio was 653 Serum creatinine 0.87. He is being referred for further evaluation of the above. He has history of BPH. Postvoid residual was 157 cc as of 09/09/2023 Of note he has been on Actos for more than a year Still has interemittent hematuria [facility] Medical History (atherosclerosis) Ascending aortic aneurysm Ascending aorta dilatation Aortic stenosis [place], bilateral COVID-19 vaccine series completed Obesity due to excess calories Tinea pedis Charcot foot due to diabetes mellitus Morbid obesity Diabetic polyneuropathy associated with type 2 diabetes mellitus 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 type 2 diabetes mellitus senior care (current) use of insulin RLS (restless legs syndrome) Aortic valve calcification BPH (benign prostatic hyperplasia) Osteomyelitis [place] (obstructive sleep apnea) KAI (acute kidney injury) Surgical History H/O colonoscopy History of bunionectomy Amputation toe History of bunionectomy Family History Father Bladder cancer Mother Lung cancer Social History Are you a primary home care provider to a significant other at home: Yes (father, also cares for him) Do you presently have visiting nurse or other home services: No Alcohol intake: current Alcohol intake frequency: holidays/special occasions only Patient Tobacco Use Status: Never used Tobacco Cognitive needs: No Hearing needs: No Vision needs: Yes Physical Exam Vital Signs: Last Vital Signs Pulse 89 01/09/24 13:33 BP 122/72 01/09/24 13:33 Pulse Ox 93 01/09/24 13:33 Oxygen Delivery Method Room Air 01/09/24 13:33 BMI result Body Mass Index 40.1 Results Reviewed Nephrology Results: Hgb 14.8 g/dl (14.0-18.0) 02/15/24 WBC 11.6 X10*3/uL (4.8-10.8) H 02/15/24 Plt Count 253 X10*3/uL (160-400) 02/15/24 Sodium 141 mmol/L (135-145) 02/15/24 Potassium 4.4 mmol/L (3.3-5.1) 02/15/24 Chloride 106 mmol/L (96-108) 02/15/24 Carbon Dioxide 23 mmol/L (22-29) 02/15/24 BUN 16 mg/dL (9-16) 02/15/24 Creatinine 0.79 mg/dL (0.5-1.4) 02/15/24 Calcium 9.7 mg/dL (8.4-10.2) 02/15/24 Urine Protein 100 (2+) mg/dL (Neg-Trace) H 01/08/24 Urine Creatinine 154.92 mg/dL 01/08/24 Assessment & Plan Assessment & Plan (1) Proteinuria: Code(s): R80.9 - Proteinuria, unspecified Category: Medical (2) Hematuria: Code(s): R31.9 - Hematuria, unspecified Category: Medical (3) Microscopic hematuria: Code(s): R31.29 - Other microscopic hematuria Category: Medical Plan . Romel is a 68-year-old man with a history of longstanding obesity and diabetes mellitus with proteinuria and painless hematuria. Recent cystoscopy was unremarkable. Urine cytology did not reveal any malignant cells. He had a renal ultrasonogram which is unremarkable. CT scan was done on 10/08/2023. Results are not available yet. He has been on Actos for about a year. Although the proteinuria could be due to underlying diabetes mellitus and obesity other nondiabetic causes should be ruled out. At present renal function is stable at baseline with a creatinine 0.87. Blood pressure is well controlled. workup for both hematuria and proteinuria in progress. Await results of CT scan of his abdomen. If urological causes are ruled out then he may require a kidney biopsy for a definite diagnosis. I will recheck the urine protein creatinine excretion along with serum creatinine in the next several weeks. In the meantime encouraged him to stand low-sodium diet. Increase fluid intake. Continue to avoid nephrotoxic agents. Maintain A1c less than 7% and blood pressure less than 130/80. Since pioglitazone has been implicated in bladder cancer I would suggest to switch this to a different agent. Needs to be evaluated by Urology for repeat cysto. He has an appointment IF work up is negative, will consider kidney biopsy Orders: Orders Total Protein Urine Random 3 Months R80.9 - Proteinuria, unspecified UA and rflx microscopic 3 Months R80.9 - Proteinuria, unspecified Basic Metabolic Panel 3 Months R80.9 - Proteinuria, unspecified Creatinine Urine 3 Months R80.9 - Proteinuria, unspecified Medications: Discontinued sulfamethoxazole-trimethoprim 800-160 mg Discontinued Reason: Doctor's Order 1 tab PO BID 3 days 6 tabs 0RF Coding Level of Care Code Tele New Pt Level 4 (79220) Diagnoses Proteinuria R80.9 Hematuria R31.9 Microscopic hematuria R31.29
== END 2024-01-09 13:59 | disposition home or self-care (01) ==
PROVIDERS: PCP Nurse Practitioner Family; Visit Provider Internal Medicine Hypertension Specialist
DX: R80.9 Proteinuria, unspecified (principal); R31.9 Hematuria, unspecified; R31.29 Other microscopic hematuria
CPT/HCPCS: 99214

== ENCOUNTER → 2024-01-09 13:30 | Outpatient (BNVA) | payer MEDICARE, SELFPAY | PROVIDERS: PCP Nurse Practitioner Family; Visit Provider Internal Medicine Hypertension Specialist | DX: R80.9 Proteinuria, unspecified (principal); R31.9 Hematuria, unspecified; R31.29 Other microscopic hematuria | CPT/HCPCS: 99212 ==

== ENCOUNTER 2024-01-28 08:03 | Outpatient (AMB) | payer MEDICARE, SELFPAY ==
--- OUTSIDE RECORDS SUMMARY | 2024-01-28 08:05 | XMS_ITS | Patient Health Record ---
Author Organization [facility] Address [address] [place] [id number] Care Team Providers Care Model Maker Plaster Name Role Phone JESUS PALAFOX Primary Care Provider Rudy Pineda [phone] ALLERGIES Allergen (clinical drug ingredient) Drug/Non Drug Allergy documented on EMR Reaction Allergy Type Onset Date Status Penicillin Unknown Drug Allergy Active REASON FOR REFERRAL No Information MEDICATIONS Medication SIG (Take, Route, Frequency, Duration) Notes Start Date End Date Status amLODIPine Besylate 10mg Active MoviPrep 100 GM as directed Orally 06/07/20110 07/2023 Active Lisinopril Active SOCIAL HISTORY Sex Assigned At : Social History Observation Description Sex Assigned At Unknown PROBLEMS Problem Type ICD Code Onset Dates Problem Status W/U Status Risk SNOMED Code Notes Problem Special screening for malignant neoplasms, colon (V76.51) Active confirmed Screening for malignant neoplasm of colon ([id number]) PLAN OF TREATMENT Future Test Test Name Order Date COLONOSCOPY 06/07/2011 Insurance Providers Payer Name Payer Address Payer Phone Subscriber Number Group Number Insured Name Patient Relationship to Insured Coverage Start Date Coverage End Date [facility] [employer] [address] [place] [address] [phone] [id number] KEITH ZUNIGA Self - patient is the insured MEDICAL (GENERAL) HISTORY Medical History History ICD Code HTN Denies [place],DM,CVA,Lung disease,renal dise ase
--- NOTE | 2024-01-28 08:18 | MHC.OFFWIV ---
Intake Vital Signs 01/28/24 08:19 BP 110/70 Blood Pressure Location Lt brachial Position Sitting Pulse 70 Pulse Source Pulse Oximeter Pulse Oximetry (%) 96 Oxygen Delivery Method Room Air Intake Visit Reasons: Possible UTI Patient Tobacco Use Status: Never used Tobacco Allergies No Known Allergies Allergy (Verified 01/09/24 13:37) HPI HPI Comments History of Present Illness Details 68-year-old male presents today complaining of continued hematuria and a question of UTI. The patient has had multiple courses of antibiotics 2 courses of Bactrim and 1 course of Cipro. The patient continues to have hematuria and romelia red blood when he urinates. The last urine culture was negative for bacteria. He states he is presenting today hoping to have help getting a opinion with Urology. [facility] Medical History (atherosclerosis) Ascending aortic aneurysm Ascending aorta dilatation Aortic stenosis [place], bilateral COVID-19 vaccine series completed Obesity due to excess calories Tinea pedis Charcot foot due to diabetes mellitus Morbid obesity Diabetic polyneuropathy associated with type 2 diabetes mellitus 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 type 2 diabetes mellitus longterm (current) use of insulin RLS (restless legs syndrome) Aortic valve calcification BPH (benign prostatic hyperplasia) Osteomyelitis [place] (obstructive sleep apnea) KAI (acute kidney injury) Surgical History H/O colonoscopy History of bunionectomy Amputation toe History of bunionectomy Family History Father Bladder cancer Mother Lung cancer Social History Are you a primary manager primary care to a significant other at home: Yes (father, also cares for him) Do you presently have visiting nurse or other home services: No Alcohol intake: current Alcohol intake frequency: holidays/special occasions only Patient Tobacco Use Status: Never used Tobacco Cognitive needs: No Hearing needs: No Vision needs: Yes Review of Systems Const All systems reviewed & are unremarkable except as noted in HPI and below Reports hematuria Physical Exam Vital Signs: Last Vital Signs Pulse 70 01/28/24 08:19 BP 110/70 01/28/24 08:19 Pulse Ox 96 07/30/24 08:19 Oxygen Delivery Method Room Air 01/28/24 08:19 Const General: healthy appearing and no acute distress Results AMB Urinalysis, Automated UA Leukoctes 15 Snehal/uL Last Edit by Bill Bautista CMA on 01/28/24 08:32 UA Nitrite Negative Last Edit by Bill Bautista CMA on 01/28/24 08:32 UA Urobilinogen 0.2 mg/dL Last Edit by Bill Bautista CMA on 01/28/24 08:32 UA Protein 100 mg/dL Last Edit by Bill Bautista CMA on 01/28/24 08:32 UA pH 5.5 Last Edit by Bill Bautista CMA on 01/28/24 08:32 UA Blood 200 Matti/uL Last Edit by Bill Bautista CMA on 01/28/24 08:32 UA Specific [place] 1.025 Last Edit by Bill Bautista CMA on 01/28/24 08:32 UA Ketone Negative Last Edit by Bill Bautista CMA on 01/28/24 08:32 UA Bilirubin 0 mg/dL Last Edit by Bill Bautista CMA on 01/28/24 08:32 UA Glucose 0 mg/dL Last Edit by Bill Bautista CMA on 01/28/24 08:32 Results Reviewed Results Reviewed: Laboratory Last Values Urine pH (Auto) 5.5 01/28/24 08:31 Specific [place] (Auto) 1.025 01/28/24 08:31 Urine Protein (Auto) 100 mg/dL 01/28/24 08:31 Glucose (UA)(Auto) 0 mg/dL 01/28/24 08:31 Urine Ketones (Auto) Negative 01/28/24 08:31 Urine Blood (Auto) 200 Matti/uL 01/28/24 08:31 Urine Nitrite (Auto) Negative 01/28/24 08:31 Urine Bilirubin (Auto) 0 mg/dL 01/28/24 08:31 Urine Urobilinogen (Auto) 0.2 mg/dL 01/28/24 08:31 Leukocyte Esterase (Auto) 15 Snehal/uL 01/28/24 08:31 urinalysis results reviewed with patient Assessment & Plan Assessment & Plan (1) Dysuria: Code(s): R30.0 - Dysuria Plan: Consult requested from urology (2) Hematuria: Code(s): R31.9 - Hematuria, unspecified Plan: see plan Plan see plan Orders: Orders Urine Culture Today R30.0 - Dysuria AMB Urinalysis Automated Today Z13.9 - Encounter for screening, unspecified Coding Level of Care Code Est Pt Level 3 (79309) Diagnoses Dysuria R30.0 Hematuria R31.9
[2024-01-28 08:19] VITALS: BP 110/70; PULSE 70; O2SAT 96
== END 2024-01-28 10:07 | disposition home or self-care (01) ==
PROVIDERS: PCP Nurse Practitioner Family; Visit Provider Physician Assistant Medical
DX: R30.0 Dysuria (principal); R31.9 Hematuria, unspecified; Z13.9 Encounter for screening, unspecified
CPT/HCPCS: 81003; 99213

== ENCOUNTER 2024-01-28 09:02 | Outpatient (REF) | payer MEDICARE, SELFPAY | END 2024-01-28 09:03 | disposition home or self-care (01) | LOC: HO.LAB 09:02 | PROVIDERS: Visit Provider Physician Assistant Medical | DX: R30.0 Dysuria (principal) | CPT/HCPCS: 87086 ==

== ENCOUNTER 2024-01-29 13:57 | Outpatient (AMB) | payer MEDICARE, SELFPAY ==
--- NOTE | 2024-01-29 14:05 | A.OFFVIS_ITS ---
Intake Visit Reasons: Follow up/gross hematuria Intake Note: Patient is Present for PVR/Gross Hematuria Urology Med: Silodosin Antibiotic Allergy:None Blood Thinner:Aspirin Last PVR: 71 Todays PVR: 17 Patient states that he is not currently taking Sildosin. Mentioned that he has not been on this medication for a long time. Has not tried any other medications that helps frequency. Communication Equipment Mechanic Required: No Allergies No Known Allergies Allergy (Verified 01/29/24 14:26) Medication List - Last Reconciled 01/29/24 by Sofia Dc MD alpha lipoic acid 600 mg PO DAILY amlodipine 10 mg PO DAILY aspirin (Children's Aspirin) 81 mg PO DAILY atorvastatin 80 mg PO BEDTIME 90 days blood sugar diagnostic (FreeStyle Lite Strips) 4 times a day blood-glucose meter (FreeStyle Lite Meter kit) 4 times a day cholecalciferol (vitamin D3) 10 mcg PO DAILY ciprofloxacin HCl (Cipro) 500 mg PO BID 5 days doxycycline hyclate 100 mg PO BID 10 days FreeStyle Lancets (lancets) 4 times a day NS FreeStyle Yolanda 2 Ripley (flash glucose scanning reader) TID testing NS FreeStyle Yolanda 2 Sensor (flash glucose sensor) TID tesing NS gabapentin 300 mg PO TID 30 days insulin glargine U-300 conc (Toujeo Max U-300 SoloStar) 50 units (0.1667 mL) subcut DAILY lisinopril 10 mg PO DAILY 90 days metformin ER 1,000 mg (2 x 500 mg) PO BID 90 days pen needle, diabetic (BD Ultra-Fine Short Pen Needle) use to inject insulin once a day semaglutide 2 mg (0.75 mL) subcut QWEEK silodosin (Rapaflo) 8 mg PO DAILY trazodone 100 mg PO BEDTIME PRN 30 days HPI Comments Details: 01/29/2024--Romel is here for follow-up and states that he is still seeing intermittent gross hematuria. He also still has dysuria. I will empirically start doxycycline. He has urinary frequency and is not sure if he is taking the phone. New Rapaflo Prescription sent to the pharmacy. I have discussed re- evaluation of the urinary tract will check CT urogram and outpatient cystoscopy bladder biopsies. Review of chart: 09/09/2023--Romel is a 68-year-old male who is followed for lower urinary tract symptoms due to BPH he is prescribed Rapaflo 8 mg daily. States that he has an adequate flow. Comorbidity diabetes. He is concerned regarding blood in the urine. I have reviewed renal ultrasound from September 2022 small simple cyst right kidney no suspicious masses evaluation of bladder at that time noted an elevated postvoid residual. Reviewed that office cystoscopy 11/02/2022 was notable for enlarged prostate no suspicious bladder lesions. Bladder scan PVR 71 mL, recent PSA 08/2023 1.42 ng/mL. Urinalysis 2+ protein 3+ blood. The patient has a nephrology visit scheduled. Plan will be to continue Rapaflo 8 mg daily. 30 minutes spent in review of records pertaining to this visit and including [id number] discussion with the patient and documentation of this visit. 12/10/22--Romel is a 67-year-old male who presents to the office 6-weeks follow- up. He is followed for LUTS symptoms of frequency, urgency and nocturia. The patient was last seen in the office on 11/02/2022. AUA symptoms score--11/02/2022--19 Cystoscopy findings--11/02/2022--Prostatic urethra bilobar enlargement, subtle scarring/narrowing mild bulbous urethra. He was initially placed on tamsulosin which was increased to twice a day and was changed to Rapaflo 8 mg. 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 RLS (restless legs syndrome) Aortic valve calcification BPH (benign prostatic hyperplasia) Osteomyelitis [place] (obstructive sleep apnea) KAI (acute kidney injury) Surgical History H/O colonoscopy History of bunionectomy Amputation toe History of bunionectomy Family History Father Bladder cancer Mother Lung cancer Social History Are you a primary resident care manager to a significant other at home: Yes (father, also cares for him) Do you presently have visiting nurse or other home services: No Alcohol intake: current Alcohol intake frequency: holidays/special occasions only Patient Tobacco Use Status: Never used Tobacco Cognitive needs: No Hearing needs: No Vision needs: Yes Review of Systems Const All systems reviewed & are unremarkable except as noted in HPI and below Reports no additional complaints Eyes Reports no additional complaints ENT Reports no additional complaints Card Reports no additional complaints Resp Reports no additional complaints GI Reports no additional complaints Reports as per HPI Musc Reports no additional complaints Skin/Breast Reports system reviewed and no additional complaints, except as documented Neuro Reports no additional complaints Psych Reports no additional complaints Endo Reports no additional complaints Marcial/Lymph Reports no additional complaints Aller/Immun Reports no additional complaints Office Procedures Post Void Residual Post Residual Void Post Void Residual (PVR): 17 [id number] Void Residual by ultrasound Results AMB Urinalysis, Automated UA Leukoctes 0 Snehal/uL Last Edit by Sonali Jaimes [facility] on 01/29/24 14:29 UA Nitrite Negative Last Edit by Sonali Jaimes [facility] on 01/29/24 14:29 UA Urobilinogen 0.2 mg/dL Last Edit by Sonali Jaimes [facility] on 01/29/24 14:2 9 UA Protein 100 mg/dL Last Edit by Sonali Jaimes [facility] on 01/29/24 14:29 UA pH 5.0 Last Edit by Sonali Jaimes [facility] on 01/29/24 14:29 UA Blood 200 Matti/uL Last Edit by Sonali Jaimes [facility] on 01/29/24 14:29 UA Specific [place] 1.025 Last Edit by Sonali Jaimes [facility] on 01/29/24 14: 29 UA Ketone Negative Last Edit by Sonali Jaimes [facility] on 01/29/24 14:29 UA Bilirubin 0 mg/dL Last Edit by Sonali Jaimes [facility] on 01/29/24 14:29 UA Glucose 0 mg/dL Last Edit by AMELIA Flores on 01/29/24 14:29 Results Reviewed Results Reviewed: Laboratory Last Values Urine pH (Auto) 5.0 01/29/24 14:10 Specific [place] (Auto) 1.025 01/29/24 14:10 Urine Protein (Auto) 100 mg/dL 01/29/24 14:10 Glucose (UA)(Auto) 0 mg/dL 01/29/24 14:10 Urine Ketones (Auto) Negative 01/29/24 14:10 Urine Blood (Auto) 200 Matti/uL 01/29/24 14:10 Urine Nitrite (Auto) Negative 01/29/24 14:10 Urine Bilirubin (Auto) 0 mg/dL 01/29/24 14:10 Urine Urobilinogen (Auto) 0.2 mg/dL 01/29/24 14:10 Leukocyte Esterase (Auto) 0 Snehal/uL 01/29/24 14:10 Date of Service: 10/02/22 EXAMINATION: US RETROPERITONEAL COMPLETE (RENAL) CLINICAL INFORMATION: Retention of urine, unspecified. COMPARISON: Renal ultrasound 03/20/2017. TECHNIQUE: Real-time imaging of the kidneys and bladder. FINDINGS: RIGHT KIDNEY: 16.2 x 7.9 x 8.2 cm (SAG x AP x TRV). The kidney is normal in size, contour, and echogenicity. Renal cortical thickness is normal. No renal calculi or hydronephrosis. Within the mid to lower pole there is a simple appearing 2.3 x 1.8 x 2.0 cm cyst which does not require follow-up. LEFT KIDNEY: 14.5 x 7.4 x 6.5 cm (SAG x AP x TRV). The kidney is normal in size, contour, and echogenicity. Renal cortical thickness is normal. No calculi or focal parenchymal lesions. No hydronephrosis. BLADDER: Well distended and normal. Bilateral ureteral jets are demonstrated. Prevoid bladder volume is 185 mL. Postvoid bladder volume is 157 mL. ADDITIONAL FINDINGS: Prostate volume is 61 mL. IMPRESSION: Large postvoid residual. Assessment & Plan Assessment & Plan (1) Screening PSA (prostate specific antigen): Code(s): Z12.5 - Encounter for screening for malignant neoplasm of prostate Category: Medical (2) BPH (benign prostatic hyperplasia): Code(s): N40.0 - Benign prostatic hyperplasia without lower urinary tract symptoms Category: Medical (3) Diabetes: Code(s): E11.9 - Type 2 diabetes mellitus without complications Category: Medical (4) Intermittent gross hematuria: Code(s): R31.0 - Gross hematuria Category: Medical (5) Frequent urination: Code(s): R35.0 - Frequency of micturition Category: Medical Plan Still seeing intermittent gross hematuria. He also still has dysuria. I will empirically start doxycycline. He has urinary frequency and is not sure if he is taking the phone. New Rapaflo Prescription sent to the pharmacy. I have discussed re-evaluation of the urinary tract will check CT urogram and outpatient cystoscopy bladder biopsies. Repeat urine cytology. Orders: Orders AMB Post Void Residual by ultrasound Today R33.9 - Retention of urine, unspecified CT urogram Today R31.0 - Gross hematuria AMB Urinalysis Automated Today Z13.9 - Encounter for screening, unspecified Medications: New doxycycline hyclate 100 mg PO BID 20 tabs 0RF 10 days Refilled silodosin (Rapaflo) must administer with a meal/food 8 mg PO DAILY 90 caps 3RF Patient Instructions: The patient had an opportunity to ask questions regarding treatment plan. The patient expressed understanding and agreement with the above treatment plan. The patient is aware they should contact our office by phone for worsening of their current condition or the appearance of new symptoms. Compliance is encouraged with any medications and followup testing that is ordered. It is a privilege to be allowed the opportunity to participate in the urologic care of your patient. If you have any questions or concerns regarding treatment for the above conditions please do not hesitate to contact me. The office telephone contact is [phone]. This note is constructed in part using voice recognition software. While every effort has been made to ensure accuracy nurse administrator errors may have been included. Yours sincerely, Sofia Dc MD Coding Level of Care Code Est Pt Level 4 (40544) Diagnoses Screening PSA (prostate specific antigen) Z12.5 BPH (benign prostatic hyperplasia) N40.0 Diabetes E11.9 Intermittent gross hematuria R31.0 Frequent urination R35.0 CPT Codes Post Residual Void - PVR CPT Code: 09832-Bros Void Residual by ultrasound ([id number])
== END 2024-01-29 15:08 | disposition home or self-care (01) ==
PROVIDERS: PCP Nurse Practitioner Family; Visit Provider Urology
DX: Z12.5 Encounter for screening for malignant neoplasm of prostate (principal); N40.0 Benign prostatic hyperplasia without lower urinary tract symptoms; E11.9 Type 2 diabetes mellitus without complications; R31.0 Gross hematuria; R35.0 Frequency of micturition; Z13.9 Encounter for screening, unspecified
CPT/HCPCS: 99214

== ENCOUNTER 2024-01-29 13:57 | Outpatient (REF) | payer MEDICARE, SELFPAY ==
[2024-01-29 16:36] LABS: Urine Cytology See Pathology rpt
== END 2024-01-29 13:58 | disposition home or self-care (01) ==
LOC: HO.LNP 13:57
PROVIDERS: PCP Nurse Practitioner Family; Visit Provider Urology
DX: R31.0 Gross hematuria (principal); R35.0 Frequency of micturition; N40.0 Benign prostatic hyperplasia without lower urinary tract symptoms
CPT/HCPCS: 51798; 81003; 88112; 99212

== ENCOUNTER 2024-01-29 16:09 | Outpatient (REF) | payer MEDICARE, SELFPAY | END 2024-01-29 16:10 | disposition home or self-care (01) | LOC: HO.LAB 16:09 | PROVIDERS: Visit Provider Urology | DX: Z13.89 Encounter for screening for other disorder (principal) ==

== ENCOUNTER 2024-02-15 08:21 | Outpatient (REF) | payer MEDICARE, SELFPAY ==
[2024-02-15 11:04] LABS: MANUAL DIFF FLAG NO
[2024-02-15 11:12] LABS: Basophils Absolute Auto 0.1 X10*3/uL (0.0-0.2); Basophils Percent Auto 0.6 % (0-2); Eosinophils Absolute Auto 0.7 X10*3/uL (0.0-0.4); Eosinophils Percent Auto 6.4 % (0-4); Hematocrit 44.8 % (42.0-52.0); Hemoglobin 14.8 g/dl (14.0-18.0); Imm Gran Abs Auto 0.14 X10*3/uL (0.00-0.03); Imm Gran Pct Auto 1.2 % (0.0-0.4); Lymphocytes Absolute Auto 1.3 X10*3/uL (1.2-4.9); Lymphocytes Percent Auto 10.9 % (20-40); Mean Corpuscular Volume 87.8 fL (80.0-98.0); Monocytes Absolute Auto 0.8 X10*3/uL (0.1-1.2); Monocytes Percent Auto 6.5 % (2-11); Neutrophils Absolute Auto 8.7 x10*3/uL (2.0-8.3); Neutrophils Percent Auto 74.4 % (45-73); Platelet Count 253 X10*3/uL (160-400); Red Cell Distribution Width 14.6 % (11.0-16.0); White Blood Count 11.6 X10*3/uL (4.8-10.8)
[2024-02-15 11:21] LABS: Alanine Aminotransferase 33 U/L (0-40); Alkaline Phosphatase 70 U/L (39-117); Anion Gap 16 (12-20); Aspartate Amino Transferase 26 U/L (5-37); Bilirubin Total 0.8 mg/dL (0.0-1.0); Blood Urea Nitrogen 16 mg/dL (9-16); Calcium 9.7 mg/dL (8.4-10.2); Carbon Dioxide 23 mmol/L (22-29); Chloride 106 mmol/L (96-108); Estimated Glomerular Filt Rate > 60; Glucose Random 147 mg/dL (60-115); Potassium 4.4 mmol/L (3.3-5.1); Sodium 141 mmol/L (135-145); Total Protein 7.1 g/dL (6.5-8.0)
== END 2024-02-15 08:22 | disposition home or self-care (01) ==
LOC: HO.HMGCLDS 08:21
PROVIDERS: PCP Nurse Practitioner Family; Visit Provider Nurse Practitioner Family
DX: Z01.818 Encounter for other preprocedural examination (principal)
CPT/HCPCS: 36415; 80053; 85025

== ENCOUNTER → 2024-02-17 07:35 | Outpatient (REF) | payer MEDICARE, SELFPAY ==
--- NOTE | 2024-02-17 07:40 | ECG_ITS ---
Test Reason : pre op Blood Pressure : / mmHG Vent. Rate : 062 BPM Atrial Rate : 062 BPM P-R Int : 188 ms QRS Dur : 092 ms QT Int : 422 ms P-R-T Axes : 053 018 050 degrees QTc Int : 428 ms Normal sinus rhythm Normal ECG When compared with ECG of 09-DEC-2015 07:57, Nonspecific T wave abnormality no longer evident in Inferior leads Referred By: Fredrick Howell Electronically Signed By:SPIKE JONES
== END ==
LOC: HO.CARD 07:35
PROVIDERS: PCP Nurse Practitioner Family; Visit Provider Nurse Practitioner Family
DX: Z01.818 Encounter for other preprocedural examination (principal)
CPT/HCPCS: 93005

== ENCOUNTER 2024-03-06 09:35 | Outpatient (REF) | payer MEDICARE, SELFPAY ==
[2024-03-06 13:18] LABS: MANUAL DIFF FLAG NO
[2024-03-06 13:27] LABS: Basophils Absolute Auto 0.1 X10*3/uL (0.0-0.2); Basophils Percent Auto 0.5 % (0-2); Eosinophils Absolute Auto 1.2 X10*3/uL (0.0-0.4); Hematocrit 45.5 % (42.0-52.0); Hemoglobin 15.1 g/dl (14.0-18.0); Imm Gran Abs Auto 0.16 X10*3/uL (0.00-0.03); Imm Gran Pct Auto 1.5 % (0.0-0.4); Lymphocytes Absolute Auto 1.5 X10*3/uL (1.2-4.9); Lymphocytes Percent Auto 13.2 % (20-40); Mean Corpuscular HGB Conc 33.2 g/dl (31.0-36.0); Mean Corpuscular Hemoglobin 29.2 pg (27.0-33.0); Mean Corpuscular Volume 87.8 fL (80.0-98.0); Mean Platelet Volume 10.5 fL (9.4-12.4); Monocytes Absolute Auto 0.6 X10*3/uL (0.1-1.2); Monocytes Percent Auto 5.3 % (2-11); Neutrophils Absolute Auto 7.6 x10*3/uL (2.0-8.3); Neutrophils Percent Auto 68.5 % (45-73); Platelet Count 266 X10*3/uL (160-400); Red Blood Count 5.18 X10*6/uL (4.60-5.80); Red Cell Distribution Width 14.5 % (11.0-16.0)
[2024-03-06 14:07] LABS: Alanine Aminotransferase 33 U/L (0-40); Albumin Level 4.1 g/dL (3.5-5.0); Alkaline Phosphatase 83 U/L (39-117); Anion Gap 13 (12-20); Aspartate Amino Transferase 25 U/L (5-37); Bilirubin Total 0.9 mg/dL (0.0-1.0); Blood Urea Nitrogen 14 mg/dL (9-16); Calcium 9.7 mg/dL (8.4-10.2); Carbon Dioxide 26 mmol/L (22-29); Chloride 104 mmol/L (96-108); Estimated Glomerular Filt Rate > 60; Glucose Random 176 mg/dL (60-115); Potassium 4.3 mmol/L (3.3-5.1); Sodium 139 mmol/L (135-145); Total Protein 7.2 g/dL (6.5-8.0)
== END 2024-03-06 09:36 | disposition home or self-care (01) ==
LOC: HO.HMGCLDS 09:35
PROVIDERS: PCP Nurse Practitioner Family; Visit Provider Nurse Practitioner Family
DX: D72.829 Elevated white blood cell count, unspecified (principal)
CPT/HCPCS: 36415; 80053; 85025

== ENCOUNTER 2024-03-10 05:00 | Outpatient (REF) | payer MEDICARE, SELFPAY ==
[2024-03-10 10:56] LABS: Appearance Urine Cloudy; Color Urine Yellow; Glucose Urine UA Negative (Negative); Leukocyte Esterase Urine Negative (Negative); Nitrite Urine Negative (Negative); PH 5.5 (5.0-9.0); UMIC TRIGGER UACC YES; Urine Blood Large (3+) (Negative); Urine Ketones Negative (Negative); Urine Protein 30 (1+) mg/dL (Neg-Trace)
[2024-03-10 11:21] LABS: Bacteria Urine None Seen (None Seen); Calcium Oxalate Crystals Urine Present; Hyaline Casts Urine 0-2 /LPF (0-2); Squamous Epithelial Cell Urine 0-2 /HPF (0-2); WBC Urine 0-5 /HPF (0-5)
== END 2024-03-10 05:01 | disposition home or self-care (01) ==
LOC: HO.HMGCLNP 05:00
PROVIDERS: PCP Nurse Practitioner Family; Visit Provider Nurse Practitioner Family
DX: E11.65 Type 2 diabetes mellitus with hyperglycemia (principal)
CPT/HCPCS: 81001

== ENCOUNTER 2024-03-12 07:27 | Outpatient (REF) | payer MEDICARE, SELFPAY ==
--- NOTE | ~2024-03-12 | CT_ITS ---
EXAMINATION: CT ABDOMEN AND PELVIS WITHOUT AND WITH CONTRAST CLINICAL INFORMATION: Gross hematuria COMPARISON: CT urogram 10/08/2023 TECHNIQUE: Noncontrast CT of the abdomen and pelvis is performed followed by split bolus contrast-enhanced images using 85 mL Omnipaque 350 contrast. Postcontrast imaging is performed during the combined nephrogram and excretion phase. Sagittal and coronal reformatted images were obtained on the technologist's workstation for both the precontrast and postcontrast phases. This CT examination was performed using dose optimization techniques as appropriate, variously including the following: *Automated exposure control *Adjustment of mA and/or kV according to patient size (this includes techniques or standardized protocols for targeted exams where dose is matched to indication/reason for exam; i.e. extremities or head) *Use of iterative reconstruction technique DLP: 1533 mGy-cm FINDINGS: LUNG BASES: The visualized lung bases are unremarkable. LIVER, GALLBLADDER, AND BILIARY TREE: The liver is enlarged measuring 20.7 cm in cephalocaudad dimension with normal attenuation on noncontrast imaging. No focal hepatic lesion or biliary ductal dilatation is present. The gallbladder is unremarkable with no evidence of radiopaque gallstones, gallbladder wall thickening, or obvious pericholecystic inflammatory changes. PANCREAS: Unremarkable. SPLEEN: The spleen is enlarged 16.6 cm. ADRENAL GLANDS: Unremarkable. KIDNEYS AND URETERS: The kidneys are normal in size, shape, and attenuation. No hydronephrosis, hydroureter, or calculi seen. No perinephric stranding. Multiple parapelvic and cortical benign Bosniak class I renal cysts are noted which require no additional imaging or follow-up. No solid renal masses are seen. BLADDER: Bladder is filled with calcified stones ranging in size from just under a centimeter up to 1.5 cm in size. The bladder is collapsed and there is a symmetrically thickened wall. GASTROINTESTINAL TRACT: The small and large bowel are unremarkable aside from scattered colonic diverticula without diverticulitis. The appendix is not seen but there is no evidence of appendicitis. ABDOMINAL WALL: No significant hernia is appreciated. LYMPH NODES: Normal. VASCULAR: Calcific atherosclerotic changes are present in the aorta and iliofemoral vessels. There is a 4.5 x 3.5 cm infrarenal abdominal aortic aneurysm measurements are made perpendicular to a center line. 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 PELVIC VISCERA: The prostate is enlarged measuring about 100 mL. Seminal vesicles appear normal. OSSEUS STRUCTURES: Severe degenerative changes are present throughout the spine. CT/CT urogram IMPRESSION: 1. Hepatosplenomegaly. 2. Bladder filled with stones. 3. The kidneys are unremarkable. 4. Infrarenal 4.5 cm abdominal aortic aneurysm with left common iliac artery aneurysm. Surveillance ultrasound is recommended in 6 months and vascular consultation is recommended. 5. Other incidental findings as described above. Electronically signed by: Julian Zavala MD 03/12/2024 01:46 PM EDT
[2024-03-12] MEDS: iohexoL 350 MG/ML 100 ML INFUS..BTL IV (08:30)
== END 2024-03-12 07:28 | disposition home or self-care (01) ==
LOC: HO.CT 07:27
PROVIDERS: PCP Nurse Practitioner Family; Visit Provider Urology
DX: R31.0 Gross hematuria (principal)
CPT/HCPCS: 74178; Q9967

== ENCOUNTER 2024-04-06 13:37 | Outpatient (AMB) | payer MEDICARE, SELFPAY ==
--- NOTE | 2024-04-06 14:19 | A.OFFVIS_ITS ---
Intake Visit Reasons: CT follow up/Discuss Procedure Intake Note: Pt presents to the office today for a CT follow up/Discuss procedure Urology Meds: Solodosin Allergies No Known Allergies Allergy (Verified 04/06/24 14:19) HPI Comments Details: 04/06/24--FU hematuria. Patient c/o's urgency and dysuria getting worse. [id number]-2/12/24--kidneys WNL, multiple bladder stones. Discussed Plan Cystoscopy, cystolitholipaxy, laser bladder stones. 01/29/2024--Romel is here for follow-up and states that he is still seeing intermittent gross hematuria. He also still has dysuria. I will empirically start doxycycline. He has urinary frequency and is not sure if he is taking the phone. New Rapaflo Prescription sent to the pharmacy. I have discussed re- evaluation of the urinary tract will check CT urogram and outpatient cystoscopy bladder biopsies. Review of chart: 09/09/2023--Romel is a 68-year-old male who is followed for lower urinary tract symptoms due to BPH he is prescribed Rapaflo 8 mg daily. States that he has an adequate flow. Comorbidity diabetes. He is concerned regarding blood in the urine. I have reviewed renal ultrasound from September 2022 small simple cyst right kidney no suspicious masses evaluation of bladder at that time noted an elevated postvoid residual. Reviewed that office cystoscopy 11/02/2022 was notable for enlarged prostate no suspicious bladder lesions. Bladder scan PVR 71 mL, recent PSA 08/2023 1.42 ng/mL. Urinalysis 2+ protein 3+ blood. The patient has a nephrology visit scheduled. Plan will be to continue Rapaflo 8 mg daily. 30 minutes spent in review of edenilson rds pertaining to this visit and including [id number] discussion with the patient and documentation of this visit. 12/10/22--Romel is a 67-year-old male who presents to the office 6-weeks follow-up. He is followed for LUTS symptoms of frequency, urgency and nocturia. The patient was last seen in the office on 11/02/2022. AUA symptoms score--11/02/2022--19 Cystoscopy findings--11/02/2022--Prostatic urethra bilobar enlargement, subtle scarring/narrowing mild bulbous urethra. He was initially placed on tamsulosin which was increased to twice a day and was changed to Rapaflo 8 mg. 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 RLS (restless legs syndrome) Aortic valve calcification BPH (benign prostatic hyperplasia) Osteomyelitis [place] (obstructive sleep apnea) KAI (acute kidney injury) Surgical History H/O colonoscopy History of bunionectomy Amputation toe History of bunionectomy Family History Father Bladder cancer Mother Lung cancer Social History 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: Yes (father, also cares for him) Do you presently have visiting nurse or other home services: No Alcohol intake: current Alcohol intake frequency: holidays/special occasions only Patient Tobacco Use Status: Never used Tobacco Cognitive needs: No Hearing needs: No Vision needs: Yes Review of Systems Const All systems reviewed & are unremarkable except as noted in HPI and below Reports no additional complaints Eyes Reports no additional complaints ENT Reports no additional complaints Card Reports no additional complaints Resp Reports no additional complaints GI Reports no additional complaints Reports as per HPI Musc Reports no additional complaints Skin/Breast Reports system reviewed and no additional complaints, except as documented Neuro Reports no additional complaints Psych Reports no additional complaints Endo Reports no additional complaints Marcial/Lymph Reports no additional complaints Aller/Immun Reports no additional complaints Office Procedures Post Void Residual Post Residual Void Post Void Residual (PVR): 0 [id number]-[id number] Void Residual by ultrasound Results AMB Urinalysis, Automated 2 UA Leukoctes 15 Snehal/uL Last Edit by Bonnie Verde CMA on 04/06/24 14:29 UA Nitrite Negative Last Edit by Bonnie Verde CMA on 04/06/24 14:29 UA Urobilinogen 0.2 mg/dL Last Edit by Bonnie Verde CMA on 04/06/24 14:29 UA Protein 300 mg/dL Last Edit by Bonnie Verde CMA on 04/06/24 14:29 UA pH 5.5 Last Edit by Bonnie Verde CMA on 04/06/24 14:29 UA Blood 200 Matti/uL Last Edit by Bonnie Verde CMA on 04/06/24 14:29 UA Specific [place] 1.030 Last Edit by Bonnie Verde CMA on 04/06/24 14:29 UA Ketone Positive Last Edit by Bonnie Verde CMA on 04/06/24 14:29 UA Bilirubin 1 mg/dL Last Edit by Bonnie Verde CMA on 04/06/24 14: UA Glucose 0 mg/dL Last Edit by Bonnie Verde CMA on 04/06/24 14:29 Results Reviewed Results Reviewed: Laboratory Last Values Urine pH (Auto) 5.5 04/06/24 14:27 Specific [place] (Auto) 1.030 04/06/24 14:27 Urine Protein (Auto) 300 mg/dL 04/06/24 14:27 Glucose (UA)(Auto) 0 mg/dL 04/06/24 14:27 Urine Ketones (Auto) Positive 04/06/24 14:27 Urine Blood (Auto) 200 Matti/uL 04/06/24 14:27 Urine Nitrite (Auto) Negative 04/06/24 14:27 Urine Bilirubin (Auto) 1 mg/dL 04/06/24 14:27 Urine Urobilinogen (Auto) 0.2 mg/dL 04/06/24 14:27 Leukocyte Esterase (Auto) 15 Snehal/uL 04/06/24 14:27 Date of Service: 03/12/24 CT ABDOMEN AND PELVIS WITHOUT AND WITH CONTRAST CLINICAL INFORMATION: Gross hematuria COMPARISON: CT urogram 10/08/2023 TECHNIQUE: Noncontrast CT of the abdomen and pelvis is performed followed by split bolus contrast-enhanced images using 85 mL Omnipaque 350 contrast. Postcontrast imaging is performed during the combined nephrogram and excretion phase. Sagittal and coronal reformatted images were obtained on the technologist's workstation for both the precontrast and postcontrast phases. This CT examination was performed using dose optimization techniques as appropriate, variously including the following: *Automated exposure control *Adjustment of mA and/or kV according to patient size (this includes techniques or standardized protocols for targeted exams where dose is matched to indication/reason for exam; i.e. extremities or head) *Use of iterative reconstruction technique DLP: 1533 mGy-cm FINDINGS: LUNG BASES: The visualized lung bases are unremarkable. LIVER, GALLBLADDER, AND BILIARY TREE: The liver is enlarged measuring 20.7 cm in cephalocaudad dimension with normal attenuation on noncontrast imaging. No focal hepatic lesion or biliary ductal dilatation is present. The gallbladder is unremarkable with no evidence of radiopaque gallstones, gallbladder wall thickening, or obvious pericholecystic inflammatory changes. PANCREAS: Unremarkable. SPLEEN: The spleen is enlarged 16.6 cm. ADRENAL GLANDS: Unremarkable. KIDNEYS AND URETERS: The kidneys are normal in size, shape, and attenuation. No hydronephrosis, hydroureter, or calculi seen. No perinephric stranding. Multiple parapelvic and cortical benign Bosniak class I renal cysts are noted which require no additional imaging or follow-up. No solid renal masses are seen. BLADDER: Bladder is filled with calcified stones ranging in size from just under a centimeter up to 1.5 cm in size. The bladder is collapsed and there is a symmetrically thickened wall. GASTROINTESTINAL TRACT: The small and large bowel are unremarkable aside from scattered colonic diverticula without diverticulitis. The appendix is not seen but there is no evidence of appendicitis. ABDOMINAL WALL: No significant hernia is appreciated. LYMPH NODES: Normal. VASCULAR: Calcific atherosclerotic changes are present in the aorta and iliofemoral vessels. There is a 4.5 x 3.5 cm infrarenal abdominal aortic aneurysm measurements are made perpendicular to a center line. 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 PELVIC VISCERA: The prostate is enlarged measuring about 100 mL. Seminal vesicles appear normal. OSSEUS STRUCTURES: Severe degenerative changes are present throughout the spine. IMPRESSION: 1. Hepatosplenomegaly. 2. Bladder filled with stones. 3. The kidneys are unremarkable. 4. Infrarenal 4.5 cm abdominal aortic aneurysm with left common iliac artery aneurysm. Surveillance ultrasound is recommended in 6 months and vascular consultation is recommended. 5. Other incidental findings as described above. Date of Service: 10/02/22 EXAMINATION: US RETROPERITONEAL COMPLETE (RENAL) CLINICAL INFORMATION: Retention of urine, unspecified. COMPARISON: Renal ultrasound 03/20/2017. TECHNIQUE: Real-time imaging of the kidneys and bladder. FINDINGS: RIGHT KIDNEY: 16.2 x 7.9 x 8.2 cm (SAG x AP x TRV). The kidney is normal in size, contour, and echogenicity. Renal cortical thickness is normal. No renal calculi or hydronephrosis. Within the mid to lower pole there is a simple appearing 2.3 x 1.8 x 2.0 cm cyst which does not require follow-up. LEFT KIDNEY: 14.5 x 7.4 x 6.5 cm (SAG x AP x TRV). The kidney is normal in size, contour, and echogenicity. Renal cortical thickness is normal. No calculi or focal parenchymal lesions. No hydronephrosis. BLADDER: Well distended and normal. Bilateral ureteral jets are demonstrated. Prevoid bladder volume is 185 mL. Postvoid bladder volume is 157 mL. ADDITIONAL FINDINGS: Prostate volume is 61 mL. IMPRESSION: Large postvoid residual. Assessment & Plan Assessment & Plan (1) BPH (benign prostatic hyperplasia): Code(s): N40.0 - Benign prostatic hyperplasia without lower urinary tract symptoms Category: Medical (2) Diabetes: Code(s): E11.9 - Type 2 diabetes mellitus without complications Category: Medical (3) Intermittent gross hematuria: Code(s): R31.0 - Gross hematuria Category: Medical (4) Frequent urination: Code(s): R35.0 - Frequency of micturition Category: Medical (5) Bladder calculus: Code(s): N21.0 - Calculus in bladder Category: Medical Plan 04/06/24--FU hematuria. Patient c/o's urgency and dysuria getting worse. [id number]-3/12/24--kidneys WNL, multiple bladder stones. Discussed Plan Cystoscopy, cystolitholipaxy, laser bladder stones. Orders: Orders AMB Urinalysis Automated 04/06/24 R31.29 - Other microscopic hematuria AMB Post Void Residual by ultrasound 04/06/24 R33.9 - Retention of urine, unspecified Patient Instructions: The patient had an opportunity to ask questions regarding treatment plan. The patient expressed understanding and agreement with the above treatment plan. The patient is aware they should contact our office by phone for worsening of their current condition or the appearance of new symptoms. Compliance is encouraged with any medications and followup testing that is ordered. It is a privilege to be allowed the opportunity to participate in the urologic care of your patient. If you have any questions or concerns regarding treatment for the above conditions please do not hesitate to contact me. The office telephone contact is [phone]. This note is constructed in part using voice recognition software. While every e ffort has been made to ensure accuracy office administration errors may have been included. Yours sincerely, Sofia Dc MD Coding Level of Care Code Est Pt Level 4 (31985) Diagnoses BPH (benign prostatic hyperplasia) N40.0 Diabetes E11.9 Intermittent gross hematuria R31.0 Frequent urination R35.0 Bladder calculus N21.0 CPT Codes Post Residual Void - PVR CPT Code: 15783-Flqw Void Residual by ultrasound ([id number])
== END 2024-04-06 15:21 | disposition home or self-care (01) ==
PROVIDERS: PCP Nurse Practitioner Family; Visit Provider Urology
DX: N40.0 Benign prostatic hyperplasia without lower urinary tract symptoms (principal); E11.9 Type 2 diabetes mellitus without complications; R31.0 Gross hematuria; R35.0 Frequency of micturition; N21.0 Calculus in bladder
CPT/HCPCS: 99214

== ENCOUNTER → 2024-04-06 13:37 | Outpatient (BNVA) | payer MEDICARE, SELFPAY | PROVIDERS: PCP Nurse Practitioner Family; Visit Provider Urology | DX: R35.0 Frequency of micturition (principal); R31.0 Gross hematuria; N21.0 Calculus in bladder; N40.0 Benign prostatic hyperplasia without lower urinary tract symptoms; E11.9 Type 2 diabetes mellitus without complications | CPT/HCPCS: 51798; 81003; 99212 ==

== ENCOUNTER 2024-04-17 07:00 | Outpatient (REF) | payer MEDICARE, SELFPAY ==
[2024-04-17 10:47] LABS: Appearance Urine Cloudy; Color Urine Yellow; Glucose Urine UA 250 mg/dL (Negative); Leukocyte Esterase Urine Trace (Negative); Nitrite Urine Negative (Negative); PH 5.5 (5.0-9.0); Specific Gravity - Urine 1.015 (1.005-1.025); UMIC TRIGGER UA YES; Urine Blood Large (3+) (Negative); Urine Ketones Negative (Negative); Urine Protein 100 (2+) mg/dL (Neg-Trace)
[2024-04-17 11:08] LABS: Bacteria Urine None Seen (None Seen); Hyaline Casts Urine 0-2 /LPF (0-2); RBC Urine >20 /HPF (0-2); Squamous Epithelial Cell Urine 0-2 /HPF (0-2)
[2024-04-17 11:18] LABS: Creatinine Urine 48.56 mg/dL; Total Protein Urine Random 54 mg/dL (<12)
[2024-04-17 11:47] LABS: Anion Gap 13 (12-20); Blood Urea Nitrogen 14 mg/dL (9-16); Calcium 10.2 mg/dL (8.4-10.2); Carbon Dioxide 27 mmol/L (22-29); Chloride 103 mmol/L (96-108); Estimated Glomerular Filt Rate > 60; Glucose Random 249 mg/dL (60-115); Potassium 4.7 mmol/L (3.3-5.1); Sodium 138 mmol/L (135-145)
== END 2024-04-17 07:01 | disposition home or self-care (01) ==
LOC: HO.HMGCLDS 07:00
PROVIDERS: PCP Nurse Practitioner Family; Visit Provider Internal Medicine Hypertension Specialist
DX: R80.9 Proteinuria, unspecified (principal)
CPT/HCPCS: 36415; 80048; 81001; 82570; 84156

== ENCOUNTER 2024-04-20 12:04 | Outpatient (AMB) | payer MEDICARE, SELFPAY ==
[2024-04-20 12:05] VITALS: BP 112/60; PULSE 83; O2SAT 96; BMI 40.2
--- NOTE | 2024-04-20 12:05 | HO.NEPHOV_ITS ---
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: No Accompanied by: Self / Same As Patient Allergies No Known Allergies Allergy (Verified 04/20/24 12:08) Medication List - Last Reconciled 04/20/24 by Jason Mayberry MD alpha lipoic acid 600 mg PO DAILY amlodipine 10 mg PO DAILY aspirin (Children's Aspirin) 81 mg PO DAILY atorvastatin 80 mg PO BEDTIME 90 days blood sugar diagnostic (FreeStyle Lite Strips) 4 times a day blood-glucose meter (FreeStyle Lite Meter kit) 4 times a day cholecalciferol (vitamin D3) 10 mcg PO DAILY FreeStyle Lancets (lancets) 4 times a day NS FreeStyle Yolanda 2 Fairchance (flash glucose scanning reader) TID testing NS FreeStyle Yolanda 2 Sensor (flash glucose sensor) TID tesing NS gabapentin 300 mg PO TID 30 days insulin glargine U-300 conc (Toujeo Max U-300 SoloStar) 50 units (0.1667 mL) subcut DAILY lisinopril 10 mg PO DAILY 90 days metformin ER 1,000 mg (2 x 500 mg) PO BID 90 days pen needle, diabetic (BD Ultra-Fine Short Pen Needle) use to inject insulin once a day semaglutide 2 mg (0.75 mL) subcut QWEEK silodosin (Rapaflo) 8 mg PO DAILY trazodone 100 mg PO BEDTIME PRN 30 days HPI Comments Details: Romel is a 68-year-old man with a history of longstanding diabetes mellitus obesity. About 6 months ago he had microscopic painless hematuria He underwent cystoscopy in October of 2022 which was unremarkable. Urine cytology did not reveal any malignant cells Urine protein creatinine ratio was 653 Serum creatinine 0.87. He is being referred for further evaluation of the above. He has history of BPH. Postvoid residual was 157 cc as of 09/09/2023 Of note he has been on Actos for more than a year Still has interemittent hematuria Urogram shows mnultiple stones Waiting for surgery [facility] Medical History (atherosclerosis) Ascending aortic aneurysm Ascending aorta dilatation Aortic stenosis [place], bilateral COVID-19 vaccine series completed Obesity due to excess calories Tinea pedis Charcot foot due to diabetes mellitus Morbid obesity Diabetic polyneuropathy associated with type 2 diabetes mellitus 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 type 2 diabetes mellitus FCI (current) use of insulin RLS (restless legs syndrome) Aortic valve calcification BPH (benign prostatic hyperplasia) Osteomyelitis [place] (obstructive sleep apnea) KAI (acute kidney injury) Surgical History H/O colonoscopy History of bunionectomy Amputation toe History of bunionectomy Family History Father Bladder cancer Mother Lung cancer Social History 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: Yes (father, also cares for him) Do you presently have visiting nurse or other home services: No Alcohol intake: current Alcohol intake frequency: holidays/special occasions only Patient Tobacco Use Status: Never used Tobacco Cognitive needs: No Hearing needs: No Vision needs: Yes Physical Exam Vital Signs: Last Vital Signs Pulse 83 04/20/24 12:05 BP 112/60 04/20/24 12:05 Pulse Ox 96 04/20/24 12:05 Oxygen Delivery Method Room Air 04/20/24 12:05 BMI result Body Mass Index 40.2 Results Reviewed Nephrology Results: Hgb 15.1 g/dl (14.0-18.0) 03/06/24 WBC 11.0 X10*3/uL (4.8-10.8) H 03/06/24 Plt Count 266 X10*3/uL (160-400) 03/06/24 Sodium 138 mmol/L (135-145) 04/17/24 Potassium 4.7 mmol/L (3.3-5.1) 04/17/24 Chloride 103 mmol/L (96-108) 04/17/24 Carbon Dioxide 27 mmol/L (22-29) 04/17/24 BUN 14 mg/dL (9-16) 04/17/24 Creatinine 0.85 mg/dL (0.5-1.4) 04/17/24 Calcium 10.2 mg/dL (8.4-10.2) 04/17/24 Urine Protein 100 (2+) mg/dL (Neg-Trace) H 04/17/24 Urine Creatinine 48.56 mg/dL 04/17/24 Assessment & Plan Assessment & Plan (1) Bladder calculus: Code(s): N21.0 - Calculus in bladder Category: Medical (2) Proteinuria: Code(s): R80.9 - Proteinuria, unspecified Category: Medical (3) Hematuria: Code(s): R31.9 - Hematuria, unspecified Category: Medical (4) Microscopic hematuria: Code(s): R31.29 - Other microscopic hematuria Category: Medical Plan . Romel is a 68-year-old man with a history of longstanding obesity and diabetes mellitus with proteinuria and painless hematuria. Now with multiple bladder Calculi Although the proteinuria could be due to underlying diabetes mellitus and obesi ty other nondiabetic causes should be ruled out. At present renal function is stable at baseline with a creatinine 0.87. Blood pressure is well controlled. workup for both hematuria and proteinuria not suggestive of glomerular origin In the meantime encouraged him to stand low-sodium diet. Increase fluid intake. Continue to avoid nephrotoxic agents. Maintain A1c less than 7% and blood pressure less than 130/80. Since pioglitazone has been implicated in bladder cancer , this has been discontinued Await Urology follow up and cysto No indication for kidney biopsy at this time Orders: Orders Basic Metabolic Panel Today N21.0 - Calculus in bladder UA and rflx microscopic Today N21.0 - Calculus in bladder Total Protein Urine Random Today N21.0 - Calculus in bladder Creatinine Urine Today N21.0 - Calculus in bladder Coding Level of Care Code Est Pt Level 4 (37604) Diagnoses Bladder calculus N21.0 Proteinuria R80.9 Hematuria R31.9 Microscopic hematuria R31.29
== END 2024-04-20 12:20 | disposition home or self-care (01) ==
PROVIDERS: PCP Nurse Practitioner Family; Visit Provider Internal Medicine Hypertension Specialist
DX: N21.0 Calculus in bladder (principal); R80.9 Proteinuria, unspecified; R31.9 Hematuria, unspecified; R31.29 Other microscopic hematuria
CPT/HCPCS: 99213

== ENCOUNTER → 2024-04-20 12:04 | Outpatient (BNVA) | payer MEDICARE, SELFPAY | PROVIDERS: PCP Nurse Practitioner Family; Visit Provider Internal Medicine Hypertension Specialist | DX: N21.0 Calculus in bladder (principal); R80.9 Proteinuria, unspecified; R31.9 Hematuria, unspecified; R31.29 Other microscopic hematuria | CPT/HCPCS: 99212 ==

== ENCOUNTER 2024-05-05 05:51 | Day surgery (SDC) | payer MEDICARE, SELFPAY ==
[2024-05-01 07:59] VITALS: BMI 39.8
--- NOTE | 2024-05-04 09:05 | P.CONAN_ITS ---
Documented by User: Paula Cristobal NP 05/04/24 09:08 HPI - Anesthesia Eval Consult details Narrative: 68yo M for Cysto Litholapaxy,with Bladder Stone Removal Follows [facility] [place] cardiology: stable 07/2023 office visit (mild , AAA @ 4.7) Anesthesia Pre-Procedure Meds Is the patient on any of the following meds?: GLP1/DPP4 PMFSH Active Problems Active Problems: All Active Problems Bladder calculus (Acute) Pre-op evaluation (Acute) Intermittent gross hematuria (Acute) Leukocytosis (Acute) Vitamin D deficiency (Acute) AAA (abdominal aortic aneurysm) without rupture (Acute) Proteinuria (Acute) Encounter for subsequent annual wellness visit (AWV) in Medicare patient (Acute) Microalbuminuria (Acute) Hemorrhoids (Acute) Diverticulosis of colon (Acute) Erectile dysfunction (Acute) Urethral stricture (Acute) Varicose veins of right lower extremity with inflammation (Acute) Charcot foot due to diabetes mellitus (Acute) PAD (peripheral artery disease) (Acute) Microscopic hematuria (Acute) Incomplete bladder emptying (Acute) Systolic murmur (Acute) Frequent urination (Acute) Decreased dorsalis pedis pulse (Acute) Screening for colon cancer (Acute) Encounter for annual wellness visit (AWV) in Medicare patient (Acute) Screening PSA (prostate specific antigen) (Acute) Tubular adenoma of colon (Acute) Encounter for screening colonoscopy (Acute) Type 2 diabetes mellitus with hyperglycemia (Acute) HTN (hypertension) (Acute) Screening for colon cancer (Acute) Uncontrolled diabetes mellitus (Acute) Dyslipidemia (Acute) Dysuria (Acute) Hematuria (Acute) Essential hypertension (Acute) Diabetes (Acute) Ascending aortic aneurysm (Acute) BPH (benign prostatic hyperplasia) (Acute) Aortic stenosis (Acute) Obesity due to excess calories (Acute) Tinea pedis (Acute) Charcot foot due to diabetes mellitus (Acute) Morbid obesity (Acute) Diabetic polyneuropathy associated with type 2 diabetes mellitus (Acute) 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 type 2 diabetes mellitus (Acute) 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 (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) Past Medical History Medical History (atherosclerosis) Ascending aortic aneurysm Ascending aorta dilatation Aortic stenosis Hamm[place], bilateral COVID-19 vaccine series completed Obesity due to excess calories Tinea pedis Charcot foot due to diabetes mellitus Morbid obesity Diabetic polyneuropathy associated with type 2 diabetes mellitus 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 type 2 diabetes mellitus residential (current) use of insulin RLS (restless legs syndrome) Aortic valve calcification BPH (benign prostatic hyperplasia) Osteomyelitis [place] (obstructive sleep apnea) KAI (acute kidney injury) Family History Family History Father Bladder cancer Mother Lung cancer Family history of problems with anesthesia: No Surgical History Surgical History H/O colonoscopy History of bunionectomy Amputation toe History of bunionectomy History of Problems with Anesthesia: No Social History Social History Are you a primary elderly caregiver to a significant other at home: Yes (father, also cares for him) Do you presently have visiting nurse or other home services: No Alcohol intake: current Alcohol intake frequency: holidays/special occasions only Patient Tobacco Use Status: Never used Tobacco Use of substances other than those prescribed or required for medical reasons: No Are you DNR?: No Advance Directives: No Advance Directives Information Provided: Yes Recently lost weight without trying: No Nutrition Risks: No Nutritional Risk Cognitive needs: No Hearing needs: No Vision needs: Yes Meds Allergies Allergy/AdvReac Type Severity Reaction Status Date / Time No Known Allergies Allergy Verified 04/20/24 12:08 Home Medications ?Medication ?Instructions ?Recorded ?Confirmed ?Last Taken ?Type aspirin 81 mg chewable tablet 81 mg PO DAILY 12/19/20 04/20/24 Unknown History (Children's Aspirin) cholecalciferol (vitamin D3) 10 10 mcg PO DAILY 12/19/20 04/20/24 Unknown History mcg (400 unit) capsule Exam Height,Weight and Vital Signs: Height 6 ft 2 in Weight 140.614 kg Pertinent Lab Results Pertinent Lab Results: Laboratory Tests 03/06/24 04/17/24 10:00 07:04 WBC 11.0 H Hgb 15.1 Hct 45.5 Plt Count 266 Sodium 138 Potassium 4.7 Chloride 103 Carbon Dioxide 27 BUN 14 Creatinine 0.85 Narrative Narrative: EKG 01/2024 Vent. Rate : 062 BPM Atrial Rate : 062 BPM P-R Int : 188 ms QRS Dur : 092 ms QT Int : 422 ms P-R-T Axes : 053 018 050 degrees QTc Int : 428 ms Normal sinus rhythm Normal ECG When compared with ECG of 09-DEC-2015 07:57, Nonspecific T wave abnormality no longer evident in Inferior leads Assessment and Plan Final Anesthetic Review Family History of Problems with Anesthesia: No History of Problems with Anesthesia: No Documented by User: Stef Enamorado MD 05/05/24 08:07 [facility] Past Medical History Medical History (atherosclerosis) Ascending aortic aneurysm Ascending aorta dilatation Aortic stenosis [place], bilateral COVID-19 vaccine series completed Obesity due to excess calories Tinea pedis Charcot foot due to diabetes mellitus Morbid obesity Diabetic polyneuropathy associated with type 2 diabetes mellitus 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 type 2 diabetes mellitus 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 RLS (restless legs syndrome) Aortic valve calcification BPH (benign prostatic hyperplasia) Osteomyelitis [place] (obstructive sleep apnea) KAI (acute kidney injury) Family History Family History Father Bladder cancer Mother Lung cancer Surgical History Surgical History H/O colonoscopy History of bunionectomy Amputation toe History of bunionectomy Social History Social History Are you a primary elderly caregiver to a significant other at home: Yes (father, also cares for him) Do you presently have visiting nurse or other home services: No Alcohol intake: current Alcohol intake frequency: holidays/special occasions only Patient Tobacco Use Status: Never used Tobacco Use of substances other than those prescribed or required for medical reasons: No Are you DNR?: No Advance Directives: No Advance Directives Information Provided: Yes Recently lost weight without trying: No Nutrition Risks: No Nutritional Risk Cognitive needs: No Hearing needs: No Vision needs: Yes Meds Allergies Allergy/AdvReac Type Severity Reaction Status Date / Time No Known Allergies Allergy Verified 04/20/24 12:08 Home Medications ?Medication ?Instructions ?Recorded ?Confirmed ?Last Taken ?Type aspirin 81 mg chewable tablet 81 mg PO DAILY 12/19/20 04/20/24 Unknown History (Children's Aspirin) cholecalciferol (vitamin D3) 10 10 mcg PO DAILY 12/19/20 04/20/24 Unknown History mcg (400 unit) capsule Exam Narrative Narrative: EKG 01/2024 Vent. Rate : 062 BPM Atrial Rate : 062 BPM P-R Int : 188 ms QRS Dur : 092 ms QT Int : 422 ms P-R-T Axes : 053 018 050 degrees QTc Int : 428 ms Normal sinus rhythm Normal ECG When compared with ECG of 09-DEC-2015 07:57, Nonspecific T wave abnormality no longer evident in Inferior leadst Airway Mallampati Class: II TM Dist: <=3cm Neck ROM: Full Loose/Missing/Broken Teeth: No Heart: ok. I reviewed both 2022 echos. Mild . Lungs: ok Assessment and Plan Assessment Anesthesia Assessment: Anesthesia Plan Discussed and Chart Reviewed Final Anesthetic Review NPO: Yes ASA Class: III Final Preanesthetic Review: No Changes in Pt Med Stat, Meds/Allgs Chart Reviewed, Consent Obtained/Reviewed and Anes Risks/Benef Reviewed Patient Risk: High Procedure Risk: Low Anesthetic Plan Anesthetic Plan: GA and Agree w/ Assess. and Plan Disposition: Standard PACU
[2024-05-05] VITALS (14 sets, daily range): BP systolic 113–145; BP diastolic 54–91; PULSE 56–97; RESP 16–20; TEMP 36.1–37.2; O2SAT 94–97
--- OUTSIDE RECORDS SUMMARY | 2024-05-05 05:53 | XMS_ITS | Patient Health Record ---
Author Organization [facility] Address [address] [place] [id number] Care Team Providers Care Oral And Maxillofacial Pathologist Name Role Phone JESUS PALAFOX Primary Care Provider Rudy Pineda [phone] ALLERGIES Allergen (clinical drug ingredient) Drug/Non Drug [...] confirmed Screening for malignant neoplasm of colon ([id number]) PLAN OF TREATMENT Future Test Test Name Order Date COLONOSCOPY 06/07/2011 Insurance Providers Payer Name Payer Address Payer Phone Subscriber Number Group Number Insured Name Patient Relationship to Insured Coverage Start Date Coverage End Date [facility] [address] [place] [address] [id number] KEITH ZUNIGA Self - patient is the insured MEDICAL (GENERAL) HISTORY Medical History History ICD Code HTN Denies MS,DM,CVA,Lung disease,renal dise ase
[2024-05-05 06:36] LABS: Glucose, Whole Blood 138 mg/dL (60-115)
[2024-05-05] MEDS: Lactated Ringers 1,000 ML 100 ML IVCONT (06:42)
--- NOTE | 2024-05-05 07:18 | MHC.SHP ---
Pre-Procedural Eval Section A - 24 Hr Update-Section A only Date of Service: 05/05/24 The patient is an INPATIENT: No The patient has been examined within 24 hours of the surgical procedure. The History & Physical has been completed within 30 days and I have reviewed it.: Yes Section B - Complete if H&P > 30 days Chief Complaint: Calculus in bladder Allergies: Allergies Allergy/AdvReac Type Severity Reaction Status Date / Time No Known Allergies Allergy Verified 04/20/24 12:08 Plan Diagnosis/Plan: Unchanged I have reviewed the history and physical and performed a pertinent physical examination on my patient. No changes have occurred unless specified. Cystoscopy cystolithlipaxy, laser bladder stones. Discussed risks to include but not limited to, blood in the urine, burning with urination, urgency. Time Spent With Patient Time: Total time managing care of this patient today ____ minutes.
--- NOTE | 2024-05-05 09:40 | P.OP_ITS ---
Operative Note Operative Note Date of Service: 05/05/24 Narrative: PREOP DIAGNOSIS: Bladder calculi, enlarged prostate POSTOP DIAGNOSIS: Bladder calculi, enlarged prostate PROCEDURE: Cystoscopy, cystolitholipaxy, laser bladder calculi Anesthesia: General Indications: Romel is a 68 year old male who had symptoms of gross hematuria. CTAP 03/12/24-BLADDER: calcified stones ranging in size from just under a centimeter up to 1.5 cm in size. The bladder is collapsed and there is a symmetrically thickened wall. Findings: Multiple bladder stones > 7 stones, sizes as noted in CT imaging 1.0 cm - 1.5 cm The patient was advised due to multiple bladder stones, this would need to be a staged procedure as all of the stones would not be able to be fragmented adequately in one setting due to volume of bladder calculi and density of stones. Details of procedure: The patient was brought into the operating room placed on the OR table in supine position. 2 g of Ancef IV. General anesthesia was administered. The patient was repositioned into lithotomy position, prepped and draped in the usual sterile fashion. Time-out was done per protocol. The 24 [place] scope was passed transurethrally into the bladder. The bulbous urethra was within normal limits. The prostatic urethra - trilobar enlargement with a prominent median lobe. Visualization of the bladder, was filled with multiple large bladder stones. Using the 980 fiber laser the bladder stones were lasered. The Ellik was used to irrigate out the fragments. 2 stones were adequated fragmented leaving significant stone burden remaining. Due to bleeding from the median lobe of the prostate limiting visualization, the procedure was terminated. The loop was attached to cauterize bleeding from the bladder neck/median lobe to obtain adequate hemostatsis. A [address] [place] [address] catheter 30 cc balloon was passed without difficulty. 30 mL H20 injected into the balloon. CBI with Normal Saline was started in OR. The patient was brought out of anesthesia and taken to recovery in stable condition. Complications: None Drains: [address] [place] [address] catheter 30 cc balloon
[2024-05-05] MEDS: fentaNYL citrate/PF 100 MCG/2 ML VIAL 50 MCG IVPUSH ×3 (09:48→10:02)
[2024-05-05] MEDS: Acetaminophen 325 MG TABLET 975 MG PO (10:32)
[2024-05-05] MEDS: oxyCODONE HCl Immed Release 5 MG TABLET PO (10:33)
== END 2024-05-05 11:21 | disposition home or self-care (01) ==
PROVIDERS: PCP Nurse Practitioner Family; Visit Provider Urology
PROC: (CPT 52317; principal; 2024-05-05 07:30)
DX: N21.0 Calculus in bladder (principal); N40.1 Benign prostatic hyperplasia with lower urinary tract symptoms; R31.0 Gross hematuria; R30.0 Dysuria; R35.0 Frequency of micturition; R39.15 Urgency of urination; N17.9 Acute kidney failure, unspecified; E11.610 Type 2 diabetes mellitus with diabetic neuropathic arthropathy; E11.42 Type 2 diabetes mellitus with diabetic polyneuropathy; E11.40 Type 2 diabetes mellitus with diabetic neuropathy, unspecified; G47.33 Obstructive sleep apnea (adult) (pediatric); Z79.4 Long term (current) use of insulin; Z79.82 Long term (current) use of aspirin; Z79.84 Long term (current) use of oral hypoglycemic drugs; Z79.85 Long-term (current) use of injectable non-insulin antidiabetic drugs; Z79.899 Other long term (current) drug therapy; Z98.890 Other specified postprocedural states
CPT/HCPCS: 52317; 82947; 88300; J0690; J2003; J2704; J3010

== ENCOUNTER → 2024-05-05 05:51 | Outpatient (BNV) | payer MEDICARE, SELFPAY | PROVIDERS: PCP Nurse Practitioner Family; Visit Provider Urology | DX: N21.0 Calculus in bladder (principal) | CPT/HCPCS: 52317 ==

== ENCOUNTER → 2024-05-06 08:11 | Outpatient (BNVA) | payer MEDICARE, SELFPAY | PROVIDERS: PCP Nurse Practitioner Family; Visit Provider Urology | DX: N21.0 Calculus in bladder (principal); N35.919 Unspecified urethral stricture, male, unspecified site; R31.0 Gross hematuria; R33.9 Retention of urine, unspecified | CPT/HCPCS: 51702; 51798 ==

== ENCOUNTER 2024-05-20 15:30 | Outpatient (AMB) | payer MEDICARE, SELFPAY ==
--- NOTE | 2024-05-20 15:42 | A.OFFVIS_ITS ---
Intake Visit Reasons: Bladder stone removal, follow up Intake Note: Patient is present for BLADDER STONE REMOVAL F/U Urology Medication:SOLIFENACIN,DUTASTERIDE,SILODOSIN Antibiotic Allergy:NONE Blood Thinner:ASPIRIN Small Business Director Required: No Allergies No Known Allergies Allergy (Verified 05/20/24 15:44) HPI Comments Details: 05/20/24--Here for FU. SP cysto litholapaxy on 05/05/2024. Multiple bladder stones. Two stones were fragmented and irrigated out. Patient was noted to have an obstructive prostate. Will discuss further Bladder stone fragmentation as well as prostate ablation, resection. Pt complains of pain with urination, and bladder spasms, Review of chart: 04/06/24--FU hematuria. Patient c/o's urgency and dysuria getting worse. Vmnpltff-FBLN-8/12/24--kidneys WNL, multiple bladder stones. Discussed Plan Cystoscopy, cystolitholipaxy, laser bladder stones. 01/29/2024--Romel is here for follow-up and states that he is still seeing intermittent gross hematuria. He also still has dysuria. I will empirically start doxycycline. He has urinary frequency and is not sure if he is taking the phone. New Rapaflo Prescription sent to the pharmacy. I have discussed re- evaluation of the urinary tract will check CT urogram and outpatient cystoscopy bladder biopsies. 09/09/2023--Romel is a 68-year-old male who is followed for lower urinary tract symptoms due to BPH he is prescribed Rapaflo 8 mg daily. States that he has an adequate flow. Comorbidity diabetes. He is concerned regarding blood in the urine. I have reviewed renal ultrasound from September 2022 small simple cyst right kidney no suspicious masses evaluation of bladder at that time noted an elevated postvoid residual. Reviewed that office cystoscopy 11/02/2022 was notable for enlarged prostate no suspicious bladder lesions. Bladder scan PVR 71 mL, recent PSA 08/2023 1.42 ng/mL. Urinalysis 2+ protein 3+ blood. The patient has a nephrology visit scheduled. Plan will be to continue Rapaflo 8 mg daily. 12/10/22--Romel is a 67-year-old male who presents to the office 6-weeks follow- up. He is followed for LUTS symptoms of frequency, urgency and nocturia. The patient was last seen in the office on 11/02/2022. AUA symptoms score--11/02/2022--19 Cystoscopy findings--11/02/2022--Prostatic urethra bilobar enlargement, subtle scarring/narrowing mild bulbous urethra. He was initially placed on tamsulosin which was increased to twice a day and was changed to Rapaflo 8 mg. 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 RLS (restless legs syndrome) Aortic valve calcification BPH (benign prostatic hyperplasia) Osteomyelitis [place] (obstructive sleep apnea) KAI (acute kidney injury) Surgical History H/O colonoscopy History of bunionectomy Amputation toe History of bunionectomy Family History Father Bladder cancer Mother Lung cancer Social History Are you a primary care services manager to a significant other at home: Yes (father, also cares for him) Do you presently have visiting nurse or other home services: No Alcohol intake: current Alcohol intake frequency: holidays/special occasions only Patient Tobacco Use Status: Never used Tobacco Cognitive needs: No Hearing needs: No Vision needs: Yes Review of Systems Const All systems reviewed & are unremarkable except as noted in HPI and below Reports no additional complaints Eyes Reports no additional complaints ENT Reports no additional complaints Card Reports no additional complaints Resp Reports no additional complaints GI Reports no additional complaints Reports as per HPI Musc Reports no additional complaints Skin/Breast Reports system reviewed and no additional complaints, except as documented Neuro Reports no additional complaints Psych Reports no additional complaints Endo Reports no additional complaints Marcial/Lymph Reports no additional complaints Aller/Immun Reports no additional complaints Results AMB Urinalysis, Automated UA Leukoctes 500 Snehal/uL Last Edit by ZOEY Grimaldo on 05/20/24 16:09 UA Nitrite Positive Last Edit by ZOEY Grimaldo on 05/20/24 16:09 UA Urobilinogen 8 mg/dL Last Edit by ZOEY Grimaldo on 05/20/24 16:09 UA Protein 300 mg/dL Last Edit by ZOEY Grimaldo on 05/20/24 16:09 UA pH 5.0 Last Edit by ZOEY Grimaldo on 05/20/24 16:09 UA Blood 80 Matti/uL Last Edit by ZOEY Grimaldo on 05/20/24 16:09 UA Specific [place] 1.030 Last Edit by ZOEY Grimaldo on 05/20/24 16: 09 UA Ketone Positive Last Edit by ZOEY Grimaldo on 05/20/24 16:09 UA Bilirubin 4 mg/dL Last Edit by ZOEY Grimaldo on 05/20/24 16:09 UA Glucose 500 mg/dL Last Edit by [facility]o [facility] on 05/20/24 16:09 Results Reviewed Results Reviewed: Laboratory Last Values Urine pH (Auto) 5.0 05/20/24 16:08 Specific [place] (Auto) 1.030 05/20/24 16:08 Urine Protein (Auto) 300 mg/dL 05/20/24 16:08 Glucose (UA)(Auto) 500 mg/dL 05/20/24 16:08 Urine Ketones (Auto) Positive 05/20/24 16:08 Urine Blood (Auto) 80 Matti/uL 05/20/24 16:08 Urine Nitrite (Auto) Positive 05/20/24 16:08 Urine Bilirubin (Auto) 4 mg/dL 05/20/24 16:08 Urine Urobilinogen (Auto) 8 mg/dL 05/20/24 16:08 Leukocyte Esterase (Auto) 500 Snehal/uL 05/20/24 16:08 Date of Service: 03/12/24 CT ABDOMEN AND PELVIS WITHOUT AND WITH CONTRAST CLINICAL INFORMATION: Gross hematuria COMPARISON: CT urogram 10/08/2023 TECHNIQUE: Noncontrast CT of the abdomen and pelvis is performed followed by split bolus contrast-enhanced images using 85 mL Omnipaque 350 contrast. Postcontrast imaging is performed during the combined nephrogram and excretion phase. Sagittal and coronal reformatted images were obtained on the technologist's workstation for both the precontrast and postcontrast phases. This CT examination was performed using dose optimization techniques as appropriate, variously including the following: *Automated exposure control *Adjustment of mA and/or kV according to patient size (this includes techniques or standardized protocols for targeted exams where dose is matched to indication/reason for exam; i.e. extremities or head) *Use of iterative reconstruction technique DLP: 1533 mGy-cm FINDINGS: LUNG BASES: The visualized lung bases are unremarkable. LIVER, GALLBLADDER, AND BILIARY TREE: The liver is enlarged measuring 20.7 cm in cephalocaudad dimension with normal attenuation on noncontrast imaging. No focal hepatic lesion or biliary ductal dilatation is present. The gallbladder is unremarkable with no evidence of radiopaque gallstones, gallbladder wall thickening, or obvious pericholecystic inflammatory changes. PANCREAS: Unremarkable. SPLEEN: The spleen is enlarged 16.6 cm. ADRENAL GLANDS: Unremarkable. KIDNEYS AND URETERS: The kidneys are normal in size, shape, and attenuation. No hydronephrosis, hydroureter, or calculi seen. No perinephric stranding. Multiple parapelvic and cortical benign Bosniak class I renal cysts are noted which require no additional imaging or follow-up. No solid renal masses are seen. BLADDER: Bladder is filled with calcified stones ranging in size from just under a centimeter up to 1.5 cm in size. The bladder is collapsed and there is a symmetrically thickened wall. GASTROINTESTINAL TRACT: The small and large bowel are unremarkable aside from scattered colonic diverticula without diverticulitis. The appendix is not seen but there is no evidence of appendicitis. ABDOMINAL WALL: No significant hernia is appreciated. LYMPH NODES: Normal. VASCULAR: Calcific atherosclerotic changes are present in the aorta and iliofemoral vessels. There is a 4.5 x 3.5 cm infrarenal abdominal aortic aneurysm measurements are made perpendicular to a center line. 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 PELVIC VISCERA: The prostate is enlarged measuring about 100 mL. Seminal vesicles appear normal. OSSEUS STRUCTURES: Severe degenerative changes are present throughout the spine. IMPRESSION: 1. Hepatosplenomegaly. 2. Bladder filled with stones. 3. The kidneys are unremarkable. 4. Infrarenal 4.5 cm abdominal aortic aneurysm with left common iliac artery aneurysm. Surveillance ultrasound is recommended in 6 months and vascular consultation is recommended. 5. Other incidental findings as described above. Date of Service: 10/02/22 EXAMINATION: US RETROPERITONEAL COMPLETE (RENAL) CLINICAL INFORMATION: Retention of urine, unspecified. COMPARISON: Renal ultrasound 03/20/2017. TECHNIQUE: Real-time imaging of the kidneys and bladder. FINDINGS: RIGHT KIDNEY: 16.2 x 7.9 x 8.2 cm (SAG x AP x TRV). The kidney is normal in size, contour, and echogenicity. Renal cortical thickness is normal. No renal calculi or hydronephrosis. Within the mid to lower pole there is a simple appearing 2.3 x 1.8 x 2.0 cm cyst which does not require follow-up. LEFT KIDNEY: 14.5 x 7.4 x 6.5 cm (SAG x AP x TRV). The kidney is normal in size, contour, and echogenicity. Renal cortical thickness is normal. No calculi or focal parenchymal lesions. No hydronephrosis. BLADDER: Well distended and normal. Bilateral ureteral jets are demonstrated. Prevoid bladder volume is 185 mL. Postvoid bladder volume is 157 mL. ADDITIONAL FINDINGS: Prostate volume is 61 mL. IMPRESSION: Large postvoid residual. Assessment & Plan Assessment & Plan (1) BPH (benign prostatic hyperplasia): Code(s): N40.0 - Benign prostatic hyperplasia without lower urinary tract symptoms Category: Medical (2) Diabetes: Code(s): E11.9 - Type 2 diabetes mellitus without complications Category: Medical (3) Intermittent gross hematuria: Code(s): R31.0 - Gross hematuria Category: Medical (4) Frequent urination: Code(s): R35.0 - Frequency of micturition Category: Medical (5) Bladder calculus: Code(s): N21.0 - Calculus in bladder Category: Medical Plan Discussed Repeat Cystoscopy, cystolitholipaxy, laser bladder stones and TURP, increase anticholinergics, tramadol prn, doxycycline Orders: Orders AMB Urinalysis Automated 05/20/24 Z13.9 - Encounter for screening, unspecified Medications: New tramadol 50 mg PO Q6H PRN 30 tabs 0RF pain doxycycline hyclate 100 mg PO BID 14 tabs 0RF 7 days vibegron (Gemtesa) 75 mg PO DAILY 30 tabs 1RF solifenacin (Vesicare) to replace vesicare 5 mg 10 mg PO BEDTIME 30 tabs 1RF Discontinued solifenacin (Vesicare) Discontinued Reason: Doctor's Order 5 mg PO BEDTIME 30 tabs 0RF bladder spasms Patient Instructions: The patient had an opportunity to ask questions regarding treatment plan. The patient expressed understanding and agreement with the above treatment plan. The patient is aware they should contact our office by phone for worsening of their current condition or the appearance of new symptoms. Compliance is encouraged with any medications and followup testing that is ordered. It is a privilege to be allowed the opportunity to participate in the urologic care of your patient. If you have any questions or concerns regarding treatment for the above conditions please do not hesitate to contact me. The office telephone contact is [phone]. This note is constructed in part using voice recognition software. While every effort has been made to ensure accuracy jewelry racker errors may have been included. Yours sincerely, Sofia Dc MD Coding Level of Care Code Est Pt Level 4 (90136) Diagnoses BPH (benign prostatic hyperplasia) N40.0 Diabetes E11.9 Intermittent gross hematuria R31.0 Frequent urination R35.0 Bladder calculus N21.0
== END 2024-05-20 16:44 | disposition home or self-care (01) ==
PROVIDERS: PCP Nurse Practitioner Family; Visit Provider Urology
DX: N40.0 Benign prostatic hyperplasia without lower urinary tract symptoms (principal); E11.9 Type 2 diabetes mellitus without complications; R31.0 Gross hematuria; R35.0 Frequency of micturition; N21.0 Calculus in bladder
CPT/HCPCS: 99214

== ENCOUNTER → 2024-05-20 15:30 | Outpatient (BNVA) | payer MEDICARE, SELFPAY | PROVIDERS: PCP Nurse Practitioner Family; Visit Provider Urology | DX: R31.0 Gross hematuria (principal); R35.0 Frequency of micturition; N40.0 Benign prostatic hyperplasia without lower urinary tract symptoms; R35.1 Nocturia; N21.0 Calculus in bladder; E11.9 Type 2 diabetes mellitus without complications | CPT/HCPCS: 81003; 99212 ==

== ENCOUNTER → 2024-06-02 08:30 | Outpatient (BNVA) | payer MEDICARE, SELFPAY | PROVIDERS: PCP Nurse Practitioner Family; Visit Provider Urology | DX: N21.0 Calculus in bladder (principal); N35.919 Unspecified urethral stricture, male, unspecified site; R31.0 Gross hematuria | CPT/HCPCS: 51700; 51798 ==

== ENCOUNTER 2024-06-10 13:19 | Outpatient (REF) | payer MEDICARE, SELFPAY ==
[2024-06-10 16:06] LABS: Anion Gap 13 (12-20); Blood Urea Nitrogen 15 mg/dL (9-16); Calcium 9.3 mg/dL (8.4-10.2); Carbon Dioxide 27 mmol/L (22-29); Chloride 103 mmol/L (96-108); Estimated Glomerular Filt Rate > 60; Glucose Random 193 mg/dL (60-115); Sodium 139 mmol/L (135-145)
[2024-06-10 16:18] LABS: Appearance Urine Turbid; Color Urine Orange; Glucose Urine UA 100 mg/dL (Negative); Specific Gravity - Urine 1.025 (1.005-1.025); UMIC TRIGGER UA YES; Urine Ketones Trace mg/dL (Negative)
[2024-06-10 17:00] LABS: Creatinine Urine 162.56 mg/dL; Total Protein Urine Random 68 mg/dL (<12)
[2024-06-10 17:09] LABS: Bacteria Urine 4+ (None Seen); Hyaline Casts Urine 0-2 /LPF (0-2); Squamous Epithelial Cell Urine 0-2 /HPF (0-2); WBC Urine >50 /HPF (0-5)
--- OUTSIDE RECORDS SUMMARY | 2024-06-11 02:24 | XMS_ITS | Patient Health Record ---
Author Organization [facility] Address [address] [place] [phone] Care Team Providers Care Powder Monkey Name Role Phone JESUS PALAFOX Primary Care Provider Rudy Pineda [phone] ALLERGIES Allergen (clinical drug ingredient) Drug/Non Drug [...] confirmed Screening for malignant neoplasm of colon ([id number]) PLAN OF TREATMENT Future Test Test Name Order Date COLONOSCOPY 06/07/2011 Insurance Providers Payer Name Payer Address Payer Phone Subscriber Number Group Number Insured Name Patient Relationship to Insured Coverage Start Date Coverage End Date [facility] [address] [place] [address] [phone] [id number] KEITH ZUNIGA Self - patient is the insured MEDICAL (GENERAL) HISTORY Medical History History ICD Code HTN Denies [place],DM,CVA,Lung disease,renal dise ase
== END 2024-06-10 13:20 | disposition home or self-care (01) ==
LOC: HO.HMGCLDS 13:19
PROVIDERS: Internal Medicine Hypertension Specialist; PCP Nurse Practitioner Family; Visit Provider Urology
DX: N21.0 Calculus in bladder (principal); R33.9 Retention of urine, unspecified; R35.0 Frequency of micturition; R30.0 Dysuria; R82.79 Other abnormal findings on microbiological examination of urine
CPT/HCPCS: 36415; 80048; 81001; 81003; 82570; 84156; 87086; 87088; 87186

== ENCOUNTER 2024-06-18 07:44 | Outpatient (AMB) | payer MEDICARE, SELFPAY ==
--- OUTSIDE RECORDS SUMMARY | 2024-06-18 07:46 | XMS_ITS | Patient Health Record ---
Author Organization [facility] Address [address] [place] [phone] Care Team Providers Care Missile Mechanic Name Role Phone JESUS PALAFOX Primary Care Provider Rudy Pineda [phone] ALLERGIES Allergen (clinical drug ingredient) Drug/Non Drug [...] confirmed Screening for malignant neoplasm of colon ([id number]) PLAN OF TREATMENT Future Test Test Name Order Date COLONOSCOPY 06/07/2011 Insurance Providers Payer Name Payer Address Payer Phone Subscriber Number Group Number Insured Name Patient Relationship to Insured Coverage Start Date Coverage End Date [facility] [employer] PROF[employer]AL [employer]S [address] [place] [address] [phone] [id number] 200 KEITH ZUNIGA Self - patient is the insured MEDICAL (GENERAL) HISTORY Medical History History ICD Code HTN Denies [place],DM,CVA,Lung disease,renal dise ase
[2024-06-18 07:57] VITALS: BP 120/64; PULSE 77; O2SAT 98; BMI 38.5
--- NOTE | 2024-06-18 07:57 | A.OFFPC_ITS ---
Vital Signs 06/18/24 07:57 Height 6 ft 3 in Weight 308 lb BMI 38.5 BP 120/64 Blood Pressure Location Lt brachial Position Sitting Pulse 77 Pulse Source Pulse Oximeter Pulse Oximetry (%) 98 Oxygen Delivery Method Room Air Intake Visit Reasons: 4 mon follow up - see comments Intake Note: Pt is here today for his 4mo. f/u Allergies No Known Allergies Allergy (Verified 06/18/24 07:59) Medication List - Last Reconciled 06/18/24 by LETICIA Elmore alpha lipoic acid 600 mg PO DAILY amlodipine 10 mg PO DAILY aspirin (Children's Aspirin) 81 mg PO DAILY atorvastatin 80 mg PO BEDTIME 90 days blood sugar diagnostic (FreeStyle Lite Strips) 4 times a day blood-glucose meter (FreeStyle Lite Meter kit) 4 times a day cholecalciferol (vitamin D3) 10 mcg PO DAILY ciprofloxacin HCl 500 mg PO BID 7 days dutasteride (Avodart) 0.5 mg PO DAILY FreeStyle Lancets (lancets) 4 times a day NS FreeStyle Yolanda 2 [place] (flash glucose scanning reader) TID testing NS FreeStyle Yolanda 2 Sensor (flash glucose sensor) TID tesing NS gabapentin 300 mg PO TID 30 days insulin glargine U-300 conc (Toujeo Max U-300 SoloStar) 55 units (0.1833 mL) subcut DAILY lisinopril 10 mg PO DAILY 90 days metformin ER 1,000 mg (2 x 500 mg) PO BID 90 days oxycodone-acetaminophen 5-325 mg (Percocet) 1 tab PO BID PRN 6 days pen needle, diabetic (BD Ultra-Fine Short Pen Needle) use to inject insulin once a day semaglutide 2 mg (0.75 mL) subcut QWEEK silodosin (Rapaflo) 8 mg PO DAILY solifenacin (Vesicare) 10 mg PO BEDTIME tramadol 50 mg PO Q6H PRN trazodone 100 mg PO BEDTIME PRN 30 days vibegron (Gemtesa) 75 mg PO DAILY Tobacco use date assessed: 06/18/24 Fall risk assessment: No Falls in past year Last assessed Fall Risk: 06/18/24 Dental Screening Dental Screen Date: 06/18/24 Did you have a dental visit in the last 12 months?: Yes Did you have a dental problem in the last 6 months where you did not have access to dental care?: Yes Was dental information given to patient?: Patient has dentist HPI 4 mon follow up - see comments HPI Details Chief Complaint The patient complains of burning sensations associated with a urinary tract infection. History of Present Illness The patient is a 69-year-old male presenting with a urinary tract infection (UTI). He reports experiencing significant burning sensations that were previously out of control. The patient was started on Ciprofloxacin, with tomorrow being the last day of the prescribed course. He noted some improvement in burning sensations but expressed concerns about recurring symptoms. The urinary symptoms have been persistent, prompting the necessity for a more comprehensive evaluation. In addition to the UTI, the patient expressed concerns regarding the number of medications he is taking over the last four months, including gabapentin, alpha-lipoic acid, amlodipine, and others. He expresses a desire to reduce medications, particularly to avoid reliance on pain medications such as oxycodone. Will await lab results before making any changes. A1c was 7.1 today, eye exam up to date, neuropathy noted bilat. Social History - Has been for 52 years. - Father of three daughters, aged 50, 45 , and 40. - Family history recently affected by th juan jose passing of his 95-year-old father. 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 - Identifies the year 2023 as challengin g for the family. Health Maintenance - Tdap immunization reported to be up to date. Review of Systems - Endocrine: Reports elevated A1c (7.1) indicating diabetes. - Infectious Disease: Reports urinary bu rning sensations. Physical Exam General: Cooperative, healthy appearing, comfortable, no acute distress and well developed. Obese. Orientation: Patient oriented x3 Limitations: No limitations Head: Normal to inspection Ears: Hearing grossly normal bilaterally Nose: Normal external nose present Face and sinus: Normal facial exam Eyes: Appearance normal, both eyes and all related structures Neck: Normal visual inspection and Yes full ROM Respiratory: Normal respiratory effort and able to speak in complete sentences. Clear to auscultation bilaterally Cardiovascular: Regular rate and rhythm. Normal S1 and S2 GI: Normal to inspection. Soft to palpation and nontender Skin: No rashes or lesions noted Neuro: Patient oriented x3 Extremities: callous formation with no sensation with use of monofilament. Results - Labs: A1c recorded at 7.1, indicative of diabetes management focus. Plan - Continue current Ciprofloxacin treatme nt for UTI, with today being the penultimate day. - Re-evaluate the efficacy of current me dications in managing urinary symptoms. - Discuss possible medication adjustment s to avoid excess or unnecessary prescriptions. - Monitor glucose levels to manage Type 2 Diabetes Mellitus effectively. Patient was informed and verbally consented to the use of an ambient scribe for clinic note documentation during this visit. Discussion Notes During our discussion, I emphasized the importance of completing the antibiotic course for the urinary tract infection while acknowledging the incomplete resolution of the burning sensations. We considered the necessity of a follow-up if symptoms persist beyond the current treatment. I listened to the patient's concerns about his medication regimen and shared insight into the risks of polypharmacy, with a focus on balancing efficacy and safety. Patient Instructions - Complete the prescribed course of Cipr ofloxacin. - Monitor burning sensations and seek fo llow-up if they persist beyond medication. - Continue regular A1c checks as part of diabetes management. - Discuss any concerning side effects fr om current medications. - Consider lifestyle adjustments to supp ort overall well-being amidst family stressors. 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 RLS (restless legs syndrome) Aortic valve calcification BPH (benign prostatic hyperplasia) Osteomyelitis [place] (obstructive sleep apnea) KAI (acute kidney injury) Surgical History H/O colonoscopy History of bunionectomy Amputation toe History of bunionectomy Family History Father Bladder cancer Mother Lung cancer Social History Are you a primary healthcare financial analyst to a significant other at home: Yes (father, also cares for him) Do you presently have visiting nurse or other home services: No Alcohol intake: current Alcohol intake frequency: holidays/special occasions only Patient Tobacco Use Status: Never used Tobacco e-Cigarette/Vaping Use: Never Used Cognitive needs: No Hearing needs: No Vision needs: Yes Questionnaire PHQ-9 Over the last 2 weeks, how often have you been bothered by any of the following problems? 1. Little interest or pleasure in doing things: not at all 2. Feeling down, depressed, or hopeless: not at all [facility] - PHQ-9 Billing: Patient declined-do not bill Source: Developed by Drs. Rudy Lott, Melissa Giraldo, Baljit Huang and colleagues, with an educational angela from [employer]. Thrive Questionnaire Date Thrive assessed: 06/15/24 I am a: Patient What is your living situation today?: I have a steady place to live Within the past 12 months, did the food you bought not last and you didn't have the money to get more?: I choose not to answer this question Within the past 12 months, did you worry whether your food would run out before you got money to buy more?: I choose not to answer this question Do you have trouble paying for medicines?: No Do you have trouble paying your heating and electricity bill?: I choose not to answer this question THRIVE Score: 0 ALFRED-7 AMB Questionnaire ALFRED-7 Date ALFRED - 7 assessed: 01/07/24 Source: Developed by Drs. Rudy Lott, Melissa Giraldo, Baljit Huang and colleagues, with an educational angela from [employer]. Physical exam (Primary Care) Vital Signs: Last Vital Signs Pulse 77 06/18/24 07:57 BP 120/64 06/18/24 07:57 Pulse Ox 98 06/18/24 07:57 Oxygen Delivery Method Room Air 06/18/24 07:57 BMI result Body Mass Index 38.5 Tobacco/Smoking Status: Tobacco use Status Tobacco use date assessed 06/18/24 06/18/24 08:01 Patient Tobacco Use Status Never used Tobacco 06/18/24 08:01 e-Cigarette/Vaping Use Never Used 06/18/24 08:01 Thrive Assessment: Date of Thrive Assessment Date Thrive assessed 06/15/24 06/18/24 08:01 Results AMB Hemoglobin A1c AMB Hemoglobin A1c 7.1 % Last Edit by Bill Bautista CMA on 06/18/24 08: 39 Results Reviewed Results Reviewed: Laboratory Last Values Hgb A1c (Clinic) 7.1 % (4.0-6.0) H 06/18/24 08:38 Coding Level of Care Code Est Pt Level 3 (62294) Diagnoses Type 2 diabetes mellitus with hyperglycemia E11.65 Assessment & Plan Assessment & Plan (1) Type 2 diabetes mellitus with hyperglycemia: Code(s): E11.65 - Type 2 diabetes mellitus with hyperglycemia Category: Medical Plan . Orders: Orders Complete Blood Count Auto Diff Today E11.65 - Type 2 diabetes mellitus with hyperglycemia TSH reflex Free T4 Today E11.65 - Type 2 diabetes mellitus with hyperglycemia UA CC w/rflx Micro + Cult Today E11.65 - Type 2 diabetes mellitus with hyperglycemia AMB Hemoglobin A1c Today Z13.9 - Encounter for screening, unspecified Comprehensive Foley. Panel Fast Today E11.65 - Type 2 diabetes mellitus with hyperglycemia Lipid Panel Today E11.65 - Type 2 diabetes mellitus with hyperglycemia Medications: Changed From insulin glargine U-300 conc (Toujeo Max U-300 SoloStar) 50 units (0.1667 mL) subcut DAILY 18 mL 1RF To insulin glargine U-300 conc (Toujeo Max U-300 SoloStar) 55 units (0.1833 mL) subcut DAILY 18 mL 1RF
== END 2024-06-18 09:30 | disposition home or self-care (01) ==
PROVIDERS: PCP Nurse Practitioner Family; Visit Provider Nurse Practitioner Family
DX: E11.65 Type 2 diabetes mellitus with hyperglycemia (principal); Z13.9 Encounter for screening, unspecified

== ENCOUNTER → 2024-06-18 07:44 | Outpatient (BNVA) | payer MEDICARE, SELFPAY | PROVIDERS: PCP Nurse Practitioner Family; Visit Provider Nurse Practitioner Family | DX: E11.65 Type 2 diabetes mellitus with hyperglycemia (principal); Z87.440 Personal history of urinary (tract) infections; Z79.899 Other long term (current) drug therapy | CPT/HCPCS: 83036; 99212 ==

== ENCOUNTER → 2024-06-26 07:29 | Outpatient (REF) | payer MEDICARE, SELFPAY ==
--- OUTSIDE RECORDS SUMMARY | 2024-06-26 07:31 | XMS_ITS | Patient Health Record ---
Author Organization [facility] Address [address] [place] [phone] Care Team Providers Care Customer Advisor Name Role Phone JESUS PALAFOX Primary Care Provider Rudy Pineda [phone] ALLERGIES Allergen (clinical drug ingredient) Drug/Non Drug [...] confirmed Screening for malignant neoplasm of colon ([id number]) PLAN OF TREATMENT Future Test Test Name Order Date COLONOSCOPY 06/07/2011 Insurance Providers Payer Name Payer Address Payer Phone Subscriber Number Group Number Insured Name Patient Relationship to Insured Coverage Start Date Coverage End Date [facility] [employer] PROFESSIONAL CLAIM[employer] [address] [place] [address] [phone] [id number] KEITH ZUNIGA Self - patient is the insured MEDICAL (GENERAL) HISTORY Medical History History ICD Code HTN Denies [place],DM,CVA,Lung disease,renal dise ase
--- NOTE | 2024-06-26 07:33 | CA_ITS ---
Transthoracic Echocardiogram Patient (Last, First, Middle): Romel Pruitt A Gender: Male Date of : 1955 Age: 69 Procedure Date: 06/26/2024 Procedure Type: Transthoracic Echocardiogram Location: OP Height: 190.5 cm Weight: 136.08 kg BSA: 2.61 m2 Heart Rate: 61 bpm BP: 120 / 64 mmHg Vacuum Closing Machine Operator: [email or web address] Referring MD: López García MD Symptoms: I71.21 - Aneurysm of the ascending aorta, without rupture Study Quality: Adequate ECG Rhythm: Sinus Conclusions: - Normal left ventricular size and systolic function. There is mildly increased left ventricular wall thickness. The visually estimated ejection fraction is between 60-65%. - Normal right ventricular cavity size and systolic function. - There is mild aortic valve stenosis. Cannot rule out bicuspid valve. - There is moderate dilatation of the ascending aorta measuring 4.80 cm. Findings Left Ventricle Normal left ventricular size and systolic function. There is mildly increased left ventricular wall thickness. The visually estimated ejection fraction is between 60-65%. There is no evidence of regional wall motion abnormalities. Abnormal diastolic function is noted. Spectral Doppler is indicative of a pseudonormal filling pattern. E/E prime ratio is between 8 and 15 consistent with indeterminate filling pressures. Right Ventricle Normal right ventricular cavity size and systolic function. Atria The left atrium is normal in size. The right atrium is normal in size. Aortic Valve There is mild aortic valve stenosis. There is no aortic valve regurgitation. Mitral Valve Normal mitral valve structure and function. There is trace mitral valve regurgitation. There is no mitral valve stenosis. Pulmonic Valve The pulmonic valve is normal. There is no pulmonic valve regurgitation. Tricuspid Valve Normal tricuspid valve structure. There is no tricuspid valve regurgitation. Tricuspid regurgitation envelope is inadequate for calculation of right ventricular systolic pressure. Normal right atrial pressure. Great Vessels There is moderate dilatation of the ascending aorta measuring 4.80 cm. The visualized portions of the pulmonary artery and branches are normal. Venous The inferior vena cava is normal in size and collapses greater than 50% with inspiration. Pericardium/Pleural There is no evidence of pericardial effusion. Prior Study Comparison No significant change compared to prior study dated: 05/31/2023. Measurements 2D Linear Measurements IVSd: 1.20 0.6-0.9/0.6-1.0 cm LVIDd: 5.93 3.9-5.3/4.2-5.9 cm LVIDd Index: 2.27 2.4-3.2/2.2-3.1 cm/m2 LVIDs: 3.28 2.0-3.6 cm LVPWd: 1.17 0.7-1.1 cm LA Diam: 4.80 2.7-3.8/3.0-4.0 cm LAIDs Index: 1.84 1.5-2.3 cm/m2 LV Mass: 377.79 67-162/88-224 g LV Mass Index: 144.75 43-95/49-115 g/m2 LVOT Diam: 2.70 3.0+(-)1.3 cm 2D Systolic Function EF 4C: 66.50 >55% EF 2C: 63.40 >55% EF BiP: 65.20 >55% Mitral Valve MV Pk E: 0.81 MV PK A: 0.79 MV Decel Time: 268.00 E/A: 1.00 E'Lateral: 8.05 E'Medial: 6.20 E/E' Med: 13.00 E/E' Lat: 10.00 PHT: 78.00 MVA PHT: 2.82 Decel [place]: 3.01 Aortic Valve AoV Pk Justo: 2.12 AoV Mn Justo: 1.45 AoV VTI: 0.41 AoV Pk Grad: 18.00 Aov Mn Grad: 10.00 MARLENA Cont.VTI: 3.55 LVOT LVOT Pk Justo: 1.15 LVOT Mn Justo: 0.79 LVOT VTI: 0.26 LVOT Pk Grad: 5.00 LVOT Mn Grad: 3.00 LVOT Diam: 2.70 LVOT Area: 5.73 Diastolic Function MV Pk E: 0.81 MV Pk A: 0.79 E/A: 1.00 E'Medial: 6.20 E/E' Med: 13.00 E' Laterial: 8.05 E/E' Lat: 10.00 Right Ventricle TAPSE (mm): 22.00 TVS' Justo: 18.00 Tricuspid Valve RA Press: 3.00 Great Vessels Aorta Sinus of Valsalva: 3.80 2.0-3.5 cm Ao Asc: 4.80 2.1-3.4 cm Pulmonary Veins Pulm Vein S/D 1.70 Pulmonary Valve PV Pk Justo: 1.28 Peak PV Grad: 7.00 Updated in Other Vendor System with Status of Final Magdi Mary MD electronically signed on 06/28/2024 8:27:02 PM with status of Final
== END ==
LOC: HO.CARD 07:29
PROVIDERS: PCP Nurse Practitioner Family; Visit Provider Internal Medicine Cardiovascular Disease
DX: I71.21 Aneurysm of the ascending aorta, without rupture (principal)
CPT/HCPCS: 93306

== ENCOUNTER → 2024-06-26 07:33 | Outpatient (BNV) | payer MEDICARE, SELFPAY | PROVIDERS: PCP Nurse Practitioner Family; Visit Provider Internal Medicine Cardiovascular Disease | DX: I35.0 Nonrheumatic aortic (valve) stenosis (principal); I71.21 Aneurysm of the ascending aorta, without rupture | CPT/HCPCS: 93306 ==

== ENCOUNTER 2024-07-14 13:32 | Observation (INO) | payer MEDICARE, SELFPAY ==
--- OUTSIDE RECORDS SUMMARY | 2024-06-09 12:43 | XMS_ITS | Patient Health Record ---
Author Organization [facility] Address [address] [place] [phone] Care Team Providers Care United [place] Marshal Name Role Phone JESUS PALAFOX Primary Care Provider Rudy Pineda [phone] ALLERGIES Allergen (clinical drug ingredient) Drug/Non Drug [...] confirmed Screening for malignant neoplasm of colon ([id number]) PLAN OF TREATMENT Future Test Test Name Order Date COLONOSCOPY 06/07/2011 Insurance Providers Payer Name Payer Address Payer Phone Subscriber Number Group Number Insured Name Patient Relationship to Insured Coverage Start Date [facility]age End Date [facility] [address] [place] [address] [phone] [id number] KEITH ZUNIGA Self - patient is the insured MEDICAL (GENERAL) HISTORY Medical History History ICD Code HTN Denies [place],DM,CVA,Lung disease,renal dise ase
[2024-07-10 13:29] VITALS: BMI 38.5
--- NOTE | 2024-07-13 09:38 | HO.ANESPROP2 ---
Documented by User: Paula Cristobal NP 07/13/24 09:41 HPI - Anesthesia Eval Consult details Narrative: 69yo M for TUR Prostate,with Laser bladder Stone Removal, Litholapaxy s/p Cysto Litholapaxy,with Bladder Stone Removal 05/2024 with GA-LMA 5 Follows [facility] cardiology: stable 07/2023 office visit (mild , AAA @ 4.7) Anesthesia Pre-Procedure Meds Is the patient on any of the following meds?: GLP1/DPP4 PMFSH Active Problems Active Problems: All Active Problems Bladder calculus (Acute) Pre-op evaluation (Acute) Intermittent gross hematuria (Acute) Leukocytosis (Acute) Vitamin D deficiency (Acute) AAA (abdominal aortic aneurysm) without rupture (Acute) Proteinuria (Acute) Encounter for subsequent annual wellness visit (AWV) in Medicare patient (Acute) Microalbuminuria (Acute) Hemorrhoids (Acute) Diverticulosis of colon (Acute) Erectile dysfunction (Acute) Urethral stricture (Acute) Varicose veins of right lower extremity with inflammation (Acute) Charcot foot due to diabetes mellitus (Acute) PAD (peripheral artery disease) (Acute) Microscopic hematuria (Acute) Incomplete bladder emptying (Acute) Systolic murmur (Acute) Frequent urination (Acute) Decreased dorsalis pedis pulse (Acute) Screening for colon cancer (Acute) Encounter for annual wellness visit (AWV) in Medicare patient (Acute) Screening PSA (prostate specific antigen) (Acute) Tubular adenoma of colon (Acute) Encounter for screening colonoscopy (Acute) Type 2 diabetes mellitus with hyperglycemia (Acute) HTN (hypertension) (Acute) Screening for colon cancer (Acute) Uncontrolled diabetes mellitus (Acute) Dyslipidemia (Acute) Dysuria (Acute) Hematuria (Acute) Essential hypertension (Acute) Diabetes (Acute) Ascending aortic aneurysm (Acute) BPH (benign prostatic hyperplasia) (Acute) Aortic stenosis (Acute) Obesity due to excess calories (Acute) Tinea pedis (Acute) Charcot foot due to diabetes mellitus (Acute) Morbid obesity (Acute) Diabetic polyneuropathy associated with type 2 diabetes mellitus (Acute) 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 type 2 diabetes mellitus (Acute) residential (current) use of insulin (Acute) Past Medical History Medical History HTN (hypertension) (atherosclerosis) Ascending aortic aneurysm Ascending aorta dilatation Aortic stenosis Hammertoe, bilateral COVID-19 vaccine series completed Obesity due to excess calories Tinea pedis Charcot foot due to diabetes mellitus Morbid obesity Diabetic polyneuropathy associated with type 2 diabetes mellitus 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 type 2 diabetes mellitus residential (current) use of insulin RLS (restless legs syndrome) Aortic valve calcification BPH (benign prostatic hyperplasia) Osteomyelitis [place] (obstructive sleep apnea) KAI (acute kidney injury) Family History Family History Father Bladder cancer Mother Lung cancer Family history of problems with anesthesia: No Surgical History Surgical History Hx of cystoscopy H/O colonoscopy History of bunionectomy Amputation toe History of bunionectomy History of Problems with Anesthesia: No Social History Social History Are you a primary pet caretaker to a significant other at home: Yes (father, also cares for him) Do you presently have visiting nurse or other home services: No Alcohol intake: current Alcohol intake frequency: holidays/special occasions only Patient Tobacco Use Status: Never used Tobacco e-Cigarette/Vaping Use: Never Used Use of substances other than those prescribed or required for medical reasons: No Are you DNR?: No Advance Directives: No Advance Directives Information Provided: Yes Cognitive needs: No Hearing needs: No Vision needs: Yes Meds Allergies Allergy/AdvReac Type Severity Reaction Status Date / Time No Known Allergies Allergy Verified 07/14/24 07:11 Home Medications ?Medication ?Instructions ?Recorded ?Confirmed ?Last Taken ?Type cholecalciferol (vitamin D3) 10 10 mcg PO DAILY 12/19/20 07/14/24 Unknown History mcg (400 unit) capsule semaglutide 2 mg/dose (8 mg/3 mL) 2 mg subcut QWEEK 07/10/24 07/14/24 07/05/24 History subcutaneous pen injector (Ozempic) Exam Height,Weight and Vital Signs: Height 6 ft 3 in Weight 139.706 kg Pertinent Lab Results Pertinent Lab Results: Laboratory Tests 03/06/24 04/17/24 10:00 07:04 WBC 11.0 H Hgb 15.1 Hct 45.5 Plt Count 266 Sodium 138 Potassium 4.7 Chloride 103 Carbon Dioxide 27 BUN 14 Creatinine 0.85 Narrative Narrative: EKG 01/2024 Vent. Rate : 062 BPM Atrial Rate : 062 BPM P-R Int : 188 ms QRS Dur : 092 ms QT Int : 422 ms P-R-T Axes : 053 018 050 degrees QTc Int : 428 ms Normal sinus rhythm Normal ECG When compared with ECG of 09-DEC-2015 07:57, Nonspecific T wave abnormality no longer evident in Inferior leadst ECHO 05/2024 Conclusions: - Normal left ventricular size and systolic function. There is mildly increased left ventricular wall thickness. The visually estimated ejection fraction is between 60-65%. - Normal right ventricular cavity size and systolic function. - There is mild aortic valve stenosis. Cannot rule out bicuspid valve. - There is moderate dilatation of the ascending aorta measuring 4.80 cm. Assessment and Plan Assessment Anesthesia Assessment: Chart Reviewed Final Anesthetic Review Family History of Problems with Anesthesia: No History of Problems with Anesthesia: No Documented by User: Genevieve Rendon MD 07/14/24 08:29 [facility] Past Medical History Medical History HTN (hypertension) (atherosclerosis) Ascending aortic aneurysm Ascending aorta dilatation Aortic stenosis [place], bilateral COVID-19 vaccine series completed Obesity due to excess calories Tinea pedis Charcot foot due to diabetes mellitus Morbid obesity Diabetic polyneuropathy associated with type 2 diabetes mellitus 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 type 2 diabetes mellitus 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 of insulin RLS (restless legs syndrome) Aortic valve calcification BPH (benign prostatic hyperplasia) Osteomyelitis [place] (obstructive sleep apnea) KAI (acute kidney injury) Family History Family History Father Bladder cancer Mother Lung cancer Surgical History Surgical History Hx of cystoscopy H/O colonoscopy History of bunionectomy Amputation toe History of bunionectomy Social History Social History Are you a primary pet caretaker to a significant other at home: Yes (father, also cares for him) Do you presently have visiting nurse or other home services: No Alcohol intake: current Alcohol intake frequency: holidays/special occasions only Patient Tobacco Use Status: Never used Tobacco e-Cigarette/Vaping Use: Never Used Use of substances other than those prescribed or required for medical reasons: No Are you DNR?: No Advance Directives: No Advance Directives Information Provided: Yes Cognitive needs: No Hearing needs: No Vision needs: Yes Meds Allergies Allergy/AdvReac Type Severity Reaction Status Date / Time No Known Allergies Allergy Verified 07/14/24 07:11 Home Medications ?Medication ?Instructions ?Recorded ?Confirmed ?Last Taken ?Type cholecalciferol (vitamin D3) 10 10 mcg PO DAILY 12/19/20 07/14/24 Unknown History mcg (400 unit) capsule semaglutide 2 mg/dose (8 mg/3 mL) 2 mg subcut QWEEK 07/10/24 07/14/24 07/05/24 History subcutaneous pen injector (Ozempic) Exam Airway Mallampati Class: II TM Dist: >3cm Neck ROM: Full Heart: rrr Lungs: cta Assessment and Plan Assessment Anesthesia Assessment: Anesthesia Plan Discussed and Chart Reviewed Final Anesthetic Review NPO: Yes ASA Class: III Final Preanesthetic Review: No Changes in Pt Med Stat, Meds/Allgs Chart Reviewed, Consent Obtained/Reviewed and Anes Risks/Benef Reviewed Patient Risk: Intermediate Procedure Risk: Intermediate Anesthetic Plan Anesthetic Plan: GA Disposition: Standard PACU
[2024-07-14] VITALS (13 sets, daily range): BP systolic 133–154; BP diastolic 68–86; PULSE 62–80; RESP 16–20; TEMP 36.2–37.6; O2SAT 91–96; BMI 38.6
[2024-07-14] MEDS: Lactated Ringers 1,000 ML 100 ML IVCONT ×2 (07:45→18:40)
[2024-07-14 07:47] LABS: Glucose, Whole Blood 187 mg/dL (60-115)
--- NOTE | 2024-07-14 09:19 | MHC.SHP ---
Pre-Procedural Eval Section A - 24 Hr Update-Section A only Date of Service: 07/14/24 The patient is an INPATIENT: No The patient has been examined within 24 hours of the surgical procedure. The History & Physical has been completed within 30 days and I have reviewed it.: Yes Section B - Complete if H&P > 30 days Chief Complaint: Calculus in bladder, obstructive prostate Allergies: Allergies Allergy/AdvReac Type Severity Reaction Status Date / Time No Known Allergies Allergy Verified 07/14/24 07:11 Plan Diagnosis/Plan: Unchanged I have reviewed the history and physical and performed a pertinent physical examination on my patient. No changes have occurred unless specified. Cystoscopy Transurethral resection prostate, cystolitholipaxy, laser bladder stone. Time Spent With Patient Time: Total time managing care of this patient today ____ minutes.
[2024-07-14] MEDS: cefTRIAXone sodium 2 GM VIAL IVPUSH (09:32)
[2024-07-14] MEDS: Gentamicin Sulfate 160 MG in 0.9 % Sodium Chloride 100 ML 100 MG IV (09:37)
--- NOTE | 2024-07-14 13:30 | W.PM.OPN ---
Operative Note Operative Note Date of Service: 07/14/24 Narrative: PREOP DIAGNOSIS: Bladder Stones POSTOP DIAGNOSIS: Bladder Stones PROCEDURE: Cystoscopy cystolitholipaxy, laser bladder stones, Modifier extended time 150 minutes due to multiple bladder stones Anesthesia: General Surgeon Dr. Sofia Dc Anesthesia: General Indications: Romel is a 69 year old male who had symptoms of gross hematuria. CTAP 03/12/24-BLADDER: calcified stones ranging in size from just under a centimeter up to 1.5 cm in size. The patient was advised due to multiple bladder stones, this would need to be a staged procedure as all of the stones would not be able to be fragmented adequately in one setting due to volume of bladder calculi and density of stones. Prior cystolitholipaxy for 2 bladder stones on 05/05/24. Findings: Multiple bladder stones > 7 stones, sizes as noted in CT imaging 1.0 cm - 1.5 cm Details of procedure: The patient was brought into the operating room placed on the OR table in supine position. Antibiotics confirmed. General anesthesia was administered. The patient was repositioned into lithotomy position, prepped and draped in the usual sterile fashion. Time-out was done per protocol. The [place] scope was passed transurethrally into the bladder. The bulbous urethra was within normal limits. The prostatic urethra - trilobar enlargement with a prominent median lobe. Visualization of the bladder, was filled with multiple large bladder stones. Using the 980 fiber laser the bladder stones were lasered. The Ellik was used to irrigate out the fragments. Significant stone burden requiring extended time to fragment the multiple stones. Cauterization of the bleeding prostatic tissue at the median lobe and right lateral lobe. A [address] [place] [address] catheter 30 cc balloon was passed without difficulty. 30 mL H20 injected into the balloon. CBI with Normal Saline was started in OR. The patient was brought out of anesthesia and taken to recovery in stable condition. EBL: <10 mL Complications: None Drains: [address] [place] [address] catheter 30 cc balloon
[2024-07-14] MEDS: HYDROmorphone HCl 0.5 MG/0.5 ML SYRINGE IVPUSH (15:20)
[2024-07-14] MEDS: Gabapentin 300 MG CAPSULE PO ×2 (17:09→20:44)
[2024-07-14] MEDS: 0.9 % Sodium Chloride Flush 3 ML SYRINGE IVFLUSH (17:13)
[2024-07-14 18:28] LABS: Hematocrit 46.4 % (42.0-52.0); Hemoglobin 15.9 g/dl (14.0-18.0); Mean Corpuscular HGB Conc 34.3 g/dl (31.0-36.0); Mean Corpuscular Hemoglobin 28.5 pg (27.0-33.0); Mean Corpuscular Volume 83.3 fL (80.0-98.0); Mean Platelet Volume 9.1 fL (9.4-12.4); Platelet Count 244 X10*3/uL (160-400); Red Blood Count 5.57 X10*6/uL (4.60-5.80); Red Cell Distribution Width 14.7 % (11.0-16.0); White Blood Count 16.9 X10*3/uL (4.8-10.8)
[2024-07-14 18:43] LABS: Anion Gap 14 (12-20); Blood Urea Nitrogen 13 mg/dL (9-16); Calcium 8.7 mg/dL (8.4-10.2); Carbon Dioxide 23 mmol/L (22-29); Chloride 104 mmol/L (96-108); Creatinine Clr Calc Pharmacy 129.7; Estimated Glomerular Filt Rate > 60; Glucose Random 220 mg/dL (60-115); Sodium 137 mmol/L (135-145)
--- NOTE | 2024-07-14 19:02 | PHA.MEDREC ---
Pharmacy Consult ? Medication Reconciliation Pharmacy has reviewed the medication reconciliation completed by nursing. Matches fill history from pharmacy.
[2024-07-14] MEDS: Acetaminophen 325 MG TABLET 650 MG PO (20:43)
[2024-07-14] MEDS: Atorvastatin Calcium 80 MG TABLET PO (20:43)
[2024-07-14] MEDS: traZODone HCL 100 MG TABLET PO (20:44)
[2024-07-14] MEDS: Docusate Sodium 100 MG CAPSULE PO (20:44)
[2024-07-14] MEDS: metFORMIN HCl ER 500 MG TAB.ER.24H 1000 MG PO (20:44)
[2024-07-15] MEDS: Throat Lozenge, Medicated LOZENGE 1 LOZENGE MUCOUS MEM (00:13)
[2024-07-15] MEDS: Melatonin 3 MG TABLET 6 MG PO (00:13)
[2024-07-15] MEDS: traZODone HCL 100 MG TABLET PO (00:13)
[2024-07-15] MEDS: Lactated Ringers 1,000 ML 100 ML IVCONT (04:27)
--- NOTE | 2024-07-15 06:03 | PC.NURSE ---
CBI clamped at [address] Dc, urine in barron bag is pink tinged, urine in tubing is yellow with sediment.
[2024-07-15 08:06] VITALS: BP 136/80; PULSE 85; RESP 18; TEMP 36.6; O2SAT 93
[2024-07-15] MEDS: ceFAZolin Sodium/Dextrose,Iso 2 GM/50 ML PIGGYBACK IV (08:21)
[2024-07-15] MEDS: Docusate Sodium 100 MG CAPSULE PO (08:21)
[2024-07-15] MEDS: amLODIPine Besylate 10 MG TABLET PO (08:22)
[2024-07-15] MEDS: metFORMIN HCl ER 500 MG TAB.ER.24H 1000 MG PO (08:22)
[2024-07-15] MEDS: Gabapentin 300 MG CAPSULE PO ×2 (08:22→15:28)
[2024-07-15] MEDS: lisinopriL 10 MG TABLET PO (08:22)
[2024-07-15] MEDS: Tolterodine Tartrate LA 4 MG CAP.ER.24H PO (08:22)
[2024-07-15 08:54] VITALS: O2SAT 94
--- NOTE | 2024-07-15 10:18 | HO.POSTANES ---
Post Anesthesia Evaluation Post Anesthesia Evaluation Date of Service: 07/15/24 Vital Signs: Vital Signs Temp Pulse Resp BP Pulse Ox O2 Del Method 07/15/24 08:54 94 Room Air 07/15/24 08:06 97.9 F 85 18 136/80 93 Room Air 07/14/24 23:46 98.1 F 76 18 134/70 93 Room Air Anesthesia: General LMA Mental Status: Awake Pain Control: Satisfactory Nausea/Vomiting: None Hydration: Adequate Anesthesia-Related Issues: No Anes. Related Issues
--- NOTE | 2024-07-15 12:24 | PC.NURSE ---
d/c'ed barron/CBI around 1030 per MD verbal order. updated MD at 1225 that pt is bleeding from urethral site and hasnt voided yet
--- NOTE | 2024-07-15 14:27 | MHC.CM.PN ---
Addendum entered by Britni Corley RN 07/15/24 15:28: Medically cleared for dc home self care. Original Note: [facility] delivered. Patient lives in a home w/ his . Functionally independent. Denies use of DME or services. PCP Fredrick Murphy Reports he has an HCP naming his as [facility]. Copy requested. DP: Home self care. at bedside to transport.
--- NOTE | 2024-07-30 10:45 | PM.DS ---
DS: Providers Provider Date of Service: 07/15/24 Date of admission: 07/14/24 13:32 Date of discharge: 07/15/24 Primary care physician: LETICIA Dominguez Attending physician on discharge: Sofia Dc DS: Diagnosis Discharge Diagnosis (1) Bladder calculus: Status: Acute (2) BPH loc w urin obs/LUTS: Status: Acute (3) Hematuria: Status: Acute DS: Summary Hospital Course Hospital Course: Romel is a 69 year old male with BPH and obstructive voiding syptoms, multiple bladder stones. He had procedure cystoscopy cystolitholipaxy, laser bladder stones, fulguration. He was admitted for continuous bladder irrigation for hematuria, and pain management. Post op day 1 hematuria resolved and barron was removed. The patient voided prior to discharge bladder scan with acceptable PVR Status at Discharge Cognitive/behavioral status at discharge: Stable Functional status at discharge: independent ambulation Overall status at discharge: patient is back to baseline Time Attestation Total time managing care of this patient today: 33 mintues. Discharge Coordination Time (in mins): 33 minutes Quality: Safe Use of Opioids Does Pt have an Active Cancer Diagnosis on the Problem List?: No Quality: Stroke Does the patient have a stroke diagnosis?: No Physical Exam Vital Signs: Vital Signs: Last Vital Signs Temp 97.9 F 07/15/24 08:06 Pulse 85 07/15/24 08:06 Resp 18 07/15/24 08:06 BP 136/80 07/15/24 08:06 Pulse Ox 94 07/15/24 08:54 O2 Del Method Room Air 07/15/24 08:54 O2 Flow Rate 1 07/14/24 13:18 BMI result Body Mass Index 38.6 DS: Data Data Completed and Pending Completed studies during hospitalization [Text1]: Pending at discharge 07/14/24 12:48 Surgical [PTH] Routine Discharge Plan Discharge Anticipated Discharge Date/Time: 07/15/24 15:13 Patient Disposition: Home, Self-Care Referrals: Fredrick Howell FNP-BC [Primary Care Provider] - 1 Week Discharge Medications: New oxycodone-acetaminophen [Percocet] 5-325 mg tablet 1 tab PO Q6-8H PRN (Reason: pain) 3 Days Qty: 8 0RF Rx Instructions: Partial Fill upon patient request. Continued (DME) FreeStyle Yolanda 2 [place] Misc See Rx Instructions .Route Qty: 1 0RF Rx Instructions: TID testing atorvastatin 80 mg tablet 80 mg PO BEDTIME 90 Days Qty: 90 1RF oxycodone-acetaminophen [Percocet] 5-325 mg tablet 1 tab PO BID PRN (Reason: pain) 6 Days Qty: 12 0RF Rx Instructions: Partial Fill upon patient request. trazodone 100 mg tablet 100 mg PO BEDTIME PRN (Reason: sleep) 30 Days Qty: 90 0RF (DME) FreeStyle Yolanda 2 Sensor Kit See Rx Instructions .Route Qty: 6 1RF Rx Instructions: TID tesing amlodipine 10 mg tablet 10 mg PO DAILY Qty: 90 3RF lisinopril 10 mg tablet 10 mg PO DAILY 90 Days Qty: 90 1RF Ozempic 2 mg/dose (8 mg/3 mL) pen injector 2 mg subcut QWEEK dutasteride [Avodart] 0.5 mg capsule 0.5 mg PO DAILY Qty: 90 2RF alpha lipoic acid 600 mg tablet 600 mg PO DAILY Qty: 30 3RF (DME) blood-glucose meter [FreeStyle Lite Meter] Kit See Rx Instructions miscellaneous .MEDSUPPLY Qty: 1 0RF Rx Instructions: 4 times a day (DME) FreeStyle Lite Strips Strip See Rx Instructions .MEDSUPPLY Qty: 150 6RF Rx Instructions: 4 times a day (DME) lancets [FreeStyle Lancets] 28 gauge misc See Rx Instructions .MEDSUPPLY Qty: 150 6RF Rx Instructions: 4 times a day cholecalciferol (vitamin D3) 10 mcg (400 unit) capsule 10 mcg PO DAILY silodosin [Rapaflo] 8 mg capsule 8 mg PO DAILY Qty: 90 3RF Rx Instructions: must administer with a meal/food Toujeo Max U-300 SoloStar 300 unit/mL (3 mL) insulin pen 55 unit subcut DAILY Qty: 18 1RF No Action (DME) pen needle, diabetic [BD Ultra-Fine Short Pen Needle] 31 gauge x 5/16 needle See Rx Instructions .ROUTE .MEDSUPPLY Qty: 100 1RF Rx Instructions: use to inject insulin once a day gabapentin 300 mg capsule 300 mg PO TID 30 Days Qty: 90 0RF metformin 500 mg tablet extended release 24 hr 1,000 mg PO ONCE phenazopyridine [Pyridium] 200 mg tablet 200 mg PO BID 7 Days Qty: 14 0RF Discharge Orders: Discharge Order (Routine); Ordered 07/15/24 Ordered By: Sofia Dc Activity on Discharge: No heavy lifting Stand Alone Forms: Patient Portal Discharge page Print Language: Egyptian Care Plan Goals: No heavy lifting over 25 pounds for 2 weeks, no golf for 4 weeks Health Concerns: Drink adequate water daily 28 - 36 ounces Plan of Treatment: Follow up with Dr. Purcell Assessment: Stable Discharge Date/Time: 07/15/24 15:35
== END 2024-07-15 15:35 | disposition home or self-care (01) ==
LOC: HO.EDOVER 15:32 → HO.S3 17:57
PROVIDERS: Admitting Provider Urology; PCP Nurse Practitioner Family; Visit Provider Urology
PROC: 0VT08ZZ Resection of Prostate, Via Natural or Artificial Opening Endoscopic (ICD-10-PCS; CPT 52601; principal; 2024-07-14 08:30)
PROC: (CPT 52317; 2024-07-14 08:30)
DX: N21.0 Calculus in bladder (principal); N40.1 Benign prostatic hyperplasia with lower urinary tract symptoms; R31.9 Hematuria, unspecified
CPT/HCPCS: 52317; 36415; 80048; 82947; 85027; 88300; 96361; 96365; 96375; 99221; C1758; J0690; J0696; J1171; J1580; J2003; J2405; J2704; J3010; J7120

== ENCOUNTER → 2024-07-14 13:32 | Outpatient (BNV) | payer MEDICARE, SELFPAY | PROVIDERS: Admitting Provider Urology; PCP Nurse Practitioner Family; Visit Provider Urology | DX: N21.0 Calculus in bladder (principal); N40.1 Benign prostatic hyperplasia with lower urinary tract symptoms; R31.9 Hematuria, unspecified | CPT/HCPCS: 99239 ==

== ENCOUNTER 2024-07-15 19:28 | Emergency (ER) | payer MEDICARE, SELFPAY ==
[2024-07-15 19:45] VITALS: BP 130/82; PULSE 125; RESP 20; TEMP 36.7; O2SAT 93; BMI 39.3
--- NOTE | 2024-07-15 20:17 | ED_ITS ---
HPI - Male Genitourinary General Chief complaint: Urogenital-Male Stated complaint: pcp referred for catheter replacement Time Seen by Provider: 07/15/24 19:52 Source: patient, RN notes reviewed and old records reviewed Mode of arrival: ambulatory Limitations: no limitations History of Present Illness ED Provider: Ingrid FELIX Narrative: 69-year-old male presents for evaluation of ?needs a Xiong catheter. I received a phone call prior to patient's arrival from Dr. Chris malik She saw the patient yesterday for cystoscopy with cystolitholapaxy to laser bladder stones. The patient was sent home without a Xiong catheter as he was able to urinate in the office. He reports that he has not urinated in over 8 hours now and has lower abdominal pain and pains that tip of his penis Dr. Chris malik recommended inserting a Xiong catheter, he does not need labs or a urinalysis as he had labs yesterday and he is on antibiotics already for a UTI prophylaxis due to the procedure Related Data Home Medications ?Medication ?Instructions ?Recorded ?Confirmed cholecalciferol (vitamin D3) 10 10 mcg PO DAILY 12/19/20 07/14/24 mcg (400 unit) capsule semaglutide 2 mg/dose (8 mg/3 mL) 2 mg subcut QWEEK 07/10/24 07/14/24 subcutaneous pen injector (Ozempic) Previous Rx's ?Medication ?Instructions ?Recorded FreeStyle Lancets 28 gauge #150 ea 11/03/20 (lancets) blood sugar diagnostic (FreeStyle #150 ea 11/03/20 Lite Strips) blood-glucose meter (FreeStyle #1 ea 11/03/20 Lite Meter kit) alpha lipoic acid 600 mg tablet 600 mg PO DAILY #30 tabs 08/29/22 FreeStyle Yolanda 2 Fortuna (flash #1 ea 09/04/22 glucose scanning reader) atorvastatin 80 mg tablet 80 mg PO BEDTIME 90 days #90 tabs 08/26/23 pen needle, diabetic 31 gauge x #100 ea 01/23/24/16 (BD Ultra-Fine Short Pen Needle) silodosin 8 mg capsule (Rapaflo) 8 mg PO DAILY #90 caps 01/29/24 metformin 500 mg tablet,extended 1,000 mg (2 x 500 mg) PO BID 90 08/01/24 release 24 hr days #360 tabs dutasteride 0.5 mg capsule 0.5 mg PO DAILY #90 caps 05/05/24 (Avodart) oxycodone-acetaminophen 5 mg-325 1 tab PO BID PRN pain 6 days #12 05/14/24 mg tablet (Percocet) tabs tramadol 50 mg tablet 50 mg PO Q6H PRN pain #30 tabs 05/20/24 trazodone 100 mg tablet 100 mg PO BEDTIME PRN sleep 30 05/20/24 days #90 tabs FreeStyle Yolanda 2 Sensor (flash #6 ea 05/31/24 glucose sensor) amlodipine 10 mg tablet 10 mg PO DAILY #90 tabs 06/01/24 gabapentin 300 mg capsule 300 mg PO TID 30 days #90 caps 06/04/24 insulin glargine U-300 conc 300 55 unit (0.1833 mL) subcut DAILY 06/18/24 unit/mL (3 mL) subcutaneous pen #18 mL (Toujeo Max U-300 SoloStar) lisinopril 10 mg tablet 10 mg PO DAILY 90 days #90 tabs 07/02/24 solifenacin 10 mg tablet (Vesicare) 10 mg PO BEDTIME #30 tabs 07/13/24 vibegron 75 mg tablet (Gemtesa) 75 mg PO DAILY #30 tabs 07/13/24 cefdinir 300 mg capsule 300 mg PO BID #10 caps 07/15/24 oxycodone-acetaminophen 5 mg-325 1 tab PO Q6-8H PRN pain 3 days #8 07/15/24 mg tablet (Percocet) tabs Allergies Allergy/AdvReac Type Severity Reaction Status Date / Time No Known Allergies Allergy Verified 07/15/24 19:48 Review of Systems Constitutional: Constitutional: Denies body ache(s), Denies chills and Denies fever(s) Gastrointestinal: Gastrointestinal: Reports abdominal pain Genitourinary: Genitourinary: Reports difficulty urinating and Reports urinary urgency [facility] Past Medical History Medical History HTN (hypertension) (atherosclerosis) Ascending aortic aneurysm Ascending aorta dilatation Aortic stenosis [place], bilateral COVID-19 vaccine series completed Obesity due to excess calories Tinea pedis Charcot foot due to diabetes mellitus Morbid obesity Diabetic polyneuropathy associated with type 2 diabetes mellitus 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 type 2 diabetes mellitus detention (current) use of insulin RLS (restless legs syndrome) Aortic valve calcification BPH (benign prostatic hyperplasia) Osteomyelitis [place] (obstructive sleep apnea) KAI (acute kidney injury) Surgical History Hx of cystoscopy H/O colonoscopy History of bunionectomy Amputation toe History of bunionectomy Family History Family History Father Bladder cancer Mother Lung cancer Social History Social History Household Members: Spouse Housing: House 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 you 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 resource 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 significant other at home: Yes (father, also cares for him) Do you presently have visiting nurse or other home services: No Alcohol intake: current Alcohol intake frequency: holidays/special occasions only Patient Tobacco Use Status: Never used Tobacco e-Cigarette/Vaping Use: Never Used Advance Directives: Yes Advance Directives on File: Yes Advance Directives Date on File: 09/02/23 service: No Cognitive needs: No Hearing needs: No Vision needs: Yes Physical Exam Vital Signs: Vital Signs: Last Vital Signs Temp 98.1 F 07/15/24 19:45 Pulse 125 H 07/15/24 19:45 Resp 20 07/15/24 19:45 BP 130/82 07/15/24 19:45 Pulse Ox 93 07/15/24 19:45 O2 Del Method Room Air 07/15/24 19:45 BMI result Body Mass Index 39.3 Const: General: healthy appearing, comfortable, no acute distress, alert and awake Nutritional Appearance: well nourished Orientation/consciousness: patient oriented x3 HEENT: Head: Yes normocephalic and Yes atraumatic Neck: Neck: Yes full ROM Resp: Effort & Inspection: normal respiratory effort, able to speak in complete sentences and not labored Cardio: Rate: regular rate Rhythm: regular rhythm GI: Inspection: No distended Skin: General skin exam: elasticity normal Neuro: General: patient oriented x3 Cranial nerves: Yes Bilaterally intact EOM present Cognition (Neuro): normal cognition Medical Decision Making Medical Decision Making MDM Narrative: 69-year-old male presenting for evaluation of urinary retention. He does have a history of this and was seen by Urology yesterday. Again, I spoke to the patient's urologist prior to the patient's arrival and it was recommended we inserted a Xiong catheter. The patient had a Xiong catheter placed and immediately had about 300 cc of dark, yellow urine. No blood clots noted. The patient reports improvement in his pain but still has some discomfort, he was given Toradol [address] Chris malik, she will get him back into the office by the end of the week for re-evaluation Differential Diagnosis Differential Diagnoses: The differential diagnosis associated with the presentation includes Urinary retention Bladder stone UTI Obstructive uropathy Discharge Plan Discharge Clinical Impression: Acute on chronic urinary retention Patient Disposition: Home, Self-Care Instructions: Urinary Retention in Men (ED) Additional Instructions: Follow-up with your urologist as planned She plans on getting you into the office by the end of the week Prescriptions: No Action (DME) FreeStyle Yolanda 2 Fortuna Misc See Rx Instructions .Route Qty: 1 0RF Rx Instructions: TID testing atorvastatin 80 mg tablet 80 mg PO BEDTIME 90 Days Qty: 90 1RF (DME) pen needle, diabetic [BD Ultra-Fine Short Pen Needle] 31 gauge x 5/16 needle See Rx Instructions .ROUTE .MEDSUPPLY Qty: 100 1RF Rx Instructions: use to inject insulin once a day metformin 500 mg tablet extended release 24 hr 1,000 mg PO BID 90 Days Qty: 360 1RF oxycodone-acetaminophen [Percocet] 5-325 mg tablet 1 tab PO BID PRN (Reason: pain) 6 Days Qty: 12 0RF Rx Instructions: Partial Fill upon patient request. trazodone 100 mg tablet 100 mg PO BEDTIME PRN (Reason: sleep) 30 Days Qty: 90 0RF (DME) FreeStyle Yolanda 2 Sensor Kit See Rx Instructions .Route Qty: 6 1RF Rx Instructions: TID tesing amlodipine 10 mg tablet 10 mg PO DAILY Qty: 90 3RF gabapentin 300 mg capsule 300 mg PO TID 30 Days Qty: 90 0RF lisinopril 10 mg tablet 10 mg PO DAILY 90 Days Qty: 90 1RF solifenacin [Vesicare] 10 mg tablet 10 mg PO BEDTIME Qty: 30 1RF Rx Instructions: to replace vesicare 5 mg Gemtesa 75 mg tablet 75 mg PO DAILY Qty: 30 1RF Ozempic 2 mg/dose (8 mg/3 mL) pen injector 2 mg subcut QWEEK oxycodone-acetaminophen [Percocet] 5-325 mg tablet 1 tab PO Q6-8H PRN (Reason: pain) 3 Days Qty: 8 0RF Rx Instructions: Partial Fill upon patient request. cefdinir 300 mg capsule 300 mg PO BID Qty: 10 0RF dutasteride [Avodart] 0.5 mg capsule 0.5 mg PO DAILY Qty: 90 2RF alpha lipoic acid 600 mg tablet 600 mg PO DAILY Qty: 30 3RF (DME) blood-glucose meter [FreeStyle Lite Meter] Kit See Rx Instructions miscellaneous .MEDSUPPLY Qty: 1 0RF Rx Instructions: 4 times a day (DME) FreeStyle Lite Strips Strip See Rx Instructions .MEDSUPPLY Qty: 150 6RF Rx Instructions: 4 times a day (DME) lancets [FreeStyle Lancets] 28 gauge misc See Rx Instructions .MEDSUPPLY Qty: 150 6RF Rx Instructions: 4 times a day cholecalciferol (vitamin D3) 10 mcg (400 unit) capsule 10 mcg PO DAILY silodosin [Rapaflo] 8 mg capsule 8 mg PO DAILY Qty: 90 3RF Rx Instructions: must administer with a meal/food Toujeo Max U-300 SoloStar 300 unit/mL (3 mL) insulin pen 55 unit subcut DAILY Qty: 18 1RF tramadol 50 mg tablet 50 mg PO Q6H PRN (Reason: pain) Qty: 30 0RF Referrals: Sofia Dc MD [Physician] - (urinary retention) Print Language: Hungarian
[2024-07-15 20:20] VITALS: BP 152/85; PULSE 99; RESP 20; O2SAT 99
[2024-07-15] MEDS: Ketorolac Tromethamine 30 MG/ML VIAL IM (20:20)
--- NOTE | 2024-07-15 20:32 | PC.NURSE ---
pt medicated per AUG- 16fr barron placed, 100mls of concentrated dark yellow urine draining at this time. pt expresses some relief of pain/pressure at this time
[2024-07-15 20:57] VITALS: BP 152/85; PULSE 99; RESP 20; TEMP 36.9; O2SAT 99
== END 2024-07-15 20:59 | disposition home or self-care (01) ==
PROVIDERS: Emergency Provider Emergency Medicine; PCP Nurse Practitioner Family
DX: R33.9 Retention of urine, unspecified (principal); Z79.899 Other long term (current) drug therapy
CPT/HCPCS: 51701; 96372; 99284; J1885

== ENCOUNTER → 2024-07-16 08:42 | Outpatient (BNVA) | payer MEDICARE, SELFPAY | PROVIDERS: PCP Nurse Practitioner Family; Visit Provider Urology | DX: N40.1 Benign prostatic hyperplasia with lower urinary tract symptoms (principal); N21.0 Calculus in bladder; R33.8 Other retention of urine; Z46.6 Encounter for fitting and adjustment of urinary device; Z96.0 Presence of urogenital implants | CPT/HCPCS: 51700; 51702 ==

== ENCOUNTER → 2024-07-20 08:38 | Outpatient (BNVA) | payer MEDICARE, SELFPAY | PROVIDERS: PCP Nurse Practitioner Family; Visit Provider Urology | DX: N35.919 Unspecified urethral stricture, male, unspecified site (principal); R33.9 Retention of urine, unspecified; N21.0 Calculus in bladder | CPT/HCPCS: 51700; 51798 ==

== ENCOUNTER 2024-07-28 08:56 | Outpatient (AMB) | payer MEDICARE, SELFPAY ==
--- OUTSIDE RECORDS SUMMARY | 2024-07-28 09:18 | XMS_ITS ---
Author Organization [facility] Address [address] [place] [address] Care Team Providers Care Gear Machine Operator General Name Role Phone Fredrick Lamar Primary Care Provider Unav ailable Clarissa Rocha [phone] REASON FOR VISIT 05/20/24 NS 1st NS Encounters Encounter Location Date Provider Diagnosis [facility] [address] [place] [address] 05/20/2024 Clarissa Rocha Plan Of Treatment No Information Progress Notes * Romel ZUNIGADOB:1955 (68 yo M)Acc No.[id number]:05/20/2024 Patient:?Romel ZUNIGA :1955???Age:68 Y???Sex:Male Address:[address], [place], [address] * true * Date:? Generated for Printi ng/Faavag/eTransmitting on:?07/28/2024 09:18 AM EST
--- OUTSIDE RECORDS SUMMARY | 2024-07-28 09:19 | XMS_ITS ---
Author Organization [facility] Address [address] [place] [address] Care Team Providers Care Vegetable Farmer Name Role Phone Fredrick Lamar Primary Care Provider Unav ailable Clarissa Rocha [phone] REASON FOR VISIT NS 05/20/24 Encounters Encounter Location Date Provider Diagnosis [facility] [address] [place] [address] 05/21/2024 Clarissa Rocha Plan Of Treatment No Information Progress Notes * Romel ZUNIGADOB:1955 (68 yo M)Acc No.[id number]:05/21/2024 Patient:?Romel ZUNIGA :1955???Age:68 Y???Sex:Male Address:[address], [place], [address] * true * Date:? Generated for Shantelli lilian/Edu/eTransmitting on:?07/28/2024 09:19 AM EST
[2024-07-28 09:39] VITALS: BP 122/70; PULSE 64; BMI 38.6
--- NOTE | 2024-07-28 09:39 | MHC.OFFVIS ---
Vital Signs 07/28/24 09:39 Height 6 ft 3 in Weight 308 lb 10.354 oz BMI 38.6 BP 122/70 Blood Pressure Location Lt brachial Position Sitting Pulse 64 Intake Visit Reasons: 1 year f/u Intake Note: 1 year follow-up with ekg hearts feeling good Clean Room Technician Required: No Allergies No Known Allergies Allergy (Verified 07/15/24 19:48) Medication List - Last Reconciled 07/28/24 by López García MD alpha lipoic acid 600 mg PO DAILY amlodipine 10 mg PO DAILY atorvastatin 80 mg PO BEDTIME 90 days blood sugar diagnostic (FreeStyle Lite Strips) 4 times a day blood-glucose meter (FreeStyle Lite Meter kit) 4 times a day cholecalciferol (vitamin D3) 10 mcg PO DAILY dutasteride (Avodart) 0.5 mg PO DAILY FreeStyle Lancets (lancets) 4 times a day NS FreeStyle Yolanda 2 [place] (flash glucose scanning reader) TID testing NS FreeStyle Yolanda 2 Sensor (flash glucose sensor) TID tesing NS gabapentin 300 mg PO TID 30 days insulin glargine U-300 conc (Toujeo Max U-300 SoloStar) 55 units (0.1833 mL) subcut DAILY lisinopril 10 mg PO DAILY 90 days metformin ER 1,000 mg PO ONCE oxycodone-acetaminophen 5-325 mg (Percocet) 1 tab PO Q6-8H PRN 3 days oxycodone-acetaminophen 5-325 mg (Percocet) 1 tab PO BID PRN 6 days pen needle, diabetic (BD Ultra-Fine Short Pen Needle) use to inject insulin once a day phenazopyridine (Pyridium) 200 mg PO BID 7 days semaglutide (Ozempic) 2 mg subcut QWEEK silodosin (Rapaflo) 8 mg PO DAILY trazodone 100 mg PO BEDTIME PRN 30 days HPI Comments Details: Romel comes for follow-up. No new symptoms to report. He says he has noticed over the last 2 ways deviation of the right side of his face with reduce nasolabial folds. Has no noticed any other motor or sensory weakness. Denies any other cardiac symptoms. Denies any exertional chest pain or shortness of breath. Takes all his medications. Most recent echocardiogram shows moderate enlargement of ascending aorta at 4.8 cm. Patient denies any exertional chest pain. Avoids heavy lifting. [facility] Medical History HTN (hypertension) (atherosclerosis) Ascending aortic aneurysm Ascending aorta dilatation Aortic stenosis Jean-Paulertojuan jose, bilateral COVID-19 vaccine series completed Obesity due to excess calories Tinea pedis Charcot foot due to diabetes mellitus Morbid obesity Diabetic polyneuropathy associated with type 2 diabetes mellitus 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 type 2 diabetes mellitus long-term (current) use of insulin RLS (restless legs syndrome) Aortic valve calcification BPH (benign prostatic hyperplasia) Osteomyelitis [place] (obstructive sleep apnea) KAI (acute kidney injury) Surgical History Hx of cystoscopy H/O colonoscopy History of bunionectomy Amputation toe History of bunionectomy Family History Father Bladder cancer Mother Lung cancer Social History Household Members: Spouse Housing: House Are you a primary account executive healthcare to a significant other at home: Yes (father, also cares for him) Do you presently have visiting nurse or other home services: No Alcohol intake: current Alcohol intake frequency: holidays/special occasions only Patient Tobacco Use Status: Never used Tobacco e-Cigarette/Vaping Use: Never Used Advance Directives Date on File: 09/02/23 service: No Cognitive needs: No Hearing needs: No Vision needs: Yes Review of Systems Const Denies chills, Denies fatigue, Denies fever(s), Denies frequent falls, Denies weakness, Denies weight gain and Denies weight loss ENT Denies dizziness Card Denies chest pain, Denies leg edema, Denies lightheadedness, Denies palpitations, Denies dyspnea, Denies dyspnea on exertion, Denies orthopnea and Denies other (loss of consciousness) Resp Denies cough, Denies dyspnea and Denies dyspnea on exertion GI Denies hematochezia and Denies change in stool character Musc Denies abnormal gait, Denies muscle weakness, Denies numbness, Denies radiating pain into limb and Denies tingling Neuro Denies Abnormal speech present, Denies abnormal gait, Denies dizziness, Denies frequent falls, Denies numbness, Denies tingling and Denies weakness Endo Denies fatigue and Denies palpitations Physical Exam Vital Signs: Last Vital Signs Pulse 64 07/28/24 09:39 BP 122/70 07/28/24 09:39 BMI result Body Mass Index 38.6 Const General: cooperative, comfortable, no acute distress, alert, awake and Physically active Nutritional Appearance: obese Orientation/consciousness: patient oriented x3 Limitations: no limitations HEENT Head: Yes normocephalic and Yes atraumatic Neck Neck: Yes trachea midline, Yes supple and Yes no JVD Resp Effort & Inspection: normal respiratory effort Auscultation: clear to auscultation bilaterally Cardio Jugular venous distension: no JVD Palpation: normal PMI Rate: regular rate Rhythm: regular rhythm Heart sounds: S1 normal heart sound present, S2 normal heart sound present, no click, no gallops, Murmur heart sound present systolic early and no rubs GI Auscultation: normal bowel sounds Skin General skin exam: no rashes or lesions noted Neuro General: patient oriented x3 and no focal motor deficits Speech: No Abnormal speech present Extrem General: Yes no clubbing, cyanosis or edema Office Procedures EKG Details: EKG SHOWS NORMAL SINUS RHYTHM NORMAL EKG AT 64 BEATS PER MINUTE [id number], Complete Assessment & Plan Assessment & Plan (1) Ascending aortic aneurysm: Code(s): I71.21 - Aneurysm of the ascending aorta, without rupture Category: Medical Plan: Ascending aortic aneurysm which is more or less stable moderate enlargement. Will continue monitor clinically and by echocardiogram on annual basis. If which is 5 cm will perform a JAKE to evaluate for aortic valve morphology. If he was bicuspid aortic valve Cardiothoracic Surgical evaluation sooner. Continue avoid sudden strenuous isometric exercise. Advised to seek emergency care if he was sudden-onset severe chest pain. He understands agrees. Continue aggressive vascular risk factor modification. Continue low-dose aspirin therapy. Blood pressure is currently well optimized, continue current therapy. Continue high-intensity statin therapy with target goal LDL less than 70 mg/dL. Continue aggressive diabetes management goal hemoglobin A1c less than 7%. (2) Aortic stenosis: Comment: Cardiology 12/27/22 Code(s): I35.0 - Nonrheumatic aortic (valve) stenosis Category: Medical Plan: Aortic stenosis which is mild and remained stable. Possible bicuspid aortic valve. Will need further evaluation once his aortic size reaches 5 cm. Clinically no interventions required for aortic stenosis at this point time. Continue low-dose aspirin therapy and aggressive vascular risk factor modification as above. Follow up in the clinic in 1 year's time, sooner p.r.n.. 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
== END 2024-07-28 10:03 | disposition home or self-care (01) ==
PROVIDERS: PCP Nurse Practitioner Family; Visit Provider Internal Medicine Cardiovascular Disease
DX: I71.21 Aneurysm of the ascending aorta, without rupture (principal); I35.0 Nonrheumatic aortic (valve) stenosis
CPT/HCPCS: 93010; 99214; G2211

== ENCOUNTER → 2024-07-28 08:56 | Outpatient (BNVA) | payer MEDICARE, SELFPAY | PROVIDERS: PCP Nurse Practitioner Family; Visit Provider Internal Medicine Cardiovascular Disease | DX: I71.21 Aneurysm of the ascending aorta, without rupture (principal); I35.0 Nonrheumatic aortic (valve) stenosis; M95.2 Other acquired deformity of head; E11.65 Type 2 diabetes mellitus with hyperglycemia; Z79.84 Long term (current) use of oral hypoglycemic drugs | CPT/HCPCS: 93005; 99212 ==

== ENCOUNTER 2024-07-30 11:13 | Outpatient (AMB) | payer MEDICARE, SELFPAY ==
--- NOTE | 2024-07-30 11:38 | MHC.OFFVIS ---
Intake Visit Reasons: TURP, Cystolitholipaxy- follow up Intake Note: Patient is present for Post Op Bladder Stone Urology Med: Dutasteride PVR:79ml Allergies No Known Allergies Allergy (Verified 07/15/24 19:48) HPI Comments Details: 07/30/2024--ruben is here status post repeat cystoscopy cysto litholapaxy bladder stone/laser/fulguration prostate--07/14/2024. The patient had multiple stones greater than 10 in his bladder. He states he is doing very well. He states the urine flow has improved. He denies urgency. I want to continue the Avodart and Rapaflo for now. 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 RLS (restless legs syndrome) Aortic valve calcification BPH (benign prostatic hyperplasia) Osteomyelitis [place] (obstructive sleep apnea) KAI (acute kidney injury) Surgical History Hx of cystoscopy H/O colonoscopy History of bunionectomy Amputation toe History of bunionectomy Family History Father Bladder cancer Mother Lung cancer Social History Household Members: Spouse Housing: House Are you a primary adult live in caregiver to a significant other at home: Yes (father, also cares for him) Do you presently have visiting nurse or other home services: No Alcohol intake: current Alcohol intake frequency: holidays/special occasions only Patient Tobacco Use Status: Never used Tobacco e-Cigarette/Vaping Use: Never Used Advance Directives Date on File: 09/02/23 service: No Cognitive needs: No Hearing needs: No Vision needs: Yes Review of Systems Const All systems reviewed & are unremarkable except as noted in HPI and below Reports no additional complaints Eyes Reports no additional complaints ENT Reports no additional complaints Card Reports no additional complaints Resp Reports no additional complaints GI Reports no additional complaints Reports as per HPI Musc Reports no additional complaints Skin/Breast Reports system reviewed and no additional complaints, except as documented Neuro Reports no additional complaints Psych Reports no additional complaints Endo Reports no additional complaints Marcial/Lymph Reports no additional complaints Aller/Immun Reports no additional complaints Office Procedures Post Void Residual Post Residual Void Post Void Residual (PVR): 79 [id number] Void Residual by ultrasound Results AMB Urinalysis, Automated UA Leukoctes 125 Snehal/uL Last Edit by Sonali Jaimes COUNT INCLUDES THE [facility] on 07/30/24 12:03 UA Nitrite Negative Last Edit by Sonali Jaimes COUNT INCLUDES THE [facility] on 07/30/24 12:03 UA Urobilinogen 0.2 mg/dL Last Edit by Sonali Jaimes, A on 07/30/24 12:03 UA Protein 100 mg/dL Last Edit by Sonali Jaimes COUNT INCLUDES THE [facility] on 07/30/24 12:03 UA pH 5.0 Last Edit by Sonali Jaimes, COUNT INCLUDES THE [facility] on 07/30/24 12:03 UA Blood 200 Matti/uL Last Edit by Sonali Jaimes, COUNT INCLUDES THE [facility] on 07/30/24 12:03 UA Specific [place] 1.025 Last Edit by Sonali Jaimes COUNT INCLUDES THE [facility] on 07/30/24 12:03 UA Ketone Negative Last Edit by Sonali Jaimes COUNT INCLUDES THE [facility] on 07/30/24 12:03 UA Bilirubin 0 mg/dL Last Edit by Sonali Jaimes COUNT INCLUDES THE [facility] on 07/30/24 12:03 UA Glucose 0 mg/dL Last Edit by Sonali Jaimes, COUNT INCLUDES THE [facility] on 07/30/24 12:03 Results Reviewed Results Reviewed: Laboratory Last Values Urine pH (Auto) 5.0 07/30/24 12:02 Specific [place] (Auto) 1.025 07/30/24 12:02 Urine Protein (Auto) 100 mg/dL 07/30/24 12:02 Glucose (UA)(Auto) 0 mg/dL 07/30/24 12:02 Urine Ketones (Auto) Negative 07/30/24 12:02 Urine Blood (Auto) 200 Matti/uL 07/30/24 12:02 Urine Nitrite (Auto) Negative 07/30/24 12:02 Urine Bilirubin (Auto) 0 mg/dL 07/30/24 12:02 Urine Urobilinogen (Auto) 0.2 mg/dL 07/30/24 12:02 Leukocyte Esterase (Auto) 125 Snehal/uL 07/30/24 12:02 Assessment & Plan Assessment & Plan (1) BPH (benign prostatic hyperplasia): Code(s): N40.0 - Benign prostatic hyperplasia without lower urinary tract symptoms Category: Medical (2) Diabetes: Code(s): E11.9 - Type 2 diabetes mellitus without complications Category: Medical (3) Intermittent gross hematuria: Code(s): R31.0 - Gross hematuria Category: Medical (4) Frequent urination: Code(s): R35.0 - Frequency of micturition Category: Medical (5) Bladder calculus: Code(s): N21.0 - Calculus in bladder Category: Medical Orders: Orders AMB Urinalysis Automated Today Z13.9 - Encounter for screening, unspecified AMB Post Void Residual by ultrasound Today N40.1 - Benign prostatic hyperplasia with lower urinary tract symptoms Urine Culture Today N39.0 - Urinary tract infection, site not specified Patient Instructions: The patient had an opportunity to ask questions regarding treatment plan. The patient expressed understanding and agreement with the above treatment plan. The patient is aware they should contact our office by phone for worsening of their current condition or the appearance of new symptoms. Compliance is encouraged with any medications and followup testing that is ordered. It is a privilege to be allowed the opportunity to participate in the urologic care of your patient. If you have any questions or concerns regarding treatment for the above conditions please do not hesitate to contact me. The office telephone contact is [phone]. This note is constructed in part using voice recognition software. While every effort has been made to ensure accuracy digital forensics investigator errors may have been included. Yours sincerely, Sofia Dc MD Coding Level of Care Code Global (69941) Diagnoses BPH (benign prostatic hyperplasia) N40.0 Diabetes E11.9 Intermittent gross hematuria R31.0 Frequent urination R35.0 Bladder calculus N21.0 CPT Codes Post Residual Void - PVR CPT Code: 73899-Dvmp Void Residual by ultrasound ([id number])
--- OUTSIDE RECORDS SUMMARY | 2024-07-30 15:07 | XMS_ITS ---
Author Organization [facility] Address [address] [place] [address] Care Team Providers Care Support Merchandiser Name Role Phone Fredrick Lamar Primary Care Provider Unav ailable Clarissa Rocha [phone] REASON FOR VISIT NS 05/20/24 Encounters Encounter Location Date Provider Diagnosis [facility] [address] [place] [address] 05/21/2024 Clarissa Rocha Plan Of Treatment No Information Progress Notes * Romel ZUNIGADOB:1955 (68 yo M)Acc No.[id number]:05/21/2024 Patient:?Romel ZUNIGA :1955???Age:68 Y???Sex:Male Address:[address], [place], [address] * true * Date:? Generated for Christiano quintana/Edu/eTransmitting on:?07/30/2024 03:07 PM EST
--- OUTSIDE RECORDS SUMMARY | 2024-07-30 15:07 | XMS_ITS | Patient Health Record ---
[facility] Address [address] [place] [address] Care Team Providers Care Ways Operator Name Role Phone Fredrick Lamar Primary Care Provider Unav ailable Clarissa Rocha Unavailable [phone] Lance Flores Unavailable [phone] Allergies No Known Allergies Results Component Value Reference Range Notes HEMOGLOBIN A1C (GLYCOHEMOGLO BIN) Reviewed date:02/10/2024 08:46:13 AM Interpretation: Performing Lab: Notes/Report: HEMOGLOBIN A1C (HH) 6.9 HEMOGLOBIN A1C (GLYCOHEMOGLO BIN) Reviewed date:09/05/2023 10:44:52 AM Interpretation: Performing Lab: Notes/Report: HEMOGLOBIN A1C (HH) 7.1 Reason For Referral No Information Medications Medication SIG (Take, Route, Frequency, Duration) Notes Start Date End Date Status Atorvastatin Calcium 80 MG 1 tablet Orally Once a day for 30 day(s) Active Extra Depth Orthopedic Shoes (1 Pair) with Customized Heat Molded Multidensity Innersoles (3 Pair) as directed Dx: NIDDM/Polyneuropathy (E11.42), Hammertoe Foot Deformity (M20.41,M20.42), Preulcerative Skin Lesion(s) (L85.1 11/18/2020 Not-Taking Vitamin D-3 Active Extra Depth Orthopedic Shoes (1 Pair) with Customized Heat Molded Multidensity Innersoles (3 Pair) as directed Dx: NIDDM/Polyneuropathy (E11.42), Hammertoe Foot Deformity (M20.41,M20.42), Preulcerative Skin Lesion(s) (L85.1 Not-Taking amLODIPine Besylate 5 MG 1 tablet Orally Once a day Active metFORMIN HCl 500 MG 1 tablet with a ines l Orally Once a day for 30 day(s) Active Bactrim DS 800-160 MG 1 tablet Orally Tw ice a day for 10 day(s) 11/15/2023 Not-Taking Basaglar KwikPen Act uriel Amoxicillin-Pot Clavulanate 875-125 MG 1 tablet Orally every 12 hrs for 10 day(s) 02/10/2024 Not-Taking aspirin Active Keflex 500 MG 1 capsule Orally mary ann ry 12 hrs for 7 days 09/05/2023 Not-Taking Pioglitazone HCl 15 MG 1 tablet Orally O nce a day for 30 day(s) Active Amoxicillin-Pot Clavulanate 875-125 MG 1 tablet Orally every 12 hrs for 7 days 09/12/2023 Not-Taking Lisinopril 2.5 MG 1 tablet Orally Once a day Active Tamsulosin HCl 0.4 MG 1 capsule Orally O nce a day for 30 day(s) Active Trulicity Active Extra Depth Diabetic Shoes with 3 Pair Custom heat-molded multi-density innersoles for 1 year Dx: 09/12/2023 N ot-Taking Cephalexin 500 MG 1 capsule Orally mary ann ry 12 hrs for 10 days Not-Taking Immunizations Vaccine Route Administration Date Status Comme nts COVID-19 Moderna Vaccine Unknown 08/18/2020 Administered Second Dose: 09/15/2020 Influenza Unknown 03/01/2020 Administered Influenza Unknown 05/09/2023 Administered Social History Tobacco Use: Social History Observation Description Date Details (start date - stop date) Never Smoker NA - NA Tobacco Use/Smoking Question Answer Notes Are you a: nonsmoker Additional Findings: Tobacco Non-User Current no n-smoker Alcohol Screen Question Answer Notes Did you have a drink contain ing alcohol in the past year? Yes How often did you have a dri nk containing alcohol in the past year? 2 to 3 times a week (3 points) Points 3 Interpretation Negative Tobacco use other than smoking: Question Answer Notes Are you an other tobacco user? No Problems Problem Type SNOMED Code ICD Code Onset Dates Problem Status W/U Status Risk Notes Problem [id number] Other hammer toe(s) (acquired), right foot (M20.41) Active confirmed Problem Acquired hammer toe of left foot (8050407079261209) Other hammer toe(s) (acquired), left foot (M20.42) Active confirmed Problem Non-pressure chronic ulcer of other part of right foot with fat layer exposed (L97.512) Active confirmed Problem Polyneuropathy due to type 2 diabetes mellitus (091957877) Type 2 diabetes mellitus with diabetic polyneuropathy (E11.42) Active confirmed Problem Chronic ulcer of foot (837257581) Non-pressure chronic ulcer of other part of left foot with fat layer exposed (L97.522) Active confirmed Problem 302939915 Non-pressure chronic ulcer of other part of unspecified foot with unspecified severity (L97.509) Active confirmed Problem 55964351 Non-pressure ulcer of left lower extremity, limited to breakdown of skin (L97.921) Active confirmed Problem 94299952 Type 2 diabetes mellitus with polyneuropathy (E11.42) Active confirmed Problem 405464845 Type 2 diabetes mellitus with foot ulcer (E11.621) Active confirmed Problem 516136177 Hammertoe of lef t foot (M20.42) Active confirmed Problem 94510380 Non-pressure ulcer of left lower extremity with fat layer exposed (L97.922) Active confirmed Problem 20187422804843036 Atherosclerosi s of artery of both lower extremities (I70.203) Active confirmed Problem Neuropathic ulce r of right foot with fat layer exposed (L97.512) Active confirmed Response to treatment Problem 457549220 Charcot's joint of left foot (M14.672) Active confirmed Problem Neurotrophic ulcer of left foot limited to breakdown of skin (L97.521) Active confirmed Response to treatment Problem Neuropathic ulce r of left foot with fat layer exposed (L97.522) Active confirmed Response to treatment Problem 27503972143051600 Neuropathic fo ot ulcer, right, limited to breakdown of skin (L97.511) Active confirmed Problem 33383077125605400 Neuropathic fo ot ulcer, left, with fat layer exposed (L97.522) Active confirmed Vital Signs Height 6ft 3in in 04/23/2024 Weight 300 lbs 04/23/2024 BMI 37.49 kg/m2 04/23/2024 Procedures Procedure Date Ordered Date Performed Result Body Sit e 19082-IKHMZEE SKIN/TISSUE 09/12/2023 N/A Encounters Encounter Location Date Provider Diagnosis [address] [address] 09/05/2023 Clarissa Rocha Type 2 diabetes mellitus with polyneuropathy E11.42 ; Metatarsalgia of left foot M77.42 ; Metatarsalgia, right foot M77.41 ; Other hammer toe(s) (acquired), right foot M20.41 ; Other hammer toe(s) (acquired), left foot M20.42 ; Tinea unguium B35.1 ; Neuropathic foot ulcer, left, with fat layer exposed L97.522 ; Neuropathic foot ulcer, right, limited to breakdown of skin L97.511 ; Cellulitis of left toe L03.032 and Atherosclerosis of artery of both lower extremities I70.[address] [address] 09/12/2023 Lance Flores Type 2 diabetes mellitus with polyneuropathy E11.42 ; Other hammer toe(s) (acquired), right foot M20.41 ; Other hammer toe(s) (acquired), left foot M20.42 ; Tinea unguium B35.1 ; Neuropathic foot ulcer, left, with fat layer exposed L97.522 ; Neuropathic foot ulcer, right, limited to breakdown of skin L97.511 and Atherosclerosis of artery of both lower extremities I70.[address] [address] 09/20/2023 Clarissa Rocha Type 2 diabetes mellitus with polyneuropathy E11.42 ; Other hammer toe(s) (acquired), left foot M20.42 ; Neuropathic foot ulcer, left, with fat layer exposed L97.522 ; Atherosclerosis of artery of both lower extremities I70.203 and Cellulitis of left toe L03.032 [facility] [address] [place] [address] 10/03/2023 Clarissa Rocha Other hammer toe(s) (acquired), left foot M20.42 ; Neuropathic foot ulcer, left, with fat layer exposed L97.522 ; Type 2 diabetes mellitus with polyneuropathy E11.42 and Atherosclerosis of artery of both lower extremities I70.[address] [address] 11/07/2023 Clarissa Rocha Neuropathic ulcer of left foot with fat layer exposed L97.522 ; Pain in left toe(s) M79.675 ; Contusion of lesser toe of left foot without damage to nail, initial encounter S90.122A ; Type 2 diabetes mellitus with foot ulcer E11.621 ; Hammertoe of left foot M20.42 ; Type 2 diabetes mellitus with polyneuropathy E11.42 ; Atherosclerosis of artery of both lower extremities I70.203 and Cellulitis of left foot L03.[address] [address] 11/19/2023 Clarissa Rocha Type 2 diabetes mellitus with polyneuropathy E11.42 ; Type 2 diabetes mellitus with foot ulcer E11.621 ; Atherosclerosis of artery of both lower extremities I70.203 and Neuropathic foot ulcer, left, with fat layer exposed L97.[address] [address] 11/27/2023 Clarissa Rocha Type 2 diabetes mellitus with polyneuropathy E11.42 ; Type 2 diabetes mellitus with foot ulcer E11.621 ; Atherosclerosis of artery of both lower extremities I70.203 and Neuropathic foot ulcer, left, with fat layer exposed L97.[address] [address] 12/06/2023 Clarissa Rocha Type 2 diabetes mellitus with polyneuropathy E11.42 ; Type 2 diabetes mellitus with foot ulcer E11.621 ; Atherosclerosis of artery of both lower extremities I70.203 and Neuropathic foot ulcer, left, with fat layer exposed L97.[address] [address] 12/20/2023 Clarissa Rocha Type 2 diabetes mellitus with polyneuropathy E11.42 ; Type 2 diabetes mellitus with foot ulcer E11.621 ; Atherosclerosis of artery of both lower extremities I70.203 and Neuropathic foot ulcer, left, with fat layer exposed L97.[address] [address] 01/06/2024 Clarissa Rocha Neurotrophic ulcer o f left foot limited to breakdown of skin L97.521 ; Type 2 diabetes mellitus with polyneuropathy E11.42 and Atherosclerosis of artery of both lower extremities I70.[address] [address] 02/10/2024 Clarissa Rocha Type 2 diabetes mellitus with diabetic polyneuropathy E11.42 ; Cellulitis of toe of right foot L03.031 ; Tinea unguium B35.1 ; Neuropathic ulcer of right foot with fat layer exposed L97.512 ; Hammertoe of left foot M20.42 ; Other hammer toe(s) (acquired), right foot M20.41 and Neurotrophic ulcer of left foot limited to breakdown of skin L97.[address] [address] 02/24/2024 Clarissa Rocha Type 2 diabetes mellitus with diabetic polyneuropathy E11.42 ; Cellulitis of toe of right foot L03.031 ; Neuropathic ulcer of right foot with fat layer exposed L97.512 ; Hammertoe of left foot M20.42 ; Other hammer toe(s) (acquired), right foot M20.41 and Neurotrophic ulcer of left foot limited to breakdown of skin L97.[address] [address] 04/09/2024 Clarissa Rocha Type 2 diabetes mellitus with diabetic polyneuropathy E11.42 ; Tinea unguium B35.1 ; Cellulitis of toe of left foot L03.032 ; Neuropathic ulcer of left foot with fat layer exposed L97.522 ; Neuropathic ulcer of right foot with fat layer exposed L97.512 ; Other hammer toe(s) (acquired), right foot M20.41 ; Hammertoe of left foot M20.42 and Type 2 diabetes mellitus with foot ulcer E11.[address] [address] 04/23/2024 Clarissa Rocha Type 2 diabetes mellitus with diabetic polyneuropathy E11.42 ; Cellulitis of toe of left foot L03.032 ; Neuropathic ulcer of left foot with fat layer exposed L97.522 ; Neuropathic ulcer of right foot with fat layer exposed L97.512 ; Other hammer toe(s) (acquired), right foot M20.41 ; Hammertoe of left foot M20.42 and Type 2 diabetes mellitus with foot ulcer E11.621 [facility] [address] [place] [address] 09/05/2023 Clarissa Perica [facility] [address] [address] 09/05/2023 Clarissa Perica [facility] [address] [address] 11/05/2023 Clarissa Perica Cellulitis of left t oe L03.032 and Neuropathic foot ulcer, left, with fat layer exposed L97.522 [facility] [address] [address] 11/07/2023 Clarissa Perica [facility] [address] [address] 11/14/2023 Clarissa Perica [facility] [address] [address] 11/15/2023 Clarissa Perica [facility] [address] [address] 11/21/2023 Clarissa Perica [facility] [address] [address] 11/27/2023 Clarissa Perica [facility] [address] [address] 12/03/2023 Clarissa Perica [facility] [address] [address] 01/01/2024 Clarissa Perica [facility] [address] [address] 03/18/2024 Clarissa Perica [facility] [place] [address] [facility] [address] [place] [address] 04/09/2024 Clarissa [facility]ica [facility] [address] [place] [address] 04/09/2024 Clarissa Perica [facility] [address] [address] 05/20/2024 Clarissa Perica [facility] [address] [address] 05/21/2024 Clarissa Rocha Assessments Encounter Date Diagnosis (ICD Code) Assessment Notes Treatment Notes Treatment Clinical Notes Section Notes 09/05/2023 Metatarsalgia of left foot (ICD-10 - M77.42) 09/05/2023 Type 2 diabetes mellitus with polyneuropathy (ICD-10 - E11.42) 09/12/2023 Other hammer toe(s) (acquired), right foot (ICD-10 - M20.41) 09/12/2023 Type 2 diabetes mellitus with polyneuropathy (ICD-10 - E11.42) 09/20/2023 Other hammer toe(s) (acquired), left foot (ICD-10 - M20.42) 09/20/2023 Type 2 diabetes mellitus with polyneuropathy (ICD-10 - E11.42) 10/03/2023 Other hammer toe(s) (acquired), left foot (ICD-10 - M20.42) 10/03/2023 Neuropathic foot ulcer, left, with fat layer exposed (ICD-10 - L97.522) 11/05/2023 Cellulitis of left toe (ICD-10 - L03.032) 11/07/2023 Pain in left toe(s) (ICD-10 - M79.675) 11/07/2023 Neuropathic ulcer of left foot with fat layer exposed (ICD-10 - L97.522) Response to treatment Patient Educated with: WOUND CARE INSTRUCTIONS. pdf (WOUND CARE INSTRUCTIONS. pdf) 11/19/2023 Type 2 diabetes mellitus with polyneuropathy (ICD-10 - E11.42) 11/19/2023 Type 2 diabetes mellitus with foot ulcer (ICD-10 - E11.621) 11/27/2023 Type 2 diabetes mellitus with polyneuropathy (ICD-10 - E11.42) 12/06/2023 Type 2 diabetes mellitus with polyneuropathy (ICD-10 - E11.42) 12/20/2023 Type 2 diabetes mellitus with polyneuropathy (ICD-10 - E11.42) 01/06/2024 Neurotrophic ulcer of left foot limited to breakdown of skin (ICD-10 - L97.521) Response to treatment Patient Educated with: WOUND CARE INSTRUCTIONS. pdf (WOUND CARE INSTRUCTIONS. pdf) 02/10/2024 Type 2 diabetes mellitus with diabetic polyneuropathy (ICD-10 - E11.42) 02/10/2024 Cellulitis of toe of right foot (ICD-10 - L03.031) 02/24/2024 Type 2 diabetes mellitus with diabetic polyneuropathy (ICD-10 - E11.42) 02/24/2024 Cellulitis of toe of right foot (ICD-10 - L03.031) 04/09/2024 Type 2 diabetes mellitus with diabetic polyneuropathy (ICD-10 - E11.42) 04/09/2024 Tinea unguium (ICD-10 - B35.1) 04/23/2024 Type 2 diabetes mellitus with diabetic polyneuropathy (ICD-10 - E11.42) 04/23/2024 Cellulitis of toe of left foot (ICD-10 - L03.032) 04/23/2024 Neuropathic ulcer of left foot with fat layer exposed (ICD-10 - L97.522) Response to treatment-impr dahiana 04/09/2024 Cellulitis of toe of left foot (ICD-10 - L03.032) 02/24/2024 Neuropathic ulcer of right foot with fat layer exposed (ICD-10 - L97.512) Response to treatment Patient Educated with: WOUND CARE INSTRUCTIONS. pdf (WOUND CARE INSTRUCTIONS. pdf) 02/10/2024 Tinea unguium (ICD-10 - B35.1) 12/20/2023 Type 2 diabetes mellitus with foot ulcer (ICD-10 - E11.621) 11/07/2023 Contusion of lesser toe of left foot without damage to nail, initial encounter (ICD-10 - S90.122A) 01/06/2024 Type 2 diabetes mellitus with polyneuropathy (ICD-10 - E11.42) 12/06/2023 Type 2 diabetes mellitus with foot ulcer (ICD-10 - E11.621) 11/27/2023 Type 2 diabetes mellitus with foot ulcer (ICD-10 - E11.621) 11/19/2023 Atherosclerosis of artery of both lower extremities (ICD-10 - I70.203) 09/20/2023 Neuropathic foot ulcer, left, with fat layer exposed (ICD-10 - L97.522) 11/05/2023 Neuropathic foot ulcer, left, with fat layer exposed (ICD-10 - L97.522) 10/03/2023 Type 2 diabetes mellitus with polyneuropathy (ICD-10 - E11.42) 09/12/2023 Other hammer toe(s) (acquired), left foot (ICD-10 - M20.42) 09/05/2023 Metatarsalgia, right foot (ICD-10 - M77.41) 09/05/2023 Other hammer toe(s) (acquired), right foot (ICD-10 - M20.41) 09/12/2023 Tinea unguium (ICD-10 - B35.1) 10/03/2023 Atherosclerosis of artery of both lower extremities (ICD-10 - I70.203) 09/20/2023 Atherosclerosis of artery of both lower extremities (ICD-10 - I70.203) 11/07/2023 Type 2 diabetes mellitus with foot ulcer (ICD-10 - E11.621) 11/19/2023 Neuropathic foot ulcer, left, with fat layer exposed (ICD-10 - L97.522) 11/27/2023 Atherosclerosis of artery of both lower extremities (ICD-10 - I70.203) 12/06/2023 Atherosclerosis of artery of both lower extremities (ICD-10 - I70.203) 01/06/2024 Atherosclerosis of artery of both lower extremities (ICD-10 - I70.203) 12/20/2023 Atherosclerosis of artery of both lower extremities (ICD-10 - I70.203) 02/10/2024 Neuropathic ulcer of right foot with fat layer exposed (ICD-10 - L97.512) Response to treatment Patient Educated with: WOUND CARE INSTRUCTIONS. pdf (WOUND CARE INSTRUCTIONS. pdf) 02/24/2024 Hammertoe of left foot (ICD-10 - M20.42) 04/23/2024 Neuropathic ulcer of right foot with fat layer exposed (ICD-10 - L97.512) Response to treatment-impr dahiana 04/09/2024 Neuropathic ulcer of left foot with fat layer exposed (ICD-10 - L97.522) Response to treatment Patient Educated with: WOUND CARE INSTRUCTIONS. pdf (WOUND CARE INSTRUCTIONS. pdf) 04/23/2024 Other hammer toe(s) (acquired), right foot (ICD-10 - M20.41) 02/24/2024 Other hammer toe(s) (acquired), right foot (ICD-10 - M20.41) 04/09/2024 Neuropathic ulcer of right foot with fat layer exposed (ICD-10 - L97.512) Response to treatment Patient Educated with: WOUND CARE INSTRUCTIONS. pdf (WOUND CARE INSTRUCTIONS. pdf) 02/10/2024 Hammertoe of left foot (ICD-10 - M20.42) 12/20/2023 Neuropathic foot ulcer, left, with fat layer exposed (ICD-10 - L97.522) 12/06/2023 Neuropathic foot ulcer, left, with fat layer exposed (ICD-10 - L97.522) 11/27/2023 Neuropathic foot ulcer, left, with fat layer exposed (ICD-10 - L97.522) 11/07/2023 Hammertoe of left foot (ICD-10 - M20.42) 09/20/2023 Cellulitis of left toe (ICD-10 - L03.032) 09/12/2023 Neuropathic foot ulcer, left, with fat layer exposed (ICD-10 - L97.522) 09/05/2023 Other hammer toe(s) (acquired), left foot (ICD-10 - M20.42) 09/12/2023 Neuropathic foot ulcer, right, limited to breakdown of skin (ICD-10 - L97.511) 09/05/2023 Tinea unguium (ICD-10 - B35.1) 11/07/2023 Type 2 diabetes mellitus with polyneuropathy (ICD-10 - E11.42) 02/10/2024 Other hammer toe(s) (acquired), right foot (ICD-10 - M20.41) 02/24/2024 Neurotrophic ulcer of left foot limited to breakdown of skin (ICD-10 - L97.521) Response to treatment 04/09/2024 Other hammer toe(s) (acquired), right foot (ICD-10 - M20.41) 04/23/2024 Hammertoe of left foot (ICD-10 - M20.42) 04/23/2024 Type 2 diabetes mellitus with foot ulcer (ICD-10 - E11.621) 04/09/2024 Hammertoe of left foot (ICD-10 - M20.42) 02/10/2024 Neurotrophic ulcer of left foot limited to breakdown of skin (ICD-10 - L97.521) Response to treatment 11/07/2023 Atherosclerosis of artery of both lower extremities (ICD-10 - I70.203) 09/05/2023 Neuropathic foot ulcer, left, with fat layer exposed (ICD-10 - L97.522) 09/12/2023 Atherosclerosis of artery of both lower extremities (ICD-10 - I70.203) 09/05/2023 Neuropathic foot ulcer, right, limited to breakdown of skin (ICD-10 - L97.511) 11/07/2023 Cellulitis of left foot (ICD-10 - L03.116) 04/09/2024 Type 2 diabetes mellitus with foot ulcer (ICD-10 - E11.621) 09/05/2023 Cellulitis of left toe (ICD-10 - L03.032) 09/05/2023 Atherosclerosis of artery of both lower extremities (ICD-10 - I70.203) 09/05/2023 Other Patient Educated with: WOUND CARE INSTRUCTIONS. pdf (WOUND CARE INSTRUCTIONS. pdf) Patient Educated with: WOUND CARE INSTRUCTIONS. pdf (WOUND CARE INSTRUCTIONS. pdf) Patient Educated with: WOUND CARE INSTRUCTIONS. pdf (WOUND CARE INSTRUCTIONS. pdf) Patient Educated with: WOUND CARE INSTRUCTIONS. pdf (WOUND CARE INSTRUCTIONS. pdf) Plan Of Treatment Pending Test Test Name Order Date X ray : Foot, left 3V 09/05/2023 X ray : Foot, left 3V 11/07/2023 X ray : Foot, right 3V 09/05/2023 [id number] SKIN/TISSUE 09/12/2023 Insurance Providers Payer Name Payer Address Payer Phone Subscriber Number Group Number Insured Name Patient Relationship to Insured Coverage Start Date Coverage End Date [facility] Medicare Complete [address] [address] [place] [address] [id number] Romel Pruitt Self - patient is the insured Medical (General) History Medical History History ICD Code Diabetic Measles Mumps Chicken pox Surgical History Surgery Date(Month/Year) b/l great toe removal 2018 bunion surgery colonoscopy 01/25/21
--- OUTSIDE RECORDS SUMMARY | 2024-07-30 15:07 | XMS_ITS ---
Author Organization [facility] Address [address] [facility] [place] [address] Care Team Providers Care Platen Press Feeder Name Role Phone Fredrick Lamar Primary Care Provider Unav ailable Clarissa Rocha Unavailable [phone] Medications Medication SIG (Take, Route, Frequency, Duration) Notes Start Date End Date Status Extra Depth Orthopedic Shoes (1 Pair) with Customized Heat Molded Multidensity Innersoles (3 Pair) as directed Dx: NIDDM/Polyneuropathy (E11.42), Hammertoe Foot Deformity (M20.41,M20.42), Preulcerative Skin Lesion(s) (L85.1 11/18/2020 Not-Taking Extra Depth Orthopedic Shoes (1 Pair) with Customized Heat Molded Multidensity Innersoles (3 Pair) as directed Dx: NIDDM/Polyneuropathy (E11.42), Hammertoe Foot Deformity (M20.41,M20.42), Preulcerative Skin Lesion(s) (L85.1 Not-Taking Bactrim DS 800-160 MG 1 tablet Orally Tw ice a day for 10 day(s) 11/15/2023 Not-Taking Keflex 500 MG 1 capsule Orally mary ann ry 12 hrs for 7 days 09/05/2023 Not-Taking Amoxicillin-Pot Clavulanate 875-125 MG 1 tablet Orally every 12 hrs for 7 days 09/12/2023 Not-Taking Amoxicillin-Pot Clavulanate 875-125 MG 1 tablet Orally every 12 hrs for 10 day(s) 02/10/2024 Not-Taking Lisinopril 2.5 MG 1 tablet Orally Once a day Active Tamsulosin HCl 0.4 MG 1 capsule Orally O nce a day for 30 day(s) Active Extra Depth Diabetic Shoes with 3 Pair Custom heat-molded multi-density innersoles for 1 year Dx: 09/12/2023 N ot-Taking Cephalexin 500 MG 1 capsule Orally mary ann ry 12 hrs for 10 days Not-Taking Atorvastatin Calcium 80 MG 1 tablet Orally Once a day for 30 day(s) Active Vitamin D-3 Active amLODIPine Besylate 5 MG 1 tablet Orally Once a day Active aspirin Active Pioglitazone HCl 15 MG 1 tablet Orally O nce a day for 30 day(s) Active metFORMIN HCl 500 MG 1 tablet with a ines l Orally Once a day for 30 day(s) Active Basaglar KwikPen Act uriel Trulicity Active Encounters Encounter Location Date Provider Diagnosis [facility] [address] [address] 05/20/2024 Clarissa Rocha Plan Of Treatment No Information Progress Notes * Romel ZUNIGADOB:1955 (69 yo M)Acc No.[id number]:05/20/2024 Progress Notes Patient:?Romel ZUNIGA Provider:?Clarissa Rocha DPM :1955???Age:68 Y???Sex:Male Nikko e:05/20/2024 Address:[address] [place], [place] [id number] Pcp:MADELINE Paulino Subjective: * Chief Complaints: * ??? * Medical History:? * Medications:?Taking Trulicit y , Taking Basaglar KwikPen , Taking metFORMIN HCl 500 MG Tablet 1 tablet with a meal Orally Once a day , Taking Pioglitazone HCl 15 MG Tablet 1 tablet Orally Once a day , Taking aspirin , Taking Vitamin D-3 , Taking Atorvastatin Calcium 80 MG Tablet 1 tablet Orally Once a day , Taking amLODIPine Besylate 5 MG Tablet 1 tablet Orally Once a day , Taking Tamsulosin HCl 0.4 MG Capsule 1 capsule Orally Once a day , Taking Lisinopril 2.5 MG Tablet 1 tablet Orally Once a day , Not-Taking/PRN Cephalexin 500 MG Capsule 1 capsule Orally every 12 hrs , Not-Taking/PRN Extra Depth Diabetic Shoes with 3 Pair Custom heat-molded multi-density innersoles for 1 year Dx: , Not-Taking/PRN Amoxicillin-Pot Clavulanate 875-125 MG Tablet 1 tablet Orally every 12 hrs , Not-Taking/PRN Bactrim DS 800- 160 MG Tablet 1 tablet Orally Twice a day , Not-Taking/PRN Amoxicillin-Pot Clavulanate 875-125 MG Tablet 1 tablet Orally every 12 hrs , Not-Taking/PRN Keflex 500 MG Capsule 1 capsule Orally every 12 hrs , Not-Taking/PRN Extra Depth Orthopedic Shoes (1 Pair) with Customized Heat Molded Multidensity Innersoles (3 Pair) as directed Dx: NIDDM/Polyneuropathy (E11.42), Hammertoe Foot Deformity (M20.41,M20.42), Preulcerative Skin Lesion(s) (L85.1 , Not-Taking/PRN Extra Depth Orthopedic Shoes (1 Pair) with Customized Heat Molded Multidensity Innersoles (3 Pair) as directed Dx: NIDDM/Polyneuropathy (E11.42), Hammertoe Foot Deformity (M20.41,M20.42), Preulcerative Skin Lesion(s) (L85.1 Objective: * Vitals:? Assessment: Plan: * Treatment: * Images: * The named appointment provid er may or may not be the originator of this progress note, and it is not deemed complete until electronically signed by the appointment provider. Sign off status: Pending * Provider:?Clarissa Rocha DPM Date:? Generated for Christiano quintana/Edu/Albaro on:?07/30/2024 03:06 PM EST
--- OUTSIDE RECORDS SUMMARY | 2024-07-30 15:07 | XMS_ITS ---
Author Organization [facility] Address [address] [place] [address] Care Team Providers Care Tractor Drill Operator Name Role Phone Fredrick Lamar Primary Care Provider Unav ailable Clarissa Rocha [phone] REASON FOR VISIT 05/20/24 NS 1st NS Encounters Encounter Location Date Provider Diagnosis [facility] [address] [place] [address] 05/20/2024 Clarissa Rocha Plan Of Treatment No Information Progress Notes * Romel ZUNIGADOB:1955 (68 yo M)Acc No.[id number]:05/20/2024 Patient:?Romel ZUNIGA :1955???Age:68 Y???Sex:Male Address:[address], [place], [address] * true * Date:? Generated for Printi ng/Ireneg/eTransmitting on:?07/30/2024 03:06 PM EST
--- OUTSIDE RECORDS SUMMARY | 2024-07-30 15:07 | XMS_ITS | Patient Health Record ---
Author Organization [facility] Address [address] [place] [address] Care Team Providers Care Mat Machine Tender Name Role Phone JESUS PALAFOX Primary Care Provider Rudy Pineda [phone] ALLERGIES Allergen (clinical drug ingredient) Drug/Non Drug Allergy documented on EMR Reaction Allergy Type Onset Date Status Penicillin Unknown Drug Allergy Active REASON FOR REFERRAL No Information MEDICATIONS Medication SIG (Take, Route, Frequency, Duration) Notes Start Date End Date Status amLODIPine Besylate 10mg Active MoviPrep 100 GM as directed Orally 06/07/20110 07/2024 Active Lisinopril Active SOCIAL HISTORY Sex Assigned At : Social History Observation Description Sex Assigned At Unknown PROBLEMS Problem Type ICD Code Onset Dates Problem Status W/U Status Risk SNOMED Code Notes Problem Special screening for malignant neoplasms, colon (V76.51) Active confirmed Screening for malignant neoplasm of colon (572714721) PLAN OF TREATMENT Future Test Test Name Order Date COLONOSCOPY 06/07/2011 Insurance Providers Payer Name Payer Address Payer Phone Subscriber Number Group Number Insured Name Patient Relationship to Insured Coverage Start Date Coverage End Date [facility] [employer] PROFESSIONAL CLAIMS [address] [place] [address] [id number] KEITH ZUNIGA Self - patient is the insured MEDICAL (GENERAL) HISTORY Medical History History ICD Code HTN Denies [place],DM,CVA,Lung disease,renal dise ase
== END 2024-07-30 12:21 | disposition home or self-care (01) ==
PROVIDERS: PCP Nurse Practitioner Family; Visit Provider Urology
DX: Z13.9 Encounter for screening, unspecified (principal)

== ENCOUNTER 2024-07-30 11:13 | Outpatient (REF) | payer MEDICARE, SELFPAY | END 2024-07-30 11:14 | disposition home or self-care (01) | LOC: HO.LAB 11:13 | PROVIDERS: PCP Nurse Practitioner Family; Visit Provider Urology | DX: N40.1 Benign prostatic hyperplasia with lower urinary tract symptoms (principal); R35.0 Frequency of micturition; E11.9 Type 2 diabetes mellitus without complications; R31.0 Gross hematuria; N21.0 Calculus in bladder; N39.0 Urinary tract infection, site not specified; Z98.890 Other specified postprocedural states; G51.0 Bell's palsy | CPT/HCPCS: 51798; 81003; 87086; 99212 ==

== ENCOUNTER 2024-07-30 15:29 | Outpatient (AMB) | payer MEDICARE, SELFPAY ==
--- NOTE | 2024-07-30 15:31 | MHC.OFFWIV ---
Intake Vital Signs 07/30/24 15:33 Weight 308 lb BP 122/70 Blood Pressure Location Rt brachial Position Sitting Pulse 76 Pulse Source Pulse Oximeter Pulse Oximetry (%) 98 Oxygen Delivery Method Room Air Intake Visit Reasons: EP swollen RT side of face & can't close his eye Intake Note: Patient here for right side of face drooping, loss of taste and cant chew on that side which has been present for about 5 days Patient Tobacco Use Status: Never used Tobacco Allergies No Known Allergies Allergy (Verified 07/15/24 19:48) HPI HPI Comments History of Present Illness Details 69 y/o male patient who presents to the walk in clinic with c/o Facial Asymmetry associated with right sided facial drooping x 5 days. Reports difficulty with swallowing and speech changes. Reports inability to close his right eye completely. C/o Inability to move his facial muscles. [facility] Medical History (Updated 07/30/24 @ 15:55 by Dayan Stallings NP) Kamara's palsy HTN (hypertension) (atherosclerosis) Ascending aortic aneurysm Ascending aorta dilatation Aortic stenosis Hammertoe, bilateral COVID-19 vaccine series completed Obesity due to excess calories Tinea pedis Charcot foot due to diabetes mellitus Morbid obesity Diabetic polyneuropathy associated with type 2 diabetes mellitus 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 type 2 diabetes mellitus [facility] (current) use of insulin RLS (restless legs syndrome) Aortic valve calcification BPH (benign prostatic hyperplasia) Osteomyelitis [place] (obstructive sleep apnea) KAI (acute kidney injury) Surgical History Hx of cystoscopy H/O colonoscopy History of bunionectomy Amputation toe History of bunionectomy Family History Father Bladder cancer Mother Lung cancer Social History Household Members: Spouse Housing: House Are you a primary spiritual care coordinator to a significant other at home: Yes (father, also cares for him) Do you presently have visiting nurse or other home services: No Alcohol intake: current Alcohol intake frequency: holidays/special occasions only Patient Tobacco Use Status: Never used Tobacco e-Cigarette/Vaping Use: Never Used Advance Directives Date on File: 09/02/23 service: No Cognitive needs: No Hearing needs: No Vision needs: Yes Review of Systems Const All systems reviewed & are unremarkable except as noted in HPI and below Neuro Reports Abnormal speech present Physical Exam Vital Signs: Last Vital Signs Pulse 76 07/30/24 15:33 BP 122/70 07/30/24 15:33 Pulse Ox 98 07/30/24 15:33 Oxygen Delivery Method Room Air 07/30/24 15:33 Const General: cooperative and no acute distress Nutritional Appearance: obese morbidly obese Orientation/consciousness: patient oriented x3 HEENT Head: Yes normocephalic Ears: external ears normal and TM's normal bilaterally General nose exam: No nasal discharge present Face and sinus: Yes sinuses nontender and Yes other (right sided facial drooping. Facial Asymmetry. ) Mouth: moist mucous membranes Throat: Yes uvula midline Eyes Pupils: Equal, round and reactive pupils present EOM: EOMs intact bilaterally Neuro Other: Unable to close right eye completely. Right sided facial weakness and facial Asymmetry. General: patient oriented x3, gait normal and moves all extremities Cranial nerves: Yes Equal, round and reactive pupils present and Yes Midline tongue present Speech: Abnormal speech present slurred Gait exam (Neuro): Normal gait present Motor exam (neuro): 5/5 motor strength present throughout Psych Speech and movement: Normal speech and movement present Results AMB Urinalysis, Automated UA Leukoctes 125 Snehal/uL Last Edit by AMELIA Flores on 07/30/24 12:03 UA Nitrite Negative Last Edit by AMELIA Flores on 07/30/24 12:03 UA Urobilinogen 0.2 mg/dL Last Edit by AMELIA Flores on 07/30/24 12:03 UA Protein 100 mg/dL Last Edit by AMELIA Flores on 07/30/24 12:03 UA pH 5.0 Last Edit by AMELIA Flores on 07/30/24 12:03 UA Blood 200 Matti/uL Last Edit by AMELIA Flores on 07/30/24 12:03 UA Specific [place] 1.025 Last Edit by AMELIA Flores on 07/30/24 12:03 UA Ketone Negative Last Edit by AMELIA Flores on 07/30/24 12:03 UA Bilirubin 0 mg/dL Last Edit by NIDA FloresA on 07/30/24 12:03 UA Glucose 0 mg/dL Last Edit by NIDA FloresA on 07/30/24 12:03 Assessment & Plan Assessment & Plan (1) Kamara's palsy: Code(s): G51.0 - Kamara's palsy Plan: Ordered Lyme panel Ordered Valacy and Pred Pt has CT Scan Brain Scheduled Wed F/U with PCP. Orders: Orders Lyme IgG/IgM w/reflex to WB Today G51.0 - Kamara's palsy Medications: New prednisone 60 mg (3 x 20 mg) PO DAILY 7 days 21 tabs 0RF G51.0 - Kamara's palsy valacyclovir 1,000 mg PO BID 7 days 14 tabs 0RF G51.0 - Kamara's palsy Coding Level of Care Code Est Pt Level 4 (83247) Diagnoses Kamara's palsy G51.0 Time Spent (min) 20
[2024-07-30 15:33] VITALS: BP 122/70; PULSE 76; O2SAT 98
== END 2024-07-30 16:10 | disposition home or self-care (01) ==
PROVIDERS: PCP Nurse Practitioner Family; Visit Provider Nurse Practitioner Family
DX: G51.0 Bell's palsy (principal)

== ENCOUNTER 2024-07-31 09:01 | Outpatient (REF) | payer MEDICARE, SELFPAY ==
[2024-08-03 18:19] LABS: Lyme Abs Screen <0.90 index
== END 2024-07-31 09:02 | disposition home or self-care (01) ==
LOC: HO.HMGCLDS 09:01
PROVIDERS: PCP Nurse Practitioner Family; Visit Provider Nurse Practitioner Family
DX: G51.0 Bell's palsy (principal)
CPT/HCPCS: 36415; 86617; 86618

== ENCOUNTER → 2024-08-05 07:08 | Outpatient (BNV) | payer MEDICARE, SELFPAY | PROVIDERS: PCP Nurse Practitioner Family; Visit Provider Radiology Diagnostic Radiology | DX: M95.2 Other acquired deformity of head (principal) | CPT/HCPCS: 70450 ==

== ENCOUNTER 2024-08-13 08:11 | Outpatient (AMB) | payer MEDICARE, SELFPAY ==
--- OUTSIDE RECORDS SUMMARY | 2024-08-13 08:17 | XMS_ITS ---
Author Organization [facility] Address [address] [place] [address] Care Team Providers Care Machine Plug Shaper Name Role Phone Fredrick Lamar Primary Care Provider Unav ailable Clarissa Rocha [phone] REASON FOR VISIT 05/20/24 NS 1st NS Encounters Encounter Location Date Provider Diagnosis [facility] [address] [place] [address] 05/20/2024 Clarissa Rocha Plan Of Treatment No Information Progress Notes * Romel ZUNIGADOB:1955 (68 yo M)Acc No.[id number]:05/20/2024 Patient:?Romel ZUNIGA :1955???Age:68 Y???Sex:Male Address:[address], [place], [address] * true * Date:? Generated for Printi ng/Ireneg/eTransmitting on:?08/13/2024 08:17 AM EST
--- OUTSIDE RECORDS SUMMARY | 2024-08-13 08:18 | XMS_ITS | Patient Health Record ---
Author Organization [facility] Address [address] [facility] [place] [address] Care Team Providers Care Finisher Polisher Name Role Phone Fredrick Lamar Primary Care Provider Unav ailable Clarissa Rocha Unavailable [phone] Lance Flores Unavailable [phone] Allergies No Known Allergies Results Component Value Reference Range Notes HEMOGLOBIN A1C (GLYCOHEMOGLO BIN) Reviewed date:09/05/2023 10:44:52 AM Interpretation: Performing Lab: Notes/Report: HEMOGLOBIN A1C (HH) 7.1 HEMOGLOBIN A1C (GLYCOHEMOGLO BIN) Reviewed date:02/10/2024 08:46:13 AM Interpretation: Performing Lab: Notes/Report: HEMOGLOBIN A1C (HH) 6.9 Reason For Referral No Information Medications Medication [...] Problem Status W/U Status Risk Notes Problem 51819082 Other hammer toe(s) (acquired), right foot (M20.41) Active confirmed Problem Acquired hammer toe of left foot (0791546714773755) Other hammer toe(s) (acquired), left foot (M20.42) Active confirmed Problem Non-pressure chronic ulcer of other part of right foot with fat layer exposed (L97.512) Active confirmed Problem Polyneuropathy due to type 2 diabetes mellitus (228782792) Type 2 diabetes mellitus with diabetic polyneuropathy (E11.42) Active confirmed Problem Chronic ulcer of foot (557044709) Non-pressure chronic ulcer of other part of left foot with fat layer exposed (L97.522) Active confirmed Problem 367401691 Non-pressure chronic ulcer of other part of unspecified foot with unspecified severity (L97.509) Active confirmed Problem 24966486 Non-pressure ulcer of left lower extremity, limited to breakdown of skin (L97.921) Active confirmed Problem 89350913 Type 2 diabetes mellitus with polyneuropathy (E11.42) Active confirmed Problem 852533445 Type 2 diabetes mellitus with foot ulcer (E11.621) Active confirmed Problem 085964542 Hammertoe of lef t foot (M20.42) Active confirmed Problem 41301198 Non-pressure ulcer of left lower extremity with fat layer exposed (L97.922) Active confirmed Problem 33471358385973399 Atherosclerosi s of artery of both lower extremities (I70.203) Active confirmed Problem Neuropathic ulce r of right foot with fat layer exposed (L97.512) Active confirmed Response to treatment Problem 253347818 Charcot's joint of left foot (M14.672) Active confirmed Problem Neurotrophic ulcer of left foot limited to breakdown of skin (L97.521) Active confirmed Response to treatment Problem Neuropathic ulce r of left foot with fat layer exposed (L97.522) Active confirmed Response to treatment Problem 68032218670706028 Neuropathic fo ot ulcer, right, limited to breakdown of skin (L97.511) Active confirmed Problem 92736127012502352 Neuropathic fo ot ulcer, left, with fat layer exposed (L97.522) Active confirmed Vital Signs Height 6ft 3in in 04/23/2024 Weight 300 lbs 04/23/2024 BMI 37.49 kg/m2 04/23/2024 Procedures Procedure Date Ordered Date Performed Result Body Sit e 09652-[id number] SKIN/TISSUE 09/12/2023 N/A Encounters Encounter Location Date Provider Diagnosis [address] [address] 09/05/2023 Clarissa Rocha Type 2 diabetes mellitus [...] of artery of both lower extremities I70.[address] [address] 09/12/2023 Lance Flores Type 2 diabetes mellitus with polyneuropathy E11.42 ; Other hammer toe(s) (acquired), right foot M20.41 ; Other hammer toe(s) (acquired), left foot M20.42 ; Tinea unguium B35.1 ; Neuropathic foot ulcer, left, with fat layer exposed L97.522 ; Neuropathic foot ulcer, right, limited to breakdown of skin L97.511 and Atherosclerosis of artery of both lower extremities I70.[address] [address] 09/20/2023 Clarissa Rocha Type 2 diabetes mellitus with polyneuropathy E11.42 ; Other hammer toe(s) (acquired), left foot M20.42 ; Neuropathic foot ulcer, left, with fat layer exposed L97.522 ; Atherosclerosis of artery of both lower extremities I70.203 and Cellulitis of left toe L03.032 [facility] [address] [place] [address] 10/03/2023 Clarissa Rocha Other hammer toe(s) (acquired), left foot M20.42 ; Neuropathic foot ulcer, left, with fat layer exposed L97.522 ; Type 2 diabetes mellitus with polyneuropathy E11.42 and Atherosclerosis of artery of both lower extremities I70.[address] [address] 11/07/2023 Clarissa Rocha Neuropathic ulcer of left [...] I70.203 and Cellulitis of left foot L03.[address] [address] 11/19/2023 Clarissa Rocha Type 2 diabetes mellitus with polyneuropathy E11.42 ; Type 2 diabetes mellitus with foot ulcer E11.621 ; Atherosclerosis of artery of both lower extremities I70.203 and Neuropathic foot ulcer, left, with fat layer exposed L97.[address] [address] 11/27/2023 Clarissa Rocha Type 2 diabetes mellitus with polyneuropathy E11.42 ; Type 2 diabetes mellitus with foot ulcer E11.621 ; Atherosclerosis of artery of both lower extremities I70.203 and Neuropathic foot ulcer, left, with fat layer exposed L97.[address] [address] 12/06/2023 Clarissa Rocha Type 2 diabetes mellitus with polyneuropathy E11.42 ; Type 2 diabetes mellitus with foot ulcer E11.621 ; Atherosclerosis of artery of both lower extremities I70.203 and Neuropathic foot ulcer, left, with fat layer exposed L97.[address] [address] 12/20/2023 Clarissa Rocha Type 2 diabetes mellitus with polyneuropathy E11.42 ; Type 2 diabetes mellitus with foot ulcer E11.621 ; Atherosclerosis of artery of both lower extremities I70.203 and Neuropathic foot ulcer, left, with fat layer exposed L97.[address] [address] 01/06/2024 Clarissa Rocha Neurotrophic ulcer o f left foot limited to breakdown of skin L97.521 ; Type 2 diabetes mellitus with polyneuropathy E11.42 and Atherosclerosis of artery of both lower extremities I70.[address] [address] 02/10/2024 Clarissa Rocha Type 2 diabetes mellitus with diabetic polyneuropathy E11.42 ; Cellulitis of toe of right foot L03.031 ; Tinea unguium B35.1 ; Neuropathic ulcer of right foot with fat layer exposed L97.512 ; Hammertoe of left foot M20.42 ; Other hammer toe(s) (acquired), right foot M20.41 and Neurotrophic ulcer of left foot limited to breakdown of skin L97.[address] [address] 02/24/2024 Clarissa Rocha Type 2 diabetes mellitus with diabetic polyneuropathy E11.42 ; Cellulitis of toe of right foot L03.031 ; Neuropathic ulcer of right foot with fat layer exposed L97.512 ; Hammertoe of left foot M20.42 ; Other hammer toe(s) (acquired), right foot M20.41 and Neurotrophic ulcer of left foot limited to breakdown of skin L97.[address] [address] 04/09/2024 Clarissa Rocha Type 2 diabetes mellitus [...] 2 diabetes mellitus with foot ulcer E11.[address] [address] 04/23/2024 Clarissa Rocha Type 2 diabetes mellitus [...] 2 diabetes mellitus with foot ulcer E11.621 [facility] [address] [place] [address] 09/05/2023 Clarissa [facility] [address] [address] 09/05/2023 Clarissa Perica [facility] [address] [address] 11/05/2023 Clarissa Perica Cellulitis of left t oe L03.032 and Neuropathic foot ulcer, left, with fat layer exposed L97.[address] [facility] [address] [address] 11/07/2023 Clarissa [facility] [address] [address] 11/14/2023 Clarissa [facility] [address] [address] 11/15/2023 Clarissa [facility] [address] [address] 11/21/2023 Clarissa [facility] [address] [address] 11/27/2023 Clarissa [facility] [address] [address] 12/03/2023 Clarissa [facility] [address] [address] 01/01/2024 Clarissa [facility] [address] [address] 03/18/2024 Clarissa [facility] [place] [address] [facility] [address] [place] [address] 04/09/2024 Clarissa [facility] [address] [place] [address] 04/09/2024 Clarissa [facility] [address] [address] 05/20/2024 Clarissa [facility] [address] [address] 05/21/2024 Clarissa Rocha Assessments Encounter Date Diagnosis [...] X ray : Foot, right 3V 09/05/2023 [id number] SKIN/TISSUE 09/12/2023 Insurance Providers Payer Name Payer Address Payer Phone Subscriber Number Group Number Insured Name Patient Relationship to Insured Coverage Start Date Coverage End Date [facility] Medicare Complete [address] [address] [place] [address] [id number] Romel Pruitt Self - patient is the insured Medical (General) History Medical History History ICD Code Diabetic Measles Mumps Chicken pox Surgical History Surgery Date(Month/Year) b/l great toe removal 2018 bunion surgery colonoscopy 01/25/21
--- OUTSIDE RECORDS SUMMARY | 2024-08-13 08:19 | XMS_ITS | Patient Health Record ---
Author Organization [facility] Address [address] [place] [address] Care Team Providers Care Police Clerk Name Role Phone JESUS PALAFOX Primary Care Provider Rudy Pineda [phone] ALLERGIES Allergen (clinical drug ingredient) Drug/Non Drug [...] confirmed Screening for malignant neoplasm of colon (051501162) PLAN OF TREATMENT Future Test Test Name Order Date COLONOSCOPY 06/07/2011 Insurance Providers Payer Name Payer Address Payer Phone Subscriber Number Group Number Insured Name Patient Relationship to Insured Coverage Start Date Coverage End Date [facility] [employer] PROFESSIONAL CLAIMS [address] [place] [address] [id number] KEITH ZUNIGA Self - patient is the insured MEDICAL (GENERAL) HISTORY Medical History History ICD Code HTN Denies [place],DM,CVA,Lung disease,renal dise ase
--- OUTSIDE RECORDS SUMMARY | 2024-08-13 08:19 | XMS_ITS ---
Author Organization [facility] Address [address] [place] [address] Care Team Providers Care Universal Banker Name Role Phone Fredrick Lamar Primary Care Provider Unav ailable Clarissa Rocha [phone] REASON FOR VISIT NS 05/20/24 Encounters Encounter Location Date Provider Diagnosis [facility] [address] [place] [address] 05/21/2024 Clarissa Rocha Plan Of Treatment No Information Progress Notes * Romel ZUNIGADOB:1955 (68 yo M)Acc No.[id number]:05/21/2024 Patient:?Romel ZUNIGA :1955???Age:68 Y???Sex:Male Address:[address], [place], [address] * true * Date:? Generated for Shantelli lilian/Edu/eTransmitting on:?08/13/2024 08:19 AM EST
--- OUTSIDE RECORDS SUMMARY | 2024-08-13 08:19 | XMS_ITS ---
Author Organization [facility] Address [address] [facility] [place] [address] Care Team Providers Care Integrated Logistics Operations Manager Name Role Phone Fredrick Lamar Primary Care Provider Unav ailable Clarissa Rocha Unavailable [phone] Medications Medication SIG (Take, Route, Frequency, Duration) [...] Active Encounters Encounter Location Date Provider Diagnosis [facility] [address] [address] 05/20/2024 Clarissa Rocha Plan Of Treatment No Information Progress Notes * Rmoel ZUNIGADOB:1955 (69 yo M)Acc No.[id number]:05/20/2024 Progress Notes Patient:?Romel ZUNIGA Provider:?Clarissa Rocha DPM :1955???Age:68 Y???Sex:Male Nikko e:05/20/2024 Address:[address] [place], [place] [id number] Pcp:MADELINE Paulino Subjective: * Chief Complaints: * [...] Rocha DPM Date:? Generated for Christiano quintana/Edu/Albaro on:?08/13/2024 08:18 AM EST
--- NOTE | 2024-08-13 08:20 | AM.OFFWIN_ITS ---
Intake Vital Signs 08/13/24 08:22 Weight 308 lb BP 112/80 Blood Pressure Location Rt brachial Position Sitting Pulse 73 Pulse Source Pulse Oximeter Pulse Oximetry (%) 97 Oxygen Delivery Method Room Air Intake Visit Reasons: EP Kamara's palsy not any better Intake Note: Patient here for bells palsy of right side of face that has been present for a couple of weeks and worsening. Patient Tobacco Use Status: Never used Tobacco Allergies No Known Allergies Allergy (Verified 08/13/24 08:22) Do you need a note to return to daycare/school/sports/work: No HPI HPI Comments History of Present Illness Details 69 y/o male patient who presents to the walk in clinic with c/o Worsening symptoms from Kamara's Palsy. He was seen by me 07/30/24 for similar symptoms and treated with Valacyclovir and Prednisone for 1 week. Pt reports no symptom relief. He feels like his symptoms are getting worse. He had CT Head which was normal. Lyme Panel WNL. 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 RLS (restless legs syndrome) Aortic valve calcification BPH (benign prostatic hyperplasia) Osteomyelitis [place] (obstructive sleep apnea) KAI (acute kidney injury) Surgical History Hx of cystoscopy H/O colonoscopy History of bunionectomy Amputation toe History of bunionectomy Family History Father Bladder cancer Mother Lung cancer Social History Household Members: Spouse Housing: House Are you a primary direct care counselor to a significant other at home: Yes (father, also cares for him) Do you presently have visiting nurse or other home services: No Alcohol intake: current Alcohol intake frequency: holidays/special occasions only Patient Tobacco Use Status: Never used Tobacco e-Cigarette/Vaping Use: Never Used Advance Directives Date on File: 09/02/23 service: No Cognitive needs: No Hearing needs: No Vision needs: Yes Review of Systems Const All systems reviewed & are unremarkable except as noted in HPI and below Physical Exam Vital Signs: Last Vital Signs Pulse 73 08/13/24 08:22 BP 112/80 08/13/24 08:22 Pulse Ox 97 08/13/24 08:22 Oxygen Delivery Method Room Air 08/13/24 08:22 Const General: cooperative and no acute distress Orientation/consciousness: patient oriented x3 HEENT Other: Facial Asymmetric. Difficulty smiling, frowning, or raising the eyebrow Drooping corner of the mouth. Face and sinus: No normal facial exam Eyes Other: unable to fully close right eye. Conjunctivae: conjunctivae normal Pupils: Equal, round and reactive pupils present EOM: EOM abnormal Neuro General: patient oriented x3, gait normal and moves all extremities Cranial nerves: Yes Equal, round and reactive pupils present Motor exam (neuro): 5/5 motor strength present throughout Psych Speech and movement: Normal speech and movement present Assessment & Plan Assessment & Plan (1) Kamara's palsy: Code(s): G51.0 - Kamara's palsy Plan: Advised Pt that symptoms might last up to 4 weeks. Advised to f/u with PCP for possible Neurology referral plus maybe speech therapy Ordered Acyclovir for additional 2 weeks. Medications: New acyclovir 400 mg PO TID 14 days 42 tabs 0RF G51.0 - Kamara's palsy Discontinued valacyclovir Discontinued Reason: Patient Completed Course 1,000 mg PO BID 7 days 14 tabs 0RF G51.0 - Kamara's palsy Coding Level of Care Code Est Pt Level 4 (42880) Diagnoses Kamara's palsy G51.0 Time Spent (min) 20
[2024-08-13 08:22] VITALS: BP 112/80; PULSE 73; O2SAT 97
== END 2024-08-13 08:59 | disposition home or self-care (01) ==
PROVIDERS: PCP Nurse Practitioner Family; Visit Provider Nurse Practitioner Family
DX: G51.0 Bell's palsy (principal)

== ENCOUNTER → 2024-08-13 08:11 | Outpatient (BNVA) | payer MEDICARE, SELFPAY | PROVIDERS: PCP Nurse Practitioner Family | DX: G51.0 Bell's palsy (principal) | CPT/HCPCS: 99212 ==

== ENCOUNTER 2024-09-05 10:12 | Outpatient (REF) | payer MEDICARE, SELFPAY ==
--- OUTSIDE RECORDS SUMMARY | 2024-09-05 10:15 | XMS_ITS ---
Author Organization [facility] Address [address] [place] [address] Care Team Providers Care Employee Relation Manager Name Role Phone Fredrick Lamar Primary Care Provider Unav ailable Clarissa Rocha [phone] REASON FOR VISIT NS 05/20/24 Encounters Encounter Location Date Provider Diagnosis [facility] [address] [place] [address] 05/21/2024 Clarissa Rocha Plan Of Treatment No Information Progress Notes * Romel ZNUIGADOB:1955 (68 yo M)Acc No.[id number]:05/21/2024 Patient:?Romel ZUNIGA :1955???Age:68 Y???Sex:Male Address:[address], [place], [address] * true * Date:? Generated for Shantelli lilian/Edu/eTransmitting on:?09/05/2024 10:14 AM EST
--- OUTSIDE RECORDS SUMMARY | 2024-09-05 10:15 | XMS_ITS | Patient Health Record ---
Author Organization [facility] Address [address] [place] [address] Care Team Providers Care Swimming Pool Plasterer Helper Name Role Phone JESUS PALAFOX Primary Care Provider Rudy Pineda [phone] Allergies Allergen (clinical drug ingredient) Drug/Non Drug Allergy documented on EMR Reaction Allergy Type Onset Date Status Penicillin Unknown Drug Allergy Active Reason For Referral No Information Medications Medication SIG (Take, Route, Frequency, Duration) Notes Start Date End Date Status amLODIPine Besylate 10mg Active MoviPrep 100 GM as directed Orally 06/07/20110 07/2024 Active Lisinopril Active Problems Problem Type SNOMED Code ICD Code Onset Dates Problem Status W/U Status Risk Notes Problem Screening for malignant neoplasm of colon (669506751) Special screening for malignant neoplasms, colon (V76.51) Active confirmed Plan Of Treatment Future Test Test Name Order Date COLONOSCOPY 06/07/2011 Insurance Providers Payer Name Payer Address Payer Phone Subscriber Number Group Number Insured Name Patient Relationship to Insured Coverage Start Date Coverage End Date [employer] [address] [place] [address] [phone] [id number] KEITH ZUNIGA Self - patient is the insured Medical (General) History Medical History History ICD Code HTN Denies [place],DM,CVA,Lung disease,renal dise ase
--- OUTSIDE RECORDS SUMMARY | 2024-09-05 10:15 | XMS_ITS ---
Author Organization [facility] Address [address] [facility] [place] [address] Care Team Providers Care Dressed Poultry Grader Name Role Phone Fredrick Lamar Primary Care Provider Unav ailable Clarissa Rocha Unavailable [phone] Medications Medication SIG (Take, Route, Frequency, Duration) [...] Active Encounters Encounter Location Date Provider Diagnosis [facility] [address] [address] 05/20/2024 Clarissa Rocha Plan Of Treatment No Information Progress Notes * Romel ZUNIGADOB:1955 (69 yo M)Acc No.[id number]:05/20/2024 Progress Notes Patient:?Romel ZUNIGA Provider:?Clarissa Rocha DPM :1955???Age:68 Y???Sex:Male Nikko e:05/20/2024 Address:[address] [place], [place] [id number] Pcp:MADELINE Paulino Subjective: * Chief Complaints: * [...] Rocha DPM Date:? Generated for Christiano quintana/Edu/Albaro on:?09/05/2024 10:14 AM EST
--- OUTSIDE RECORDS SUMMARY | 2024-09-05 10:15 | XMS_ITS | Patient Health Record ---
Author Organization [facility] Address [address] [facility] [place] [address] Care Team Providers Care Registered Nurse Maternal Child Name Role Phone Fredrick Lamar Primary Care Provider Unav ailable Clarissa Rocha Unavailable [phone] Lance Flores Unavailable [phone] Allergies No Known Allergies Results Component Value [...] Problem Status W/U Status Risk Notes Problem 47670693 Other hammer toe(s) (acquired), right foot (M20.41) Active confirmed Problem Acquired hammer toe of left foot (9455903315646202) Other hammer toe(s) (acquired), left foot (M20.42) Active confirmed Problem Non-pressure chronic ulcer of other part of right foot with fat layer exposed (L97.512) Active confirmed Problem Polyneuropathy due to type 2 diabetes mellitus (903675634) Type 2 diabetes mellitus with diabetic polyneuropathy (E11.42) Active confirmed Problem Chronic ulcer of foot (937143022) Non-pressure chronic ulcer of other part of left foot with fat layer exposed (L97.522) Active confirmed Problem 904208977 Non-pressure chronic ulcer of other part of unspecified foot with unspecified severity (L97.509) Active confirmed Problem 95588739 Non-pressure ulcer of left lower extremity, limited to breakdown of skin (L97.921) Active confirmed Problem 47658604 Type 2 diabetes mellitus with polyneuropathy (E11.42) Active confirmed Problem 393084102 Type 2 diabetes mellitus with foot ulcer (E11.621) Active confirmed Problem 554741720 Hammertoe of lef t foot (M20.42) Active confirmed Problem 45326622 Non-pressure ulcer of left lower extremity with fat layer exposed (L97.922) Active confirmed Problem 45383479882473992 Atherosclerosi s of artery of both lower extremities (I70.203) Active confirmed Problem Neuropathic ulce r of right foot with fat layer exposed (L97.512) Active confirmed Response to treatment Problem 703936272 Charcot's joint of left foot (M14.672) Active confirmed Problem Neurotrophic ulcer of left foot limited to breakdown of skin (L97.521) Active confirmed Response to treatment Problem Neuropathic ulce r of left foot with fat layer exposed (L97.522) Active confirmed Response to treatment Problem 59031033697515762 Neuropathic fo ot ulcer, right, limited to breakdown of skin (L97.511) Active confirmed Problem 21140694782520562 Neuropathic fo ot ulcer, left, with fat layer exposed (L97.522) Active confirmed Vital Signs Height 6ft 3in in 04/23/2024 Weight 300 lbs 04/23/2024 BMI 37.49 kg/m2 04/23/2024 Procedures Procedure Date Ordered Date Performed Result Body Sit e [id number] SKIN/TISSUE 09/12/2023 N/A Encounters Encounter Location Date Provider Diagnosis [facility] [place] [address] [place] [address] 09/12/2023 Lance Flores Type 2 diabetes mellitus with polyneuropathy E11.42 ; Other hammer toe(s) (acquired), right foot M20.41 ; Other hammer toe(s) (acquired), left foot M20.42 ; Tinea unguium B35.1 ; Neuropathic foot ulcer, left, with fat layer exposed L97.522 ; Neuropathic foot ulcer, right, limited to breakdown of skin L97.511 and Atherosclerosis of artery of both lower extremities I70.[address] [address] 09/20/2023 Clarissa Rocha Type 2 diabetes mellitus with polyneuropathy E11.42 ; Other hammer toe(s) (acquired), left foot M20.42 ; Neuropathic foot ulcer, left, with fat layer exposed L97.522 ; Atherosclerosis of artery of both lower extremities I70.203 and Cellulitis of left toe L03.[address] [address] 10/03/2023 Clarissa Rocha Other hammer toe(s) (acquired), left foot M20.42 ; Neuropathic foot ulcer, left, with fat layer exposed L97.522 ; Type 2 diabetes mellitus with polyneuropathy E11.42 and Atherosclerosis of artery of both lower extremities I70.[address] [address] 11/07/2023 Clarissa Rocha Neuropathic ulcer of left [...] I70.203 and Cellulitis of left foot L03.[address] [address] 11/19/2023 Clarissa Rocha Type 2 diabetes mellitus with polyneuropathy E11.42 ; Type 2 diabetes mellitus with foot ulcer E11.621 ; Atherosclerosis of artery of both lower extremities I70.203 and Neuropathic foot ulcer, left, with fat layer exposed L97.[address] [facility] [address] 11/27/2023 Clarissa Rocha Type 2 diabetes mellitus with polyneuropathy E11.42 ; Type 2 diabetes mellitus with foot ulcer E11.621 ; Atherosclerosis of artery of both lower extremities I70.203 and Neuropathic foot ulcer, left, with fat layer exposed L97.[address] [address] 12/06/2023 Clarissa Rocha Type 2 diabetes mellitus with polyneuropathy E11.42 ; Type 2 diabetes mellitus with foot ulcer E11.621 ; Atherosclerosis of artery of both lower extremities I70.203 and Neuropathic foot ulcer, left, with fat layer exposed L97.[address] [address] 12/20/2023 Clarissa Rocha Type 2 diabetes mellitus with polyneuropathy E11.42 ; Type 2 diabetes mellitus with foot ulcer E11.621 ; Atherosclerosis of artery of both lower extremities I70.203 and Neuropathic foot ulcer, left, with fat layer exposed L97.[address] [address] 01/06/2024 Clarissa Rocha Neurotrophic ulcer o f left foot limited to breakdown of skin L97.521 ; Type 2 diabetes mellitus with polyneuropathy E11.42 and Atherosclerosis of artery of both lower extremities I70.[address] [address] 02/10/2024 Clarissa Rocha Type 2 diabetes mellitus with diabetic polyneuropathy E11.42 ; Cellulitis of toe of right foot L03.031 ; Tinea unguium B35.1 ; Neuropathic ulcer of right foot with fat layer exposed L97.512 ; Hammertoe of left foot M20.42 ; Other hammer toe(s) (acquired), right foot M20.41 and Neurotrophic ulcer of left foot limited to breakdown of skin L97.[address] [address] 02/24/2024 Clarissa Rocha Type 2 diabetes mellitus with diabetic polyneuropathy E11.42 ; Cellulitis of toe of right foot L03.031 ; Neuropathic ulcer of right foot with fat layer exposed L97.512 ; Hammertoe of left foot M20.42 ; Other hammer toe(s) (acquired), right foot M20.41 and Neurotrophic ulcer of left foot limited to breakdown of skin L97.[address] [address] 04/09/2024 Clarissa Rocha Type 2 diabetes mellitus [...] 2 diabetes mellitus with foot ulcer E11.621 [facility] [address] [place] [address] 04/23/2024 Clarissa Rocha Type 2 diabetes mellitus [...] 2 diabetes mellitus with foot ulcer E11.[address] [address] 11/05/2023 Clarissa Rocha Cellulitis of left t oe L03.032 and Neuropathic foot ulcer, left, with fat layer exposed L97.[address] [facility] [address] 11/07/2023 Clarissa Rocha [facility] [address] 11/14/2023 Clarissa Rocha [facility] [address] 11/15/2023 Clarissa Rocha [address] [address] 11/21/2023 Clarissa Rocha [address] [place] [address] 11/27/2023 Clarissa [facility] [address] [address] 12/03/2023 Clarissa [facility] [address] [address] 01/01/2024 Clarissa [facility] [address] [address] 03/18/2024 Clarissa [facility] [place] [address] [facility] [address] [place] [address] 04/09/2024 Clarissa [facility] [address] [address] 04/09/2024 Clarissa [facility] [address] [address] 05/20/2024 Clarissa [facility] [address] [address] 05/21/2024 Clarissa Shetha Clare Encounter Date Diagnosis (ICD Code) Assessment Notes Treatment Notes Treatment Clinical Notes Section Notes 09/12/2023 Other hammer toe(s) (acquired), right foot [...] (acquired), left foot (ICD-10 - M20.42) 09/12/2023 Tinea unguium (ICD-10 - B35.1) 10/03/2023 [...] fat layer exposed (ICD-10 - L97.522) 09/12/2023 Neuropathic foot ulcer, right, limited to breakdown of skin (ICD-10 - L97.511) 11/07/2023 Type 2 diabetes mellitus with polyneuropathy [...] of both lower extremities (ICD-10 - I70.203) 09/12/2023 Atherosclerosis of artery of both lower extremities (ICD-10 - I70.203) 11/07/2023 Cellulitis of left foot (ICD-10 - L03.116) 04/09/2024 Type 2 diabetes mellitus with foot ulcer (ICD-10 - E11.621) Plan Of Treatment Pending Test Test Name Order Date X ray : Foot, left 3V 09/05/2023 X ray : Foot, left 3V 11/07/2023 X ray : Foot, right 3V 09/05/2023 [id number] SKIN/TISSUE 09/12/2023 Insurance Providers Payer Name Payer Address Payer Phone Subscriber Number Group Number Insured Name Patient Relationship to Insured Coverage Start Date Coverage End Date [employer] Medicare Complete [address] [address] [place] [address] [id number] Romel Pruitt Self - patient is the insured Medical (General) History Medical History History ICD Code Diabetic Measles Mumps Chicken pox Surgical History Surgery Date(Month/Year) b/l great toe removal 2018 bunion surgery colonoscopy 01/25/21
[2024-09-05 13:33] LABS: MANUAL DIFF FLAG NO
[2024-09-05 13:43] LABS: Basophils Absolute Auto 0.1 X10*3/uL (0.0-0.2); Basophils Percent Auto 0.5 % (0-2); Eosinophils Absolute Auto 0.2 X10*3/uL (0.0-0.4); Eosinophils Percent Auto 2.3 % (0-4); Hematocrit 45.3 % (42.0-52.0); Hemoglobin 14.9 g/dl (14.0-18.0); Imm Gran Abs Auto 0.11 X10*3/uL (0.00-0.03); Imm Gran Pct Auto 1.1 % (0.0-0.4); Lymphocytes Absolute Auto 1.3 X10*3/uL (1.2-4.9); Lymphocytes Percent Auto 13.5 % (20-40); Mean Corpuscular HGB Conc 32.9 g/dl (31.0-36.0); Mean Corpuscular Hemoglobin 28.3 pg (27.0-33.0); Mean Corpuscular Volume 86.1 fL (80.0-98.0); Mean Platelet Volume 10.1 fL (9.4-12.4); Monocytes Absolute Auto 0.6 X10*3/uL (0.1-1.2); Monocytes Percent Auto 6.6 % (2-11); Neutrophils Absolute Auto 7.4 x10*3/uL (2.0-8.3); Platelet Count 264 X10*3/uL (160-400); Red Blood Count 5.26 X10*6/uL (4.60-5.80); Red Cell Distribution Width 15.2 % (11.0-16.0); White Blood Count 9.8 X10*3/uL (4.8-10.8)
[2024-09-05 14:17] LABS: Alanine Aminotransferase 31 U/L (0-40); Alkaline Phosphatase 80 U/L (39-117); Anion Gap 13 (12-20); Aspartate Amino Transferase 25 U/L (5-37); Bilirubin Total 0.8 mg/dL (0.0-1.0); Blood Urea Nitrogen 21 mg/dL (9-16); Calcium 9.6 mg/dL (8.4-10.2); Carbon Dioxide 26 mmol/L (22-29); Chloride 106 mmol/L (96-108); Cholesterol 117 mg/dL (<200); Estimated Glomerular Filt Rate > 60; Glucose Fasting 158 mg/dL (60-99); HDL Cholesterol 37 mg/dL (>40); LDL Cholesterol Calculated 50 mg/dL (<100); Potassium 4.6 mmol/L (3.3-5.1); Sodium 140 mmol/L (135-145); Total Protein 7.4 g/dL (6.5-8.0); Triglycerides 152 mg/dL (<150)
[2024-09-05 14:31] LABS: PSA,Total (Free>4and<10) 1.08 ng/mL (0.00-4.00)
[2024-09-05 14:33] LABS: TSH reflex Free T4 1.06 uIU/mL (0.32-4.0)
== END 2024-09-05 10:13 | disposition home or self-care (01) ==
LOC: HO.HMGCLDS 10:12
PROVIDERS: PCP Nurse Practitioner Family; Referring Provider Urology; Visit Provider Nurse Practitioner Family
DX: Z12.5 Encounter for screening for malignant neoplasm of prostate (principal); E11.65 Type 2 diabetes mellitus with hyperglycemia
CPT/HCPCS: 36415; 80053; 80061; 84153; 84443; 85025

== ENCOUNTER 2024-09-07 05:00 | Outpatient (REF) | payer MEDICARE, SELFPAY ==
[2024-09-07 11:05] LABS: Appearance Urine Cloudy; Color Urine Yellow; Glucose Urine UA Negative (Negative); Leukocyte Esterase Urine Large (3+) (Negative); Nitrite Urine Negative (Negative); PH 5.5 (5.0-9.0); UMIC TRIGGER UACC YES; Urine Blood Large (3+) (Negative); Urine Ketones Negative (Negative); Urine Protein 30 (1+) mg/dL (Neg-Trace)
[2024-09-07 11:35] LABS: Bacteria Urine None Seen (None Seen); Calcium Oxalate Crystals Urine Present; Hyaline Casts Urine 0-2 /LPF (0-2); Squamous Epithelial Cell Urine 0-2 /HPF (0-2); UACC Culture Trigger YES; WBC Urine >50 /HPF (0-5)
== END 2024-09-07 05:01 | disposition home or self-care (01) ==
LOC: HO.HMGCLNP 05:00
PROVIDERS: PCP Nurse Practitioner Family; Visit Provider Nurse Practitioner Family
DX: E11.65 Type 2 diabetes mellitus with hyperglycemia (principal); R82.90 Unspecified abnormal findings in urine
CPT/HCPCS: 81001; 81003; 87086; 87088; 87186

== ENCOUNTER 2024-09-10 07:43 | Outpatient (AMB) | payer MEDICARE, SELFPAY ==
--- OUTSIDE RECORDS SUMMARY | 2024-09-10 07:53 | XMS_ITS ---
Author Organization [facility] Address [address] [facility] [place] [address] Care Team Providers Care Water Quality Control Engineer Name Role Phone Fredrick Lamar Primary Care Provider Unav ailable Clarissa Rocha Unavailable [phone] Medications Medication SIG (Take, Route, Frequency, Duration) [...] Active Encounters Encounter Location Date Provider Diagnosis [facility] [address] [address] 05/20/2024 Clarissa Rocha Plan Of Treatment No Information Progress Notes * Romel ZUNIGADOB:1955 (69 yo M)Acc No.[id number]:05/20/2024 Progress Notes Patient:?Romel ZUNIGA Provider:?Clarissa Rocha DPM :1955???Age:68 Y???Sex:Male Nikko e:05/20/2024 Address:[address] [place], [place] [id number] Pcp:MADELINE Paulino Subjective: * Chief Complaints: * [...] Rocha DPM Date:? Generated for Christiano quintana/Edu/Albaro on:?09/10/2024 07:53 AM EDT
--- OUTSIDE RECORDS SUMMARY | 2024-09-10 07:53 | XMS_ITS ---
Author Organization [facility] Address [address] [place] [address] Care Team Providers Care Assembly Room Supervisor Name Role Phone Fredrick Lamar Primary Care Provider Unav ailable Clarissa Rocha [phone] REASON FOR VISIT NS 05/20/24 Encounters Encounter Location Date Provider Diagnosis [facility] [address] [place] [address] 05/21/2024 Clarissa Rocha Plan Of Treatment No Information Progress Notes * Romel ZUNIGADOB:1955 (68 yo M)Acc No.[id number]:05/21/2024 Patient:?Romel ZUNIGA :1955???Age:68 Y???Sex:Male Address:[address], [place], [address] * true * Date:? Generated for Printi lilian/Edu/eTransmitting on:?09/10/2024 07:53 AM EDT
--- OUTSIDE RECORDS SUMMARY | 2024-09-10 07:53 | XMS_ITS | Patient Health Record ---
Author Organization [facility] Address [address] [facility] [place] [address] Care Team Providers Care Archivist Military History Name Role Phone Fredrick Lamar Primary Care Provider Unav ailable Clarissa Rocha Unavailable [phone] Lance Flores Unavailable [phone] Allergies No Known Allergies Results Component Value [...] Problem Status W/U Status Risk Notes Problem 72700569 Other hammer toe(s) (acquired), right foot (M20.41) Active confirmed Problem Acquired hammer toe of left foot (3163530214405361) Other hammer toe(s) (acquired), left foot (M20.42) Active confirmed Problem Non-pressure chronic ulcer of other part of right foot with fat layer exposed (L97.512) Active confirmed Problem Polyneuropathy due to type 2 diabetes mellitus (091197234) Type 2 diabetes mellitus with diabetic polyneuropathy (E11.42) Active confirmed Problem Chronic ulcer of foot (627107470) Non-pressure chronic ulcer of other part of left foot with fat layer exposed (L97.522) Active confirmed Problem 547666290 Non-pressure chronic ulcer of other part of unspecified foot with unspecified severity (L97.509) Active confirmed Problem 60989179 Non-pressure ulcer of left lower extremity, limited to breakdown of skin (L97.921) Active confirmed Problem 96196148 Type 2 diabetes mellitus with polyneuropathy (E11.42) Active confirmed Problem 366630189 Type 2 diabetes mellitus with foot ulcer (E11.621) Active confirmed Problem 061771194 Hammertoe of lef t foot (M20.42) Active confirmed Problem 48277989 Non-pressure ulcer of left lower extremity with fat layer exposed (L97.922) Active confirmed Problem 80245752550910948 Atherosclerosi s of artery of both lower extremities (I70.203) Active confirmed Problem Neuropathic ulce r of right foot with fat layer exposed (L97.512) Active confirmed Response to treatment Problem 773827491 Charcot's joint of left foot (M14.672) Active confirmed Problem Neurotrophic ulcer of left foot limited to breakdown of skin (L97.521) Active confirmed Response to treatment Problem Neuropathic ulce r of left foot with fat layer exposed (L97.522) Active confirmed Response to treatment Problem 87154665003656642 Neuropathic fo ot ulcer, right, limited to breakdown of skin (L97.511) Active confirmed Problem 13066560269146727 Neuropathic fo ot ulcer, left, with fat layer exposed (L97.522) Active confirmed Vital Signs Height 6ft 3in in 04/23/2024 Weight 300 lbs 04/23/2024 BMI 37.49 kg/m2 04/23/2024 Procedures Procedure Date Ordered Date Performed Result Body Sit e [id number] SKIN/TISSUE 09/12/2023 N/A Encounters Encounter Location Date Provider Diagnosis [facility] [place] [address] [place] [address] 09/12/2023 Lance Flores Type 2 diabetes mellitus with polyneuropathy E11.42 ; Other hammer toe(s) (acquired), right foot M20.41 ; Other hammer toe(s) (acquired), left foot M20.42 ; Tinea unguium B35.1 ; Neuropathic foot ulcer, left, with fat layer exposed L97.522 ; Neuropathic foot ulcer, right, limited to breakdown of skin L97.511 and Atherosclerosis of artery of both lower extremities I70.[address] [address] 09/20/2023 Clarissa Rocha Type 2 diabetes mellitus with polyneuropathy E11.42 ; Other hammer toe(s) (acquired), left foot M20.42 ; Neuropathic foot ulcer, left, with fat layer exposed L97.522 ; Atherosclerosis of artery of both lower extremities I70.203 and Cellulitis of left toe L03.[address] [address] 10/03/2023 Clarissa Rocha Other hammer toe(s) (acquired), left foot M20.42 ; Neuropathic foot ulcer, left, with fat layer exposed L97.522 ; Type 2 diabetes mellitus with polyneuropathy E11.42 and Atherosclerosis of artery of both lower extremities I70.[address] [address] 11/07/2023 Clarissa Rocha Neuropathic ulcer of left [...] I70.203 and Cellulitis of left foot L03.[address] [address] 11/19/2023 Clarissa Rocha Type 2 diabetes mellitus with polyneuropathy E11.42 ; Type 2 diabetes mellitus with foot ulcer E11.621 ; Atherosclerosis of artery of both lower extremities I70.203 and Neuropathic foot ulcer, left, with fat layer exposed L97.[address] [facility] [address] 11/27/2023 Clarissa Rocha Type 2 diabetes mellitus with polyneuropathy E11.42 ; Type 2 diabetes mellitus with foot ulcer E11.621 ; Atherosclerosis of artery of both lower extremities I70.203 and Neuropathic foot ulcer, left, with fat layer exposed L97.[address] [address] 12/06/2023 Clarissa Rocha Type 2 diabetes mellitus with polyneuropathy E11.42 ; Type 2 diabetes mellitus with foot ulcer E11.621 ; Atherosclerosis of artery of both lower extremities I70.203 and Neuropathic foot ulcer, left, with fat layer exposed L97.[address] [address] 12/20/2023 Clarissa Rocha Type 2 diabetes mellitus with polyneuropathy E11.42 ; Type 2 diabetes mellitus with foot ulcer E11.621 ; Atherosclerosis of artery of both lower extremities I70.203 and Neuropathic foot ulcer, left, with fat layer exposed L97.[address] [address] 01/06/2024 Clarissa Rocha Neurotrophic ulcer o f left foot limited to breakdown of skin L97.521 ; Type 2 diabetes mellitus with polyneuropathy E11.42 and Atherosclerosis of artery of both lower extremities I70.[address] [address] 02/10/2024 Clarissa Rocha Type 2 diabetes mellitus with diabetic polyneuropathy E11.42 ; Cellulitis of toe of right foot L03.031 ; Tinea unguium B35.1 ; Neuropathic ulcer of right foot with fat layer exposed L97.512 ; Hammertoe of left foot M20.42 ; Other hammer toe(s) (acquired), right foot M20.41 and Neurotrophic ulcer of left foot limited to breakdown of skin L97.[address] [address] 02/24/2024 Clarissa Rocha Type 2 diabetes mellitus with diabetic polyneuropathy E11.42 ; Cellulitis of toe of right foot L03.031 ; Neuropathic ulcer of right foot with fat layer exposed L97.512 ; Hammertoe of left foot M20.42 ; Other hammer toe(s) (acquired), right foot M20.41 and Neurotrophic ulcer of left foot limited to breakdown of skin L97.[address] [address] 04/09/2024 Clarissa Rocha Type 2 diabetes mellitus [...] 2 diabetes mellitus with foot ulcer E11.621 [facility] [address] [place] [address] 04/23/2024 Clarissa Rocha Type 2 diabetes mellitus [...] 2 diabetes mellitus with foot ulcer E11.[address] [address] 11/05/2023 Clarissa Rocha Cellulitis of left t oe L03.032 and Neuropathic foot ulcer, left, with fat layer exposed L97.[address] [facility] [address] 11/07/2023 Clarissa Rocha [facility] [address] 11/14/2023 Clarissa Rocha [facility] [address] 11/15/2023 Clarissa Rocha [address] [address] 11/21/2023 Clarissa Rocha [address] [place] [address] 11/27/2023 Clarissa [facility] [address] [address] 12/03/2023 Clarissa [facility] [address] [address] 01/01/2024 Clarissa [facility] [address] [address] 03/18/2024 Clarissa [facility] [place] [address] [facility][1] [address] [place] [address] 04/09/2024 Clarissa [facility] [address] [address] 04/09/2024 Clarissa [facility] [address] [address] 05/20/2024 Clarissa [facility] [address] [address] 05/21/2024 Clarissa Shetha Clare Encounter Date Diagnosis [...] X ray : Foot, right 3V 09/05/2023 [id number]-[id number] SKIN/TISSUE 09/12/2023 Insurance Providers Payer Name Payer Address Payer Phone Subscriber Number Group Number Insured Name Patient Relationship to Insured Coverage Start Date Coverage End Date A[employer] Medicare Complete [address] [address] [place] [address] [id number] Romel Pruitt Self - patient is the insured Medical (General) History Medical History History ICD Code Diabetic Measles Mumps Chicken pox Surgical History Surgery Date(Month/Year) b/l great toe removal 2018 bunion surgery colonoscopy 01/25/21
--- OUTSIDE RECORDS SUMMARY | 2024-09-10 07:53 | XMS_ITS ---
[facility] Organization [facility] Address [address] [place] [address] Care Team Providers Care Motor Coach Operator Name Role Phone Fredrick Lamar Primary Care Provider Unav ailable Clarissa Rocha [phone] REASON FOR VISIT 05/20/24 NS 1st NS Encounters Encounter Location Date Provider Diagnosis [facility] [address] [place] [address] 05/20/2024 Clarissa Rocha Plan Of Treatment No Information Progress Notes * Romel ZUNIGADOB:1955 (68 yo M)Acc No.[id number]:05/20/2024 Patient:?Romel ZUNIGA :1955???Age:68 Y???Sex:Male Address:[address], [place], [address] * true * Date:? Generated for Printi ng/Faavag/eTransmitting on:?09/10/2024 07:53 AM EDT
--- OUTSIDE RECORDS SUMMARY | 2024-09-10 07:53 | XMS_ITS | Patient Health Record ---
Author Organization [facility] Address [address] [place] [address] Care Team Providers Care Clinical Partner Name Role Phone JESUS PALAFOX Primary Care Provider Rudy Pineda [phone] Allergies Allergen (clinical drug ingredient) Drug/Non Drug [...] Problem Screening for malignant neoplasm of colon (134397789) Special screening for malignant neoplasms, colon (V76.51) Active confirmed Plan Of Treatment Future Test Test Name Order Date COLONOSCOPY 06/07/2011 Insurance Providers Payer Name Payer Address Payer Phone Subscriber Number Group Number Insured Name Patient Relationship to Insured Coverage Start Date Coverage End Date [facility] [employer] CLAIM[employer] [address] [place] [address] [phone] [id number] ZUNIGA Self - patient is the insured Medical (General) History Medical History History ICD Code HTN Denies DC,DM,CVA,Lung disease,renal dise ase
--- NOTE | 2024-09-10 08:11 | MHC.OFFVIS ---
Intake Visit Reasons: follow up/labs Intake Note: Patient is present for follow up/labs Urology Med: Dutasteride, rapaflo Blood Thinner: none Antibiotic Allergy: none Patient declined to give urine specimen--PVR:190ml Allergies No Known Allergies Allergy (Verified 09/10/24 08:17) HPI Comments Details: 09/10/24--69-year-old male who has a significant urologic surgical history, having undergone cystolitholapaxy for bladder stones and prostate fulguration in July. He continues on Avodart and Rapaflo for BPH management, although he wishes to discontinue one of the meds, noting manageable urinary symptoms without difficulty. A recent PSA level is within normal limits. The patient was diagnosed with a UTI by PCP and started antibiotic therapy Levaquin yesterday. Patient declined to give urine specimen--PVR:190ml. Urinary Symptoms Review - No difficulty in voiding - No urinary incontinence reported - Recent diagnosis of Urinary Tract Infection Results - Labs: PSA on 09/05/24, 1.08 ng/mL (within normal range) 07/30/2024--ruben is here status post repeat cystoscopy cysto litholapaxy bladder stone/laser/fulguration prostate--07/14/2024. The patient had multiple stones greater than 10 in his bladder. He states he is doing very well. He states the urine flow has improved. He denies urgency. I want to continue the Avodart and Rapaflo for now. Follow-up in 4 months [facility] Medical History Kamara's palsy HTN (hypertension) (atherosclerosis) Ascending aortic aneurysm Ascending aorta dilatation Aortic stenosis Hammertoe, bilateral COVID-19 vaccine series completed Obesity due to excess calories Tinea pedis Charcot foot due to diabetes mellitus Morbid obesity Diabetic polyneuropathy associated with type 2 diabetes mellitus 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 type 2 diabetes mellitus MCC (current) use of insulin RLS (restless legs syndrome) Aortic valve calcification BPH (benign prostatic hyperplasia) Osteomyelitis [place] (obstructive sleep apnea) KAI (acute kidney injury) Surgical History Hx of cystoscopy H/O colonoscopy History of bunionectomy Amputation toe History of bunionectomy Family History Father Bladder cancer Mother Lung cancer Social History Household Members: Spouse Housing: House Are you a primary long term care administrator to a significant other at home: Yes (father, also cares for him) Do you presently have visiting nurse or other home services: No Alcohol intake: current Alcohol intake frequency: holidays/special occasions only Patient Tobacco Use Status: Never used Tobacco e-Cigarette/Vaping Use: Never Used Advance Directives Date on File: 09/02/23 service: No Cognitive needs: No Hearing needs: No Vision needs: Yes Review of Systems Const All systems reviewed & are unremarkable except as noted in HPI and below Reports no additional complaints Eyes Reports no additional complaints ENT Reports no additional complaints Card Reports no additional complaints Resp Reports no additional complaints GI Reports no additional complaints Reports as per HPI Musc Reports no additional complaints Skin/Breast Reports system reviewed and no additional complaints, except as documented Neuro Reports no additional complaints Psych Reports no additional complaints Endo Reports no additional complaints Marcial/Lymph Reports no additional complaints Aller/Immun Reports no additional complaints Assessment & Plan Assessment & Plan (1) BPH (benign prostatic hyperplasia): Code(s): N40.0 - Benign prostatic hyperplasia without lower urinary tract symptoms Category: Medical (2) Diabetes: Code(s): E11.9 - Type 2 diabetes mellitus without complications Category: Medical (3) Bladder calculus: Code(s): N21.0 - Calculus in bladder Category: Medical Plan Plan I plan to discontinue Rapaflo given the patient's stable urinary symptoms and normal PSA levels, while continuing Avodart for optimal BPH management. An ultrasound of the kidneys and bladder will be performed before his six-month follow-up to monitor for stone recurrence. We'll reassess the efficacy of this management approach then. Current treatment for UTI with Levaquin by PCP Patient Instructions: Patient Instructions - Stop taking Rapaflo as discussed - Continue Avodart 0.5 mg daily - Complete the antibiotic course for the Urinary Tract Infection - Undergo kidney and bladder ultrasound before the next visit - Return in six months or earlier if urinary symptoms worsen - Monitor for changes in urinary habits and report any concerns promptly The patient had an opportunity to ask questions regarding treatment plan. The patient expressed understanding and agreement with the above treatment plan. The patient is aware they should contact our office by phone for worsening of their current condition or the appearance of new symptoms. Compliance is encouraged with any medications and followup testing that is ordered. It is a privilege to be allowed the opportunity to participate in the urologic care of your patient. If you have any questions or concerns regarding treatment for the above conditions please do not hesitate to contact me. The office telephone contact is [phone]. This note is constructed in part using voice recognition software. While every effort has been made to ensure accuracy assistant grocery store manager errors may have been included. Yours sincerely, Sofia Dc MD Scribe Plan - Not visible on output: Patient was informed and verbally consented to the use of an ambient scribe for clinic note documentation during this visit. Coding Level of Care Code Est Pt Level 3 (67270) Complex EM visit Add On G2211 Diagnoses BPH (benign prostatic hyperplasia) N40.0 Diabetes E11.9 Bladder calculus N21.0
== END 2024-09-10 08:58 | disposition home or self-care (01) ==
PROVIDERS: PCP Nurse Practitioner Family; Visit Provider Urology
DX: N40.0 Benign prostatic hyperplasia without lower urinary tract symptoms (principal); E11.9 Type 2 diabetes mellitus without complications; N21.0 Calculus in bladder
CPT/HCPCS: 99213; G2211

== ENCOUNTER → 2024-09-10 07:51 | Outpatient (BNVA) | payer MEDICARE, SELFPAY | PROVIDERS: PCP Nurse Practitioner Family; Visit Provider Urology | DX: N40.0 Benign prostatic hyperplasia without lower urinary tract symptoms (principal); E11.9 Type 2 diabetes mellitus without complications; N21.0 Calculus in bladder | CPT/HCPCS: 51798; 99212 ==

== ENCOUNTER 2024-09-23 07:16 | Outpatient (AMB) | payer MEDICARE, SELFPAY ==
[2024-09-23 07:29] VITALS: BP 128/64; PULSE 85; RESP 18; TEMP 36.5; O2SAT 97; BMI 37.7
--- NOTE | 2024-09-23 07:29 | A.OFFPC_ITS ---
Vital Signs 09/23/24 07:29 Height 6 ft 3 in Weight 302 lb BMI 37.7 BP 128/64 Blood Pressure Location Rt brachial Position Sitting Respiration 18 Pulse 85 Pulse Source Pulse Oximeter Temp 97.7 F Temp Source Oral Pulse Oximetry (%) 97 Oxygen Delivery Method Room Air Intake Visit Reasons: ANNUAL PE Intake Note: Pt is here today for his PE Allergies No Known Allergies Allergy (Verified 09/23/24 08:02) Medication List - Last Reconciled 09/23/24 by ELIUD Elmore- acyclovir 400 mg PO TID 14 days alpha lipoic acid 600 mg PO DAILY amlodipine 10 mg PO DAILY aspirin (Adult Low Dose Aspirin) 81 mg PO DAILY atorvastatin 80 mg PO BEDTIME 90 days blood sugar diagnostic (FreeStyle Lite Strips) 4 times a day blood-glucose meter (FreeStyle Lite Meter kit) 4 times a day cholecalciferol (vitamin D3) 10 mcg PO DAILY dutasteride (Avodart) 0.5 mg PO DAILY FreeStyle Lancets (lancets) 4 times a day NS FreeStyle Yolanda 2 [place] (flash glucose scanning reader) TID testing NS FreeStyle Yolanda 2 Sensor (flash glucose sensor) TID tesing NS gabapentin 300 mg PO TID 30 days insulin glargine U-300 conc (Toujeo Max U-300 SoloStar) 55 units (0.1833 mL) subcut DAILY lisinopril 10 mg PO DAILY 90 days metformin ER 1,000 mg (2 x 500 mg) PO BID pen needle, diabetic (BD Ultra-Fine Short Pen Needle) use to inject insulin once a day prednisone 60 mg (3 x 20 mg) PO DAILY 6 days semaglutide (Ozempic) 2 mg subcut QWEEK trazodone 100 mg PO BEDTIME PRN 30 days Tobacco use date assessed: 09/23/24 Fall risk assessment: No Falls in past year Last assessed Fall Risk: 09/23/24 Dental Screening Dental Screen Date: 09/23/24 Did you have a dental visit in the last 12 months?: Yes Did you have a dental problem in the last 6 months where you did not have access to dental care?: Yes Was dental information given to patient?: Patient has dentist HPI ANNUAL PE HPI Details History of Present Illness The patient is a 69-year-old male presenting with ongoing right-sided Kamara's Palsy symptoms and new bilateral pulsatile tinnitus. His Kamara's Palsy was managed initially with prednisone and antiviral therapy and showed some initial improvement, though residual paralysis remains. The new auditory symptoms have persisted for two weeks, sparking concern after a carotid bruit was detected. Despite a past CT scan showing no brain abnormalities, further imaging with a CT head and neck with contrast is planned. The patient is managing type 2 diabetes mellitus with insulin therapy. His A1c reflects poor glycemic control, partially due to lapses in dietary adherence. Sensory exam of the lower extremities records diminished sensation, more pronounced on the left side. Both feet demonstrate onychomycosis, and there are lesions and amputations on several toes. Dermatologic examination revealed a co ncerning lesion requiring dermatological follow-up, as well as a potential vascular assessment for his carotid bruit. Health Maintenance - Monitoring of blood glucose levels and A1c for diabetes management - Regular podiatry appointments for diab etic foot care - Recommendation of dietary management t o better control diabetes - Use of artificial tears regularly for ocular surface protection due to Kamara's Palsy Social History - Dietary non-compliance reported by jaelyn long - Scheduled to attend speech therapy mel dominguez Review of Systems - Ears: Reports bilateral pulsatile tinn itus for two weeks. Physical Exam General: Cooperative, healthy appearing, comfortable, no acute distress and well developed Orientation: Patient oriented x3 Limitations: No limitations Head: Normal to inspection Ears: Hearing grossly normal bilaterally, but reports hearing a pulsating in his ears bilaterally Nose: Normal external nose present Face and sinus: Right-sided Kamara's Palsy noted, unable to make a complete smile Eyes: Appearance normal, both eyes and all related structures, almost able to completely close right eyelid, uses artificial tears regularly Neck: Normal visual inspection and Yes full ROM, question of a bruit noted on right carotid Respiratory: Normal respiratory effort and able to speak in complete sentences. Clear to auscultation bilaterally Cardiovascular: Regular rate and rhythm. Normal S1 and S2 with systolic murmur GI: Normal to inspection. Soft to palpation and nontender Skin: No rashes or lesions noted, but dry patch with a papular irregular lesion in the right preauricular region Neuro: Patient oriented x3 Extremities: Lack of sensation to the left and right feet, more on the left. Scab on the distal tip of the second toe, left foot. Scab on the dorsal aspect of the first toe. Onychomycosis noted bilaterally. Fourth toe amputation and third toe ulceration/scabbing on the distal tip, right foot. Edema +1p to bilateral lower extremities with some discoloration to legs. Results - Labs: Hemoglobin A1c: 7.9% - Imaging: CT scan of the head on 08/05 owed no intracranial abnormality. Plan The management of ongoing Kamara's Palsy will continue with artificial tears and upcoming speech therapy to improve facial movement and communication. A CT scan of the head and neck with IV contrast is planned to assess the vascular concerns due to newly observed bilateral pulsatile tinnitus and carotid bruit. The insulin regimen has been modified to 58 units to better manage diabetes alongside dietary guidance. There is a need for podiatry assessment for the diabetic foot issues, and dermatology to evaluate the preauricular lesion observed. Additional cardiovascular evaluation may be considered if warranted. Discussion Notes During the visit, I discussed the management of Kamara's Palsy and the benefits of continuing artificial tears and upcoming speech therapy. For the new bilateral tinnitus and detected carotid bruit, I recommended a CT scan of the head and neck with IV contrast to assess vascular causes. We discussed the recent glycemic control challenges and the need to increase insulin dosage to 58 units to manage diabetes effectively. The patient understood the importance of dietary adjustments and regular follow-ups with podiatry for foot care. I emphasized the need for dermatological evaluation due to the irregular lesion and advised monitoring of cardiovascular status concerning the systolic murmur. The patient agreed with the planned interventions and was counseled on signs that should prompt immediate medical attention. Patient Instructions - Continue using artificial tears regula rly. - Attend scheduled sessions for speech t herapy. - Monitor blood sugar levels closely and adhere to a diabetic-friendly diet. - Report any increase in pulsatile tinni tus or new symptoms immediately. - Follow-up as scheduled with podiatry a nd dermatology. - Undergo the CT scan of the head and ne ck with contrast as prescribed. -follow up with neuro [facility] [place] Medical History Kamara's palsy HTN (hypertension) (atherosclerosis) Ascending aortic aneurysm Ascending aorta dilatation Aortic stenosis Hammertoe, bilateral COVID-19 vaccine series completed Obesity due to excess calories Tinea pedis Charcot foot due to diabetes mellitus Morbid obesity Diabetic polyneuropathy associated with type 2 diabetes mellitus 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 type 2 diabetes mellitus MCC (current) use of insulin RLS (restless legs syndrome) Aortic valve calcification BPH (benign prostatic hyperplasia) Osteomyelitis [place] (obstructive sleep apnea) KAI (acute kidney injury) Surgical History Hx of cystoscopy H/O colonoscopy History of bunionectomy Amputation toe History of bunionectomy Family History Father Bladder cancer Mother Lung cancer Social History Household Members: Spouse Housing: House Are you a primary inspector health care facilities to a significant other at home: Yes (father, also cares for him) Do you presently have visiting nurse or other home services: No Alcohol intake: current Alcohol intake frequency: holidays/special occasions only Patient Tobacco Use Status: Never used Tobacco e-Cigarette/Vaping Use: Never Used Advance Directives Date on File: 09/02/23 service: No Cognitive needs: No Hearing needs: No Vision needs: Yes Questionnaire PHQ-9 Over the last 2 weeks, how often have you been bothered by any of the following problems? 1. Little interest or pleasure in doing things: not at all 2. Feeling down, depressed, or hopeless: not at all 3. Trouble falling or staying asleep, or sleeping too much: not at all 4. Feeling tired or having little energy: not at all 5. Poor appetite or overeating: not at all 6. Feeling bad about yourself - or that you are a failure or have let yourself or your family down: not at all 7. Trouble concentrating on things, such as reading the newspaper or watching television: not at all 8. Moving or speaking so slowly that other people could have noticed. Or the opposite - being so fidgety or restless that you have been moving around a lot more than usual: not at all 9. Thoughts that you would be better off or of hurting yourself in some way: not at all Total score: 0 Depression Screening Interpretation: Negative Depression Screening Done: Yes 51405 - PHQ-9 Billing: Yes Source: Developed by Drs. Rudy Lott, Melissa Giraldo, Baljit Huang and colleagues, with an educational angela from [employer]. Thrive Questionnaire Date Thrive assessed: 09/23/24 I am a: Patient What is your living situation today?: I have a steady place to live Within the past 12 months, did the food you bought not last and you didn't have the money to get more?: Never true Within the past 12 months, did you worry whether your food would run out before you got money to buy more?: Never true Do you have trouble paying for medicines?: No Do you have trouble getting transportation to medical appointments?: No Do you have trouble paying your heating and electricity bill?: No Do you have trouble taking care of your child, family member or friend?: No Do you have trouble with day-to-day activities such as bathing, preparing meals, shopping, managing finances, etc.?: No Are you currently unemployed and looking for a job?: No Are you interested in more education?: Yes Please select the resources that you would like help with: None Currently or been in a relationship where the following occur: No concerns reported THRIVE Score: 0 AUDIT C Alcohol Use Questionnaire (AUDIT-C) 1. How often do you have a drink containing alcohol?: Monthly or less 2. How many drinks containing alcohol do you have on a typical day when you are drinking?: 1 or 2 3. How often do you have six or more drinks on one occasion?: Never Total Score: 1 Score Reviewed/Action Taken: No ALFRED-7 AMB Questionnaire ALFRED-7 Date ALFRED - 7 assessed: 09/23/24 Feeling nervous, anxious, or on edge: 0 = Not at all Not being able to stop or control worryin = Not at all Worrying too much about different things: 0 = Not at all Trouble relaxin = Not at all Being so restless that it is hard to sit still: 0 = Not at all Becoming easily annoyed or irritable: 0 = Not at all Feeling afraid as if something awful might happen: 0 = Not at all Total ALFRED-7 score (0-4 normal; 5-9 mild; 10-14 moderate; 15-21 severe): 0 Source: Developed by Melissa EscalanteW. Enzo, Baljit Huang and colleagues, with an educational angela from [employer]. ALFRED-7 Assessment Billing ALFRED-7 Assessment Tool: ALFRED-7 Assessment 01495 Physical exam (Primary Care) Vital Signs: Last Vital Signs Temp 97.7 F 09/23/24 07:29 Pulse 85 09/23/24 07:29 Resp 18 09/23/24 07:29 BP 128/64 09/23/24 07:29 Pulse Ox 97 09/23/24 07:29 Oxygen Delivery Method Room Air 09/23/24 07:29 BMI result Body Mass Index 37.7 Tobacco/Smoking Status: Tobacco use Status Tobacco use date assessed 09/23/24 09/23/24 07:33 Patient Tobacco Use Status Never used Tobacco 09/23/24 07:33 e-Cigarette/Vaping Use Never Used 09/23/24 07:33 PHQ-9: PHQ-9 Score PHQ-9: Total score 0 09/23/24 08:49 Depression Screening Interpretation: Negative Thrive Assessment: Date of Thrive Assessment Date Thrive assessed 09/23/24 09/23/24 07:33 Currently or been in a relationship where the following occur: No concerns reported Results AMB Hemoglobin A1c AMB Hemoglobin A1c 7.9 % Last Edit by Doreen Cowan CMA on 09/23/24 08:02 Results Reviewed Results Reviewed: Laboratory Last Values Hgb A1c (Clinic) 7.9 % (4.0-6.0) H 09/23/24 07:47 Coding Level of Care Code Est Pt Level 4 (57397) Est Pt Prev Care >65y(94960) Diagnoses Dermatitis L30.9 Kamara's palsy G51.0 Speech abnormality R47.9 Right carotid bruit R09.89 Hearing abnormally acute H93.239 Pulsatile tinnitus H93.A9 Additional Codes ALFRED-7 Assessment Billing - ALFRED-7 Assessment Tool: ALFRED-7 Assessment 16512 ([id number]) PHQ-9 - 86902 - PHQ-9 Billing: Yes ([id number]) Assessment & Plan Assessment & Plan (1) Dermatitis: Code(s): L30.9 - Dermatitis, unspecified Category: Medical (2) Kamara's palsy: Code(s): G51.0 - Kamara's palsy Category: Medical (3) Speech abnormality: Code(s): R47.9 - Unspecified speech disturbances Category: Medical (4) Right carotid bruit: Code(s): R09.89 - Other specified symptoms and signs involving the circulatory and respiratory systems Category: Medical (5) Right carotid bruit: Code(s): R09.89 - Other specified symptoms and signs involving the circulatory and respiratory systems Category: Medical (6) Hearing abnormally acute: Code(s): H93.239 - Hyperacusis, unspecified ear Category: Medical (7) Pulsatile tinnitus: Code(s): H93.A9 - Pulsatile tinnitus, unspecified ear Category: Medical Plan . Orders: Orders AMB Hemoglobin A1c 09/23/24 E11.65 - Type [address] angio head neck 09/23/24 G51.0 - Kamara's palsy, H93.239 - Hyperacusis, unspecified ear, H93.A9 - Pulsatile tinnitus, unspecified ear, R09.89 - Other specified symptoms and signs involving the circulatory and respiratory systems Referrals Neurology Referral G51.0 - Kamara's palsy Dermatology Referral L30.9 - Dermatitis, unspecified Medications: New prednisone 60 mg (3 x 20 mg) PO DAILY 18 tabs 0RF 6 days Changed From insulin glargine U-300 conc (Toujeo Max U-300 SoloStar) 55 units (0.1833 mL) subcut DAILY 18 mL 1RF To insulin glargine U-300 conc (Toujeo Max U-300 SoloStar) 58 units (0.1933 mL) subcut DAILY 18 mL 1RF
== END 2024-09-23 08:19 | disposition home or self-care (01) ==
LOC: HO.HMCC 07:17
PROVIDERS: PCP Nurse Practitioner Family; Visit Provider Nurse Practitioner Family
DX: L30.9 Dermatitis, unspecified (principal); G51.0 Bell's palsy; R47.9 Unspecified speech disturbances; R09.89 Other specified symptoms and signs involving the circulatory and respiratory systems; H93.239 Hyperacusis, unspecified ear; H93.A9 Pulsatile tinnitus, unspecified ear; Z00.01 Encounter for general adult medical examination with abnormal findings

== ENCOUNTER → 2024-09-23 07:16 | Outpatient (BNVA) | payer MEDICARE, SELFPAY | PROVIDERS: PCP Nurse Practitioner Family; Visit Provider Nurse Practitioner Family | DX: L30.9 Dermatitis, unspecified (principal); G51.0 Bell's palsy; R47.9 Unspecified speech disturbances; R09.89 Other specified symptoms and signs involving the circulatory and respiratory systems; H93.239 Hyperacusis, unspecified ear; H93.A9 Pulsatile tinnitus, unspecified ear; E11.9 Type 2 diabetes mellitus without complications | CPT/HCPCS: 83036; 96127; 99212; 99397 ==

== ENCOUNTER 2024-09-28 07:17 | Outpatient (REF) | payer MEDICARE, SELFPAY ==
--- NOTE | ~2024-09-28 | US_ITS ---
EXAMINATION: Noninvasive assessment of the bilateral lower extremities with ARTERIAL DUPLEX, ANKLE BRACHIAL INDICES (ABIs), and PULSE VOLUME RECORDINGS (PVRs). CLINICAL INFORMATION: Peripheral vascular disease, unspecified. TECHNIQUE: Duplex Doppler techniques with waveform analysis and measurement of velocities in the bilateral common femoral, profunda femoris, superficial femoral, popliteal and tibial arteries were performed. Additionally, ankle pulse volume recordings, ankle pressure measurements and ankle brachial indices were obtained of the lower extremity arterial system bilaterally. The study was performed only at rest. COMPARISON: None FINDINGS: DIRECT DUPLEX DOPPLER FINDINGS: RIGHT LEG: Common femoral artery: 97 cm/s, phasicity: Biphasic. Profunda femoris artery: 75 cm/s, phasicity: Biphasic. Superficial femoral artery (proximal): 116 cm/s, phasicity: Triphasic. Superficial femoral artery (mid): 112 cm/s, phasicity: Triphasic. Superficial femoral artery (distal): 91 cm/s, phasicity: Triphasic. Popliteal artery: 95 cm/s, phasicity: Triphasic. Posterior tibial artery: 105 cm/s, phasicity: Triphasic. Peroneal artery: Not identified. Anterior tibial artery: 88 cm/s, phasicity: Triphasic. Dorsalis pedis artery: 14 cm/s, phasicity:Monophasic. LEFT LEG: Common femoral artery: 106 cm/s, phasicity: Triphasic. Profunda femoris artery: 95 cm/s, phasicity: Biphasic. Superficial femoral artery (proximal): 116 cm/s, phasicity: Triphasic. Superficial femoral artery (mid): 107 cm/s, phasicity: Triphasic. Superficial femoral artery (distal): 87 cm/s, phasicity: Triphasic. Popliteal artery: 89 cm/s, phasicity: Triphasic. Posterior tibial artery: 128 cm/s, phasicity: Triphasic. Peroneal artery: Not identified. Anterior tibial artery: 86 cm/s, phasicity: Triphasic. Dorsalis pedis artery: 51 cm/s, phasicity: Triphasic. BRACHIAL PRESSURES: Right: Noncompressible Left: Noncompressible. ANKLE PRESSURES: Right: PT more than 200, DP more than 200 Left: PT more than 200, DP more than 200 ANKLE-BRACHIAL INDEX: Right: Noncompressible Left: Noncompressible ANKLE PVR WAVEFORMS: Right: Labeled normal. Left: Labeled normal. US/US arterial duplex BI w/ CALEB IMPRESSION: Right leg: Disease right common femoral artery and right profunda artery, proximal. Disease right dorsalis base artery. Left leg: Disease left profunda femoral artery. EXAM: Ultrasound abdominal aorta and iliac arteries. CLINICAL INFORMATION: Screening for aneurysm. COMPARISON: No priors. TECHNIQUE: Color Doppler interrogation of the abdominal aorta and the iliac arteries. FINDINGS: Abdominal aorta peak systolic velocity and diameter/following: Proximal segment: Not identified. Midsegment: 59 cm/s and 2.8 cm. Distal segment: 39 cm/s and 3.7 cm. Right common iliac artery: 70 cm/s and 2.5 cm. Right external iliac artery: 64 cm/s and 1.6 cm. Left common iliac artery: 89 cm/s and 1.5 cm. Left external iliac artery: 113 cm/s and 1.4 cm. IMPRESSION: Limited demonstrated no aneurysm, abdominal aorta or the interrogated iliac arteries. Electronically signed by: Yakov Paredes MD 09/28/2024 01:25 PM EDT
== END 2024-09-28 07:18 | disposition home or self-care (01) ==
LOC: HO.US 07:17
PROVIDERS: PCP Nurse Practitioner Family; Visit Provider Surgery Vascular Surgery
DX: I71.40 Abdominal aortic aneurysm, without rupture, unspecified (principal); I73.9 Peripheral vascular disease, unspecified
CPT/HCPCS: 76706; 93925

== ENCOUNTER → 2024-09-28 07:19 | Outpatient (BNV) | payer MEDICARE, SELFPAY | PROVIDERS: PCP Nurse Practitioner Family; Visit Provider Radiology Diagnostic Radiology | DX: I73.9 Peripheral vascular disease, unspecified (principal) | CPT/HCPCS: 76706; 93922; 93925 ==

== ENCOUNTER 2024-10-15 08:33 | Outpatient (AMB) | payer MEDICARE, SELFPAY ==
--- NOTE | 2024-10-15 09:03 | MHC.OFFVIS ---
Vital Signs 10/15/24 09:06 Height 6 ft 3 in Weight 302 lb BMI 37.7 Intake Visit Reasons: 1 yr arterial US follow up 09/28/24 Intake Note: 1 yr follow up arterial US 09/28/24, no complaints Accompanied by: Self / Same As Patient Allergies No Known Allergies Allergy (Verified 10/15/24 09:08) HPI HPI 1 yr arterial US follow up 09/28/24: Details: The patient is a 69-year-old male presenting for a routine arterial follow-up. He has a history of Charcot foot, which is stable, and hammer toe that causes some irritation but does not significantly impair his walking ability. He also reports a recent episode of Kamara's Palsy starting three months ago with symptoms persisting over this period. An ingrown hair has led to a case of folliculitis or a carbuncle in the past week, which may require continued observation and possible intervention. In terms of peripheral vascular disease he is doing extremely well. He is able to walk several blocks with no difficulty. He now presents for routine surveillance arterial follow-up. [facility] Medical History Kamara's palsy HTN (hypertension) (atherosclerosis) Ascending aortic aneurysm Ascending aorta dilatation Aortic stenosis [place], bilateral COVID-19 vaccine series completed Obesity due to excess calories Tinea pedis Charcot foot due to diabetes mellitus Morbid obesity Diabetic polyneuropathy associated with type 2 diabetes mellitus 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 type 2 diabetes mellitus retirement (current) use of insulin RLS (restless legs syndrome) Aortic valve calcification BPH (benign prostatic hyperplasia) Osteomyelitis [place] (obstructive sleep apnea) KAI (acute kidney injury) Surgical History Hx of cystoscopy H/O colonoscopy History of bunionectomy Amputation toe History of bunionectomy Family History Father Bladder cancer Mother Lung cancer Social History Household Members: Spouse Housing: House Are you a primary long term acute care registered nurse to a significant other at home: Yes (father, also cares for him) Do you presently have visiting nurse or other home services: No Alcohol intake: current Alcohol intake frequency: holidays/special occasions only Patient Tobacco Use Status: Never used Tobacco e-Cigarette/Vaping Use: Never Used Advance Directives Date on File: 09/02/23 service: No Cognitive needs: No Hearing needs: No Vision needs: Yes Review of Systems Const All systems reviewed & are unremarkable except as noted in HPI and below Reports no additional complaints ENT Reports Normal hearing present Card Denies chest pain, Denies chest pain at rest, Denies chest pain with activity and Denies pedal edema Resp Denies cough GI Denies abdominal pain Musc Denies abnormal gait, Denies muscle cramps and Denies radiating pain into limb Skin/Breast Denies skin ulcer and Denies wounds Neuro Reports Normal hearing present and Denies abnormal gait Psych Reports no additional complaints Physical Exam Vital Signs: BMI result Body Mass Index 37.7 Const General: cooperative, healthy appearing and comfortable Orientation/consciousness: oriented to person, oriented to place and oriented to time HEENT Head: Yes normal to inspection Neck Neck: Yes normal visual inspection Carotids: no bruits Chest Chest palpation & inspection: normal inspection of the chest Resp Effort & Inspection: normal respiratory effort and able to speak in complete sentences Auscultation: clear to auscultation bilaterally, no crackles, no rales, no rhonchi and no wheezes Cardio Rate: regular rate Rhythm: regular rhythm Heart sounds: S1 normal heart sound present and S2 normal heart sound present Bruits: no carotid bruits Peripheral pulses: Peripheral pulses 2+ throughout GI Inspection: Yes normal to inspection Skin Wounds: no wounds Hair: normal Neuro General: oriented to person, oriented to place and oriented to time Cranial nerves: Yes CN's II-XII intact bilaterally and Yes Normal hearing present Cognition (Neuro): normal cognition Motor exam (neuro): 5/5 motor strength present throughout Extrem Other: venous exam: No significant superficial varicosities or spider telangiectasias, minimal edema General: No clubbing, No cyanosis and No edema Psych Appearance: grossly normal Mental Status: mental status grossly normal Speech and movement: Normal speech and movement present Results Reviewed Results Reviewed: Noninvasive arterial testing dated 09/28/2024 demonstrates normal aorto iliac flow. Aortic aneurysm measuring 3.7 cm on the right leg some mild disease on the right common femoral and profundus left side some disease on the left profundus. Unable to obtain ABIs. Written report and images were reviewed. Assessment & Plan Assessment & Plan (1) PAD (peripheral artery disease): Comment: 03/13/2017 - right 4th toe amputation Code(s): I73.9 - Peripheral vascular disease, unspecified Category: Medical Plan: In short patient has stable claudication. I did review the pathophysiology of peripheral vascular disease with the patient. In addition we did discuss routine conservative measures including a healthy diet and the importance of exercise and ambulation. We did discuss risk factor modification. The patient will continue to to follow-up with surveillance follow-up in approximately 1 year. Thank you for allowing us to participate in this patient's care. If there are any questions or concerns please do not hesitate to contact us. (2) AAA (abdominal aortic aneurysm) without rupture: Code(s): I71.40 - Abdominal aortic aneurysm, without rupture, unspecified Category: Medical Qualifiers: Abdominal aorta location: infrarenal aorta Qualified Code(s): I71.43 - Infrarenal abdominal aortic aneurysm, without rupture Plan: In short patient has radiologic evidence of a AAA on 3.7 cm on ultrasound. We have discussed the pathophysiology of aortic aneurysms and the risk of ruptures. We have discussed rupture risk based on size. In addition we have discussed conservative measures and risk factor modification for prevention of increase in size of the aneurysm. the patient is scheduled for surveillance follow-up in approximately 1 year. Thank you for allowing us to participate in the care of this patient Orders: Orders US abdominal aortic aneurysm 1 Year I71.43 - Infrarenal abdominal aortic aneurysm, without rupture US arterial duplex LE BI 1 Year I73.9 - Peripheral vascular disease, unspecified Coding Level of Care Code Est Pt Level 4 (71844) Complex EM visit Add On G2211 Diagnoses PAD (peripheral artery disease) I73.9 Infrarenal abdominal aortic aneurysm (AAA) without rupture I71.43 Abdominal aorta location: infrarenal aorta
[2024-10-15 09:06] VITALS: BMI 37.7
== END 2024-10-15 09:38 | disposition home or self-care (01) ==
LOC: HO.HVS 08:34
PROVIDERS: PCP Nurse Practitioner Family; Visit Provider Surgery Vascular Surgery
DX: I73.9 Peripheral vascular disease, unspecified (principal); I71.43 Infrarenal abdominal aortic aneurysm, without rupture
CPT/HCPCS: 99214; G2211

== ENCOUNTER → 2024-10-15 08:33 | Outpatient (BNVA) | payer MEDICARE, SELFPAY | PROVIDERS: PCP Nurse Practitioner Family; Visit Provider Surgery Vascular Surgery | DX: E11.610 Type 2 diabetes mellitus with diabetic neuropathic arthropathy (principal); E11.51 Type 2 diabetes mellitus with diabetic peripheral angiopathy without gangrene; M20.40 Other hammer toe(s) (acquired), unspecified foot; I71.43 Infrarenal abdominal aortic aneurysm, without rupture | CPT/HCPCS: 99212 ==

== ENCOUNTER 2024-10-22 11:04 | Outpatient (REF) | payer MEDICARE, SELFPAY ==
--- NOTE | ~2024-10-22 | CT_ITS ---
EXAMINATION: CTA NECK WITH CONTRAST (STROKE) CTA BRAIN WITH CONTRAST (STROKE) CLINICAL INFORMATION: Other specified symptoms and signs involving the circulation COMPARISON: Related to CT head dated August 05, 2024. TECHNIQUE: CTA of the head and neck was performed in the axial plane from the mediastinum to the skull vertex using 70 mL Omnipaque 350 intravenous contrast. Additional reformatted multiplanar images including maximum intensity projection MIP images are generated on the CT workstation. This CT examination was performed using dose optimization techniques as appropriate, variously including the following: *Automated exposure control *Adjustment of mA and/or kV according to patient size (this includes techniques or standardized protocols for targeted exams where dose is matched to indication/reason for exam; i.e. extremities or head) *Use of iterative reconstruction technique DLP: 1936 mGyg centimeter. FINDINGS: The degree of stenosis determined by criteria similar to NASCET. Brain: No acute intracranial hemorrhage, mass effect, midline shift, hydrocephalus or herniation. White-white matter differentiation is normal. Bilateral multifocal patchy deep periventricular white matter hypodensity. Calcified plaques in the V3 V4 segments of the vertebral arteries and the cavernous supracavernous segments both ICAs and the basilar artery. Prominence of the extra-axial CSF spaces cerebral sulci and ventricles. No air-fluid levels in the paranasal sinuses. Tympanic cavities and mastoid cells are aerated. Incomplete fusion of the posterior arch of C1. Chest CTA: Calcified plaque thoracic aorta wall and its main branches. No focal stenosis or intimal flap. No aneurysm. Neck CTA: Right CCA: There is normal patency with the calcified plaques. No focal stenosis. No intimal flap. Right ICA: Normal patency. Calcified plaques in the proximal segment representing 70-80% stenosis. No intimal flap. Retropharyngeal trajectory. Left CCA: Normal patency. No focal stenosis or intimal flap. Left ICA: Normal patency. Mixed plaques in the proximal segment representing 70% stenosis. No intimal flap. V1/V2 segments: Normal patency. No focal stenosis. No intimal flap. Calcified plaques in the origin, bilaterally. Both orientating from the subclavian arteries. Brain CTA: Anterior cerebral circulation: ICAs: Normal patency. Calcified plaques in the cavernous supraclinoid segments. No focal stenosis. No abrupt cut off. MCA's: Normal patency. No focal stenosis. No abrupt cut off. Bifurcation/trifurcation demonstrated normal vascular irregularity. ACAs: Normal patency. No focal stenosis. No abrupt cut off. Ophthalmic arteries are patent without vascular irregularity at the origin. Anterior communicating artery is patent. I do not see the posterior communicating arteries. Posterior cerebral circulation: V3/V4 segments: Calcified plaques. Normal patency. No focal stenosis. No intimal flap. Left vertebral artery is slightly dominant. Posterior inferior cerebral arteries are patent. Basilar artery is patent without focal stenosis or intimal flap. Right anterior inferior cerebellar artery is patent. Superior cerebellar arteries are patent. 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 No focal stenosis. No abrupt cut off. Ancillary findings: Main cerebral venous sinuses are patent without intraluminal filling defects. Calcified plaques in the coronary arteries. Cervical spondylosis C4-5 [address] C5-[address]/CT angio head neck IMPRESSION: Mixed plaque, left ICA representing 70% stenosis. Calcified plaque, right ICA representing 70-80% stenosis. No dissection. No main cerebral artery occlusion or embolus. No gross cerebral aneurysm. Left vertebral artery is slightly dominant. This critical test result is communicated to: Electronically signed by: Yakov Paredes MD 10/23/2024 07:17 AM EDT
[2024-10-22] MEDS: iohexoL 350 MG/ML 100 ML INFUS..BTL IV (12:35)
[2024-10-22 13:26] LABS: Creatinine POC 0.8 mg/dL (0.5-1.4); GFR POC > 60
== END 2024-10-22 11:05 | disposition home or self-care (01) ==
LOC: HO.CT 11:04
PROVIDERS: PCP Nurse Practitioner Family; Visit Provider Nurse Practitioner Family
DX: R09.89 Other specified symptoms and signs involving the circulatory and respiratory systems (principal); H93.239 Hyperacusis, unspecified ear; G51.0 Bell's palsy; H93.A9 Pulsatile tinnitus, unspecified ear
CPT/HCPCS: 70496; 70498; 82565; Q9967

== ENCOUNTER → 2024-10-22 11:06 | Outpatient (BNV) | payer MEDICARE, SELFPAY | PROVIDERS: PCP Nurse Practitioner Family; Visit Provider Radiology Diagnostic Radiology | DX: I65.23 Occlusion and stenosis of bilateral carotid arteries (principal) | CPT/HCPCS: 70496; 70498 ==

== ENCOUNTER 2024-11-05 08:45 | Outpatient (AMB) | payer MEDICARE, SELFPAY ==
--- NOTE | 2024-11-05 08:58 | A.OFFVIS_ITS ---
Vital Signs 11/05/24 09:00 Height 6 ft 3 in Weight 302 lb BMI 37.7 Intake Visit Reasons: follow up s/p CTA Head/Neck 10/22/24 Intake Note: PCP ordered CTA Neck 10/22/24, wanted pt seen by Vascular. Zeus have right eye blurres vision but states that started when bells palsey started 4 months ago Accompanied by: Spouse Allergies No Known Allergies Allergy (Verified 11/05/24 09:03) HPI HPI follow up s/p CTA Head/Neck 10/22/24: Details: The patient is a 69-year-old male presenting for follow-up of carotid artery stenosis and pulsatile tinnitus. During a previous medical evaluation for Kamara's Palsy, a CT angiogram conducted on 10/22/2024 revealed significant stenosis of the right carotid artery, estimated at 70-80%. This finding necessitated further surgical consultation. Concurrently, the patient reports experiencing pulsatile tinnitus in the right ear, described as a swishing sound noticeable regardless of body position or physical activity. This auditory phenomenon is noted to be constant and unrelated to the cardiovascular state, with persistent presence in the right ear. He has followed up with us in the past regarding peripheral vascular disease and toe amputation. He has been doing well with that. He now presents for evaluation regarding his carotid stenosis. 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 RLS (restless legs syndrome) Aortic valve calcification BPH (benign prostatic hyperplasia) Osteomyelitis [place] (obstructive sleep apnea) KAI (acute kidney injury) Surgical History Hx of cystoscopy H/O colonoscopy History of bunionectomy Amputation toe History of bunionectomy Family History Father Bladder cancer Mother Lung cancer Social History Household Members: Spouse Housing: House Are you a primary neurocritical care physician to a significant other at home: Yes (father, also cares for him) Do you presently have visiting nurse or other home services: No Alcohol intake: current Alcohol intake frequency: holidays/special occasions only Patient Tobacco Use Status: Never used Tobacco e-Cigarette/Vaping Use: Never Used Advance Directives Date on File: 09/02/23 service: No Cognitive needs: No Hearing needs: No Vision needs: Yes Review of Systems Const All systems reviewed & are unremarkable except as noted in HPI and below Reports no additional complaints ENT Reports Normal hearing present Card Denies chest pain, Denies chest pain at rest, Denies chest pain with activity and Denies pedal edema Resp Denies cough GI Denies abdominal pain Musc Denies abnormal gait, Denies muscle cramps and Denies radiating pain into limb Skin/Breast Denies skin ulcer and Denies wounds Neuro Reports Normal hearing present and Denies abnormal gait Psych Reports no additional complaints Physical Exam Vital Signs: BMI result Body Mass Index 37.7 Const General: cooperative, healthy appearing and comfortable Orientation/consciousness: oriented to person, oriented to place and oriented to time HEENT Head: Yes normal to inspection Neck Neck: Yes normal visual inspection Carotids: no bruits Chest Chest palpation & inspection: normal inspection of the chest Resp Effort & Inspection: normal respiratory effort and able to speak in complete sentences Auscultation: clear to auscultation bilaterally, no crackles, no rales, no rhonchi and no wheezes Cardio Rate: regular rate Rhythm: regular rhythm Heart sounds: S1 normal heart sound present and S2 normal heart sound present Bruits: no carotid bruits Peripheral pulses: Peripheral pulses 2+ throughout GI Inspection: Yes normal to inspection Skin Wounds: no wounds Hair: normal Neuro General: oriented to person, oriented to place and oriented to time Cranial nerves: Yes CN's II-XII intact bilaterally and Yes Normal hearing present Cognition (Neuro): normal cognition Motor exam (neuro): 5/5 motor strength present throughout Extrem Other: venous exam: No significant superficial varicosities or spider telangiectasias, minimal edema General: No clubbing, No cyanosis and No edema Psych Appearance: grossly normal Mental Status: mental status grossly normal Speech and movement: Normal speech and movement present Results Reviewed Results Reviewed: CT angiogram dated 10/22/2024 demonstrates right-sided stenosis in the 70-80% range left-sided stenosis of 70%. Written report and images were reviewed. Assessment & Plan Assessment & Plan (1) Right cavernous carotid stenosis: Code(s): I65.21 - Occlusion and stenosis of right carotid artery Category: Medical Plan: In short patient has high-grade right carotid stenosis as demonstrated on CT angiogram. The patient will require right carotid endarterectomy procedure was discussed in detail with the patient. Risks benefits complications including but not limited to bleeding infection stroke and were discussed in detail with the patient with perioperative stroke risk of 2-3%. Patient will require cardiac risk stratification prior to surgery. Thank you for allowing us to assist in this patient's care. If there are any questions or concerns please do not hesitate to contact us. Plan Patient was informed and verbally consented to the use of an ambient scribe for clinic note documentation during this visit. Patient Instructions: - Follow up with Dr. Carlin for preoperative cardiac evaluation. - Prepare for carotid endarterectomy and expect a short hospital stay. - Avoid driving for two weeks post-surgery to allow incision healing. - Monitor for any signs of infection, bleeding, or sudden neurological changes. - Inquire with ENT regarding persistent tinnitus if symptoms continue after surgery. - Maintain usual activities until surgery except for driving during the recovery period. Coding Level of Care Code Est Pt Level 4 (34533) Complex EM visit Add On G2211 Diagnoses Right cavernous carotid stenosis I65.21
[2024-11-05 09:00] VITALS: BMI 37.7
== END 2024-11-05 09:24 | disposition home or self-care (01) ==
LOC: HO.HVS 08:46
PROVIDERS: PCP Nurse Practitioner Family; Visit Provider Surgery Vascular Surgery
DX: I65.21 Occlusion and stenosis of right carotid artery (principal)
CPT/HCPCS: 99214; G2211

== ENCOUNTER → 2024-11-05 08:45 | Outpatient (BNVA) | payer MEDICARE, SELFPAY | PROVIDERS: PCP Nurse Practitioner Family; Visit Provider Surgery Vascular Surgery | DX: I65.21 Occlusion and stenosis of right carotid artery (principal) | CPT/HCPCS: 99212 ==

== ENCOUNTER 2024-11-06 12:01 | Outpatient (AMB) | payer MEDICARE, SELFPAY ==
[2024-11-06 12:06] VITALS: BP 132/70; PULSE 57; O2SAT 95; BMI 38.4
--- NOTE | 2024-11-06 12:06 | HO.NEPHOV_ITS ---
Vital Signs 11/06/24 12:06 Height 6 ft 3 in Weight 307 lb BMI 38.4 BP 132/70 Blood Pressure Location Rt brachial Position Sitting Pulse 57 Pulse Source Pulse Oximeter Pulse Oximetry (%) 95 Oxygen Delivery Method Room Air Intake Visit Reasons: Hematuria/ LVM Guest Service Aide Required: No Accompanied by: Self / Same As Patient Allergies No Known Allergies Allergy (Verified 11/06/24 12:08) HPI Comments Details: Romel is a 69-year-old man with a history of longstanding diabetes mellitus obesity. About 6 months ago he had microscopic painless hematuria He underwent cystoscopy in October of 2022 which was unremarkable. Urine cytology did not reveal any malignant cells Urine protein creatinine ratio was 653 Serum creatinine 0.87. He is being referred for further evaluation of the above. He has history of BPH. Postvoid residual was 157 cc as of 09/09/2023 Of note he has been on Actos for more than a year Still has interemittent hematuria Urogram shows mnultiple stones Waiting for surgery 11/06/24 Left facial palsy 4 months ago. [facility] Medical History Kamara's palsy HTN (hypertension) (atherosclerosis) Ascending aortic aneurysm Ascending aorta dilatation Aortic stenosis [place], bilateral COVID-19 vaccine series completed Obesity due to excess calories Tinea pedis Charcot foot due to diabetes mellitus Morbid obesity Diabetic polyneuropathy associated with type 2 diabetes mellitus 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 type 2 diabetes mellitus nursing home (current) use of insulin RLS (restless legs syndrome) Aortic valve calcification BPH (benign prostatic hyperplasia) Osteomyelitis [place] (obstructive sleep apnea) KAI (acute kidney injury) Surgical History Hx of cystoscopy H/O colonoscopy History of bunionectomy Amputation toe History of bunionectomy Family History Father Bladder cancer Mother Lung cancer Social History Household Members: Spouse Housing: House Are you 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 development associate to a significant other at home: Yes (father, also cares for him) Do you presently have visiting nurse or other home services: No Alcohol intake: current Alcohol intake frequency: holidays/special occasions only Patient Tobacco Use Status: Never used Tobacco e-Cigarette/Vaping Use: Never Used Advance Directives Date on File: 09/02/23 service: No Cognitive needs: No Hearing needs: No Vision needs: Yes Physical Exam Vital Signs: Last Vital Signs Pulse 57 11/06/24 12:06 BP 132/70 11/06/24 12:06 Pulse Ox 95 11/06/24 12:06 Oxygen Delivery Method Room Air 11/06/24 12:06 BMI result Body Mass Index 38.4 Results Reviewed Nephrology Results: No Data to Display Assessment & Plan Assessment & Plan (1) Bladder calculus: Code(s): N21.0 - Calculus in bladder Category: Medical (2) Proteinuria: Code(s): R80.9 - Proteinuria, unspecified Category: Medical (3) Hematuria: Code(s): R31.9 - Hematuria, unspecified Category: Medical (4) Microscopic hematuria: Code(s): R31.29 - Other microscopic hematuria Category: Medical Plan . Romel is a 69-year-old man with a history of longstanding obesity and diabetes mellitus with proteinuria and painless hematuria. multiple bladder Calculi Although the proteinuria could be due to underlying diabetes mellitus and obesity other nondiabetic causes should be ruled out. At present renal function is stable at baseline with a creatinine 0.87. Blood pressure is well controlled. workup for both hematuria and proteinuria not suggestive of glomerular origin In the meantime encouraged him to stand low-sodium diet. Increase fluid intake. Continue to avoid nephrotoxic agents. Maintain A1c less than 7% and blood pressure less than 130/80. s/o cysto for bladder stone No indication for kidney biopsy at this time Medications: Discontinued acyclovir Discontinued Reason: Patient Completed Course 400 mg PO TID 14 days 42 tabs 0RF G51.0 - Kamara's palsy prednisone Discontinued Reason: Patient Completed Course 60 mg (3 x 20 mg) PO DAILY 6 days 18 tabs 0RF Coding Level of Care Code Est Pt Level 4 (67271) Diagnoses Bladder calculus N21.0 Proteinuria R80.9 Hematuria R31.9 Microscopic hematuria R31.29
== END 2024-11-06 12:19 | disposition home or self-care (01) ==
LOC: HO.HKA 12:02
PROVIDERS: PCP Nurse Practitioner Family; Visit Provider Internal Medicine Hypertension Specialist
DX: N21.0 Calculus in bladder (principal); R80.9 Proteinuria, unspecified; R31.9 Hematuria, unspecified; R31.29 Other microscopic hematuria
CPT/HCPCS: 99214

== ENCOUNTER → 2024-11-06 12:01 | Outpatient (BNVA) | payer MEDICARE, SELFPAY | PROVIDERS: PCP Nurse Practitioner Family; Visit Provider Internal Medicine Hypertension Specialist | DX: R31.29 Other microscopic hematuria (principal); E11.9 Type 2 diabetes mellitus without complications; E66.9 Obesity, unspecified; N21.0 Calculus in bladder; R80.9 Proteinuria, unspecified; G51.0 Bell's palsy; Z68.38 Body mass index [BMI] 38.0-38.9, adult | CPT/HCPCS: 99212 ==

== ENCOUNTER 2024-11-10 14:19 | Outpatient (AMB) | payer MEDICARE, SELFPAY ==
--- NOTE | 2024-11-10 14:25 | MHC.OFFVIS ---
Vital Signs 11/10/24 14:26 Height 6 ft 3 in Weight 302 lb 0.533 oz BMI 37.7 BP 124/74 Blood Pressure Location Lt brachial Position Sitting Pulse 77 Intake Visit Reasons: Pre op- Marru. endarterectomy 12/07 Intake Note: Pre-op endarterectomy with ekg feeling good Grocery Bagger Required: No Allergies No Known Allergies Allergy (Verified 11/06/24 12:08) Medication List - Last Reconciled 11/10/24 by López García MD alpha lipoic acid 600 mg PO DAILY amlodipine 10 mg PO DAILY aspirin (Adult Low Dose Aspirin) 81 mg PO DAILY atorvastatin 80 mg PO BEDTIME 90 days blood sugar diagnostic (FreeStyle Lite Strips) 4 times a day blood-glucose meter (FreeStyle Lite Meter kit) 4 times a day cholecalciferol (vitamin D3) 10 mcg PO DAILY dutasteride (Avodart) 0.5 mg PO DAILY FreeStyle Lancets (lancets) 4 times a day NS FreeStyle Yolanda 2 Rhodelia (flash glucose scanning reader) TID testing NS FreeStyle Yolanda 2 Sensor (flash glucose sensor) TID tesing NS gabapentin 300 mg PO TID 30 days insulin glargine U-300 conc (Toujeo Max U-300 SoloStar) 58 units (0.1933 mL) subcut DAILY lisinopril 10 mg PO DAILY 90 days metformin ER 1,000 mg (2 x 500 mg) PO BID pen needle, diabetic (BD Ultra-Fine Short Pen Needle) use to inject insulin once a day semaglutide (Ozempic) 2 mg subcut QWEEK silodosin 8 mg PO DAILY trazodone 100 mg PO BEDTIME PRN 30 days HPI Comments Details: Romel comes for follow-up. 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 He has no active left-sided neurologic symptoms. He is referred here for further cardiovascular risk stratification prior to surgery. He has no active new cardiac symptoms. He does play golf but usually takes a cart and does not walk the course. He denies any symptoms exertional chest pain or shortness of breath with that activity. Denies any orthopnea, PND, leg edema. Takes all his medications. His last LDL was well optimized [facility] Medical History Kamara's palsy HTN (hypertension) (atherosclerosis) Ascending aortic aneurysm Ascending aorta dilatation Aortic stenosis [place], bilateral COVID-19 vaccine series completed Obesity due to excess calories Tinea pedis Charcot foot due to diabetes mellitus Morbid obesity Diabetic polyneuropathy associated with type 2 diabetes mellitus 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 type 2 diabetes mellitus shelter (current) use of insulin RLS (restless legs syndrome) Aortic valve calcification BPH (benign prostatic hyperplasia) Osteomyelitis [place] (obstructive sleep apnea) KAI (acute kidney injury) Surgical History Hx of cystoscopy H/O colonoscopy History of bunionectomy Amputation toe History of bunionectomy Family History Father Bladder cancer Mother Lung cancer Social History Household Members: Spouse Housing: House 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 at home: Yes (father, also cares for him) Do you presently have visiting nurse or other home services: No Alcohol intake: current Alcohol intake frequency: holidays/special occasions only Patient Tobacco Use Status: Never used Tobacco e-Cigarette/Vaping Use: Never Used Advance Directives Date on File: 09/02/23 service: No Cognitive needs: No Hearing needs: No Vision needs: Yes Review of Systems Const Denies chills, Denies fatigue, Denies fever(s), Denies frequent falls, Denies weakness, Denies weight gain and Denies weight loss ENT Denies dizziness Card Denies chest pain, Denies leg edema, Denies lightheadedness, Denies palpitations, Denies dyspnea, Denies dyspnea on exertion, Denies orthopnea and Denies other (loss of consciousness) Resp Denies cough, Denies dyspnea and Denies dyspnea on exertion GI Denies hematochezia and Denies change in stool character Musc Denies abnormal gait, Denies muscle weakness, Denies numbness, Denies radiating pain into limb and Denies tingling Neuro Denies Abnormal speech present, Denies abnormal gait, Denies dizziness, Denies frequent falls, Denies numbness, Denies tingling and Denies weakness Endo Denies fatigue and Denies palpitations Physical Exam Vital Signs: Last Vital Signs Pulse 77 11/10/24 14:26 BP 124/74 11/10/24 14:26 BMI result Body Mass Index 37.7 Const General: cooperative, comfortable, no acute distress, alert, awake and Physically active Nutritional Appearance: obese Orientation/consciousness: patient oriented x3 Limitations: no limitations HEENT Head: Yes normocephalic and Yes atraumatic Face and sinus: No face symmetric and Yes Flattened naso-labial fold present Neck Neck: Yes trachea midline, Yes supple and Yes no JVD Resp Effort & Inspection: normal respiratory effort Auscultation: clear to auscultation bilaterally Cardio Jugular venous distension: no JVD Palpation: normal PMI Rate: regular rate Rhythm: regular rhythm Heart sounds: S1 normal heart sound present, S2 normal heart sound present, no click, no gallops, Murmur heart sound present systolic early and no rubs GI Auscultation: normal bowel sounds Skin General skin exam: no rashes or lesions noted Neuro General: patient oriented x3 and no focal motor deficits Speech: No Abnormal speech present Extrem General: Yes no clubbing, cyanosis or edema Office Procedures EKG Details: EKG shows normal sinus rhythm with sinus arrhythmia [id number], Complete Assessment & Plan Assessment & Plan (1) Pre-operative cardiovascular examination: Code(s): Z01.810 - Encounter for preprocedural cardiovascular examination Category: Medical Plan: Preoperative cardiovascular risk stratification for intermediate risk surgery with multiple risk factors including significant carotid disease with no active symptoms although functional capacity suspect. I think given the risk of an presence of underlying coronary artery disease and reduced exercise capacity and intermediate risk vascular surgery I would suggest him to undergo vasodilating myocardial perfusion imaging to assess for myocardial ischemia. If this is within normal limits he will be optimized to undergo surgery with low risk for perioperative cardiovascular morbidity mortality. I will continue all his cardiac medications including aspirin and statin in the perioperative period. (2) Ascending aortic aneurysm: Code(s): I71.21 - Aneurysm of the ascending aorta, without rupture Category: Medical Plan: Stable ascending aortic aneurysm which will monitor by annual echocardiogram scheduled in July next year and follow up in the clinic after that. Continue aggressive vascular risk factor modification. Continue aggressive blood pressure control. Advised to avoid sudden strenuous isometric exercise. Follow up in the clinic as planned before. Thank you for allowing me to partake in his care Orders: Orders CA lexiscan stress w philippe Today Z01.810 - Encounter for preprocedural cardiovascular examination Coding Level of Care Code Est Pt Level 4 (06956) Complex EM visit Add On G2211 Diagnoses Pre-operative cardiovascular examination Z01.810 Ascending aortic aneurysm I71.21 CPT Codes EKG - CPT: 50905-[id number], Complete ([id number])
[2024-11-10 14:26] VITALS: BP 124/74; PULSE 77; BMI 37.7
== END 2024-11-10 14:49 | disposition home or self-care (01) ==
PROVIDERS: PCP Nurse Practitioner Family; Visit Provider Internal Medicine Cardiovascular Disease
DX: Z01.810 Encounter for preprocedural cardiovascular examination (principal); I71.21 Aneurysm of the ascending aorta, without rupture; I49.9 Cardiac arrhythmia, unspecified
CPT/HCPCS: 93010; 99214; G2211

== ENCOUNTER → 2024-11-10 14:19 | Outpatient (BNVA) | payer MEDICARE, SELFPAY | PROVIDERS: PCP Nurse Practitioner Family; Visit Provider Internal Medicine Cardiovascular Disease | DX: Z01.810 Encounter for preprocedural cardiovascular examination (principal); I71.21 Aneurysm of the ascending aorta, without rupture | CPT/HCPCS: 93005; 99212 ==

== ENCOUNTER → 2024-11-16 07:51 | Outpatient (REF) | payer MEDICARE, SELFPAY ==
--- NOTE | ~2024-11-16 | NM_ITS ---
Lexiscan Myocardial perfusion study Indication: Preoperative cardiac evaluation Technique: The patient was brought in for a Lexiscan perfusion study on 11/16/2024 and was injected 0.4 mg of Lexiscan intravenously. Within a minute of this injection 40 mCi of sestamibi was given intravenously. Images were obtained using the SPECT gamma camera interlaced with the gating device. Images were obtained in supine position. Resting perfusion study was performed on 11/18/2024. Patient was administered 40 mCi of sestamibi intravenously at rest. Images were then obtained in supine position. Total DLP 169 mGy-cm. Images were processed with the software and compared side to side in short axis, horizontal long axis and vertical long axis views. Findings: Raw aquisition reviewed. The stress perfusion study showed decreased tracer uptake along the inferior and inferolateral wall. There is improvement with CT attenuation correction suggestive of diaphragmatic attenuation artifact. The gated study shows normal LV systolic function with calculated LVEF of 60%. LV cavity is normal in size. The gated study shows normal wall thickening and contraction of segments. Resting study shows diminished tracer uptake along the inferior and inferolateral wall. There is improvement with CT attenuation correction suggestive of diaphragmatic attenuation artifact. Gating at rest reveals normal wall motion with ejection fraction at 54%. The findings are consistent with fixed inferior/inferolateral defect probably related to diaphragmatic attenuation artifact. No reversible defects. NM/NM philippe perf SPECT rest & str Impression: 1. Myocardial perfusion imaging study shows no clear evidence of ischemia or infarction. Probably normal myocardial perfusion.. 2. Gated LVEF is 60% during stress and 54% during rest. 3. Transient ischemic dilatation not present. EKG component of the test reported separately. Electronically signed by: Branden Gallegos MD 11/18/2024 12:29 PM EDT
--- NOTE | 2024-11-16 07:55 | CA_ITS ---
Acquisition Time: 2024-11-16 08:09:21 Total Exercise Time: 00:02:00 Test Indications: PREOP Medications: SEE H&P Protocol: LEXISCAN Max HR: 113 BPM 75% of Pred: 150 BPM Max BP: 152/74 mmHG Max Work Load: 1.0 METS Pharmacological stress test with Lexiscan while pt marches in his chair, with reports of SOB, with isolated PVCs, with normotensive response to injection. Nondiagnostic EKG for ischemia. In recovery, pt treated with IVP Aminophylline 75 mg to reverse Lexiscan after which pt feeling back to baseline. Nuclear images pending. Test reviewed with Dr. Mary. Referred By: López García Electronically Signed By: Marc Escalera
== END ==
LOC: HO.CARD 07:51
PROVIDERS: PCP Nurse Practitioner Family; Visit Provider Internal Medicine Cardiovascular Disease
DX: Z01.810 Encounter for preprocedural cardiovascular examination (principal)
CPT/HCPCS: 78452; 93017; A9500; J0280; J2785

== ENCOUNTER → 2024-11-16 07:55 | Outpatient (BNV) | payer MEDICARE, SELFPAY | PROVIDERS: PCP Nurse Practitioner Family | DX: R06.02 Shortness of breath (principal); I49.3 Ventricular premature depolarization | CPT/HCPCS: 78452; 93016; 93018 ==

== ENCOUNTER 2024-12-07 07:13 | Inpatient (IN) | payer MEDICARE, SELFPAY ==
[2024-11-19 10:13] VITALS: BP 148/75; PULSE 59; RESP 18; O2SAT 96; BMI 39.2
--- NOTE | 2024-11-19 10:41 | HO.ANESPROP2 ---
Documented by User: Paula Cristobal NP 12/03/24 15:01 HPI - Anesthesia Eval Consult details Narrative: 69yo M for Right Carotid Endarterectomy, 12/07/24 No recent illness No CP/SOB with playing golf, takes cart Right sided kamara's palsy started 5 month's ago DM: Glucose monitor, FBS ~ 170's [place]: Declines CPAP - discussed post-op risk Anesthesia Pre-Procedure Meds Is the patient on any of the following meds?: GLP1/DPP4 PMFSH Active Problems Active Problems: All Active Problems Pre-operative cardiovascular examination (Acute) Right cavernous carotid stenosis (Acute) Carotid stenosis, bilateral (Acute) Pulsatile tinnitus (Acute) Hearing abnormally acute (Acute) Right carotid bruit (Acute) Dermatitis (Acute) Speech abnormality (Acute) BPH loc w urin obs/LUTS (Acute) Bladder calculus (Acute) Pre-op evaluation (Acute) Intermittent gross hematuria (Acute) Leukocytosis (Acute) Vitamin D deficiency (Acute) AAA (abdominal aortic aneurysm) without rupture (Acute) Proteinuria (Acute) Encounter for subsequent annual wellness visit (AWV) in Medicare patient (Acute) Microalbuminuria (Acute) Hemorrhoids (Acute) Diverticulosis of colon (Acute) Erectile dysfunction (Acute) Urethral stricture (Acute) Varicose veins of right lower extremity with inflammation (Acute) Charcot foot due to diabetes mellitus (Acute) PAD (peripheral artery disease) (Acute) Microscopic hematuria (Acute) Incomplete bladder emptying (Acute) Systolic murmur (Acute) Frequent urination (Acute) Decreased dorsalis pedis pulse (Acute) Screening for colon cancer (Acute) Encounter for annual wellness visit (AWV) in Medicare patient (Acute) Screening PSA (prostate specific antigen) (Acute) Tubular adenoma of colon (Acute) Encounter for screening colonoscopy (Acute) Type 2 diabetes mellitus with hyperglycemia (Acute) HTN (hypertension) (Acute) Screening for colon cancer (Acute) Uncontrolled diabetes mellitus (Acute) Dyslipidemia (Acute) Dysuria (Acute) Hematuria (Acute) Essential hypertension (Acute) Diabetes (Acute) Kamara's palsy (Acute) Ascending aortic aneurysm (Acute) BPH (benign prostatic hyperplasia) (Acute) Aortic stenosis (Acute) Obesity due to excess calories (Acute) Tinea pedis (Acute) Charcot foot due to diabetes mellitus (Acute) Morbid obesity (Acute) Diabetic polyneuropathy associated with type 2 diabetes mellitus (Acute) 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 type 2 diabetes mellitus (Acute) 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 (Acute) Past Medical History Medical History Kamara's palsy HTN (hypertension) (atherosclerosis) Ascending aortic aneurysm Aortic stenosis Hammertoe, bilateral Obesity due to excess calories Tinea pedis Charcot foot due to diabetes mellitus Diabetic polyneuropathy associated with type 2 diabetes mellitus 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 type 2 diabetes mellitus [facility] (current) use of insulin RLS (restless legs syndrome) Aortic valve calcification BPH (benign prostatic hyperplasia) Osteomyelitis [place] (obstructive sleep apnea) KAI (acute kidney injury) Family History Family History Father Bladder cancer Mother Lung cancer Family history of problems with anesthesia: No Surgical History Surgical History Hx of cystoscopy H/O colonoscopy History of bunionectomy Amputation toe History of bunionectomy History of Problems with Anesthesia: No Social History Social History Household Members: Spouse Housing: House Are you a primary manager of care to a significant other at home: No Do you presently have visiting nurse or other home services: No Alcohol intake: current Alcohol intake frequency: holidays/special occasions only Patient Tobacco Use Status: Never used Tobacco e-Cigarette/Vaping Use: Never Used Advance Directives Date on File: 09/02/23 service: No Cognitive needs: No Hearing needs: No Vision needs: Yes Meds Allergies Allergy/AdvReac Type Severity Reaction Status Date / Time No Known Allergies Allergy Verified 12/07/24 06:32 Home Medications ?Medication ?Instructions ?Recorded ?Confirmed ?Last Taken ?Type cholecalciferol (vitamin D3) 10 10 mcg PO DAILY 12/19/20 12/07/24 12/06/24 History mcg (400 unit) capsule semaglutide 2 mg/dose (8 mg/3 mL) 2 mg subcut QWEEK 07/10/24 11/18/24 11/23/24 History subcutaneous pen injector (Ozempic) aspirin 81 mg tablet,delayed 81 mg PO DAILY 09/23/24 12/07/24 12/06/24 History release (Adult Low Dose Aspirin) silodosin 8 mg capsule 8 mg PO DAILY 11/06/24 12/07/24 12/06/24 History insulin glargine U-300 conc 300 56 unit subcut DAILY 11/19/24 12/07/24 12/06/24 History unit/mL (3 mL) subcutaneous pen (Toujeo Max U-300 SoloStar) Exam Height,Weight and Vital Signs: Height 6 ft 2 in Weight 138.346 kg Last Vital Signs Pulse 59 11/19/24 10:13 Resp 18 11/19/24 10:13 BP 148/75 H 11/19/24 10:13 Pulse Ox 96 11/19/24 10:13 O2 Del Method Room Air 11/19/24 10:13 Pertinent Lab Results Pertinent Lab Results: Lab Results 11/26/24 11/26/24 Range/Units 06:35 06:38 WBC 9.6 (4.8-10.8) X10*3/uL RBC 5.06 (4.60-5.80) X10*6/uL Hgb 14.7 (14.0-18.0) g/dl Hct 43.8 (42.0-52.0) % MCV 86.6 (80.0-98.0) fL MCH 29.1 (27.0-33.0) pg MCHC 33.6 (31.0-36.0) g/dl RDW 14.5 (11.0-16.0) % Plt Count 233 (160-400) X10*3/uL MPV 9.6 (9.4-12.4) fL Absolute Nucleated RBC 0.000 (0.0-0.012) X10*3/uL Nucleated RBC % (auto) 0.0 (0.0-0.2) /100WBC PT 12.1 (10.9-12.4) SEC INR 1.1 (0.9-1.1) APTT 32.7 (26.0-36.8) SEC Sodium 141 (135-145) mmol/L Potassium 4.0 (3.3-5.1) mmol/L Chloride 106 (96-108) mmol/L Carbon Dioxide 27 (22-29) mmol/L Anion Gap 12 (12-20) BUN 18 H (9-16) mg/dL Creatinine 0.68 (0.5-1.4) mg/dL Estim Creat Clear Calc 149.6 Estimated GFR > 60 Random Glucose 137 H (60-115) mg/dL Calcium 9.6 (8.4-10.2) mg/dL Blood Type B Negative Antibody Screen NEGATIVE Narrative Narrative: EKG 10/2024 EKG Details: EKG shows normal sinus rhythm with sinus arrhythmia ECHO 2023 Conclusions: - Normal left ventricular size and systolic function. There is mildly increased left ventricular wall thickness. The visually estimated ejection fraction is between 60-65%. - Normal right ventricular cavity size and systolic function. - There is mild aortic valve stenosis. Cannot rule out bicuspid valve. - There is moderate dilatation of the ascending aorta measuring 4.80 cm. NM philippe perf SPECT rest & str 10/2024 Impression: 1. Myocardial perfusion imaging study shows no clear evidence of ischemia or infarction. Probably normal myocardial perfusion.. 2. Gated LVEF is 60% during stress and 54% during rest. 3. Transient ischemic dilatation not present. Airway Mallampati Class: II TM Dist: >3cm Neck ROM: Full Loose/Missing/Broken Teeth: No Heart: RRR +m Lungs: CTAB Assessment and Plan Assessment Anesthesia Assessment: Anesthesia Plan Discussed and PAT Visit Final Anesthetic Review Family History of Problems with Anesthesia: No History of Problems with Anesthesia: No Documented by User: Kaushik Luke MD 12/07/24 07:11 REPLACED BY [facility] Past Medical History Medical History Kamara's palsy HTN (hypertension) (atherosclerosis) Ascending aortic aneurysm Aortic stenosis [place], bilateral Obesity due to excess calories Tinea pedis Charcot foot due to diabetes mellitus Diabetic polyneuropathy associated with type 2 diabetes mellitus 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 type 2 diabetes mellitus [facility] (current) use of insulin RLS (restless legs syndrome) Aortic valve calcification BPH (benign prostatic hyperplasia) Osteomyelitis [place] (obstructive sleep apnea) KAI (acute kidney injury) Family History Family History Father Bladder cancer Mother Lung cancer Surgical History Surgical History Hx of cystoscopy H/O colonoscopy History of bunionectomy Amputation toe History of bunionectomy Social History Social History Household Members: Spouse Housing: House Are you a primary manager of care to a significant other at home: No Do you presently have visiting nurse or other home services: No Alcohol intake: current Alcohol intake frequency: holidays/special occasions only Patient Tobacco Use Status: Never used Tobacco e-Cigarette/Vaping Use: Never Used Advance Directives Date on File: 09/02/23 service: No Cognitive needs: No Hearing needs: No Vision needs: Yes Meds Allergies Allergy/AdvReac Type Severity Reaction Status Date / Time No Known Allergies Allergy Verified 12/07/24 06:32 Home Medications ?Medication ?Instructions ?Recorded ?Confirmed ?Last Taken ?Type cholecalciferol (vitamin D3) 10 10 mcg PO DAILY 12/19/20 12/07/24 12/06/24 History mcg (400 unit) capsule semaglutide 2 mg/dose (8 mg/3 mL) 2 mg subcut QWEEK 07/10/24 11/18/24 11/23/24 History subcutaneous pen injector (Ozempic) aspirin 81 mg tablet,delayed 81 mg PO DAILY 09/23/24 12/07/24 12/06/24 History release (Adult Low Dose Aspirin) silodosin 8 mg capsule 8 mg PO DAILY 11/06/24 12/07/24 12/06/24 History insulin glargine U-300 conc 300 56 unit subcut DAILY 11/19/24 12/07/24 12/06/24 History unit/mL (3 mL) subcutaneous pen (Toujeo Max U-300 SoloStar) Assessment and Plan Final Anesthetic Review NPO: Yes ASA Class: III Final Preanesthetic Review: No Changes in Pt Med Stat, Meds/Allgs Chart Reviewed and Consent Obtained/Reviewed Patient Risk: Intermediate Procedure Risk: Intermediate Anesthetic Plan Anesthetic Plan: GA (arterial line) Disposition: Standard PACU
[2024-11-26 07:17] LABS: Hematocrit 43.8 % (42.0-52.0); Hemoglobin 14.7 g/dl (14.0-18.0); Mean Corpuscular HGB Conc 33.6 g/dl (31.0-36.0); Mean Corpuscular Hemoglobin 29.1 pg (27.0-33.0); Mean Corpuscular Volume 86.6 fL (80.0-98.0); Mean Platelet Volume 9.6 fL (9.4-12.4); Platelet Count 233 X10*3/uL (160-400); Red Blood Count 5.06 X10*6/uL (4.60-5.80); Red Cell Distribution Width 14.5 % (11.0-16.0); White Blood Count 9.6 X10*3/uL (4.8-10.8)
[2024-11-26 07:28] LABS: INTERNATIONAL NORM RATIO 1.1 (0.9-1.1); Prothrombin Time 12.1 SEC (10.9-12.4)
[2024-11-26 07:31] LABS: Partial Thromboplastin Time 32.7 SEC (26.0-36.8)
[2024-11-26 07:38] LABS: Anion Gap 12 (12-20); Blood Urea Nitrogen 18 mg/dL (9-16); Calcium 9.6 mg/dL (8.4-10.2); Carbon Dioxide 27 mmol/L (22-29); Chloride 106 mmol/L (96-108); Creatinine Clr Calc Pharmacy 149.6; Estimated Glomerular Filt Rate > 60; Glucose Random 137 mg/dL (60-115); Sodium 141 mmol/L (135-145)
[2024-12-07] VITALS (19 sets, daily range): BP systolic 102–170; BP diastolic 46–96; PULSE 44–73; RESP 10–25; TEMP 36–36.6; O2SAT 91–99; BMI 38.6
[2024-12-07 06:57] LABS: INTERNATIONAL NORM RATIO 1.1 (0.9-1.1); Prothrombin Time 12.7 SEC (10.9-12.4)
[2024-12-07 07:00] LABS: Partial Thromboplastin Time 32.7 SEC (26.0-36.8)
[2024-12-07 07:04] LABS: Anion Gap 12 (12-20); Blood Urea Nitrogen 18 mg/dL (9-16); Calcium 9.4 mg/dL (8.4-10.2); Carbon Dioxide 25 mmol/L (22-29); Chloride 106 mmol/L (96-108); Creatinine Clr Calc Pharmacy 118.3; Estimated Glomerular Filt Rate > 60; Glucose Random 167 mg/dL (60-115); Sodium 139 mmol/L (135-145)
[2024-12-07 07:12] LABS: Hematocrit 43.3 % (42.0-52.0); Hemoglobin 14.7 g/dl (14.0-18.0); Mean Corpuscular HGB Conc 33.9 g/dl (31.0-36.0); Mean Corpuscular Hemoglobin 29.3 pg (27.0-33.0); Mean Corpuscular Volume 86.3 fL (80.0-98.0); Mean Platelet Volume 9.7 fL (9.4-12.4); Platelet Count 250 X10*3/uL (160-400); Red Blood Count 5.02 X10*6/uL (4.60-5.80); Red Cell Distribution Width 14.3 % (11.0-16.0); White Blood Count 11.1 X10*3/uL (4.8-10.8)
--- NOTE | 2024-12-07 07:26 | P.HPSUR_ITS ---
Pre-Procedural Eval Section A - 24 Hr Update-Section A only Date of Service: 12/07/24 Section B - Complete if H&P > 30 days Chief Complaint: Postop Relevant Family History (Specify if Yes): No Relevant Social History: None Present Medications: see Short Stay Collaborative assessment Allergies: Allergies Allergy/AdvReac Type Severity Reaction Status Date / Time No Known Allergies Allergy Verified 12/07/24 06:32 Review of Systems Sugical H&P ROS: Negative: Constitution, Cardiovascular, Respiratory, Psych iatric and Hem-Onc and Yes, Specify: Neurological (slight right facial droop) Exam Surgical H&P Exam: Normal: HEENT, Normal: Heart, Normal: Lungs, Normal: Extremities, Normal: Abdomen, Normal: Skin and Normal: Neurological Plan Diagnosis/Plan: Unchanged I have reviewed the history and physical and performed a pertinent physical examination on my patient. No changes have occurred unless specified. Time Spent With Patient Time: Total time managing care of this patient today ____ minutes.
[2024-12-07 09:01] LABS: Glucose, Whole Blood 156 mg/dL (60-115)
--- NOTE | 2024-12-07 10:43 | P.OP_ITS ---
Operative Note Operative Note Date of Service: 12/07/24 Narrative: Operative note by [facility] Preoperative diagnosis:1. Right Carotid stenosis Postoperative diagnosis: Same Procedure: Right Carotid endarterectomy with patch angioplasty Surgeon:Agustin Juares M.D. [employer] Insulator: Dr. Rivera Anesthesia: General Specimens: 1 Drains: 1 Estimated blood loss: 100 mL Indications: 69-year-old gentleman with high-grade right carotid stenosis confirmed on CAT scan now presents for right carotid endarterectomy The patient has signed the informed consent after reviewing risks, complications, benefits, and alternatives previously discussed with the patient. The patient was given the opportunity to ask any additional questions or voice any concerns. All questions were answered to the patient's satisfaction. Procedure in detail: Patient was taken to the operating room and placed in a supine position and prepped and draped in sterile manner with ChloraPrep. Longitudinal incision was made along the anterior border of the right sternocleidomastoid carried down through the subcutaneous fat and fascia. Hemostasis was obtained with electrocautery. The platysma muscle was then divided. The carotid sheath was identified in open. The vagus nerve, Ancef cervicalis, and hypoglossal nerves were identified and avoided. The common internal and external carotids were then freed from the surrounding tissue. At this point, 10,000 units of heparin was administered and allowed to circulate for 5 minutes time to take effect. The internal, common, external carotids were clamped in that order. Once this was accomplished, we proceeded with the procedure. The carotid bulb was opened with an 11 blade and extended with Epstein scissors through the very tight lesion into normal internal carotid artery. This was then extended down into the common carotid artery. We then placed a Keith shunt. Then the plaque was sharply excised proximally and an eversion endarterectomy was performed successfully at the external. The plaque tapered nicely on to the internal and no tacking sutures were necessary. Heparinized saline was injected and no evidence of flapping or other debris was noted. The remaining carotid was examined, which showed no debris or flaps present. At this point a XenoSure patch was brought on to the field. This was anastomosed to the artery using a 6 0 Prolene in a running fashion. Once approximately 4/5 of the patch was sewn in the shunt was then removed. Prior to the last stitch the internal carotid was back bled through this. Heparinized saline was instilled into the carotid. The last stitch was tied. Hemostasis was excellent. The internal carotid was gently occluded while while of the external and internal were open in that order. Finally the internal was then opened and flow was restored to the entire system. Hemostasis was achieved with interrupted 7-0 Prolene sutures. The wound was irrigated thoroughly. Deep layer was reapproximated using a 2-0 poly Sorb and finally the superficial layer with a 3-0 Polysorb. The skin was closed in a subcuticular manner. The patient awoke and neurologic status was checked and appeared to be intact. Sponge, needle and instrument counts were correct. The patient tolerated the procedure well. Returned to recovery with stable vitals. This note is constructed using voice recognition software. While every effort has been made to ensure accuracy, chemical processing technician errors may have been included. Thank you for allowing me to participate in the care of your patient. Yours sincerely, Agustin Juares MD, FACS, R.P.V.I.
--- NOTE | 2024-12-07 11:55 | PM.CCHP ---
History of Present Illness Date of Service: 12/07/24 Chief Complaint: Status post elective right carotid endarterectomy 69-year-old gentleman with underlying history of diabetes mellitus, hypertension, BPH, aortic stenosis, morbid obesity, PAD, AAA now postoperative day 0 after an elective right carotid endarterectomy, being monitored in the intensive care unit. Review of Systems Constitutional: Constitutional: Denies daytime sleepiness, Denies excessive sweating, Denies fatigue, Denies fever(s), Denies lethargy, Denies malaise, Denies night sweats, Denies snoring and Denies weight loss Eyes: Eyes: Denies blurry vision and Denies itchy eyes ENT: Denies nasal congestion, Denies post nasal drip, Denies sinus pain, Denies sinus pressure and Denies other ( Thrush) Cardiovascular: Cardiovascular: Denies chest pain, Denies pedal edema, Denies dyspnea, Denies orthopnea and Denies paroxysmal nocturnal dyspnea Respiratory: Respiratory: Denies cough, Denies hemoptysis, Denies excessive phlegm production, Denies dyspnea, Denies snoring and Denies wheezing Gastrointestinal: Gastrointestinal: Denies abdominal pain and Denies heartburn Musculoskeletal: Musculoskeletal: Denies myalgias, Denies arthralgias and Denies joint swelling Integumentary/Breasts: Skin/Breast: Denies rash Neurologic: Denies memory loss and Denies seizure-like activity Psychiatric: Psychiatric: Denies abnormal sleep pattern, Denies anxiety and Denies memory loss Endocrine: Endocrine: Denies excessive sweating, Denies fatigue and Denies heat intolerance Hematologic/Lymphatic: Hematologic/Lymphatic: Denies easy bruising Allergic/Immunologic: Allergic/Immunologic: Denies itchy eyes, Denies seasonal rhinorrhea and Denies wheezing PMFSH Past Medical History Medical History Kamara's palsy HTN (hypertension) (atherosclerosis) Ascending aortic aneurysm Aortic stenosis [place], bilateral Obesity due to excess calories Tinea pedis Charcot foot due to diabetes mellitus Diabetic polyneuropathy associated with type 2 diabetes mellitus 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 type 2 diabetes mellitus 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 RLS (restless legs syndrome) Aortic valve calcification BPH (benign prostatic hyperplasia) Osteomyelitis [place] (obstructive sleep apnea) KAI (acute kidney injury) Family History Family History Father Bladder cancer Mother Lung cancer Surgical History Surgical History Hx of cystoscopy H/O colonoscopy History of bunionectomy Amputation toe History of bunionectomy Social History Social History Household Members: Spouse Housing: House Are you a primary nurse wound care to a significant other at home: No Do you presently have visiting nurse or other home services: No Alcohol intake: current Alcohol intake frequency: holidays/special occasions only Patient Tobacco Use Status: Never used Tobacco e-Cigarette/Vaping Use: Never Used Use of substances other than those prescribed or required for medical reasons: No Have you been hit, kicked, punched, or otherwise hurt by someone within the past year? If so, by whom?: No Advance Directives: Yes Advance Directives Information Provided: No Advance Directives on File: Yes Advance Directives Date on File: 03/18/23 Poor oral hygiene: No service: No Cognitive needs: No Hearing needs: No Vision needs: Yes Meds Allergies Allergy/AdvReac Type Severity Reaction Status Date / Time No Known Allergies Allergy Verified 12/07/24 06:32 Active Medications: Current Medications Acetaminophen (Acetaminophen 325 Mg Tablet) 650 mg PO ONCE PRN PRN Reason: Pain, Mild (Pain Scale 1-3) Stop: 12/07/24 13:12 Acetaminophen (Acetaminophen 325 Mg Tablet) 650 mg PO Q6H PRN PRN Reason: Pain, Mild 1-3,fever,headache Calcium Carbonate (Calcium Carbonate 750 Mg Tab.Chew) 750 mg PO Q4H PRN PRN Reason: Heartburn Fentanyl (Fentanyl Citrate/Pf 100 Mcg/2 Ml Vial) 25 mcg IVPUSH Q5M PRN PRN Reason: Pain, Moderate to Severe (Pain Scale 4-10) Stop: 12/07/24 13:11 Hydromorphone HCl (Hydromorphone Hcl 0.5 Mg/0.5 Ml Syringe) 0.5 mg IVPUSH Q5M PRN PRN Reason: Pain, Moderate to Severe (Pain Scale 4-10) Stop: 12/07/24 13:12 Lactated Ringer's (Lr) 1,000 mls @ 100 mls/hr IVCONT .[facility]10H [facility] Lactated Ringer's (Lr) 500 mls @ 20 mls/hr IVCONT .Q24H [facility] Cefazolin Sodium/Dextrose (Ancef) 2 gm in 50 mls @ 100 mls/hr IV POSTOP@1400 ONE Stop: 12/07/24 14:29 Magnesium Hydroxide (Milk Of Magnesia 30 Ml Oral.Susp) 30 ml PO DAILY PRN PRN Reason: Constipation Melatonin (Melatonin 3 Mg Tablet) 6 mg PO BEDTIME PRN PRN Reason: Insomnia Morphine Sulfate (Morphine Sulfate 2 Mg/Ml Cartridge) 2 mg IVPUSH Q4H PRN; Protocol PRN Reason: Pain, Severe (Pain Scale 7-10) Naloxone HCl (Naloxone Hcl 0.4 Mg/Ml Vial) 0.04 mg IVPUSH Q5M PRN PRN Reason: Excessive sedation or RR < 8 Ondansetron HCl (Ondansetron Hcl 4 Mg/2 Ml Vial) 4 mg IVPUSH ONCE PRN PRN Reason: Nausea and Vomiting Stop: 12/07/24 13:12 Oxycodone HCl (Oxycodone Hcl Immed Release 5 Mg Tablet) 5 mg PO ONCE PRN PRN Reason: Pain, Moderate(Pain Scale 4-6) if no IV Access Stop: 12/07/24 13:12 Oxycodone HCl (Oxycodone Hcl Immed Release 5 Mg Tablet) 5 mg PO Q4H PRN PRN Reason: Pain, Moderate(Pain Scale 4-6) Sodium Chloride (0.9 % Sodium Chloride Flush 3 Ml Syringe) [facility] Medications ?Medication ?Instructions ?Recorded ?Confirmed ?Last Taken ?Type cholecalciferol (vitamin D3) 10 10 mcg PO DAILY 12/19/20 12/07/24 12/06/24 History mcg (400 unit) capsule semaglutide 2 mg/dose (8 mg/3 mL) 2 mg subcut QWEEK 07/10/24 11/18/24 11/23/24 History subcutaneous pen injector (Ozempic) aspirin 81 mg tablet,delayed 81 mg PO DAILY 09/23/24 12/07/24 12/06/24 History release (Adult Low Dose Aspirin) silodosin 8 mg capsule 8 mg PO DAILY 05/03/2512/07/24 12/06/24 History insulin glargine U-300 conc 300 56 unit subcut DAILY 11/19/24 12/07/24 12/06/24 History unit/mL (3 mL) subcutaneous pen (Toujeo Max U-300 SoloStar) Physical Exam Vital Signs: Vital Signs: Last Vital Signs Temp 97.7 F 12/07/24 11:05 Pulse 63 12/07/24 11:20 Resp 16 12/07/24 11:20 BP 116/56 L 12/07/24 11:20 Pulse Ox 97 12/07/24 11:20 O2 Del Method Nasal Cannula wit h Capnography 12/07/24 11:20 O2 Flow Rate 2 12/07/24 11:20 BMI result Body Mass Index 38.6 Const: General: no acute distress and alert Nutritional Appearance: obese Orientation/consciousness: Other orientation findings ( oriented) HEENT: Head: Yes atraumatic Eyes: General: appearance normal, both eyes and all related structures Sclerae: sclerae normal EOM: EOMs intact bilaterally Neck: Other: Right carotid surgical site with no hematoma. Neck: Yes supple Lymphatic: no lymphadenopathy noted Resp: Effort & Inspection: normal respiratory effort and no use of accessory muscles Auscultation: clear to auscultation bilaterally Cardio: Rate: regular rate Rhythm: regular rhythm Heart sounds: no gallops, no murmurs and no rubs GI: Palpation (GI): Soft to palpation and Other GI palpation findings present ( Nontender) Auscultation: normal bowel sounds Skin: General skin exam: other ( warm) Extrem: General: No clubbing, No cyanosis and Yes edema (Trace bilateral) Results Labs 12/07/24 06:39 12/07/24 06:39 Labs: Laboratory Results - last 24 hr 12/07/24 12/07/24 06:39 06:57 MCV 86.3 MCH 29.3 MCHC 33.9 RDW 14.3 Plt Count 250 MPV 9.7 Absolute Nucleated RBC 0.000 Nucleated RBC % (auto) 0.0 PT 12.7 H INR 1.1 APTT 32.7 Anion Gap 12 Estim Creat Clear Calc 118.3 Estimated GFR > 60 POC Glucose 156 H Random Glucose 167 H Calcium 9.4 Assessment and Plan (1) Status post carotid endarterectomy: Status: Acute (2) HTN (hypertension): Qualifiers: Hypertension type: primary hypertension Qualified Code(s): I10 - Essential (primary) hypertension Status: Acute (3) AAA (abdominal aortic aneurysm) without rupture: Qualifiers: Abdominal aorta location: infrarenal aorta Qualified Code(s): I71.43 - Infrarenal abdominal aortic aneurysm, without rupture Status: Acute (4) PAD (peripheral artery disease): Status: Acute (5) Diabetes: Status: Acute (6) Morbid obesity: Status: Acute Plan Assessment: 69-year-old gentleman with underlying AAA, PVD, diabetes mellitus, hypertension, now postoperative day 0 after an elective right carotid endarterectomy, recovering well. Plan: Neuro: No acute issues. Cardiac: Postoperative day 0 after an elective right carotid endarterectomy, recovering well. Vascular surgery service care appreciated. Maintain systolic blood pressure under 160. Underlying PD, hypertension, and AAA. Pulmonary: No acute issues. Renal: No acute issues. Endo: No acute issues. Underlying diabetes mellitus. GI: No acute issues. ID: No acute issues Heme/Onc: No acute issues. Psych: No acute issues. Miscellaneous: No acute issues. Prophylaxis: Per vascular surgery Diet: Diabetic
[2024-12-07 12:15] LABS: Glucose, Whole Blood 219 mg/dL (60-115)
--- NOTE | 2024-12-07 12:38 | PHA.MEDREC ---
Pharmacy Consult ? Medication Reconciliation Pharmacy has reviewed the medication reconciliation done by nursing staff.
[2024-12-07] MEDS: Morphine Sulfate 2 MG/ML CARTRIDGE IVPUSH ×3 (13:57→23:11)
[2024-12-07] MEDS: Gabapentin 300 MG CAPSULE PO ×2 (16:16→20:19)
[2024-12-07] MEDS: 0.9 % Sodium Chloride Flush 3 ML SYRINGE IVFLUSH ×2 (16:17→20:22)
[2024-12-07 16:20] LABS: Glucose, Whole Blood 143 mg/dL (60-115)
[2024-12-07] MEDS: ceFAZolin Sodium/Dextrose,Iso 2 GM/50 ML PIGGYBACK IV (17:47)
[2024-12-07] MEDS: traZODone HCL 100 MG TABLET PO (18:33)
[2024-12-07] MEDS: metFORMIN HCl ER 500 MG TAB.ER.24H 1000 MG PO (20:18)
[2024-12-07] MEDS: Atorvastatin Calcium 80 MG TABLET PO (20:19)
[2024-12-07] MEDS: Acetaminophen 325 MG TABLET 650 MG PO (20:19)
[2024-12-07 20:27] LABS: Glucose, Whole Blood 100 mg/dL (60-115)
[2024-12-08] VITALS (13 sets, daily range): BP systolic 109–165; BP diastolic 36–75; PULSE 40–62; RESP 11–20; TEMP 36.4; O2SAT 87–97; BMI 38.5
--- NOTE | 2024-12-08 02:55 | PC.NURSE ---
Upon initial assessment at 1999- pt resting in bed, A&Ox4, calm/cooperative. Chronic R facial drooping noted, unchanged from baseline per hx. Neuro checks per protocol, no acute changes noted. SB on tele, HR mostly 40-50s; pt remains asymptomatic w/ BP maintained within hemodynamic guidelines. A-line to L radial, waveform appropriate; insertion site C/D/I. Sleep apnea pattern observed overnight with intermittent desaturations into the 80s, 1L NC applied. No s/s of respiratory distress. Tolerating small amount of PO intake. Indwelling catheter removed at approx 0000, DTV at 0600. Surgical site to R neck intact with minimal sanguineous drainage. No signs of hematoma or swelling. No new deficits noted, able to [place] with strength 5/5 bilaterally. Pain managed with PRN medications, as given per AUG. Pt aware of plan of care. Bed locked in lowest position, alarm on, call perry in reach. See EMR/flowsheet for further details.
[2024-12-08 06:12] LABS: MANUAL DIFF FLAG NO
[2024-12-08 06:18] LABS: Basophils Absolute Auto 0.1 X10*3/uL (0.0-0.2); Basophils Percent Auto 0.5 % (0-2); Eosinophils Absolute Auto 0.3 X10*3/uL (0.0-0.4); Eosinophils Percent Auto 2.7 % (0-4); Hematocrit 40.2 % (42.0-52.0); Hemoglobin 13.2 g/dl (14.0-18.0); Lymphocytes Absolute Auto 1.1 X10*3/uL (1.2-4.9); Lymphocytes Percent Auto 10.7 % (20-40); Mean Corpuscular HGB Conc 32.8 g/dl (31.0-36.0); Mean Corpuscular Hemoglobin 28.6 pg (27.0-33.0); Mean Corpuscular Volume 87.2 fL (80.0-98.0); Mean Platelet Volume 9.6 fL (9.4-12.4); Monocytes Absolute Auto 0.9 X10*3/uL (0.1-1.2); Monocytes Percent Auto 8.8 % (2-11); Neutrophils Absolute Auto 7.9 x10*3/uL (2.0-8.3); Neutrophils Percent Auto 76.3 % (45-73); Platelet Count 194 X10*3/uL (160-400); Red Blood Count 4.61 X10*6/uL (4.60-5.80); Red Cell Distribution Width 14.6 % (11.0-16.0); White Blood Count 10.3 X10*3/uL (4.8-10.8)
[2024-12-08 06:31] LABS: Albumin Level 3.7 g/dL (3.5-5.0); Magnesium 1.8 mg/dL (1.6-2.6); Phosphorus 4.2 mg/dL (2.7-4.5)
[2024-12-08 06:32] LABS: Anion Gap 13 (12-20); Blood Urea Nitrogen 19 mg/dL (9-16); Calcium 8.7 mg/dL (8.4-10.2); Carbon Dioxide 23 mmol/L (22-29); Chloride 107 mmol/L (96-108); Creatinine Clr Calc Pharmacy 132.7; Estimated Glomerular Filt Rate > 60; Glucose Random 123 mg/dL (60-115); Potassium 3.6 mmol/L (3.3-5.1); Sodium 139 mmol/L (135-145)
[2024-12-08 07:54] LABS: Glucose, Whole Blood 123 mg/dL (60-115)
[2024-12-08] MEDS: lisinopriL 10 MG TABLET PO (08:26)
[2024-12-08] MEDS: Gabapentin 300 MG CAPSULE PO (08:26)
[2024-12-08] MEDS: metFORMIN HCl ER 500 MG TAB.ER.24H 1000 MG PO (08:26)
[2024-12-08] MEDS: amLODIPine Besylate 10 MG TABLET PO (08:26)
[2024-12-08] MEDS: Cholecalciferol (Vitamin D3) 10 MCG TABLET PO (08:27)
[2024-12-08] MEDS: Aspirin Enteric Coated 81 MG TABLET.DR PO (08:27)
[2024-12-08] MEDS: 0.9 % Sodium Chloride Flush 3 ML SYRINGE IVFLUSH (08:29)
--- NOTE | 2024-12-08 08:57 | HO.POSTANES ---
Post Anesthesia Evaluation Post Anesthesia Evaluation Date of Service: 12/08/24 Vital Signs: Vital Signs Temp Pulse Pulse Resp BP BP Pulse Ox 12/08/24 08:00 60 165/75 H 12/08/24 08:00 97.5 F 62 18 161/75 H 97 12/08/24 07:00 45 L 18 142/55 H 93 12/08/24 06:00 55 17 142/57 H 95 12/08/24 04:59 47 L 17 137/57 L 93 12/08/24 04:00 42 L 124/52 L 12/08/24 04:00 50 13 129/54 L 87 L 12/08/24 03:00 40 L 13 131/55 L 90 L 12/08/24 02:00 41 L 20 130/53 L 92 12/08/24 00:57 46 L 17 125/57 L 92 12/08/24 00:00 59 11 L 113/54 L 93 12/08/24 00:00 44 L 116/52 L 12/07/24 23:11 12 12/07/24 23:00 96.9 F 46 L 12 114/51 L 91 L 12/07/24 22:00 45 L 25 H 109/46 L 92 O2 Del Method O2 Flow Rate 12/08/24 08:00 12/08/24 08:00 Nasal Cannula 1 12/08/24 07:00 Nasal Cannula 1 12/08/24 06:00 Nasal Cannula 1 12/08/24 04:59 Nasal Cannula 1 12/08/24 04:00 12/08/24 04:00 Nasal Cannula 1 12/08/24 03:00 Nasal Cannula 1 12/08/24 02:00 Nasal Cannula 1 12/08/24 00:57 Nasal Cannula 1 12/08/24 00:00 Nasal Cannula 1 12/08/24 00:00 12/07/24 23:11 12/07/24 23:00 Nasal Cannula 1 12/07/24 22:00 Nasal Cannula 1 Anesthesia: General Endotracheal-GETA Mental Status: Awake Pain Control: Satisfactory Nausea/Vomiting: None Hydration: Adequate Anesthesia-Related Issues: No Anes. Related Issues
--- NOTE | 2024-12-08 12:03 | PM.DS ---
DS: Providers Provider Date of Service: 12/08/24 Date of admission: 12/07/24 07:13 Date of discharge: 12/08/24 [facility] DS: Diagnosis Discharge Diagnosis (1) Status post carotid endarterectomy: Status: Acute (2) HTN (hypertension): Status: Acute (3) AAA (abdominal aortic aneurysm) without rupture: Status: Acute (4) PAD (peripheral artery disease): Status: Acute (5) Diabetes: Status: Acute (6) Morbid obesity: Status: Acute DS: Summary Hospital Course Hospital Course: Romel is s/p right CEA with Dr Juares, performed on 12/07/24. He was admitted to the ICU yesterday post-op for close monitoring. He has been eating and drinking well. He denies any lightheadedness, dizziness, weakness, or headaches. His pain is minimal, 1/10. He states he has some discomfort with movement of his head, but he contributes it to the bandage. He will get OOB today as well. The Xiong has been removed and there is no A line. He denies any numbness or tingling. We discussed that he can go home, later this afternoon. We had a lengthy discussion about things he can/cannot do. We discussed the importance of continuing with his current medications and taking Tylenol if needed for pain. We discussed to not lift anything over 5# and he cannot drive until the follow up appt in 2w. We discussed the importance of a healthy, well balanced diet, including protein and vegetables. The pt does have help at home; he lives with his . We will have him follow up with us in 2w. I discussed with him that the steri-strips on the incision site will likely fall off in about a week or so. Time Attestation Discharge Coordination Time (in mins): >45 minutes Quality: Safe Use of Opioids Does Pt have an Active Cancer Diagnosis on the Problem List?: No Quality: Stroke Does the patient have a stroke diagnosis?: No Physical Exam Vital Signs: Vital Signs: Last Vital Signs Temp 97.5 F 12/08/24 08:00 Pulse 58 12/08/24 11:00 Resp 18 12/08/24 11:00 BP 109/36 L 12/08/24 11:00 Pulse Ox 95 12/08/24 11:00 O2 Del Method Room Air 12/08/24 11:00 O2 Flow Rate 1 12/08/24 09:00 BMI result Body Mass Index 38.5 Const: General: comfortable and no acute distress Orientation/consciousness: patient oriented x3 HEENT: Ears: hearing grossly normal bilaterally Neck: Other: Right incision site: small area of dried blood noted on the distal aspect of the bandage. Bandage removed and steri-strips intact. Small amount of dried blood on the steri-strips, on the distal aspect. Resp: Effort & Inspection: normal respiratory effort and able to speak in complete sentences Auscultation: clear to auscultation bilaterally Cardio: Rate: regular rate Rhythm: regular rhythm Heart sounds: S1 normal heart sound present and S2 normal heart sound present Bruits: no abdominal aortic bruits, no carotid bruits, no femoral bruits and no renal bruits GI: Palpation (GI): No Abdominal aortic bruit present Neuro: General: patient oriented x3 Cranial nerves: Yes CN's II-XII intact bilaterally DS: Data Data Completed and Pending Pending studies at discharge: Pending at discharge 12/07/24 09:08 Surgical [PTH] Routine Labs on day of discharge: Laboratory Results - last 24 hr 12/07/24 12/07/24 12/07/24 12:08 16:16 20:23 WBC RBC Hgb Hct MCV MCH MCHC RDW Plt Count MPV Immature Gran % (Auto) Neut % (Auto) Lymph % (Auto) [place] % (Auto) Eos % (Auto) Baso % (Auto) Lymph # (Auto) [place] # (Auto) Eos # (Auto) Baso # (Auto) Abs Immat Gran (auto) Absolute Neuts (auto) Absolute Nucleated RBC Nucleated RBC % (auto) Sodium Potassium Chloride Carbon Dioxide Anion Gap BUN Creatinine Estim Creat Clear Calc Estimated GFR POC Glucose 219 H 143 H 100 Random Glucose Calcium Phosphorus Magnesium Albumin 12/08/24 12/08/24 05:57 07:50 WBC 10.3 RBC 4.61 Hgb 13.2 L Hct 40.2 L MCV 87.2 MCH 28.6 MCHC 32.8 RDW 14.6 Plt Count 194 MPV 9.6 Immature Gran % (Auto) 1.0 H Neut % (Auto) 76.3 H Lymph % (Auto) 10.7 L [place] % (Auto) 8.8 Eos % (Auto) 2.7 Baso % (Auto) 0.5 Lymph # (Auto) 1.1 L [place] # (Auto) 0.9 Eos # (Auto) 0.3 Baso # (Auto) 0.1 Abs Immat Gran (auto) 0.10 H Absolute Neuts (auto) 7.9 Absolute Nucleated RBC 0.000 Nucleated RBC % (auto) 0.0 Sodium 139 Potassium 3.6 Chloride 107 Carbon Dioxide 23 Anion Gap 13 BUN 19 H Creatinine 0.76 Estim Creat Clear Calc 132.7 Estimated GFR > 60 POC Glucose 123 H Random Glucose 123 H Calcium 8.7 D Phosphorus 4.2 Magnesium 1.8 Albumin 3.7 Discharge Plan Discharge Anticipated Discharge Date/Time: 12/08/24 13:53 Patient Disposition: Home, Self-Care Discharge Diagnosis: s/p right carotid endarterectomy Referrals: Fredrick Howell [facility] [Primary Care Provider] - 1 Week Discharge Medications: Continued (DME) FreeStyle Yolanda 2 [place] Misc See Rx Instructions .Route Qty: 1 0RF Rx Instructions: TID testing (DME) FreeStyle Yolanda 2 Sensor Kit See Rx Instructions .Route Qty: 6 1RF Rx Instructions: TID tesing amlodipine 10 mg tablet 10 mg PO DAILY Qty: 90 3RF lisinopril 10 mg tablet 10 mg PO DAILY 90 Days Qty: 90 1RF (DME) pen needle, diabetic [BD Ultra-Fine Short Pen Needle] 31 gauge x 5/16 needle See Rx Instructions .ROUTE .MEDSUPPLY Qty: 100 1RF Rx Instructions: use to inject insulin once a day atorvastatin 80 mg tablet 80 mg PO BEDTIME 90 Days Qty: 90 1RF metformin 500 mg tablet extended release 24 hr 1,000 mg PO BID Qty: 360 1RF gabapentin 300 mg capsule 300 mg PO TID 30 Days Qty: 90 0RF trazodone 100 mg tablet 100 mg PO BEDTIME PRN (Reason: sleep) 30 Days Qty: 90 0RF Ozempic 2 mg/dose (8 mg/3 mL) pen injector 2 mg subcut QWEEK Patient Comments: patient takes every Saturday dutasteride [Avodart] 0.5 mg capsule 0.5 mg PO DAILY Qty: 90 2RF insulin glargine U-300 conc [Toujeo Max U-300 SoloStar] 300 unit/mL (3 mL) insulin pen 56 unit subcut DAILY alpha lipoic acid 600 mg tablet 600 mg PO DAILY Qty: 30 3RF (DME) blood-glucose meter [FreeStyle Lite Meter] Kit See Rx Instructions miscellaneous .MEDSUPPLY Qty: 1 0RF Rx Instructions: 4 times a day (DME) FreeStyle Lite Strips Strip See Rx Instructions .MEDSUPPLY Qty: 150 6RF Rx Instructions: 4 times a day (DME) lancets [FreeStyle Lancets] 28 gauge misc See Rx Instructions .MEDSUPPLY Qty: 150 6RF Rx Instructions: 4 times a day cholecalciferol (vitamin D3) 10 mcg (400 unit) capsule 10 mcg PO DAILY aspirin [Adult Low Dose Aspirin] 81 mg tablet,delayed release (DR/EC) 81 mg PO DAILY silodosin 8 mg capsule 8 mg PO DAILY Discharge Orders: Discharge Order (Routine); Ordered 12/08/24 Ordered By: Rena Santos Diet: Advance to usual diet Activity on Discharge: As tolerated Stand Alone Forms: Patient Portal Discharge page Print Language: Mauritian Activity Restrictions/Additional Instructions: You may shower tomorrow. Do not submerge in a tub or hottub. Take it easy today and you may ambulate around the house. You may climb a flight of stairs as tolerated Do not lift anything heavier than a gallon of milk for [address] Juares in follow-up in approximately 2 weeks time. You should already have an appointment if not please call my office at [phone] Please see above for any change in medications If you notice excessive bleeding from the neck, please immediately call my office or return to the emergency room. Care Plan Goals: Do not lift any more than [address] until your follow up appt in 2w. Rest but do not stay sedentary. Light physical activity for the next 2 weeks. Eat a healthy, well balanced diet to include proteins and vegetables. Health Concerns: Any symptoms of a stroke or TIA including weakness, lightheadedness, headaches, or any other symptoms, please get to the ER. Any excessive bleeding/discharge from the incision site, please contact our office. Plan of Treatment: Light physical activity. Do not lift over 5 pounds over the next 2 weeks. Assessment: s/p right CEA
[2024-12-08 12:06] LABS: Glucose, Whole Blood 126 mg/dL (60-115)
--- NOTE | 2024-12-08 12:51 | MHC.CM.PN ---
Met with pt and spouse to review d/c planning needs: pt resides with spouse, is independent with care needs, has no services or DME and offers no barriers to care. Pt will d/c later today: spouse to transport: IMM given: HCP copy requested.
== END 2024-12-08 13:15 | disposition home or self-care (01) | DRG 39 ==
LOC: HO.SSSA 07:14 → HO.ICU 10:14
PROVIDERS: Nurse Practitioner; Admitting Provider Surgery Vascular Surgery; PCP Nurse Practitioner Family; Visit Provider Internal Medicine Pulmonary Disease
PROC: (CPT 35301; principal; 2024-12-07 07:30)
DX: I65.21 Occlusion and stenosis of right carotid artery (principal); I10 Essential (primary) hypertension; N40.0 Benign prostatic hyperplasia without lower urinary tract symptoms; I71.43 Infrarenal abdominal aortic aneurysm, without rupture; E11.51 Type 2 diabetes mellitus with diabetic peripheral angiopathy without gangrene; E66.01 Morbid (severe) obesity due to excess calories; Z68.38 Body mass index [BMI] 38.0-38.9, adult; Z71.3 Dietary counseling and surveillance; Z79.4 Long term (current) use of insulin; Z79.84 Long term (current) use of oral hypoglycemic drugs; Z79.82 Long term (current) use of aspirin; Z79.899 Other long term (current) drug therapy
CPT/HCPCS: 36415; 80048; 82040; 82947; 83735; 84100; 85025; 85027; 85610; 85730; 86850; 86900; 86901; 88304; 88311; A4649; C1768; J0330; J0690; J1171; J1596; J1644; J1920; J2003; J2270; J2371; J2405; J2704; J2795; J3010

== ENCOUNTER → 2024-12-07 07:13 | Outpatient (BNV) | payer MEDICARE, SELFPAY | PROVIDERS: Admitting Provider Surgery Vascular Surgery; PCP Nurse Practitioner Family; Visit Provider Internal Medicine Pulmonary Disease | DX: Z98.890 Other specified postprocedural states (principal); I10 Essential (primary) hypertension; I71.43 Infrarenal abdominal aortic aneurysm, without rupture; I73.9 Peripheral vascular disease, unspecified; E11.9 Type 2 diabetes mellitus without complications; E66.01 Morbid (severe) obesity due to excess calories | CPT/HCPCS: 99222 ==

== ENCOUNTER → 2024-12-07 07:13 | Outpatient (BNV) | payer MEDICARE, SELFPAY | PROVIDERS: Admitting Provider Surgery Vascular Surgery; PCP Nurse Practitioner Family; Visit Provider Surgery Vascular Surgery | DX: I65.21 Occlusion and stenosis of right carotid artery (principal) | CPT/HCPCS: 35301; 99232 ==

== ENCOUNTER 2024-12-10 10:11 | Outpatient (AMB) | payer MEDICARE, SELFPAY ==
[2024-12-10 10:18] VITALS: BP 110/60; PULSE 61; RESP 18; TEMP 36.7; O2SAT 96; BMI 39.0
--- NOTE | 2024-12-10 10:18 | A.OFFPC_ITS ---
Vital Signs 12/10/24 10:18 Height 6 ft 2 in Weight 304 lb BMI 39.0 BP 110/60 Blood Pressure Location Rt brachial Position Sitting Respiration 18 Pulse 61 Pulse Source Pulse Oximeter Temp 98.1 F Temp Source Oral Pulse Oximetry (%) 96 Oxygen Delivery Method Room Air Intake Visit Reasons: TCM Intake Note: Pt is here today for TCM. Allergies No Known Allergies Allergy (Verified 12/10/24 10:24) Tobacco use date assessed: 12/10/24 Fall risk assessment: No Falls in past year Last assessed Fall Risk: 12/10/24 Dental Screening Dental Screen Date: 09/23/24 HPI TCM TCM Information Date of Discharge 12/08/24 Discharged From [facility] Interactive Contact Date (Reference documentation from this date) 12/09/24 HPI Comments History of Present Illness Details Patient is a 69-year-old male with a past medical history of HTN, AAA without rupture, kidney stones, BPH, diverticulosis, ED, varicose veins, PA, diabetes D, Charcot foot, DM2, HLD who was found to have a high-grade right carotid stenosis that is per CT angiogram so he was brought in by Dr. Juares is here status post right CEA with Dr. Juares on 12/07/2024. He spent 1 night in the ICU and was discharged the next day with all the precautions, do not lift anything over 5 lb no driving for 2 weeks eating a healthy well-balanced diet and following up with vascular surgery in 2 weeks. The incisions site Steri- Strips should fall off about 1 week. Today, he denies any bleeding from the site, malodorous or purulent discharge or fevers. He states his pain level is 1.5/10 and worse if he turns his head. He denies any weakness, lightheadedness headaches or dizziness. He is having an issue with tinnitus in the right ear and plans on following up with ENT for this issue in one month. Has follow up with Vascular on 12/22/24. He states the bandage has been falling off a little bit on the ends in his has been trimming the edges because he is concerned it is going to get caught when he tries to put on a remove his shirt and they want to make sure that is okay. He has no other complaints today. [facility] Medical History Kamara's palsy HTN (hypertension) (atherosclerosis) Ascending aortic aneurysm Aortic stenosis Hammertoe, bilateral Obesity due to excess calories Tinea pedis Charcot foot due to diabetes mellitus Diabetic polyneuropathy associated with type 2 diabetes mellitus 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 type 2 diabetes mellitus custodial (current) use of insulin RLS (restless legs syndrome) Aortic valve calcification BPH (benign prostatic hyperplasia) Osteomyelitis [place] (obstructive sleep apnea) KAI (acute kidney injury) Surgical History Hx of cystoscopy H/O colonoscopy History of bunionectomy Amputation toe History of bunionectomy Family History Father Bladder cancer Mother Lung cancer Social History Household Members: Spouse Housing: House Are you a primary district manager primary care sales to a significant other at home: No Do you presently have visiting nurse or other home services: No Alcohol intake: current Alcohol intake frequency: holidays/special occasions only Patient Tobacco Use Status: Never used Tobacco e-Cigarette/Vaping Use: Never Used Advance Directives Date on File: 03/18/23 service: No Cognitive needs: No Hearing needs: No Vision needs: Yes Questionnaire Thrive Questionnaire Date Thrive assessed: 12/09/24 I am a: Patient What is your living situation today?: I have a steady place to live Within the past 12 months, did the food you bought not last and you didn't have the money to get more?: Never true Within the past 12 months, did you worry whether your food would run out before you got money to buy more?: Never true Do you have trouble paying for medicines?: No Do you have trouble getting transportation to medical appointments?: No Do you have trouble paying your heating and electricity bill?: No Do you have trouble taking care of your child, family member or friend?: No Do you have trouble with day-to-day activities such as bathing, preparing meals, shopping, managing finances, etc.?: No Are you currently unemployed and looking for a job?: No Are you interested in more education?: Yes Please select the resources that you would like help with: None Currently or been in a relationship where the following occur: No concerns reported THRIVE Score: 0 ALFRED-7 AMB Questionnaire ALFRED-7 Date ALFRED - 7 assessed: 09/23/24 Becoming easily annoyed or irritable: 0 = Not at all Source: Developed by Drs. Rudy Lott, Melissa Giraldo, Baljit Huang and colleagues, with an educational angela from [employer]. Review of Systems Const All systems reviewed & are unremarkable except as noted in HPI and below Physical exam (Primary Care) BMI result Body Mass Index 39.0 Tobacco/Smoking Status: Tobacco use Status Tobacco use date assessed 09/23/24 12/10/24 10:18 Patient Tobacco Use Status Never used Tobacco 12/10/24 10:18 e-Cigarette/Vaping Use Never Used 12/10/24 10:18 Thrive Assessment: Date of Thrive Assessment Date Thrive assessed 12/09/24 12/10/24 10:18 Currently or been in a relationship where the following occur: No concerns reported Coding Level of Care Code TCM Mod MDM <= 7 Days Diagnoses Status post carotid endarterectomy Z98.890 Hospital discharge follow-up Z09 Assessment & Plan Assessment & Plan (1) Status post carotid endarterectomy: Code(s): Z98.890 - Other specified postprocedural states Category: Medical Plan: Recommended the patient continue keeping the bandage clean and dry and they can continue to trim the edges to avoid tearing enough by accident. If they do tear it off, recommended they come to the walk-in so we could apply a new bandage/Steri-Strips. If they develop any fevers, purulent drainage, malodorous drainage or excessive bleeding, he should follow up with his vascular surgeon, Dr. Juares. (2) Hospital discharge follow-up: Code(s): Z09 - Encounter for follow-up examination after completed treatment for conditions other than malignant neoplasm Plan As above
== END 2024-12-10 14:44 | disposition home or self-care (01) ==
LOC: HO.HMCC 10:12
PROVIDERS: PCP Nurse Practitioner Family; Visit Provider Physician Assistant
DX: I65.21 Occlusion and stenosis of right carotid artery (principal); Z98.890 Other specified postprocedural states; Z09 Encounter for follow-up examination after completed treatment for conditions other than malignant neoplasm

== ENCOUNTER → 2024-12-10 10:11 | Outpatient (BNVA) | payer MEDICARE, SELFPAY | PROVIDERS: PCP Nurse Practitioner Family; Visit Provider Physician Assistant | DX: Z09 Encounter for follow-up examination after completed treatment for conditions other than malignant neoplasm (principal); Z98.890 Other specified postprocedural states | CPT/HCPCS: 99495 ==

== ENCOUNTER 2024-12-22 08:46 | Outpatient (AMB) | payer MEDICARE, SELFPAY ==
[2024-12-22 08:57] VITALS: BMI 39.0
--- NOTE | 2024-12-22 08:57 | MHC.OFFVIS ---
Vital Signs 12/22/24 08:57 Height 6 ft 2 in Weight 304 lb BMI 39.0 Intake Visit Reasons: 2w follow up s/p R CEA 12/07/24 Intake Note: 2 week follow up Right CEA 12/07/24, pt states numbness over treated area, no complaints Tenter Frame Back Tender Required: No Accompanied by: Spouse Allergies No Known Allergies Allergy (Verified 12/22/24 09:03) HPI HPI 2w follow up s/p R CEA 12/07/24: Details: The patient is a 69-year-old male presenting for a routine postoperative follow-up after a right carotid endarterectomy. The procedure was performed on December 07, 2024, and the patient is now in the recovery phase. The incision site is healing well, with expectations of flattening and softening over the next two to three months. There is a slight numbness at the incision site, attributed to the surgical procedure, which is more pronounced in males due to shaving. He now presents for routine postop follow-up [facility] Medical History (Updated 12/22/24 @ 14:58 by Agustin Juares MD) AAA (abdominal aortic aneurysm) without rupture Morbid obesity Kamara's palsy HTN (hypertension) (atherosclerosis) Ascending aortic aneurysm Aortic stenosis Hammertoe, bilateral Obesity due to excess calories Tinea pedis Charcot foot due to diabetes mellitus Diabetic polyneuropathy associated with type 2 diabetes mellitus 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 type 2 diabetes mellitus intermediate (current) use of insulin RLS (restless legs syndrome) Aortic valve calcification BPH (benign prostatic hyperplasia) Osteomyelitis [place] (obstructive sleep apnea) KAI (acute kidney injury) Surgical History (Updated 12/22/24 @ 09:05 by AMELIA Garay) History of right-sided carotid endarterectomy (12/07/24) Hx of cystoscopy H/O colonoscopy History of bunionectomy Amputation toe History of bunionectomy Family History Father Bladder cancer Mother Lung cancer Social History Household Members: Spouse Housing: House Are you a primary rn progressive care unit to a significant other at home: No Do you presently have visiting nurse or other home services: No Alcohol intake: current Alcohol intake frequency: holidays/special occasions only Patient Tobacco Use Status: Never used Tobacco e-Cigarette/Vaping Use: Never Used Advance Directives Date on File: 03/18/23 service: No Cognitive needs: No Hearing needs: No Vision needs: Yes Review of Systems Const All systems reviewed & are unremarkable except as noted in HPI and below Reports no additional complaints ENT Reports Normal hearing present Card Denies chest pain, Denies chest pain at rest, Denies chest pain with activity and Denies pedal edema Resp Denies cough GI Denies abdominal pain Musc Denies abnormal gait, Denies muscle cramps and Denies radiating pain into limb Skin/Breast Denies skin ulcer and Denies wounds Neuro Reports Normal hearing present and Denies abnormal gait Psych Reports no additional complaints Physical Exam Vital Signs: BMI result Body Mass Index 39.0 Const General: cooperative, healthy appearing and comfortable Orientation/consciousness: oriented to person, oriented to place and oriented to time HEENT Head: Yes normal to inspection Neck Neck: Yes normal visual inspection Carotids: no bruits Chest Chest palpation & inspection: normal inspection of the chest Resp Effort & Inspection: normal respiratory effort and able to speak in complete sentences Auscultation: clear to auscultation bilaterally, no crackles, no rales, no rhonchi and no wheezes Cardio Rate: regular rate Rhythm: regular rhythm Heart sounds: S1 normal heart sound present and S2 normal heart sound present Bruits: no carotid bruits Peripheral pulses: Peripheral pulses 2+ throughout GI Inspection: Yes normal to inspection Skin Other: Right neck incision well healed Wounds: no wounds Hair: normal Neuro General: oriented to person, oriented to place and oriented to time Cranial nerves: Yes CN's II-XII intact bilaterally and Yes Normal hearing present Cognition (Neuro): normal cognition Motor exam (neuro): 5/5 motor strength present throughout Extrem Other: venous exam: No significant superficial varicosities or spider telangiectasias, minimal edema General: No clubbing, No cyanosis and No edema Psych Appearance: grossly normal Mental Status: mental status grossly normal Speech and movement: Normal speech and movement present Assessment & Plan Assessment & Plan (1) Carotid stenosis, bilateral: Comment: 12/07/2024 - right carotid endarterectomy Code(s): I65.23 - Occlusion and stenosis of bilateral carotid arteries Category: Medical Plan: In short patient has done well status post right carotid endarterectomy. We have reviewed signs and symptoms of a stroke. We also discussed risk factor modification inclusive a healthy diet low in cholesterol. The patient will follow up with us with surveillance ultrasound of the carotids 3 months. Should there be any changes or signs or symptoms of a stroke we will be happy to see them back sooner. Thank you for allowing us to participate in this patient's care. If there are any questions or concerns please do not hesitate to contact us. Orders: Orders US carotid duplex BI 3 Months I65.23 - Occlusion and stenosis of bilateral carotid arteries Coding Level of Care Code Est Pt Level 4 (89731) Diagnoses Carotid stenosis, bilateral I65.23
== END 2024-12-22 09:25 | disposition home or self-care (01) ==
LOC: HO.HVS 08:47
PROVIDERS: PCP Nurse Practitioner Family; Visit Provider Surgery Vascular Surgery
DX: I65.23 Occlusion and stenosis of bilateral carotid arteries (principal)
CPT/HCPCS: 99024

== ENCOUNTER → 2024-12-22 08:46 | Outpatient (BNVA) | payer MEDICARE, SELFPAY | PROVIDERS: PCP Nurse Practitioner Family; Visit Provider Surgery Vascular Surgery | DX: I65.23 Occlusion and stenosis of bilateral carotid arteries (principal) | CPT/HCPCS: 99212 ==

== ENCOUNTER 2025-02-04 07:42 | Outpatient (AMB) | payer MEDICARE, SELFPAY ==
--- OUTSIDE RECORDS SUMMARY | 2025-02-04 07:45 | XMS_ITS ---
Author Name [facility] Organization Unknown Care Team Organization Name Specialty Phone Email Start Date End Da te [facility] 05/08/2022
--- NOTE | 2025-02-04 08:01 | A.OFFPC_ITS ---
Vital Signs 02/04/25 08:02 Height 6 ft 2 in Weight 300 lb BMI 38.5 BP 118/72 Blood Pressure Location Lt brachial Position Sitting Respiration 16 Pulse 78 Pulse Source Pulse Oximeter Temp 98.3 F Temp Source Oral Pulse Oximetry (%) 98 Intake Visit Reasons: 4m follow up Core Checker Required: No Accompanied by: Self / Same As Patient Allergies No Known Allergies Allergy (Verified 02/04/25 08:04) Tobacco use date assessed: 02/04/25 Fall risk assessment: No Falls in past year Last assessed Fall Risk: 02/04/25 Dental Screening Dental Screen Date: 02/04/25 Did you have a dental visit in the last 12 months?: Yes Did you have a dental problem in the last 6 months where you did not have access to dental care?: No Was dental information given to patient?: Patient has dentist HPI 4m follow up HPI Details Chief Complaint The patient presents for follow-up care for diabetes management. History of Present Illness The patient is a 69-year-old male presenting with a follow-up visit for diabetes management. He has a significant history of diabetic neuropathy affecting his bilateral extremities, which is managed with regular director quality assurance visits. His blood glucose level this morning was 150 mg/dL, and he is due for an A1c test to assess long- term glucose control. Additionally, the patient has a history of Kamara's palsy, which has shown improvement, particularly in facial muscle function, allowing for a more pronounced smile. Social History Health Maintenance Review of Systems Physical Exam General: Cooperative, healthy appearing, comfortable, no acute distress and well developed Orientation: Patient oriented x3 Limitations: No limitations Head: Normal to inspection Ears: Hearing grossly normal bilaterally Nose: Normal external nose present Face and sinus: Normal facial exam, history of Kamara's palsy noted, more of a full smile now Eyes: Appearance normal, both eyes and all related structures Neck: Normal visual inspection and Yes full ROM Respiratory: Normal respiratory effort and able to speak in complete sentences. Clear to auscultation bilaterally Cardiovascular: Regular rate and rhythm. Normal S1 and S2, systolic murmur noted GI: Normal to inspection. Soft to palpation and nontender Skin: No rashes or lesions noted Neuro: Patient oriented x3, significant neuropathy due to bilateral extremities Extremities: Normal to inspection, significant neuropathy due to bilateral extremities. Lack of sensation to the left and right feet, more on the left. Scab on the distal tip of the second toe, left foot. Scab on the dorsal aspect of the first toe. Onychomycosis noted bilaterally. Fourth toe amputation and third toe ulceration/scabbing on the distal tip, right foot. Edema +1p to bilateral lower extremities with some discoloration to legs. Results Plan The patient will continue regular follow-ups for diabetes management, with an emphasis on monitoring blood glucose levels and obtaining an A1c test to evaluate long-term control. Management of diabetic neuropathy will include ongoing director quality assurance consultations to prevent complications. The improvement in Kamara's palsy symptoms will be monitored, with no immediate interventions required unless symptoms worsen. 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 RLS (restless legs syndrome) Aortic valve calcification BPH (benign prostatic hyperplasia) Osteomyelitis [place] (obstructive sleep apnea) KAI (acute kidney injury) Surgical History History of right-sided carotid endarterectomy (12/07/24) Hx of cystoscopy H/O colonoscopy History of bunionectomy Amputation toe History of bunionectomy Family History Father Bladder cancer Mother Lung cancer Social History Household Members: Spouse Housing: House Are you a primary care associate to a significant other at home: No Do you presently have visiting nurse or other home services: No Alcohol intake: current Alcohol intake frequency: holidays/special occasions only Patient Tobacco Use Status: Never used Tobacco e-Cigarette/Vaping Use: Never Used Advance Directives Date on File: 03/18/23 service: No Cognitive needs: No Hearing needs: No Vision needs: Yes Questionnaire Thrive Questionnaire Date Thrive assessed: 12/09/24 I am a: Patient What is your living situation today?: I have a steady place to live Within the past 12 months, did the food you bought not last and you didn't have the money to get more?: Never true Within the past 12 months, did you worry whether your food would run out before you got money to buy more?: Never true Do you have trouble paying for medicines?: No Do you have trouble getting transportation to medical appointments?: No Do you have trouble paying your heating and electricity bill?: No Do you have trouble taking care of your child, family member or friend?: No Do you have trouble with day-to-day activities such as bathing, preparing meals, shopping, managing finances, etc.?: No Are you currently unemployed and looking for a job?: No Are you interested in more education?: Yes Please select the resources that you would like help with: None Currently or been in a relationship where the following occur: No concerns reported THRIVE Score: 0 Physical exam (Primary Care) Vital Signs: Last Vital Signs Temp 98.3 F 02/04/25 08:02 Pulse 78 02/04/25 08:02 Resp 16 02/04/25 08:02 BP 118/72 02/04/25 08:02 Pulse Ox 98 02/04/25 08:02 BMI result Body Mass Index 38.5 Tobacco/Smoking Status: Tobacco use Status Tobacco use date assessed 02/04/25 02/04/25 08:06 Patient Tobacco Use Status Never used Tobacco 02/04/25 08:06 e-Cigarette/Vaping Use Never Used 02/04/25 08:06 Thrive Assessment: Date of Thrive Assessment Date Thrive assessed 12/09/24 02/04/25 08:06 Currently or been in a relationship where the following occur: No concerns reported Coding Level of Care Code Est Pt Level 3 (10673) Diagnoses Diabetes E11.9 Assessment & Plan Assessment & Plan (1) Diabetes: Code(s): E11.9 - Type 2 diabetes mellitus without complications Category: Medical Plan . Orders: Orders Microalbumin, Random (w Creat) Today E11.9 - Type 2 diabetes mellitus without complications Complete Blood Count Auto Diff Today E11.9 - Type 2 diabetes mellitus without complications Comprehensive [place]. Panel Fast Today E11.9 - Type 2 diabetes mellitus without complications TSH reflex Free T4 Today E11.9 - Type 2 diabetes mellitus without complications UA CC w/rflx Micro + Cult Today E11.9 - Type 2 diabetes mellitus without complications Lipid Panel Today E11.9 - Type 2 diabetes mellitus without complications Hemoglobin A1c Today E11.9 - Type 2 diabetes mellitus without complications
[2025-02-04 08:02] VITALS: BP 118/72; PULSE 78; RESP 16; TEMP 36.8; O2SAT 98; BMI 38.5
== END 2025-02-04 08:48 | disposition home or self-care (01) ==
LOC: HO.HMCC 07:42
PROVIDERS: PCP Nurse Practitioner Family; Visit Provider Nurse Practitioner Family
DX: E11.9 Type 2 diabetes mellitus without complications (principal)

== ENCOUNTER → 2025-02-04 07:42 | Outpatient (BNVA) | payer MEDICARE, SELFPAY | PROVIDERS: PCP Nurse Practitioner Family; Visit Provider Nurse Practitioner Family | DX: E11.9 Type 2 diabetes mellitus without complications (principal) | CPT/HCPCS: 99212 ==

== ENCOUNTER 2025-02-08 11:50 | Outpatient (REF) | payer MEDICARE, SELFPAY ==
--- NOTE | ~2025-02-08 | US_ITS ---
EXAMINATION: US RETROPERITONEUM HISTORY: R31.9 - Hematuria, unspecified TECHNIQUE: Real-time grayscale ultrasound imaging of the kidneys was performed and images were reviewed. COMPARISON: Comparison is made with the prior examination dated 10/02/2022. FINDINGS: Right kidney: The right kidney measures 15.0 x 7.9 x 6.1 cm. Renal parenchymal echotexture and thickness are normal. There is an exophytic 2.0 x 2.1 x 2.6 cm cyst in the interpolar region. An additional 2.2 x 1.3 x 1.6 cm peripelvic cyst is noted. There is no hydronephrosis or renal calculi. Left Kidney: The left kidney measures 13.6 x 8.3 x 6.4 cm. Renal parenchymal echotexture and thickness are normal. There is a peripelvic cysts in the interpolar region measuring 2.2 x 1.0 x 2.1 cm. There is no hydronephrosis or renal calculi. Multiple bladder calculi are identified. The bladder wall appears trabeculated. Before voiding, the urinary bladder measured 5.3 x 11.5 x 4.2 cm, for an estimated volume of 133 mL. After voiding, the urinary bladder measured 5.4 x 9.5 x 3.5 cm, for an estimated volume of 93.4 mL. The prostate measures 5.5 x 6.0 x 4.3 cm, for an estimated volume of 73.5 mL. US/US retroperitoneal comp IMPRESSION: 1. Bilateral renal cysts as described. 2. Multiple bladder calculi. 3. Post void bladder residual of 93.4 mL. 4. Prostate volume of 73.5 mL. Electronically signed by: Rudy Sullivan MD 02/08/2025 01:00 PM EDT
--- OUTSIDE RECORDS SUMMARY | 2025-02-08 12:21 | XMS_ITS | Patient Health Record ---
Author Organization [facility] Address [address] [place] [id number] Care Team Providers Care Buckle Attaching Machine Operator Name Role Phone JESUS PALAFOX Primary Care Provider Rudy Pineda [phone] Allergies Allergen (clinical drug ingredient) Drug/Non Drug [...] Problem Screening for malignant neoplasm of colon ([id number]) Special screening for malignant neoplasms, colon (V76.51) Active confirmed Plan Of Treatment Future Test Test Name Order Date COLONOSCOPY 06/07/2011 Insurance Providers Payer Name Payer Address Payer Phone Subscriber Number Group Number Insured Name Patient Relationship to Insured Coverage Start Date Coverage End Date [facility] [employer] [address] [place] [address] [phone] [id number] KEITH ZUNIGA Self - patient is the insured Medical (General) History Medical History History ICD Code HTN Denies CO,DM,CVA,Lung disease,renal dise ase
--- OUTSIDE RECORDS SUMMARY | 2025-02-08 12:21 | XMS_ITS | Patient Health Record ---
Author Organization [facility] [address] [facility] [place] [address] Care Team Providers Care Warehouse Order Puller Name Role Phone Fredrick Lamar Primary Care Provider Unav ailable Clarissa Rocha Unavailable [phone] Allergies No Known Allergies Results Component Value Reference Range Notes HEMOGLOBIN A1C (GLYCOHEMOGLO BIN) Reviewed date:02/10/2024 08:46:13 AM Interpretation: Performing Lab: Notes/Report: HEMOGLOBIN A1C (HH) 6.9 Reason For Referral No Information Medications Medication SIG (Take, Route, Frequency, Duration) Notes Start Date End Date Status Atorvastatin Calcium 80 MG 1 tablet Orally Once a day; Duration: 30 day(s) Active Extra Depth Orthopedic Shoes [...] with a ines l Orally Once a day; Duration: 30 day(s) Active Bactrim DS 800-160 MG 1 tablet Orally Tw ice a day; Duration: 10 day(s) 11/15/2023 Not-Campos ing Basaglar KwikPen Act uriel Amoxicillin-Pot Clavulanate 875-125 MG 1 tablet Orally every 12 hrs; Duration: 10 day(s) 02/10/2024 Not-Campos ing aspirin Active Keflex 500 MG 1 capsule Orally mary ann ry 12 hrs; Duration: 7 days 09/05/2023 Not-Campos ing Pioglitazone HCl 15 MG 1 tablet Orally O nce a day; Duration: 30 day(s) Active Amoxicillin-Pot Clavulanate 875-125 MG 1 tablet Orally every 12 hrs; Duration: 7 days 09/12/2023 Not-Taking Lisinopril 2.5 MG 1 tablet Orally Once a day Active Tamsulosin HCl 0.4 MG 1 capsule Orally O nce a day; Duration: 30 day(s) Active Trulicity Active Extra Depth Diabetic Shoes with 3 Pair Custom heat-molded multi-density innersoles for 1 year Dx: 09/12/2023 N ot-Taking Cephalexin 500 MG 1 capsule Orally mary ann ry 12 hrs; Duration: 10 days Not-Taking Immunizations Vaccine Route Administration Date Status Comme nts Influenza Unknown 03/01/2020 Administered Influenza Unknown 05/09/2023 Administered COVID-19 Moderna Vaccine Unknown 08/18/2020 Administered Second Dose: 09/15/2020 Social History Tobacco Use: Social History Observation [...] Problem Status W/U Status Risk Notes Problem Acquired hammer toe of right foot (2746474646123101 ) Other hammer toe(s) (acquired), right foot (M20.41) Active confirmed Problem Acquired hammer toe of left foot (9441552026974812 ) Other hammer toe(s) (acquired), left foot (M20.42) Active confirmed Problem Non-pressure chronic ulcer of other part of right foot with fat layer exposed (L97.512) Active confirmed Problem Polyneuropathy due to type 2 diabetes mellitus (489479822) Type 2 diabetes mellitus with diabetic polyneuropathy (E11.42) Active confirmed Problem Chronic ulcer of foot (679451407) Non-pressure chronic ulcer of other part of left foot with fat layer exposed (L97.522) Active confirmed Problem Chronic ulcer of foot (491353173) Non-pressure chronic ulcer of other part of unspecified foot with unspecified severity (L97.509) Active confirmed Problem Non-pressure ulcer of left lower extremity, limited to breakdown of skin (L97.921) Active confirmed Problem Polyneuropathy due to type 2 diabetes mellitus (272207239) Type 2 diabetes mellitus with polyneuropathy (E11.42) Active confirmed Problem Foot ulcer due to type 2 diabetes mellitus (4122495444212) Type 2 diabetes mellitus with foot ulcer (E11.621) Active confirmed Problem Acquired hammer toe of left foot (1713712691901242 ) Hammertoe of left foot (M20.42) Active confirmed Problem Ulcer of left lower leg (disorder) (1756873699574491 3) Non-pressure ulcer of left lower extremity with fat layer exposed (L97.922) Active confirmed Problem Bilateral atherosclerosis of arteries of lower limbs (disorder) (5696865593206203 7) Atherosclerosis of artery of both lower extremities (I70.203) Active confirmed Problem Neuropathic ulce r of right foot with fat layer exposed (L97.512) Active confirmed Response to treatment Problem Arthropathy associated with a neurological disorder (52537926) Charcot's joint of left foot (M14.672) Active confirmed Problem Neurotrophic ulcer of left foot limited to breakdown of skin (L97.521) Active confirmed Response to treatment Problem Neuropathic ulce r of left foot with fat layer exposed (L97.522) Active confirmed Response to treatment Problem Neuropathic foot ulcer, right, limited to breakdown of skin (L97.511) Active confirmed Problem Neuropathic foot ulcer, left, with fat layer exposed (L97.522) Active confirmed Vital Signs Height 6ft 3in in 04/23/2024 Weight 300 lbs 04/23/2024 BMI 37.49 kg/m2 04/23/2024 Encounters Encounter Location Date Provider Diagnosis [address] [address] 02/10/2024 Clarissa Rocha Type 2 diabetes mellitus with diabetic polyneuropathy E11.42 ; Cellulitis of toe of right foot L03.031 ; Tinea unguium B35.1 ; Neuropathic ulcer of right foot with fat layer exposed L97.512 ; Hammertoe of left foot M20.42 ; Other hammer toe(s) (acquired), right foot M20.41 and Neurotrophic ulcer of left foot limited to breakdown of skin L97.[address] [address] 02/24/2024 Clarissa Rocha Type 2 diabetes mellitus with diabetic polyneuropathy E11.42 ; Cellulitis of toe of right foot L03.031 ; Neuropathic ulcer of right foot with fat layer exposed L97.512 ; Hammertoe of left foot M20.42 ; Other hammer toe(s) (acquired), right foot M20.41 and Neurotrophic ulcer of left foot limited to breakdown of skin L97.[address] [address] 04/09/2024 Clarissa Rocha Type 2 diabetes mellitus [...] 2 diabetes mellitus with foot ulcer E11.[address] [address] 04/23/2024 Clarissa Rocha Type 2 diabetes mellitus [...] 2 diabetes mellitus with foot ulcer E11.621 [facility] [place] [address] [place] [address] 03/18/2024 [facility] [place] [address] [facility] [address] [place] [address] 04/09/2024 [facility] [address] [address] 04/09/2024 Clarissa [facility] [place] [address] [place] [address] 05/20/2024 [facility] [place] [address] [place] [address] 05/21/2024 Clarissa Rocha [facility] Encounter Date Diagnosis (ICD Code) Assessment Notes Treatment Notes Treatment Clinical Notes Section Notes 02/10/2024 Type 2 diabetes mellitus with diabetic [...] layer exposed (ICD-10 - L97.522) Response to treatment-impro ron 04/09/2024 Cellulitis of toe of left foot (ICD-10 - L03.032) 02/24/2024 Neuropathic ulcer of right foot with fat layer exposed (ICD-10 - L97.512) Response to treatment Patient Educated with: WOUND CARE INSTRUCTIONS. pdf (WOUND CARE INSTRUCTIONS. pdf) 02/10/2024 Tinea unguium (ICD-10 - B35.1) 02/10/2024 Neuropathic ulcer of right foot with fat layer exposed (ICD-10 - L97.512) Response to treatment Patient Educated with: WOUND CARE INSTRUCTIONS. pdf (WOUND CARE INSTRUCTIONS. pdf) 02/24/2024 Hammertoe of left foot (ICD-10 - M20.42) 04/23/2024 Neuropathic ulcer of right foot with fat layer exposed (ICD-10 - L97.512) Response to treatment-impro ron 04/09/2024 Neuropathic ulcer of left foot with [...] of left foot (ICD-10 - M20.42) 02/10/2024 Other hammer toe(s) (acquired), right foot [...] (ICD-10 - L97.521) Response to treatment 04/09/2024 Type 2 diabetes mellitus with foot ulcer (ICD-10 - E11.621) Plan Of Treatment Pending Test Test Name Order Date X ray : Foot, left 3V 09/05/2023 X ray : Foot, left 3V 11/07/2023 X ray : Foot, right 3V 09/05/2023 [id number] SKIN/TISSUE 09/12/2023 Next Appt Details Provider Name:Clarissa quintero, 04/27/2025 01:30:00 PM, [address] [place], [address], Insurance Providers Payer Name Payer Address Payer Phone Subscriber Number Group Number Insured Name Patient Relationship to Insured Coverage Start Date Coverage End Date [employer] Medicare Complete [address] [address] [place] [address] [id number] Romel Pruitt Self - patient is the insured Medical (General) History Medical History History ICD Code Diabetic Measles Mumps Chicken pox Surgical History Surgery Date(Month/Year) b/l great toe removal 2018 bunion surgery colonoscopy 01/25/21
== END 2025-02-08 11:51 | disposition home or self-care (01) ==
LOC: HO.US 11:50
PROVIDERS: PCP Nurse Practitioner Family; Visit Provider Urology
DX: R31.0 Gross hematuria (principal)
CPT/HCPCS: 76770

== ENCOUNTER → 2025-02-08 11:51 | Outpatient (BNV) | payer MEDICARE, SELFPAY | PROVIDERS: PCP Nurse Practitioner Family; Visit Provider Radiology Diagnostic Radiology | DX: N28.1 Cyst of kidney, acquired (principal); N21.0 Calculus in bladder | CPT/HCPCS: 76770 ==

== ENCOUNTER 2025-02-25 07:24 | Outpatient (AMB) | payer MEDICARE, SELFPAY ==
--- NOTE | 2025-02-25 07:25 | MHC.OFFVIS ---
Intake Visit Reasons: US results Intake Note: Patient is present for follow Telehealth Imaging done : 02/08/2025 Ultrasound Urology Med: Dutasteride, Blood Thinner: none Antibiotic Allergy: none Finisher Card Tender Required: No Accompanied by: Self / Same As Patient Allergies No Known Allergies Allergy (Verified 02/25/25 07:26) Medication List - Last Reconciled 02/25/25 by Sofia Dc MD alpha lipoic acid 600 mg PO DAILY amlodipine 10 mg PO DAILY aspirin (Adult Low Dose Aspirin) 81 mg PO DAILY atorvastatin 80 mg PO BEDTIME 90 days blood sugar diagnostic (FreeStyle Lite Strips) 4 times a day blood-glucose meter (FreeStyle Lite Meter kit) 4 times a day cholecalciferol (vitamin D3) 10 mcg PO DAILY dutasteride (Avodart) 0.5 mg PO DAILY FreeStyle Lancets (lancets) 4 times a day NS FreeStyle Yolanda 2 [place] (flash glucose scanning reader) TID testing NS FreeStyle Yolanda 2 Sensor (flash glucose sensor) TID tesing NS gabapentin 300 mg PO TID 30 days insulin glargine U-300 conc (Toujeo Max U-300 SoloStar) 56 units subcut DAILY lisinopril 10 mg PO DAILY 90 days metformin ER 1,000 mg (2 x 500 mg) PO BID pen needle, diabetic use to inject insulin once a day semaglutide (Ozempic) 2 mg subcut QWEEK trazodone 100 mg PO BEDTIME PRN 30 days HPI Comments Details: 02/25/25--telehealth-video attempted: Ruben is here status post repeat cystoscopy cysto litholapaxy bladder stone/laser/fulguration prostate--07/14/2024. The patient had multiple stones greater than 10 in his bladder. He states he is doing very well. He states the urine flow has improved. He denies urgency. Discussed renal ultrasound results bilateral renal cysts multiple bladder stones prostate enlarged greater than 70 g. He states that when he golfs he will see blood in the urine. I have explained that is due to the bladder stones. The patient complains of decreased erections. I will start Cialis 5 mg daily. I want to continue the Avodart. We will refer to Dr. Au for GreenLight laser to prostate and repeat holmium laser for bladder stones. Results: Ultrasound retroperitoneum--02/08/2025- Bilateral renal cysts Multiple bladder calculi. Prostate volume of 73.5 mL. Post void bladder residual of 93.4 mL. 09/10/24--69-year-old male who has a significant urologic surgical history, having undergone cystolitholapaxy for bladder stones and prostate fulguration in July. He continues on Avodart and Rapaflo for BPH management, although he wishes to discontinue one of the meds, noting manageable urinary symptoms without difficulty. A recent PSA level is within normal limits. The patient was diagnosed with a UTI by PCP and started antibiotic therapy Levaquin yesterday. Patient declined to give urine specimen--PVR:190ml. Urinary Symptoms Review - No difficulty in voiding - No urinary incontinence reported - Recent diagnosis of Urinary Tract Infection Results - Labs: PSA on 09/05/24, 1.08 ng/mL (within normal range) 07/30/2024--ruben is here status post repeat cystoscopy cysto litholapaxy bladder stone/laser/fulguration prostate--07/14/2024. The patient had multiple stones greater than 10 in his bladder. He states he is doing very well. He states the urine flow has improved. He denies urgency. I want to continue the Avodart and Rapaflo for now. Follow-up in 4 months [facility] Medical History AAA (abdominal aortic aneurysm) without rupture Morbid obesity Kamara's palsy HTN (hypertension) (atherosclerosis) Ascending aortic aneurysm Aortic stenosis Hammertoe, bilateral Obesity due to excess calories Tinea pedis Charcot foot due to diabetes mellitus Diabetic polyneuropathy associated with type 2 diabetes mellitus 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 type 2 diabetes mellitus senior living (current) use of insulin RLS (restless legs syndrome) Aortic valve calcification BPH (benign prostatic hyperplasia) Osteomyelitis [place] (obstructive sleep apnea) KAI (acute kidney injury) Surgical History History of right-sided carotid endarterectomy (12/07/24) Hx of cystoscopy H/O colonoscopy History of bunionectomy Amputation toe History of bunionectomy Family History Father Bladder cancer Mother Lung cancer Social History Household Members: Spouse Housing: House Are you 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 guidance 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 significant other at home: No Do you presently have visiting nurse or other home services: No Alcohol intake: current Alcohol intake frequency: holidays/special occasions only Patient Tobacco Use Status: Never used Tobacco e-Cigarette/Vaping Use: Never Used Advance Directives Date on File: 03/18/23 service: No Cognitive needs: No Hearing needs: No Vision needs: Yes Review of Systems Const All systems reviewed & are unremarkable except as noted in HPI and below Reports no additional complaints Eyes Reports no additional complaints ENT Reports no additional complaints Card Reports no additional complaints Resp Reports no additional complaints GI Reports no additional complaints Reports as per HPI Musc Reports no additional complaints Skin/Breast Reports system reviewed and no additional complaints, except as documented Neuro Reports no additional complaints Psych Reports no additional complaints Endo Reports no additional complaints Marcial/Lymph Reports no additional complaints Aller/Immun Reports no additional complaints Telehealth Telehealth Telehealth Platform: [employer] Location of provider rendering services: practice address Location of patient: address on file Patient Identification confirmed using: Name, : Yes Telehealth method: voice only Patient verbally consented to treatment: Yes Patient verbally consented to billing insurance company: Yes Patient informed of any privacy concerns related to visit: Yes Minutes spent on Phone/Video with Pt.: 16 Results Reviewed Results Reviewed: Date of Service: 02/08/25 EXAMINATION: US RETROPERITONEUM HISTORY: R31.9 - Hematuria, unspecified TECHNIQUE: Real-time grayscale ultrasound imaging of the kidneys was performed and images were reviewed. COMPARISON: Comparison is made with the prior examination dated 10/02/2022. FINDINGS: Right kidney: The right kidney measures 15.0 x 7.9 x 6.1 cm. Renal parenchymal echotexture and thickness are normal. There is an exophytic 2.0 x 2.1 x 2.6 cm cyst in the interpolar region. An additional 2.2 x 1.3 x 1.6 cm peripelvic cyst is noted. There is no hydronephrosis or renal calculi. Left Kidney: The left kidney measures 13.6 x 8.3 x 6.4 cm. Renal parenchymal echotexture and thickness are normal. There is a peripelvic cysts in the interpolar region measuring 2.2 x 1.0 x 2.1 cm. There is no hydronephrosis or renal calculi. Multiple bladder calculi are identified. The bladder wall appears trabeculated. Before voiding, the urinary bladder measured 5.3 x 11.5 x 4.2 cm, for an estimated volume of 133 mL. After voiding, the urinary bladder measured 5.4 x 9.5 x 3.5 cm, for an estimated volume of 93.4 mL. The prostate measures 5.5 x 6.0 x 4.3 cm, for an estimated volume of 73.5 mL. IMPRESSION: 1. Bilateral renal cysts as described. 2. Multiple bladder calculi. 3. Post void bladder residual of 93.4 mL. 4. Prostate volume of 73.5 mL. Date of Service: 03/12/24 CT ABDOMEN AND PELVIS WITHOUT AND WITH CONTRAST CLINICAL INFORMATION: Gross hematuria COMPARISON: CT urogram 10/08/2023 TECHNIQUE: Noncontrast CT of the abdomen and pelvis is performed followed by split bolus contrast-enhanced images using 85 mL Omnipaque 350 contrast. Postcontrast imaging is performed during the combined nephrogram and excretion phase. Sagittal and coronal reformatted images were obtained on the technologist's workstation for both the precontrast and postcontrast phases. This CT examination was performed using dose optimization techniques as appropriate, variously including the following: *Automated exposure control *Adjustment of mA and/or kV according to patient size (this includes techniques or standardized protocols for targeted exams where dose is matched to indication/reason for exam; i.e. extremities or head) *Use of iterative reconstruction technique DLP: 1533 mGy-cm FINDINGS: LUNG BASES: The visualized lung bases are unremarkable. LIVER, GALLBLADDER, AND BILIARY TREE: The liver is enlarged measuring 20.7 cm in cephalocaudad dimension with normal attenuation on noncontrast imaging. No focal hepatic lesion or biliary ductal dilatation is present. The gallbladder is unremarkable with no evidence of radiopaque gallstones, gallbladder wall thickening, or obvious pericholecystic inflammatory changes. PANCREAS: Unremarkable. SPLEEN: The spleen is enlarged 16.6 cm. ADRENAL GLANDS: Unremarkable. KIDNEYS AND URETERS: The kidneys are normal in size, shape, and attenuation. No hydronephrosis, hydroureter, or calculi seen. No perinephric stranding. Multiple parapelvic and cortical benign Bosniak class I renal cysts are noted which require no additional imaging or follow-up. No solid renal masses are seen. BLADDER: Bladder is filled with calcified stones ranging in size from just under a centimeter up to 1.5 cm in size. The bladder is collapsed and there is a symmetrically thickened wall. GASTROINTESTINAL TRACT: The small and large bowel are unremarkable aside from scattered colonic diverticula without diverticulitis. The appendix is not seen but there is no evidence of appendicitis. ABDOMINAL WALL: No significant hernia is appreciated. LYMPH NODES: Normal. VASCULAR: Calcific atherosclerotic changes are present in the aorta and iliofemoral vessels. There is a 4.5 x 3.5 cm infrarenal abdominal aortic aneurysm measurements are made perpendicular to a center line. 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 PELVIC VISCERA: The prostate is enlarged measuring about 100 mL. Seminal vesicles appear normal. OSSEUS STRUCTURES: Severe degenerative changes are present throughout the spine. IMPRESSION: 1. Hepatosplenomegaly. 2. Bladder filled with stones. 3. The kidneys are unremarkable. 4. Infrarenal 4.5 cm abdominal aortic aneurysm with left common iliac artery aneurysm. Surveillance ultrasound is recommended in 6 months and vascular consultation is recommended. 5. Other incidental findings as described above. Date of Service: 10/02/22 EXAMINATION: US RETROPERITONEAL COMPLETE (RENAL) CLINICAL INFORMATION: Retention of urine, unspecified. COMPARISON: Renal ultrasound 03/20/2017. TECHNIQUE: Real-time imaging of the kidneys and bladder. FINDINGS: RIGHT KIDNEY: 16.2 x 7.9 x 8.2 cm (SAG x AP x TRV). The kidney is normal in size, contour, and echogenicity. Renal cortical thickness is normal. No renal calculi or hydronephrosis. Within the mid to lower pole there is a simple appearing 2.3 x 1.8 x 2.0 cm cyst which does not require follow-up. LEFT KIDNEY: 14.5 x 7.4 x 6.5 cm (SAG x AP x TRV). The kidney is normal in size, contour, and echogenicity. Renal cortical thickness is normal. No calculi or focal parenchymal lesions. No hydronephrosis. BLADDER: Well distended and normal. Bilateral ureteral jets are demonstrated. Prevoid bladder volume is 185 mL. Postvoid bladder volume is 157 mL. ADDITIONAL FINDINGS: Prostate volume is 61 mL. IMPRESSION: Large postvoid residual. Assessment & Plan Assessment & Plan (1) BPH (benign prostatic hyperplasia): Code(s): N40.0 - Benign prostatic hyperplasia without lower urinary tract symptoms Category: Medical (2) Diabetes: Code(s): E11.9 - Type 2 diabetes mellitus without complications Category: Medical (3) BPH loc w urin obs/LUTS: Code(s): N40.1 - Benign prostatic hyperplasia with lower urinary tract symptoms Category: Medical (4) History of bladder stone: Code(s): Z87.448 - Personal history of other diseases of urinary system Category: Medical (5) Erectile dysfunction: Code(s): N52.9 - Male erectile dysfunction, unspecified Category: Medical Plan I will start Cialis 5 mg daily. I want to continue the Avodart. We will refer to Dr. Au for GreenLight laser to prostate and repeat holmium laser for bladder stones. Medications: Refilled dutasteride (Avodart) 0.5 mg PO DAILY 90 caps 3RF Patient Instructions: The patient had an opportunity to ask questions regarding treatment plan. The patient expressed understanding and agreement with the above treatment plan. The patient is aware they should contact our office by phone for worsening of their current condition or the appearance of new symptoms. Compliance is encouraged with any medications and followup testing that is ordered. It is a privilege to be allowed the opportunity to participate in the urologic care of your patient. If you have any questions or concerns regarding treatment for the above conditions please do not hesitate to contact me. The office telephone contact is [phone]. This note is constructed in part using voice recognition software. While every effort has been made to ensure accuracy tin flopper errors may have been included. Yours sincerely, Sofia Dc MD Coding Level of Care Code Tele Est Pt Level 4 (10456) Complex EM visit Add On G2211 Diagnoses BPH (benign prostatic hyperplasia) N40.0 Diabetes E11.9 BPH loc w urin obs/LUTS N40.1 History of bladder stone Z87.448 Erectile dysfunction N52.9
== END 2025-02-25 08:45 | disposition home or self-care (01) ==
LOC: HO.HUSH 07:24
PROVIDERS: PCP Nurse Practitioner Family; Visit Provider Urology
DX: N40.0 Benign prostatic hyperplasia without lower urinary tract symptoms (principal); E11.9 Type 2 diabetes mellitus without complications; N52.9 Male erectile dysfunction, unspecified; Z87.448 Personal history of other diseases of urinary system
CPT/HCPCS: 99214; G2211

== ENCOUNTER 2025-03-24 10:01 | Outpatient (REF) | payer MEDICARE, SELFPAY ==
--- OUTSIDE RECORDS SUMMARY | 2025-03-22 08:30 | XMS_ITS | Encounter Summary ---
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 PROCESSOR Primary Care Provider [phone] Reason for Visit * Reason Comments Post-op RIGHT 3RD TOE AMPUTA TIONdos 03/06/25 Encounter Details Date Type Department Care Team ([facility] st Contact Info) Description 03/22/2025 8:30 AM EDT Office Visit Orthopedic Surgery - [place] [address] [phone] Sergey Dugan, DPSebastien [address] [address] Controlled type 2 diabetes with neuropathy (CMS/HCC V24, CMS/HCC V28) (Primary Dx); Hammertoes of both feet; Arthritis of both feet; Ulcer of toe of left foot, with fat layer exposed (CMS/HCC V24, CMS/HCC V28); Cellulitis of left foot Social History Tobacco Use Types Packs/Day Years Used Date Smoking Tobacco: Never Smokeless Tobacco: Never Interpersonal Safety Answer Date Record ed Physical Abuse 03/04/2025 Verbal Abuse 03/04/2025 Sex and Gender Information Value Date Recorded Sex Assigned at Not on file Legal Sex Male 2:31 PM EST Gender Identity Not on file Sexual Orientation Not on file documented as of this encounter Ordered Prescriptions Prescription Sig Dispense Quantity Refills Last Filled Start Date End Date amoxicillin-clavul anate (AUGMENTIN) 875-125 mg per tablet Take 1 tablet by mouth 2 (two) times a day for 7 days. 14 each 03/22/2025 03/29/2025 documented in this encounter Progress Notes * Sergey Dugan DPM - 03/22/2025 8:30 AM EDT Referring MD: amelia Last PCP visit: 01/22/2025 IDENTIFIER: Sonal is a 69 y.o. year old male who presents for consultation. CC: Left toe wound HPI: 69-year-old male presents office for after discharge from [facility]. Patient required amputation of the right third digit during hospital stay. Patient has has been using the surgical shoe and keeping it bandaged as instructed. Patient denies any recent fever nausea vomit shortness of breath and has finished his antibiotics. Patient would like to discuss options for decreasing further ulceration to the tips of the toes. Patient most recent A1c is 7.7% ROS: GENERAL: Pt denies nausea, fever, vomiting, chills, or shortness of breath. Pt in NAD. CARDIOLOGY: pt denies chest pain, palpitations LUNGS: pt denies shortness of breath MUSCULOSKELETAL: See HPI, otherwise no joint pain or swelling, back pain, or muscle pain. SKIN: see HPI, otherwise no lesions, rash or itching NEURO: No persistent headache, weakness or numbness The remainder of the review of systems is noncontributory PAST MEDICAL HISTORY: Patient Active Problem List Diagnosis Osteomyelitis (CMS/[facility] V24, CMS/[facility] V28) Diabetic infection of right foot (CMS/[facility] V24, CMS/[facility] V28) SOCIAL HISTORY: Social History Tobacco Use Smoking status: Never Smokeless tobacco: Never Substance Use Topics Alcohol use: Not on file ACTIVE MEDICATIONS: Outpatient Medications Marked as Taking for the 03/22/25 encounter (Office Visit) with Sergey Dugan DPM Medication Sig Dispense Refill amLODIPine (NORVASC) 10 mg tablet Take 1 tablet (10 mg total) by mouth 1 (one) time each day. atorvastatin (LIPITOR) 80 mg tablet Take 1 tablet (80 mg total) by mouth at bedtime. dutasteride (AVODART) 0.5 mg capsule Take 1 capsule (0.5 mg total) by mouth 1 (one) time each day. gabapentin (NEURONTIN) 300 mg capsule Take 1 capsule (300 mg total) by mouth 3 (three) times a day. lisinopriL (PRINIVIL,ZESTRIL) 10 mg tablet Take 1 tablet (10 mg total) by mouth 1 (one) time each day. metFORMIN XR (GLUCOPHAGE-XR) 500 mg 24 hr tablet Take 2 tablets (1,000 mg total) by mouth 1 (one) time each day. Ozempic 2 mg/dose (8 mg/3 mL) injection pen Inject 2 mg under the skin every 7 (seven) days. tadalafiL (CIALIS) 5 mg tablet Take 1 tablet (5 mg total) by mouth 1 (one) time each day. Toujeo Max U-300 SoloStar 300 unit/mL (3 mL) CONCENTRATED injection pen Inject 56 Units under the skin 1 (one) time each day. traZODone (DESYREL) 100 mg tablet Take 1 tablet (100 mg total) by mouth at bedtime. ALLERGIES: Patient has no known allergies. PHYSICAL EXAM: There were no vitals taken for this visit. PODIATRIC EXAMINATION: GENERAL: Patient appears well nourished, with NAD. VASCULAR: Dorsalis pedis pulses are 2/4 bilaterally and Posterior tibial pulses are 2/4 bilaterally. Capillary filling time within normal limits the digits. No pallor on elevation or rubor on dependency. Positive hair growth. Many varicosities. +1 pitting edema bilateral legs. Denies rest pain or claudication pain. NEUROLOGICAL: Sharp/dull sensation intact, protective sensation diminished on [place]. Neuropathy throughout the feet bilaterally ORTHOPEDIC: Good muscle strength 5/5 of all flexors and extensors. Dorsi flexion of ankle ,10 degrees, plantar flexion WNL. No muscle atrophy. Arthritic changes of the midfoot. Rigid contractures digits 2 through 5 bilaterally. Previous amputation of the 3rd and 4th digit right foot. Arthritic changes to the first digit at the MPJ with deformity of the great toe in the frontal plane DERMATOLOGICAL:.Surgical site is well coapted with sutures in place. No signs of dehiscence. Well-healed incision site. New ulceration to the distal tuft of the left second toe. Upon debridement there was some serous fluid drainage and concern for beginnings of infection. BIOMECHANICS: STJ ROM wnl, MTJ ROM wnl, 1st MPJ ROM wnl. IMAGING: No fractures dislocations or new osteolytic lesions. There is previous amputation of distal tuft of third digit and fourth digit. IMPRESSION: 1. Controlled type 2 diabetes with neuropathy (CMS/HCC V24, CMS/[facility] V28) 2. Hammertoes of both feet 3. Arthritis of both feet 4. Ulcer of toe of left foot, with fat layer exposed ([facility] V24, [facility] V28) 5. Cellulitis of left foot PLAN: Pt was seen and examined, history reviewed. Patient has healed from his original surgery of the amputation of right third digit sutures removedwithout incident. Patient may convert back to a regular sneaker and increase ambulatory activity progressively. Patient was educated that he needs to keep an eye on the surgical site and not scrub itwhen he is showering as this may open the scar tissue. Patient was reeducated on the severe contractures of the digits to the bilateral feet and understands that he is at risk for further ulceration and amputation. Patient was shown offloading pads such as hammertoe crutches that can be used to decrease pressure to the norman of the digit. Patient was educated on surgical intervention to the feet in order to correct the toes remove the bone and placed a wire and was educated on the risks associated with surgery as well as the postoperative weightbearing requirements. Healing time was also discussed. Patient and showed verbal adequate understanding Patient has a new ulceration to the left toe which required debridement as described below. Wound was debrided and dressed with Betadine DSD he was instructed to keep a dressing on that. Patient understands he may require conversion to a surgical shoe on the left foot in order to limit progression of wound. Patient was placed on antibiotic due to the drainage coming from the wound site. Patient was placed on Augmentin 875 twice daily for 7 days. Open wound selective excisional debridement of devitalized soft tissue, fibrin, epidermis, dermis, thru skin and subcutaneous tissue, first 20 sq cm or less, using sterile sharp dissection #15 scalpel blade of the left second digit ulcer. Pt. deferred anesthesia. . Devitalized tissue was not sent to pathology. 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 There is previous amputation of distal tuft of third digit and fourth digit. Sergey Dugan DPM IMG XR PROCEDURES Final Res ult documented in this encounter Visit Diagnoses Diagnosis Controlled type 2 diabetes with neuropathy ([facility] V24, [facility] V28)- Primary Type II or unspecified type diabetes mellitus with neurological manifestations, not stated as uncontrolled Hammertoes of both feet Arthritis of both feet Ulcer of toe of left foot, with fat layer exposed (CMS/[facility] V24, [facility] V28) Cellulitis of left foot documented in this encounter Care Teams Purse Seining Hand Relationship Specialty Start Date End Date Fredrick Howell NP [address] [facility] [place], [place] PCP - General Family Medicine 03/04/25 documented as of this encounter
--- NOTE | ~2025-03-24 | US_ITS ---
EXAMINATION: US EXTRACRANIAL CAROTID DUPLEX, BILATERAL CLINICAL INFORMATION: Occlusion and stenosis, bilateral carotic arteries. I65.23. COMPARISON: Correlated to CT angiogram head neck dated October 22, 2024. TECHNIQUE: Real-time ultrasound and Doppler techniques (integrating B-mode 2-D vascular images, Doppler spectral analysis and color-flow Doppler imaging) were utilized to interrogate the extracranial carotid arteries, the vertebral arteries and proximal subclavian arteries bilaterally. The degree of stenosis is determined by criteria similar to NASCET. FINDINGS: Right Side: 1. There is irregular shaped mixed atherosclerotic plaque seen in the bifurcation/proximal ICA region. 2. The common carotid artery PSV proximally is 82 cm/s and distally 77 cm/s. 3. The proximal internal carotid artery velocities are 71 cm/s systolic and 21 cm/s diastolic. 4. The proximal external carotid artery PSV is 138 cm/s. 5. The vertebral artery shows antegrade flow. 6. The subclavian artery waveforms are triphasic. ICA/ CCA ratio: 0.87. Left Side: 1. There is irregular shaped mixed atherosclerotic plaque seen in the bifurcation/proximal ICA region. 2. The common carotid artery PSV proximally is 154 cm/s and distally 113 cm/s. 3. The proximal internal carotid artery velocities are 83 cm/s systolic and 11 cm/s diastolic. 4. The proximal external carotid artery PSV is 153 cm/s. 5. The vertebral artery shows antegrade flow. 6. The subclavian artery waveforms are triphasic.. ICA/CCA ratio: 0.54. US/US carotid duplex BI IMPRESSION: 1. RIGHT: 0-49% stenosis by ultrasound criteria. 2. LEFT: 0-49% stenosis by ultrasound criteria. Electronically signed by: Yakov Paredes MD 03/24/2025 11:20 AM EDT
--- OUTSIDE RECORDS SUMMARY | 2025-03-24 12:16 | XMS_ITS | Clinical Summary ---
Author Organization [facility] Address [address] [place] [phone] Phone Care Team Providers Care Valve Technician Name Role Phone Fredrick Howell NP Primary Care Provider [phone] Allergies No known active allergies Medications amLODIPine (NORVASC) 10 mg tablet Take 1 tablet (10 mg total) by mouth 1 (one) time each day. 5 Active atorvastatin (LIPITOR) 80 mg tablet Take 1 tablet (80 mg total) by mouth at bedtime. 5 Active dutasteride (AVODART) 0.5 mg capsule Take 1 capsule (0.5 mg total) by mouth 1 (one) time each day. 5 Active gabapentin (NEURONTIN) 300 mg capsule Take 1 capsule (300 mg total) by mouth 3 (three) times a day. 5 Active lisinopriL (PRINIVIL,ZESTRI L) 10 mg tablet Take 1 tablet (10 mg total) by mouth 1 (one) time each day. 5 Active metFORMIN XR (GLUCOPHAGE-XR) 500 mg 24 hr tablet Take 2 tablets (1,000 mg total) by mouth 1 (one) time each day. 5 Active Toujeo Max U-300 SoloStar 300 unit/mL (3 mL) CONCENTRATED injection pen Inject 56 Units under the skin 1 (one) time each day. 5 Active Ozempic 2 mg/dose (8 mg/3 mL) injection pen Inject 2 mg under the skin every 7 (seven) days. 5 Active tadalafiL (CIALIS) 5 mg tablet Take 1 tablet (5 mg total) by mouth 1 (one) time each day. 5 Active traZODone (DESYREL) 100 mg tablet Take 1 tablet (100 mg total) by mouth at bedtime. 5 Active amoxicillin-clav ulanate (AUGMENTIN) 875-125 mg per tablet Take 1 tablet by mouth 2 (two) times a day for 7 days. 14 each 5 03/29/20 25 Active doxycycline (VIBRAMYCIN) 100 mg capsule Take 1 capsule (100 mg total) by mouth 2 (two) times a day for 7 days. Take with at least 8 ounces (large glass) of water, do not lie down for 30 minutes after. Administer 2 hours before or after multivitamins, antacids, or other products containing polyvalent cations (i.e., calcium, iron, magnesium, selenium, zinc). 14 each 5 03/14/20 25 Active Problems Problem Noted Date Diagnosed Date Diabetic infection of right foot ([facility] V24, [facility] [place] V28) 03/05/2025 Osteomyelitis ([facility] V24, [facility] V28) 025 Encounters Date Type Department Care Team Description 03/22/2025 8:30 AM EDT Office Visit Orthopedic Surgery [address] [phone] Sergey Dugan DPM Controlled type 2 diabetes with neuropathy ([facility] V24, [facility] V28) (Primary Dx); Hammertoes of both feet; Arthritis of both feet; Ulcer of toe of left foot, with fat layer exposed ([facility] V24, [facility] V28); Cellulitis of left foot 03/06/2025 8:15 AM EDT Anesthesia Event [facility] Main OR [address] [place] [phone] Owen Collins MD 03/06/2025 8:00 AM EDT - 03/06/2025 9:00 AM EDT Surgery [facility] OR [address] [place] [phone] Sergey Dugan DPM RIGHT 3RD TOE AMPUTATION 03/04/2025 4:58 PM EDT - 03/07/2025 10:52 AM EDT Hospital Encounter [facility] [address] [place] [phone] Remberto Velez MD Ishtiaq, Rizwan, MD Alam, Aroosa, MD Diabetic infection of right foot (CMS/HCC V24, CMS/HCC V28) (Primary Dx); Diabetic infection of left foot (CMS/HCC V24, CMS/HCC V28); Right leg swelling; Osteomyelitis of third toe of right foot (CMS/HCC V24, CMS/HCC V28) Discharge Disposition: Home or Self Care from Last 3 Months Social History Tobacco Use Types Packs/Day Years Used Date Smoking Tobacco: Never Smokeless Tobacco: Never Tobacco Cessation:Counseling Given: Not Answered Interpersonal Safety Answer Date Record ed Physical Abuse 03/04/2025 Verbal Abuse 03/04/2025 Sex and Gender Information Value Date Recorded Sex Assigned at Not on file Legal Sex Male 2:31 PM EST Gender Identity Not on file Sexual Orientation Not on file Obstetrics History Last Filed Vital Signs Vital Sign Reading Time Taken Comments Blood Pressure 150/77 03/07/2025 8:29 AM EDT Pulse 61 03/07/2025 8:29 AM EDT Temperature 36 C (96.8 F) 03/07/2025 8:29 AM EDT Respiratory Rate 17 03/07/2025 8:29 AM EDT Oxygen Saturation 98% 03/07/2025 8:29 AM EDT Inhaled Oxygen Concentration - - Weight 136 kg (300 lb) 03/04/2025 10:00 PM EDT Height 190.5 cm (6' 3 ) 03/04/2025 4:43 PM EDT Body Mass Index 37.5 03/04/2025 4:43 PM EDT Plan of Treatment Health Maintenance Due Date Last Done Comments Diabetes: Annual Retina Eye Exam 1964 Zoster Vaccines (1 of 2) 2004 RSV Immunization Adult Patients (1 - Risk 60-74 years 1-dose series) 2014 Cholesterol Screening (Lipid Panel) 08/18/2022 Colorectal Cancer Screening: Colonoscopy 08/18/2022 Hepatitis C Screening 08/18/2022 Medicare Annual Wellness Visit 08/18/2022 Social Influencers of Health Screening 08/18/2022 Depression Screening 07/01/2024 COVID-19 Vaccine ( season) 2025 09/08/2023, 04/11/2023, 05/14/2022, Additional history exists Influenza Vaccine (#1) 2025 , 05/14/2022, 04/11/2021, Additional history exists Diabetes: Annual Urine Albumin-Creatinine Ratio (uACR) 03/04/2025 Diabetes: Blood Sugar Control Test (HGBA1C) 09/02/2025 03/05/2025 Diabetes: Annual Foot Exam 03/04/2026 03/04/2025 Falls Risk Assessment 03/06/2026 03/06/2025 Diabetes: Annual GFR (Glomerular Filtration Rate) 03/07/2026 03/07/2025, 03/06/2025, 03/05/2025, Additional history exists DTaP,Tdap,and Td Vaccines (3 - Td or Tdap) 03/24/2029 03/24/2019, 11/14/2008 Pneumococcal Vaccine: 50+ Years Completed 09/08/2023, 08/29/2022, 05/13/2017 HIB Vaccines Aged Out No longer eligi ble based on patient's age to complete this topic HPV Vaccines Aged Out No longer eligi ble based on patient's age to complete this topic Hepatitis A Vaccines Aged Out No long er eligible based on patient's age to complete this topic Hepatitis B Vaccines Aged Out No long er eligible based on patient's age to complete this topic IPV Vaccines Aged Out No longer eligi ble based on patient's age to complete this topic MMR Vaccines Aged Out No longer eligi ble based on patient's age to complete this topic Meningococcal ACWY Vaccine Aged Out N o longer eligible based on patient's age to complete this topic Meningococcal B Vaccine Aged Out No l onger eligible based on patient's age to complete this topic RSV Immunization Patients Under 20 months Aged Out No longer eligible based on patient's age to complete this topic Varicella Vaccines Aged Out No longer eligible based on patient's age to complete this topic Procedures Procedure Name Priority Date/Time Associated Diagnosis Comments XR FOOT 3+ VIEWS RIGHT Routine 5 8:33 AM EDT Post-operative state POCT GLUCOSE BLOOD Routine 03/07/2025 8: 07 AM EDT CBC WITH AUTO DIFFERENTIAL Routine 03/07/2025 6:56 AM EDT MAGNESIUM Timed 03/07/2025 6:56 AM EDT BASIC METABOLIC PANEL Routine 03/07/2025 6:56 AM EDT CBC AND DIFFERENTIAL Routine 03/07/2025 6:56 AM EDT POCT GLUCOSE BLOOD Routine 03/06/2025 8: 47 PM EDT POCT GLUCOSE BLOOD Routine 03/06/2025 3: 55 PM EDT POCT GLUCOSE BLOOD Routine 03/06/2025 11 :22 AM EDT VANCOMYCIN, TROUGH Timed 03/06/2025 10 :26 AM EDT OXYGEN THERAPY, ADULT Routine 03/06/2025 8:48 AM EDT TISSUE EXAM Routine 03/06/2025 8:33 AM EDT Osteomyelitis of third toe of right foot ([facility] V24, CMS/HCC V28) CULTURE WOUND DEEP Routine 03/06/2025 8: 33 AM EDT Osteomyelitis of third toe of right foot (CMS/HCC V24, CMS/HCC V28) AMPUTATION TOE 03/06/2025 8:15 AM EDT Osteomyelitis of third toe of right foot (CMS/HCC V24, CMS/HCC V28) POCT GLUCOSE BLOOD Routine 03/06/2025 7: 39 AM EDT CBC WITH AUTO DIFFERENTIAL Routine 03/06/2025 5:43 AM EDT MAGNESIUM Timed 03/06/2025 5:43 AM EDT BASIC METABOLIC PANEL Routine 03/06/2025 5:43 AM EDT CBC AND DIFFERENTIAL Routine 03/06/2025 5:43 AM EDT POCT GLUCOSE BLOOD Routine 03/05/2025 8: 10 PM EDT POCT GLUCOSE BLOOD Routine 03/05/2025 5: 13 PM EDT MRSA PCR Routine 03/05/2025 12:15 PM EDT POCT GLUCOSE BLOOD Routine 03/05/2025 11 :45 AM EDT POCT GLUCOSE BLOOD Routine 03/05/2025 9: 51 AM EDT MR FOOT WO AND W CONTRAST RIGHT STAT 03/05/2025 8:10 AM EDT MAGNESIUM Routine 03/05/2025 5:50 AM EDT BASIC METABOLIC PANEL Routine 03/05/2025 5:50 AM EDT HEMOGLOBIN A1C Add-On 03/05/2025 5:49 AM EDT CBC WITH AUTO DIFFERENTIAL Routine 03/05/2025 5:49 AM EDT CBC AND DIFFERENTIAL Routine 03/05/2025 5:49 AM EDT POCT GLUCOSE BLOOD Routine 03/04/2025 9: 56 PM EDT VAS US DUPLEX LOWER EXT VENOUS RIGHT Routine 03/04/2025 9:02 PM EDT Right leg swelling ACTIVATED PARTIAL THROMBOPLASTIN TIME STAT 03/04/2025 6:34 PM EDT PROTHROMBIN TIME WITH INR STAT 03/04/2025 6:34 PM EDT CULTURE BLOOD STAT 03/04/2025 6:34 PM EDT CULTURE BLOOD STAT 03/04/2025 6:34 PM EDT MAGNESIUM STAT Add-on 03/04/2025 4:57 PM EDT CBC WITH AUTO DIFFERENTIAL STAT 03/04/2025 4:57 PM EDT LACTATE, WITH REFLEX STAT 03/04/2025 4:57 PM EDT COMPREHENSIVE METABOLIC PANEL STAT 03/04/2025 4:57 PM EDT CBC AND DIFFERENTIAL STAT 03/04/2025 4:57 PM EDT from Last 3 Months Results * XR Foot 3+ Views Right (03/22/2025 8:33 AM EDT) Anatomical Region Laterality Modality Lower Extremities, Foot Right Computed Radiography Narrative 03/22/2025 6:14 PM EDT Right foot 3 views weightbearing:No fractures dislocations or new osteolytic lesions. There is previous amputation of distal tuft of third digit and fourth digit. us Sergey Dugan DPM IMG XR PROCEDURES Final Res ult * (ABNORMAL) POCT Glucose, blood (03/07/2025 8:07 AM EDT) Only the most recent of10 resultswithin the time period is included. Glucose POCT 171(H) 70 - 100 mg/dL 03/07/2025 8:08 AM EDT [facility] ([facility] Blood Capillary blood specimen / Unknown 03/07/2025 8:07 AM EDT 03/07/2025 8:09 AM EDT us Bar Donato MD LAB POINT OF CARE TE ST DOCKED DEVICE UNSOLICITED RESULTS Final Result [facility] [address] [place] [address], * (ABNORMAL) CBC auto differential (03/07/2025 6:56 AM EDT) Only the most recent of4 resultswithin the time period is included. WBC 10.0 4.8 - 10.8 K/mcL LAB HEMETOLOGY METHOD 03/07/2025 7:12 AM EDT [facility] RBC 5.20 4.50 - 5.50 M/mcL LAB HEMETOLOGY METHOD 03/07/2025 7:12 AM EDT [facility] Hemoglobin 14.4 13.5 - 17.5 g/dL LAB HEMETOLOGY METHOD 03/07/2025 7:12 AM EDT [facility] Hematocrit 44.0 42.0 - 54.0 % LAB HEMETOLOGY METHOD 03/07/2025 7:12 AM EDT [facility] MCV 84.9 79.0 - 98.0 FL LAB HEMETOLOGY METHOD 03/07/2025 7:12 AM EDT [facility] MCH 27.8 27.0 - 32.0 pcg LAB HEMETOLOGY METHOD 03/07/2025 7:12 AM EDT [facility] MCHC 32.7 32.0 - 37.0 g/dL LAB HEMETOLOGY METHOD 03/07/2025 7:12 AM EDT [facility] RDW 14.6 11.0 - 15.0 % LAB HEMETOLOGY METHOD 03/07/2025 7:12 AM EDT [facility] Platelets 251 130 - 400 K/mcL LAB HEMETOLOGY METHOD 03/07/2025 7:12 AM EDT [facility] MPV 9.2 7.0 - 11.0 FL LAB HEMETOLOGY METHOD 03/07/2025 7:12 AM EDT [facility] NRBC 0.0 <1.0 % LAB HEMETOLOGY METHOD 03/07/2025 7:12 AM [facility] NRBC Absolute 0.00 <0.10 K/mcL LAB HEMETOLOGY METHOD 03/07/2025 7:12 AM [facility] Neutrophils Relative 74.2 % LAB HEMETOLOGY METHOD 03/07/2025 7:12 AM [facility] Lymphocytes Relative 10.7 % LAB HEMETOLOGY METHOD 03/07/2025 7:12 AM [facility] Monocytes Relative 7.3 % LAB HEMETOLOGY METHOD 03/07/2025 7:12 AM [facility] Eosinophils Relative 5.7 % LAB HEMETOLOGY METHOD 03/07/2025 7:12 AM [facility] Basophils Relative 0.7 % LAB HEMETOLOGY METHOD 03/07/2025 7:12 AM [facility] Immature Granulocytes Relative 1.4 % LAB HEMETOLOGY METHOD 03/07/2025 7:12 AM [facility] Neutrophils Absolute 7.43(H) 1.50 - 7.00 K/mcL LAB HEMETOLOGY METHOD 03/07/2025 7:12 AM [facility] Lymphocytes Absolute 1.07 1.00 - 5.00 K/mcL LAB HEMETOLOGY METHOD 03/07/2025 7:12 AM [facility] Monocytes Absolute 0.73 0.20 - 1.00 K/mcL LAB HEMETOLOGY METHOD 03/07/2025 7:12 AM [facility] Eosinophils Absolute 0.57(H) 0.00 - 0.50 K/mcL LAB HEMETOLOGY METHOD 03/07/2025 7:12 AM [facility] Basophils Absolute 0.07 0.00 - 0.20 K/mcL LAB HEMETOLOGY METHOD 03/07/2025 7:12 AM EDT [facility] Immature Granulocytes Absolute 0.14(H) 0.00 - 0.03 K/mcL LAB HEMETOLOGY METHOD 03/07/2025 7:12 AM EDT [facility] Blood Venous blood specimen / Unknown Venipuncture / Unknown 03/07/2025 6:56 AM EDT 03/07/2025 7:02 AM EDT [facility] BLOOD ORDERABLES Final Result Performing Organization Address [facility] Co de Phone Number [facility] [address] [place] [address], [place] [phone] * Magnesium (03/07/2025 6:56 AM EDT) Only the most recent of4 resultswithin the time period is included. Magnesium 2.1 1.9 - 2.6 mg/dL LAB CHEMISTRY METHOD 03/07/2025 7:32 AM EDT [facility] Blood Venous blood specimen / Unknown Venipuncture / Unknown 03/07/2025 6:56 AM EDT 03/07/2025 7:02 AM EDT [facility] BLOOD ORDERABLES Final Result Performing Organization Address City/[facility]/ZIP Co de Phone Number [facility] [address] [place] [address], [place] [phone] * (ABNORMAL) Basic metabolic panel (03/07/2025 6:56 AM EDT) Only the most recent of3 resultswithin the time period is included. Sodium 140 133 - 145 mmol/L LAB CHEMISTRY METHOD 03/07/2025 7:32 AM EDT [facility] Potassium 3.9 3.5 - 5.5 mmol/L LAB CHEMISTRY METHOD 03/07/2025 7:32 AM EDT [facility] Chloride 106 96 - 110 mmol/L LAB CHEMISTRY METHOD 03/07/2025 7:32 AM [facility] CO2 27 21 - 32 mmol/L LAB CHEMISTRY METHOD 03/07/2025 7:32 AM [facility] Anion Gap 7 3 - 11 LAB CHEMISTRY METHOD 03/07/2025 7:32 AM [facility] Glucose 178(H) 70 - 100 mg/dL LAB CHEMISTRY METHOD 03/07/2025 7:32 AM [facility] BUN 13 5 - 25 mg/dL LAB CHEMISTRY METHOD 03/07/2025 7:32 AM [facility] Creatinine 0.84 0.70 - 1.30 mg/dL LAB CHEMISTRY METHOD 03/07/2025 7:32 AM [facility] eGFR 94 >=60 mL/min/1. 73m2 LAB CHEMISTRY METHOD 03/07/2025 7:32 AM [facility] Comment:Calculation based on the Chronic Kidney Disease Epidemiology Collaboration (CKD-EPI) equation refit without adjustment for race. BUN/Creatinine Ratio 15.5 LAB CHEMISTRY METHOD 03/07/2025 7:32 AM [facility] Calcium 9.2 8.5 - 10.5 mg/dL LAB CHEMISTRY METHOD 03/07/2025 7:32 AM [facility] Blood Venous blood specimen / Unknown Venipuncture / Unknown 03/07/2025 6:56 AM EDT 03/07/2025 7:02 AM EDT us Carmen KIRAN LAB BLOOD ORDERABLES Final Result [facility] [address] [place] [address], * Vancomycin, trough (03/06/2025 10:26 AM EDT) Vancomycin Trough 11.8 10.0 - 20.0 mcg/mL LAB CHEMISTRY METHOD 03/06/2025 11:10 AM EDT [facility] Blood Venous blood specimen / Unknown Venipuncture / Unknown 03/06/2025 10:26 AM EDT 03/06/2025 10:31 AM EDT us Claudio Archer MD LAB BLOOD ORDERABLES Final Res ult Performing Organization Address [facility]/ZIP Co de Phone Number [facility] [address] [place] [address], [place] [phone] * Tissue exam (03/06/2025 8:33 AM EDT) Final Diagnosis Bone, Toe, Right, 3rd -amputation: -VIABLE APPEARING BONE 03/10/2025 1:15 PM EDT [facility] Gross Description A. Toe, Right, 3rd - clean margin: Labeled right 3rd toe R . Received in formalin is a 1.2 cm in greatest diameter shaving of yellow to red indurated bone. The smooth bony margin is inked red, removed en face and submitted in one cassette, one piece following decalcificat ion. TS 03/10/2025 1:15 PM EDT [facility] Disclaimer Unless otherwise specified, all tissue is 10% NB formalin fixed and paraffin embedded. 03/10/2025 1:15 PM EDT [facility] Bone Structure of toe of right foot / Unknown 03/06/2025 8:33 AM EDT 03/08/2025 5:36 AM EDT us Sergey Dugan DPM LAB PATHOLOGY ORDERABLES Fi nal Result Performing Organization Address [facility]/ZIP Co de Phone Number [facility] [address] [place] [address], [place] [phone] * (ABNORMAL) Culture wound deep (03/06/2025 8:33 AM EDT) Culture, Wound Staphylococcus lugdunensis(A) ISABELLE 03/09/2025 8:39 AM EDT [facility] Comment: The organism value for this result has been updated. These results have been appended to the previously preliminary verified report. This is an edited result. Previous organism was Staphylococcus coagulase negative on 03/08/2025 at 1053 EDT. Culture, Wound Corynebacterium species(A) ISABELLE 03/09/2025 8:39 AM EDT [facility] Comment: The organism value for this result has been updated. These results have been appended to the previously preliminary verified report. Gram Stain Result Few Polymorphonuclear leukocytes 03/09/2025 8:39 AM EDT [facility] Gram Stain Result No Epithelial cells 03/09/2025 8:39 AM EDT [facility] Gram Stain Result No organisms seen 03/09/2025 8:39 AM EDT [facility] Swab Structure of toe of right foot / Unknown 03/06/2025 8:33 AM EDT 03/06/2025 9:47 AM EDT Narrative Organism Antibiotic Method Susceptibility Staphylococcus lugdunensis Benzylpenicillin ISABELLE >=0.5 ug/ml: Resistant Staphylococcus lugdunensis Oxacillin ISABELLE 0.5 ug/ml: Susceptible Staphylococcus lugdunensis Gentamicin ISABELLE <=0.5 ug/ml: Susceptible Staphylococcus lugdunensis Ciprofloxacin ISABELLE <=0.5 ug/ml: Susceptible Staphylococcus lugdunensis Levofloxacin ISABELLE 0.25 ug/ml: Susceptible Staphylococcus lugdunensis Erythromycin ISABELLE >=8 ug/ml: Resistant Staphylococcus lugdunensis Clindamycin ISABELLE <=0.25 ug/ml: Resistant Staphylococcus lugdunensis Vancomycin ISABELLE 1 ug/ml: Susceptible Staphylococcus lugdunensis Tetracycline ISABELLE <=1 ug/ml: Susceptible Staphylococcus lugdunensis Rifampin ISABELLE <=0.5 ug/ml: Susceptible Sergey Dugan DPM LAB MICROBIOLOGY - GENERAL ORDERABLES Final Result Performing Organization Address [facility]/ZIP Co de Phone Number [facility] [address] [place] [address], * MRSA molecular study (03/05/2025 12:15 PM EDT) MRSA Screen PCR Not Detected Not Detected LAB MICROBIOLOGY METHOD 03/05/2025 2:05 PM EDT [facility] Swab Nasopharyngeal structure / Unknown Non-blood Collection / Unknown 03/05/2025 12:15 PM EDT 03/05/2025 12:38 PM EDT Carmen KIRAN LAB MICROBIOLOGY - GENERAL ORDERABLES Final Result Performing Organization Address [facility] Co de Phone Number [facility] [address] [place] [address], * MR Foot wo and w Contrast Right (03/05/2025 8:10 AM EDT) Anatomical Region Laterality Modality Lower Extremities, Foot Right Magnetic Resonance 03/05/2025 8:44 AM EDT Impressions 03/05/2025 8:49 AM EDT Soft tissue wound to the distal aspect of the 3rd toe with osteomyelitis of the 3rd distal phalanx. No abscess. -------- FINAL REPORT -------- Dictated By: LIONEL SANDOVAL Dictated Date: 03/05/2025 08:44 ET Assigned Physician: LIONEL SANDOVAL Reviewed and Electronically Signed By: LIONEL SANDOVAL Signed Date: 03/05/2025 08:49 ET Workstation ID: [id number] Transcribed By: Self Edit Transcribed Date: 03/05/2025 08:44 ET Narrative 03/05/2025 8:49 AM EDT PROCEDURE: Right foot MRI INDICATION: Ulcer TECHNIQUE: Multiplanar, multisequence MRI of the right foot without and with contrast. 20 mL Dotarem injected intravenously without complication. COMPARISON: No priors available. FINDINGS: There is a soft tissue wound at the distal aspect of the 3rd toe with marrow edema and loss of normal cortical T1 signal at the distal phalanx of the 3rd toe. 4th toe amputation at the level of the metatarsophalangeal joint. No fracture or other marrow signal abnormality to suggest osteomyelitis elsewhere. Postsurgical changes related to the 1st metatarsal osteotomy with severe osteoarthritis at the 1st metatarsophalangeal joint. Degenerative subluxation and severe osteoarthritis at the 1st interphalangeal joint. Severe osteoarthritis and subluxation seen at the 2nd metatarsophalangeal joint. Diffuse muscle atrophy. No full-thickness tendon rupture. No mass or fluid collection. Procedure Note Lionel Sandoval MD - 03/05/2025 PROCEDURE: Right foot MRI INDICATION: Ulcer TECHNIQUE: Multiplanar, multisequence MRI of the right foot without andwith contrast. 20 mL Dotarem injected intravenously withoutcomplication. COMPARISON: No priors available. FINDINGS: There is a soft tissue wound at the distal aspect of the 3rd toe withmarrow edema and loss of normal cortical T1 signal at the distal phalanxof the 3rd toe. 4th toe amputation at the level of the metatarsophalangeal joint. No fracture or other marrow signal abnormality to suggest osteomyelitiselsewhere. Postsurgical changes related to the 1st metatarsal osteotomy with severeosteoarthritis at the 1st metatarsophalangeal joint. Degenerativesubluxation and severe osteoarthritis at the 1st interphalangeal joint.Severe osteoarthritis and subluxation seen at the 2nd metatarsophalangealjoint. Diffuse muscle atrophy. No full-thickness tendon rupture. No mass or fluid collection. IMPRESSION: Soft tissue wound to the distal aspect of the 3rd toe with osteomyelitisof the 3rd distal phalanx. No abscess. -------- FINAL REPORT -------- Dictated By: LIONEL SANDOVAL Dictated Date: 03/05/2025 08:44 ET Assigned Physician: LIONEL SANDOVAL Reviewed and Electronically Signed By: LIONEL SANDOVAL Signed Date: 03/05/2025 08:49 ET Workstation ID: [id number] Transcribed By: Self Edit Transcribed Date: 03/05/2025 08:44 ET Remberto Velez MD IMG MRI PROCEDURES Final Res ult * (ABNORMAL) Hemoglobin A1c (03/05/2025 5:49 AM EDT) Hemoglobin A1C 7.7(H) <6.5 % LAB CHEMISTRY METHOD 03/05/2025 10:56 AM EDT [facility] Mean Bld Glu Estim. 174 mg/dL LAB CHEMISTRY METHOD 03/05/2025 10:56 AM EDT [facility] Blood Venous blood specimen / Unknown Venipuncture / Unknown 03/05/2025 5:49 AM EDT 03/05/2025 6:11 AM EDT Carmen KIRAN LAB BLOOD ORDERABLES Final Result [facility] [address] [place] [address], [place] [phone] * Vascular US duplex lower extremity venous right (03/04/2025 9:02 PM EDT) Anatomical Region Laterality Modality Vascular, Abdomen Ultrasound 03/05/2025 2:52 AM EDT Impressions 03/05/2025 2:53 AM EDT No deep vein thrombosis identified in the right lower extremity veins. -------- FINAL REPORT -------- Dictated By: Leonor Jara Dictated Date: 03/05/2025 02:52 ET Assigned Physician: Leonor Jara Reviewed and Electronically Signed By: Leonor Jara Signed Date: 03/05/2025 02:53 ET Workstation ID: [id number] Transcribed By: Self Edit Transcribed Date: 03/05/2025 02:52 ET Narrative 03/05/2025 2:53 AM EDT INDICATION: edema COMPARISON: None. TECHNIQUE: Ultrasound of the right lower extremity veins is performed using color-flow Doppler, graded compression with B mode Doppler with spectral analysis FINDINGS: Right lower extremity subcutaneous edema. The common femoral, superficial femoral and popliteal veins compress normally throughout their length. Normal response to distal augmentation is seen with calf compression. The right peroneal vein is not visualized due to overlying subcutaneous edema. The right posterior tibial vein is suboptimally evaluated but appears patent. Procedure Note Leonor Jara MD - 03/05/2025 INDICATION: edema COMPARISON: None. TECHNIQUE: Ultrasound of the right lower extremity veins is performedusing color-flow Doppler, graded compression with B mode Doppler withspectral analysis FINDINGS: Right lower extremity subcutaneous edema. The common femoral,superficial femoral and popliteal veins compress normally throughout theirlength. Normal response to distal augmentation is seen with calfcompression. The right peroneal vein is not visualized due to overlyingsubcutaneous edema. The right posterior tibial vein is suboptimallyevaluated but appears patent. IMPRESSION: No deep vein thrombosis identified in the right lower extremity veins. -------- FINAL REPORT -------- Dictated By: Leonor Jara Dictated Date: 03/05/2025 02:52 ET Assigned Physician: Leonor Jara Reviewed and Electronically Signed By: Leonor Jara Signed Date: 03/05/2025 02:53 ET Workstation ID: [id number] Transcribed By: Self Edit Transcribed Date: 03/05/2025 02:52 ET us Claudio Acrher MD CV VASCULAR PROCEDURES Final R esult * Blood Culture, Peripheral #2 (03/04/2025 6:34 PM EDT) Only the most recent of2 resultswithin the time period is included. Culture, Blood No growth at 5 days 03/09/2025 8:01 PM EDT [facility] Blood Venous blood specimen / Unknown Venipuncture / Unknown 03/04/2025 6:34 PM EDT 03/04/2025 6:53 PM EDT us Remberto Velez MD LAB MICROBIOLOGY - GENERAL O RDERABLES Final Result [facility] [address] [place] [address], [place] [phone] * APTT (03/04/2025 6:34 PM EDT) aPTT 34.1 24.1 - 39.3 sec LAB COAGULATION METHOD 03/04/2025 7:05 PM EDT [facility] Blood Venous blood specimen / Unknown Venipuncture / Unknown 03/04/2025 6:34 PM EDT 03/04/2025 6:53 PM EDT Remberto Velez MD LAB BLOOD ORDERABLES Final R esult Performing Organization Address City/[facility]/ZIP Co de Phone Number [facility] [address] [place] [address], [place] [phone] * Protime-INR (03/04/2025 6:34 PM EDT) Pathologist [facility] Protime 12.7 10.6 - 13.9 sec LAB COAGULATION METHOD 03/04/2025 7:05 PM EDT [facility] INR 1.0 LAB COAGULATION METHOD 03/04/2025 7:05 PM EDT [facility] Blood Venous blood specimen / Unknown Venipuncture / Unknown 03/04/2025 6:34 PM EDT 03/04/2025 6:53 PM EDT Remberto Velez MD LAB BLOOD ORDERABLES Final R esult Performing Organization Address City/[facility]/ZIP Co de Phone Number [facility] [address] [place] [address], [place] [phone] * Lactate, with reflex (03/04/2025 4:57 PM EDT) LACTIC ACID 1.8 0.4 - 2.0 mmol/L LAB CHEMISTRY METHOD 03/04/2025 5:49 PM EDT [facility] Blood Venous blood specimen / Unknown Venipuncture / Unknown 03/04/2025 4:57 PM EDT 03/04/2025 5:06 PM EDT us Rubén Pena MD LAB BLOOD ORDERABLES Final Resu lt [facility] [address] [place] [address], [place] [phone] * (ABNORMAL) Comprehensive metabolic panel (03/04/2025 4:57 PM EDT) Pathologist [facility] Sodium 136 133 - 145 mmol/L LAB CHEMISTRY METHOD 03/04/2025 5:54 PM EDT [facility] Potassium 4.1 3.5 - 5.5 mmol/L LAB CHEMISTRY METHOD 03/04/2025 5:54 PM [facility] Chloride 105 96 - 110 mmol/L LAB CHEMISTRY METHOD 03/04/2025 5:54 PM [facility] CO2 29 21 - 32 mmol/L LAB CHEMISTRY METHOD 03/04/2025 5:54 PM T [facility] Anion Gap 2(L) 3 - 11 LAB CHEMISTRY METHOD 03/04/2025 5:54 PM [facility] Glucose 158(H) 70 - 100 mg/dL LAB CHEMISTRY METHOD 03/04/2025 5:54 PM [facility] BUN 25 5 - 25 mg/dL LAB CHEMISTRY METHOD 03/04/2025 5:54 PM [facility] Creatinine 0.84 0.70 - 1.30 mg/dL LAB CHEMISTRY METHOD 03/04/2025 5:54 PM [facility] eGFR 94 >=60 mL/min/1. 73m2 LAB CHEMISTRY METHOD 03/04/2025 5:54 PM [facility] Comment:Calculation based on the Chronic Kidney Disease Epidemiology Collaboration (CKD-EPI) equation refit without adjustment for race. BUN/Creatinine Ratio 29.8 LAB CHEMISTRY METHOD 03/04/2025 5:54 PM [facility] Calcium 9.4 8.5 - 10.5 mg/dL LAB CHEMISTRY METHOD 03/04/2025 5:54 PM EDT [facility] AST (SGOT) 23 10 - 42 unit/L LAB CHEMISTRY METHOD 03/04/2025 5:54 PM EDT [facility] ALT (SGPT) 25 10 - 60 unit/L LAB CHEMISTRY METHOD 03/04/2025 5:54 PM EDT [facility] Alkaline Phosphatase 77 42 - 121 unit/L LAB CHEMISTRY METHOD 03/04/2025 5:54 PM EDT [facility] Total Protein 6.7 6.0 - 8.0 g/dL LAB CHEMISTRY METHOD 03/04/2025 5:54 PM EDT [facility] Albumin 3.5 3.2 - 5.0 g/dL LAB CHEMISTRY METHOD 03/04/2025 5:54 PM EDT [facility] Total Bilirubin 1.1 0.0 - 1.4 mg/dL LAB CHEMISTRY METHOD 03/04/2025 5:54 PM EDT [facility] Blood Venous blood specimen / Unknown Venipuncture / Unknown 03/04/2025 4:57 PM EDT 03/04/2025 5:06 PM EDT us Rubén Pena MD LAB BLOOD ORDERABLES Final Resu lt [facility] [address] [place] [address], from Last 3 Months Insurance [employer] MEDICARE Advance Directives * Full Code - Default (Latest Code Status on File) Date Activated Date Inactivated Comments 03/04/2025 8:08 PM 03/07/2025 1:21 PM This is order is used when code status has not been discussed with the patient, or code status is otherwise unknown/unconfirmed To update the patient's code status, place a code status order. Do not modify or discontinue any currently active code status orders. Care Teams Valve Technician Relationship Specialty Start Date End Date Fredrick Howell NP [address] [place], [place] PCP - General Family Medicine 03/04/25
== END 2025-03-24 10:02 | disposition home or self-care (01) ==
LOC: HO.HMGCX 10:01
PROVIDERS: PCP Nurse Practitioner Family; Visit Provider Surgery Vascular Surgery
DX: I65.23 Occlusion and stenosis of bilateral carotid arteries (principal)
CPT/HCPCS: 93880

== ENCOUNTER → 2025-03-24 10:27 | Outpatient (BNV) | payer MEDICARE, SELFPAY | PROVIDERS: PCP Nurse Practitioner Family; Visit Provider Radiology Diagnostic Radiology | DX: I65.23 Occlusion and stenosis of bilateral carotid arteries (principal) | CPT/HCPCS: 93880 ==

== ENCOUNTER 2025-04-29 10:43 | Outpatient (AMB) | payer MEDICARE, SELFPAY ==
--- NOTE | 2025-04-29 10:50 | A.OFFVIS_ITS ---
Intake Visit Reasons: 3m follow up Carotid US 03/24/25 Intake Note: Patient presents for 3 month follow up carotid. No complaints. Accompanied by: Spouse Allergies No Known Allergies Allergy (Verified 04/29/25 10:51) HPI HPI 3m follow up Carotid US 03/24/25: Details: The patient is a 69-year-old male presenting for follow-up regarding carotid ultrasound results. He has three-month surveillance as he had undergone right carotid endarterectomy on 12/07/2024. He reports that he is doing extremely well. The carotid ultrasound was performed to assess for carotid artery stenosis, and the results indicated that both carotid arteries are clear with 0-49% stenosis, which is considered normal. He now presents for follow-up [facility] Medical History AAA (abdominal aortic aneurysm) without rupture Morbid obesity Kamara's palsy HTN (hypertension) (atherosclerosis) Ascending aortic aneurysm Aortic stenosis Hammertoe, bilateral Obesity due to excess calories Tinea pedis Charcot foot due to diabetes mellitus Diabetic polyneuropathy associated with type 2 diabetes mellitus 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 type 2 diabetes mellitus MCC (current) use of insulin RLS (restless legs syndrome) Aortic valve calcification BPH (benign prostatic hyperplasia) Osteomyelitis [place] (obstructive sleep apnea) KAI (acute kidney injury) Surgical History History of right-sided carotid endarterectomy (12/07/24) Hx of cystoscopy H/O colonoscopy History of bunionectomy Amputation toe History of bunionectomy Family History Father Bladder cancer Mother Lung cancer Social History Household Members: Spouse Housing: House Are you a primary progressive care unit registered nurse to a significant other at home: No Do you presently have visiting nurse or other home services: No Alcohol intake: current Alcohol intake frequency: holidays/special occasions only Patient Tobacco Use Status: Never used Tobacco e-Cigarette/Vaping Use: Never Used Advance Directives Date on File: 03/18/23 service: No Cognitive needs: No Hearing needs: No Vision needs: Yes Review of Systems Const All systems reviewed & are unremarkable except as noted in HPI and below Reports no additional complaints ENT Reports Normal hearing present Card Denies chest pain, Denies chest pain at rest, Denies chest pain with activity and Denies pedal edema Resp Denies cough GI Denies abdominal pain Musc Denies abnormal gait, Denies muscle cramps and Denies radiating pain into limb Skin/Breast Denies skin ulcer and Denies wounds Neuro Reports Normal hearing present and Denies abnormal gait Psych Reports no additional complaints Physical Exam Const General: cooperative, healthy appearing and comfortable Orientation/consciousness: oriented to person, oriented to place and oriented to time HEENT Head: Yes normal to inspection Neck Neck: Yes normal visual inspection Carotids: no bruits Chest Chest palpation & inspection: normal inspection of the chest Resp Effort & Inspection: normal respiratory effort and able to speak in complete sentences Auscultation: clear to auscultation bilaterally, no crackles, no rales, no rhonchi and no wheezes Cardio Rate: regular rate Rhythm: regular rhythm Heart sounds: S1 normal heart sound present and S2 normal heart sound present Bruits: no carotid bruits Peripheral pulses: Peripheral pulses 2+ throughout GI Inspection: Yes normal to inspection Skin Wounds: no wounds Hair: normal Neuro General: oriented to person, oriented to place and oriented to time Cranial nerves: Yes CN's II-XII intact bilaterally and Yes Normal hearing present Cognition (Neuro): normal cognition Motor exam (neuro): 5/5 motor strength present throughout Extrem Other: venous exam: No significant superficial varicosities or spider telangiectasias, minimal edema General: No clubbing, No cyanosis and No edema Psych Appearance: grossly normal Mental Status: mental status grossly normal Speech and movement: Normal speech and movement present Results Reviewed Results Reviewed: Carotid testing dated 03/24/2025 demonstrates bilateral 0-49% stenosis. Written report and images were reviewed Assessment & Plan Assessment & Plan (1) Carotid stenosis, bilateral: Comment: 12/07/2024 - right carotid endarterectomy Code(s): I65.23 - Occlusion and stenosis of bilateral carotid arteries Category: Medical Plan: In short patient has asymptomatic carotid disease. We have reviewed signs and symptoms of a stroke. We also discussed risk factor modification inclusive a healthy diet low in cholesterol. The patient will follow up with us with surveillance ultrasound of the carotids six-month. Should there be any changes or signs or symptoms of a stroke we will be happy to see them back sooner. Thank you for allowing us to participate in this patient's care. If there are any questions or concerns please do not hesitate to contact us. (2) PAD (peripheral artery disease): Comment: 03/13/2017 - right 4th toe amputation Code(s): I73.9 - Peripheral vascular disease, unspecified Category: Medical Plan: Patient is scheduled for surveillance follow-up 10/16/2025. We will coordinate for carotid testing at same time Orders: Orders US carotid duplex BI 6 Months I65.23 - Occlusion and stenosis of bilateral carotid arteries Coding Level of Care Code Est Pt Level 4 (35789) Complex EM visit Add On G2211 Diagnoses Carotid stenosis, bilateral I65.23 PAD (peripheral artery disease) I73.9
== END 2025-04-29 11:04 | disposition home or self-care (01) ==
LOC: HO.HVS 10:44
PROVIDERS: PCP Nurse Practitioner Family; Visit Provider Surgery Vascular Surgery
DX: I65.23 Occlusion and stenosis of bilateral carotid arteries (principal); I73.9 Peripheral vascular disease, unspecified
CPT/HCPCS: 99214; G2211

== ENCOUNTER → 2025-04-29 10:43 | Outpatient (BNVA) | payer MEDICARE, SELFPAY | PROVIDERS: PCP Nurse Practitioner Family; Visit Provider Surgery Vascular Surgery | DX: I65.23 Occlusion and stenosis of bilateral carotid arteries (principal); I73.9 Peripheral vascular disease, unspecified | CPT/HCPCS: 99212 ==

== ENCOUNTER 2025-06-07 06:00 | Day surgery (SDC) | payer MEDICARE, SELFPAY ==
--- NOTE | 2025-06-02 14:55 | HO.ANESPROP2 ---
Documented by User: Paula Cristobal NP 06/02/25 15:00 HPI - Anesthesia Eval Consult details Narrative: 70yo M for Laser Ablation Prostate w/Green Light s/p carotid 11/2024 with GA-ETT 8 Pt doing well at vascular f/u appointment 03/2025 with nml ultrasound PER PAT 10/2024 Right sided kamara's palsy started 5 months ago DM: Glucose monitor, FBS ~ 170's [place]: Declines CPAP - discussed post-op risk Anesthesia Pre-Procedure Meds Is the patient on any of the following meds?: GLP1/DPP4 PMFSH Active Problems Active Problems: All Active Problems History of bladder stone (Acute) Status post carotid endarterectomy (Acute) Pre-operative cardiovascular examination (Acute) Right cavernous carotid stenosis (Acute) Carotid stenosis, bilateral (Acute) Pulsatile tinnitus (Acute) Hearing abnormally acute (Acute) Right carotid bruit (Acute) Dermatitis (Acute) Speech abnormality (Acute) BPH loc w urin obs/LUTS (Acute) Bladder calculus (Acute) Pre-op evaluation (Acute) Intermittent gross hematuria (Acute) Leukocytosis (Acute) Vitamin D deficiency (Acute) Proteinuria (Acute) Encounter for subsequent annual wellness visit (AWV) in Medicare patient (Acute) Microalbuminuria (Acute) Hemorrhoids (Acute) Diverticulosis of colon (Acute) Erectile dysfunction (Acute) Urethral stricture (Acute) Varicose veins of right lower extremity with inflammation (Acute) Charcot foot due to diabetes mellitus (Acute) PAD (peripheral artery disease) (Acute) Microscopic hematuria (Acute) Incomplete bladder emptying (Acute) Systolic murmur (Acute) Frequent urination (Acute) Decreased dorsalis pedis pulse (Acute) Screening for colon cancer (Acute) Encounter for annual wellness visit (AWV) in Medicare patient (Acute) Screening PSA (prostate specific antigen) (Acute) Tubular adenoma of colon (Acute) Encounter for screening colonoscopy (Acute) Type 2 diabetes mellitus with hyperglycemia (Acute) HTN (hypertension) (Acute) Screening for colon cancer (Acute) Uncontrolled diabetes mellitus (Acute) Dyslipidemia (Acute) Dysuria (Acute) Hematuria (Acute) Essential hypertension (Acute) Diabetes (Acute) Kamara's palsy (Acute) Ascending aortic aneurysm (Acute) BPH (benign prostatic hyperplasia) (Acute) Aortic stenosis (Acute) Obesity due to excess calories (Acute) Tinea pedis (Acute) Charcot foot due to diabetes mellitus (Acute) Diabetic polyneuropathy associated with type 2 diabetes mellitus (Acute) 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 type 2 diabetes mellitus (Acute) 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) Past Medical History Medical History (Updated 06/03/25 @ 14:48 by Rosalia Hyde RN) AAA (abdominal aortic aneurysm) without rupture Morbid obesity Kamara's palsy HTN (hypertension) (atherosclerosis) Aortic stenosis Hammertoe, bilateral Obesity due to excess calories Tinea pedis Charcot foot due to diabetes mellitus Diabetic polyneuropathy associated with type 2 diabetes mellitus 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 type 2 diabetes mellitus residential (current) use of insulin RLS (restless legs syndrome) Aortic valve calcification BPH (benign prostatic hyperplasia) Osteomyelitis [place] (obstructive sleep apnea) KAI (acute kidney injury) Family History Family History Father Bladder cancer Mother Lung cancer Family history of problems with anesthesia: No Surgical History Surgical History (Updated 06/03/25 @ 14:49 by Rosalia Hyde RN) History of right-sided carotid endarterectomy (12/07/24) Hx of cystoscopy H/O colonoscopy History of bunionectomy Amputation toe History of bunionectomy History of Problems with Anesthesia: No Social History Social History Household Members: Spouse Housing: House Are you a primary managed care analyst to a significant other at home: No Do you presently have visiting nurse or other home services: No Alcohol intake: current Alcohol intake frequency: does not drink Patient Tobacco Use Status: Never used Tobacco e-Cigarette/Vaping Use: Never Used Have you been hit, kicked, punched, or otherwise hurt by someone within the past year? If so, by whom?: No Are you DNR?: No Advance Directives: No Advance Directives Information Provided: Yes Advance Directives Date on File: 03/18/23 service: No Cognitive needs: No Hearing needs: No Vision needs: Yes Meds Allergies Allergy/AdvReac Type Severity Reaction Status Date / Time No Known Allergies Allergy Verified 04/29/25 10:51 Home Medications ?Medication ?Instructions ?Recorded ?Confirmed ?Last Taken ?Type cholecalciferol (vitamin D3) 10 10 mcg PO DAILY 12/19/20 06/03/25 12/06/24 History mcg (400 unit) capsule semaglutide 2 mg/dose (8 mg/3 mL) 2 mg subcut QWEEK 07/10/24 06/03/25 05/23/25 History subcutaneous pen injector (Ozempic) aspirin 81 mg tablet,delayed 81 mg PO DAILY 09/23/24 06/03/25 05/23/25 History release (Adult Low Dose Aspirin) insulin glargine U-300 conc 300 56 unit subcut DAILY 11/19/24 06/03/25 06/06/25 History unit/mL (3 mL) subcutaneous pen (Toujeo Max U-300 SoloStar) Exam Pertinent Lab Results Pertinent Lab Results: Laboratory Tests 12/08/24 05:57 WBC 10.3 Hgb 13.2 L Hct 40.2 L Plt Count 194 Sodium 139 Potassium 3.6 Chloride 107 Carbon Dioxide 23 BUN 19 H Creatinine 0.76 Narrative Narrative: US carotid duplex BI 03/2025 IMPRESSION: 1. RIGHT: 0-49% stenosis by ultrasound criteria. 2. LEFT: 0-49% stenosis by ultrasound criteria. EKG 10/2024 EKG Details: EKG shows normal sinus rhythm with sinus arrhythmia ECHO 2023 Conclusions: - Normal left ventricular size and systolic function. There is mildly increased left ventricular wall thickness. The visually estimated ejection fraction is between 60-65%. - Normal right ventricular cavity size and systolic function. - There is mild aortic valve stenosis. Cannot rule out bicuspid valve. - There is moderate dilatation of the ascending aorta measuring 4.80 cm. NM philippe perf SPECT rest & str 10/2024 Impression: 1. Myocardial perfusion imaging study shows no clear evidence of ischemia or infarction. Probably normal myocardial perfusion.. 2. Gated LVEF is 60% during stress and 54% during rest. 3. Transient ischemic dilatation not present. Assessment and Plan Assessment Anesthesia Assessment: Chart Reviewed Final Anesthetic Review Family History of Problems with Anesthesia: No History of Problems with Anesthesia: No Documented by User: Guera Avalos MD 06/07/25 07:18 [facility] Past Medical History Medical History (Updated 06/03/25 @ 14:48 by Rosalia Hyde, RN) AAA (abdominal aortic aneurysm) without rupture Morbid obesity Kamara's palsy HTN (hypertension) (atherosclerosis) Aortic stenosis Hammertoe, bilateral Obesity due to excess calories Tinea pedis Charcot foot due to diabetes mellitus Diabetic polyneuropathy associated with type 2 diabetes mellitus 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 type 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 RLS (restless legs syndrome) Aortic valve calcification BPH (benign prostatic hyperplasia) Osteomyelitis [place] (obstructive sleep apnea) KAI (acute kidney injury) Family History Family History Father Bladder cancer Mother Lung cancer Surgical History Surgical History (Updated 06/03/25 @ 14:49 by Rosalia Hyde, RN) History of right-sided carotid endarterectomy (12/07/24) Hx of cystoscopy H/O colonoscopy History of bunionectomy Amputation toe History of bunionectomy Social History Social History Household Members: Spouse Housing: House Are you a primary managed care analyst to a significant other at home: No Do you presently have visiting nurse or other home services: No Alcohol intake: current Alcohol intake frequency: does not drink Patient Tobacco Use Status: Never used Tobacco e-Cigarette/Vaping Use: Never Used Have you been hit, kicked, punched, or otherwise hurt by someone within the past year? If so, by whom?: No Are you DNR?: No Advance Directives: No Advance Directives Information Provided: Yes Advance Directives Date on File: 03/18/23 service: No Cognitive needs: No Hearing needs: No Vision needs: Yes Meds Allergies Allergy/AdvReac Type Severity Reaction Status Date / Time No Known Allergies Allergy Verified 04/29/25 10:51 Home Medications ?Medication ?Instructions ?Recorded ?Confirmed ?Last Taken ?Type cholecalciferol (vitamin D3) 10 10 mcg PO DAILY 12/19/20 06/03/25 12/06/24 History mcg (400 unit) capsule semaglutide 2 mg/dose (8 mg/3 mL) 2 mg subcut QWEEK 07/10/24 06/03/25 05/23/25 History subcutaneous pen injector (Ozempic) aspirin 81 mg tablet,delayed 81 mg PO DAILY 09/23/24 06/03/25 05/23/25 History release (Adult Low Dose Aspirin) insulin glargine U-300 conc 300 56 unit subcut DAILY 11/19/24 06/03/25 06/06/25 History unit/mL (3 mL) subcutaneous pen (Toujeo Max U-300 SoloStar) Exam Airway Mallampati Class: II TM Dist: >3cm Neck ROM: Full Heart: rrr Lungs: cta Assessment and Plan Assessment Anesthesia Assessment: Anesthesia Plan Discussed Final Anesthetic Review NPO: Yes ASA Class: III Final Preanesthetic Review: No Changes in Pt Med Stat, Meds/Allgs Chart Reviewed and Consent Obtained/Reviewed Patient Risk: Intermediate Procedure Risk: Low Anesthetic Plan Anesthetic Plan: GA Disposition: Standard PACU
[2025-06-03 14:58] VITALS: BMI 38.5
[2025-06-07 06:03] VITALS: BP 172/81; PULSE 67; RESP 18; TEMP 36.4; O2SAT 95; BMI 37.4
[2025-06-07] MEDS: Lactated Ringers 1,000 ML 100 ML IVCONT (06:24)
[2025-06-07 06:29] LABS: Glucose, Whole Blood 182 mg/dL (60-115)
--- NOTE | 2025-06-07 07:43 | MHC.SHP ---
Pre-Procedural Eval Section A - 24 Hr Update-Section A only Date of Service: 06/07/25 The patient is an INPATIENT: No Changes since office visit: No Cold of Flu in the past 2 weeks, No New Medical Problems, No Changes in Medication and No Patient answered all questions The patient has been examined within 24 hours of the surgical procedure. The History & Physical has been completed within 30 days and I have reviewed it.: Yes Section B - Complete if H&P > 30 days Chief Complaint: Benign prostatic hyperplasia without lower urinary Details of Present Illness: Bladder stones Relevant Social History: None Present Medications: see Short Stay Collaborative assessment History of Previous Operations: No relevant previous surgery Allergies: Allergies Allergy/AdvReac Type Severity Reaction Status Date / Time No Known Allergies Allergy Verified 04/29/25 10:51 Review of Systems Sugical H&P ROS: Negative: Constitution, Cardiovascular, Respiratory, Neurological, Psychiatric, Hem-Onc, Allergic/Immunologic, Gastrointestinal, Genitourinary, Musculoskeletal, Integumentary, Endocrine and Eyes/Ears/Nose/Throat Exam Surgical H&P Exam: Normal: HEENT, Normal: Heart, Normal: Lungs, Normal: Extremities, Normal: Abdomen, Normal: Skin and Normal: Neurological Plan Diagnosis/Plan: Unchanged (Cystoscopy, holmium laser bladder stone, GreenLight laser prostate) I have reviewed the history and physical and performed a pertinent physical examination on my patient. No changes have occurred unless specified. Time Spent With Patient Time: Total time managing care of this patient today ____ minutes.
[2025-06-07 10:21] VITALS: BP 135/92; PULSE 75; RESP 16; TEMP 36.1; O2SAT 96
--- NOTE | 2025-06-07 10:25 | P.OP_ITS ---
Operative Note Operative Note Date of Service: 06/07/25 Narrative: PreOperative Diagnosis: - multiple bladder stones - Bladder outlet obstruction Post Operative Diagnosis: - multiple Bladder stones - bladder outlet obstruction Procedure: - multiple bladder stones - holmium laser breakage x 6 - modifier 22 - GreenLight Laser Enucleation of the prostate CPT 55844 Surgeon: Dr Parminder Au Anesthesia: General History of bladder outlet obstruction. Treated with alpha-kamilla and other medications. Still with symptoms. On cystoscopy in office has [trilobar prostate] [tight bladder neck]. Recommendation for prostate procedure with laser enucleation of prostate. Risks and benefits have been discussed. Focus was placed on development of retrograde ejaculation which is a normal part of this procedure. Published revision rates are approximately 30-50% at 8-10 years following the procedure. Procedure: After informed consent was verified the patient was brought to the operating room and placed in a supine position. Anesthesia was administered per protocol. Patient was placed in modified dorsal lithotomy position and prepped and draped in a sterile fashion. Safety pause time-out was confirmed. Antibiotics have been given. A Twenty-four Marshallese laser cystoscope was inserted per urethra. No abnormalities were found of the anterior and bulbar urethra. The prostatic urethra shows bilobar hypertrophy with multiple 2 cm bladder stones x6. The bladder was examined and both ureteric orifices were seen in their normal positions away from the area of interest. Bladder trabeculation grade 1/2. Holmium laser breaking of stones - Using a 980nm holmium laser with bladder stones settings the stone was slowly broken into small pieces - power 3.1, 8-10 hertz. The small pieces were irrigated from the bladder. This took proximally 90 minutes to performed. This is over 100% longer than typical. Modifier 22. 28 total W, 97,000 joules of the holmium laser A GreenLight laser with attached pressure bag Normal Saline cooling irrigation was used. At initial setting of 80 sawant incisions were made at the 5 and 7 o'clock position. The incisions were taken down from the bladder neck down to the area just proximal of the veru. These were gradually deepened in order to define the lateral aspects of the median lobe area and separate the lateral lobe areas from the median lobe.. The deep boundary of enucleation was defined by the prostate surgical capsule. Once clearly defined the grooves were extended in the lateral directions in order to create a deep groove and begin to undermined the lateral lobe areas. Power settings of 100-120 w. Starting with the patient's left lateral lobe. First the 05:00 o'clock groove was further developed. This was moved in the lateral direction to undermine the tissue on the lateral side running from the bladder neck to the prostate apex. The ureteric orifice was used to guide incisions. The laser fiber was placed at the 1 o'clock position and a secondary groove was developed down to the level of prostatic capsule. The creation of a second deep groove defined a segment of intervening tissue similar to a slice of orange. At the apex of the prostate the laser was used to vertically link the two grooves releasing the intervening tissue and creating a segment of tissue. This tissue was then removed with a combination of enucleation and ablation working from the apex toward the bladder neck. A similar procedure was repeated on the patient's right-hand side. The only differences being the position of the lateral groove at the 7 o'clock position and the secondary groove at the 11 o'clock position, Otherwise the procedure was developed in a mirror fashion. After the majority of tissue had been debulked remnant tissue was ablated with the side fire laser and the curve of the prostate followed up each side wall clearly defining the anterior remnant strip that remained between the 11 and 1 o'clock positions. At completion debris and pieces of prostate were removed from the bladder with irrigation. Both ureteric orifices were reviewed again in shown to be patent in away from any areas of energy damage. The apical area was reviewed and any stray mucosal ooze was controlled. A 22 Marshallese 30 cc balloon Xiong catheter was placed into the bladder using a flexible stylet. Clear efflux was obtained upon irrigation with a Renata piston syringe. 30 cc was placed in the balloon and gentle traction was placed. A snap was used to hold tension on the catheter to control bleeding during patient moved and transported. A drainage bag was placed. A belladonna and opiate suppository was placed in order to assist in pos tprocedure pain management. Once transportation is complete to the PACU the snap will be removed. The patient tolerated the procedure well, he was extubated in the operating and transferred in a stable condition to the recovery area. Total Power 86 kJ Lasing time 13:21 Pathology: Stone debris Drains: Xiong catheter
[2025-06-07 10:26] VITALS: BP 128/74; PULSE 69; RESP 16; O2SAT 95
[2025-06-07 10:31] VITALS: BP 126/76; PULSE 67; RESP 16; O2SAT 97
[2025-06-07 10:36] VITALS: BP 133/80; PULSE 72; RESP 16; O2SAT 95
[2025-06-07 10:51] VITALS: BP 102/54; PULSE 63; RESP 18; TEMP 36.1; O2SAT 95
== END 2025-06-07 12:18 | disposition home or self-care (01) ==
PROVIDERS: PCP Nurse Practitioner Family; Visit Provider Urology
PROC: (CPT 52648; principal; 2025-06-07 07:30)
DX: N40.0 Benign prostatic hyperplasia without lower urinary tract symptoms (principal); N32.0 Bladder-neck obstruction; N32.89 Other specified disorders of bladder; N21.0 Calculus in bladder; N28.1 Cyst of kidney, acquired; N52.9 Male erectile dysfunction, unspecified; E11.21 Type 2 diabetes mellitus with diabetic nephropathy; E11.42 Type 2 diabetes mellitus with diabetic polyneuropathy; E11.610 Type 2 diabetes mellitus with diabetic neuropathic arthropathy; I10 Essential (primary) hypertension; I71.40 Abdominal aortic aneurysm, without rupture, unspecified; G51.0 Bell's palsy; G47.33 Obstructive sleep apnea (adult) (pediatric); E66.01 Morbid (severe) obesity due to excess calories; Z79.82 Long term (current) use of aspirin; Z79.4 Long term (current) use of insulin; Z79.84 Long term (current) use of oral hypoglycemic drugs; Z79.899 Other long term (current) drug therapy; Z98.890 Other specified postprocedural states
CPT/HCPCS: 52649; 52317; 82947; 88300; J0131; J1956; J2003; J2405; J2704; J3010

== ENCOUNTER → 2025-06-07 06:00 | Outpatient (BNV) | payer MEDICARE, SELFPAY | PROVIDERS: PCP Nurse Practitioner Family; Visit Provider Urology | DX: N21.0 Calculus in bladder (principal); N32.0 Bladder-neck obstruction | CPT/HCPCS: 52649 ==

== ENCOUNTER → 2025-06-09 08:16 | Outpatient (BNVA) | payer MEDICARE, SELFPAY | PROVIDERS: PCP Nurse Practitioner Family; Visit Provider Urology | DX: Z46.6 Encounter for fitting and adjustment of urinary device (principal); N40.0 Benign prostatic hyperplasia without lower urinary tract symptoms; Z98.890 Other specified postprocedural states | CPT/HCPCS: 51700; 51798 ==